=== PATIENT | male | born 1950 | race Caucasian/White ===

== ENCOUNTER → 2022-03-11 12:16 | Outpatient (CLI) | payer MEDICARE, OTHER, SELFPAY ==
--- NOTE | 2022-03-11 12:32 | XR_ITS ---
FINAL REPORT TECHNIQUE: Chest PA & Lateral CLINICAL HISTORY: dyspnea-- afib FINDINGS: 2 views of the chest were performed. The heart is mildly enlarged. The mediastinum is within normal limits. There is volume loss in the right hemithorax with blunting of the right costophrenic angle probably due to scarring. The left lung is clear. There are no pleural effusions. There is no pneumothorax. The bony thorax appears intact. IMPRESSION: No acute cardiopulmonary process. Reviewed, Interpreted and Dictated by Allen Gee MD Transcribed by Omar Brandt Authenticated by Allen Gee MD on 03/11/2022 02:13:14 PM [facility]
[2022-03-11 14:01] LABS: Basophils # 0.1 K/mm3 (0-0.2); Basophils % 1.6 % (0.1-2.0); Eosinophils # 0.2 K/mm3 (0.0-0.4); Eosinophils % 2.7 % (0.1-12.0); Hematocrit 44.6 % (42.0-52.0); Hemoglobin 14.4 g/dL (14.1-18.0); Lymphocytes % 12.1 % (10-50); Mean Corpuscular HGB Conc 32.2 g/dL (31.8-35.4); Mean Corpuscular Hemoglobin 34.3 pg (27.0-31.2); Mean Corpuscular Volume 106.3 fl (80-94); Mean Platelet Volume 9.2 fl (7.4-10.4); Monocytes # 0.6 K/mm3 (0.1-1.0); Monocytes % 7.7 % (1.7-9.3); Neutrophils # 6.1 K/mm3 (1.8-7.8); Platelet Count 240 K/mm3 (142-424); Red Blood Count 4.19 M/mm3 (4.60-6.20)
[2022-03-11 14:13] LABS: Chloride 104 mmol/L (98-107); Potassium 4.8 mmoL/L (3.5-5.1); Sodium 137 mmol/L (136-145)
[2022-03-11 14:15] LABS: Blood Urea Nitrogen 20 mg/dl (9-20); Estimated Glomerular Filt Rate 50 ml/min (>60); GFR (African American) 61 ML/MIN (>60)
[2022-03-11 14:16] LABS: Alanine Aminotransferase 26 U/L (12-78); Albumin Level 3.9 g/dl (3.5-5.0); Alkaline Phosphatase 30 U/L (38-126); Anion Gap 9.8 mEq/L (5-15); Aspartate Amino Transferase 31 U/L (17-59); Bilirubin,Direct 0.3 mg/dl (0.0-0.4); Bilirubin,Indirect 0.7 mg/dL (0.0-0.9); Bilirubin,Unconjugated 0.7 mg/dL (0.0-1.1); Calcium 8.7 mg/dl (8.4-10.2); Carbon Dioxide 28 mmol/L (22.0-30.0); Glucose 258 mg/dl (74-100); Total Protein,Serum 6.7 g/dl (6.3-8.2)
[2022-03-11 14:46] LABS: Free T4 (Free Thyroxine) 1.22 ng/dl (0.78-2.19)
[2022-03-11 14:47] LABS: Thyroid Stimulating Hormone 2.41 uIU/mL (0.465-4.68)
[2022-03-20 16:39] LABS: 1,25 Dihydroxy Vitamin D 44 pg/mL (.); 1,25-Dihydroxy, Vitamin D-2 <10 pg/mL (.); 1,25-Dihydroxy, Vitamin D-3 44 pg/mL (.)
== END ==
PROVIDERS: PCP Pediatrics; Visit Provider Internal Medicine
DX: I48.91 Unspecified atrial fibrillation (principal); R00.0 Tachycardia, unspecified; R06.00 Dyspnea, unspecified; R94.31 Abnormal electrocardiogram [ECG] [EKG]; E11.9 Type 2 diabetes mellitus without complications; I63.9 Cerebral infarction, unspecified; Z79.4 Long term (current) use of insulin
CPT/HCPCS: 36415; 71046; 80048; 80076; 82652; 84439; 84443; 85025

== ENCOUNTER 2022-03-12 13:25 | Inpatient (IN) | payer MEDICARE, OTHER, SELFPAY ==
--- NOTE | 2022-03-12 07:44 | CA_ITS ---
APPROVED REPORT EXAM: Comprehensive 2D, Doppler, and color-flow Echocardiogram Financial Services Associate: Martha Yun CRT Ht: 5 ft 10 in Wt: 237lbs BSA: 2.24 BP: 143/83 mmHg Indications: Shortness of Breath, Atrial Fibrillation, Diabetes, Lung Ca, R partial pneumonectomy 2D Dimensions Aortic Root 2.01 cm LA Volume 68.20 mL LA Volume Index 30.40 mL/m2 (M/F) 16-34 M-Mode Dimensions RVDd 2.25 cm (0.9-2.6) LA Diam 4.12 cm (1.9-4.0) LVDd 5.28 cm (3.5-5.7) Ao Diam 4.65 cm (2.0-3.7) LVDs 4.32 cm (3.5-5.7) IVSd 0.96 cm (0.6-1.1) PWd 0.75 cm (0.6-1.1) EF (Teich) 37.40% FS 18.20% EDV (Teich) 134.20 mL ESV (Teich) 84.00 mL Aortic Valve AI PHT 106.00 ms AO Peak GR. 3.50 mmHg Pulmonary Valve PV Peak Velocity 106.00 (50-150 cm/s) Tricuspid Valve TR P. Velocity 428.00 cm/s RAP Estimate 10.00 mmHg RVSP 83.10 mmHg Left Ventricle Left atrium is mildly enlarged, left ventricle is normal size, mild concentric left ventricular hypertrophy, grade ventricular systolic function with ejection fraction 30% with left ventricular cavity hypokinetic. Diastolic parameters are inconclusive. Right Ventricle Right atrium and right ventricle are normal size and contractility. Aortic Valve Minimal thickened and fibrosed, there is no aortic stenosis or insufficiency. Mitral Valve Mitral valve grossly normal there is mild mitral regurgitation. Tricuspid Valve Tricuspid grossly normal, there is trace regurgitation, calculated right ventricular systolic pressure is 41 mmHg. Pulmonic Valve Pulmonic valve is poorly visualized. Great Vessels Aortic root is normal size. Inferior vena cava is poorly visualized. Pericardium No significant pericardial effusion noted. Conclusion 1. Mildly enlarged left atrium, normal left ventricular size, mild concentric left ventricular hypertrophy, estimated ejection fraction 35% left ventricle is globally hypokinetic, diastolic parameters are inconclusive. 2. Mild mitral and tricuspid regurgitation, calculated right ventricular systolic pressure is 41 mmHg. 3. No significant pericardial effusion noted. 4. Inferior vena cava is poorly visualized. Electronically signed by : Emigdio Hernandez MD 03/12/2022 20:58:11
[2022-03-12 13:44] VITALS: BP 126/78; PULSE 123; RESP 16; RESP 18; TEMP 36.6; O2SAT 95; O2SAT 97; BMI 33.0
[2022-03-12 13:56] VITALS: PULSE 120
[2022-03-12 14:44] LABS: Coronavirus 19, PCR Not Detected (NotDetected); Influenza A, PCR Not Detected (NotDetected); Influenza B, PCR Not Detected (NotDetected)
--- NOTE | 2022-03-12 15:12 | HMH.CNCARD ---
History of Present Illness Consult date: 03/12/22 Requesting physician: Mendoza Bello Consult reason: atrial fibrillation, congestive heart failure, shortness of breath Chief complaint: SOA, CHF, A. fib with RVR Additional Medical History:: 1. Diabetes mellitus, treated for about 20 years 2. History of congestive heart failure A. Echocardiogram shows EF of about 30%, 02/2022 3. Atrial fibrillation with a rapid ventricular response, 02/2022 A. Xarelto therapy 4. Status post partial right lung resection due to cancer, September/2021. No chemotherapy or radiation required. 5. 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 No chemotherapy or radiation required. 6. 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 History of present illness: Forwarded from office note today: Pt here for echo fu Pt wt up 1 lb Denies cp & pressure SOB with activity Denies dizziness & lightheadedness Denies swelling Denies numbness Fatigue Did not sleep last night due to sob BP stable. HR remains elevated, despite addition of beta macario. Ex smoker he quit around 19 years ago. DM is present,insulin dependent. ECHO-premlinimary EF 30% or below. Dyspnea progressive and worsening. States last night was the worst night he has ever had from breathing. PLAN: [id number]/AFIB RVR for diuresis and rate control. Cardiac cath tomorrow. Possible DAVE/CV on Thursday [facility] History Medical History: Reports:: Cancer, Congestive Heart Failure, Diabetes Mellitus Type 1 *Have you ever received a pneumonia vaccine?: Yes *Have you received a flu vaccine this season?: No Other Surgeries: Yes: Cancer Surgery (lung ca, kidney) - *Social History Smoking Status: Former smoker Alcohol Intake: never *Occupational Status:: retired Housing: house *Travel in the last 8 weeks: None Family Hx:: Heart Attack, Hypertension, Cancer Meds Home Medications Medication Instructions Recorded Confirmed Type ascorbic acid (vitamin C) 500 mg 500 mg PO DAILY 03/11/22 03/12/22 History tablet aspirin 81 mg tablet,delayed 81 mg PO DAILY 03/11/22 03/12/22 History release fluticasone propionate 50 2 spray INTRANASAL BID g 03/11/22 03/12/22 History mcg/actuation nasal spray,suspension insulin aspart U-100 100 unit/mL 110 unit CONTINUOUS SUBCUTANEOUS 03/11/22 03/12/22 History subcutaneous solution INFUSION TID ml insulin degludec 100 unit/mL 100 unit SQ HS 03/11/22 03/12/22 History subcutaneous solution losartan 100 mg tablet 100 mg PO DAILY tab 03/11/22 03/12/22 History mometasone 0.1 % topical cream applic TOPICAL 03/11/22 03/12/22 History sennosides 8.6 mg tablet 8.6 mg PO BID 03/11/22 03/12/22 History simvastatin 20 mg tablet 20 mg PO HS tab 03/11/22 03/12/22 History tamsulosin 0.4 mg capsule 0.4 mg PO DAILY cap 03/11/22 03/12/22 History trazodone 50 mg tablet 50 mg PO HS tab 03/11/22 03/12/22 History bisoprolol fumarate 10 mg tablet 20 mg PO BID #120 tab 03/12/22 03/12/22 Rx rivaroxaban 20 mg tablet 20 mg PO DAILY #30 tab 03/12/22 03/12/22 Rx Allergies Allergy/AdvReac Type Severity Reaction Status Date / Time No Known Allergies Allergy Verified 03/12/22 08:52 Exam Vital signs and Labs for Last 24 Hours: Temp Pulse Resp BP Pulse Ox 97.9 F 123 H 18 126/78 97 03/12/22 13:44 03/12/22 13:44 03/12/22 13:44 03/12/22 13:44 03/12/22 13:44 I & O for Last 24 hours: Intake & Output 03/10/22 03/11/22 03/12/22 03/13/22 11:59 11:59 11:59 11:59 Intake Total 0 / 0 Balance 0 / 0 Weight 230 lb 1 oz - Constitutional mild distress - *Routine Respiratory Exam Present: CTA bilaterally - *Routine Cardiovascular Exam Present: RRR, tachycardia - *Routine Extremities Exam Absent: cyanosis, clubbing, edema - *Routine Neurological Exam Present: alert, oriented X3 Review of Systems - Review of Systems Review of systems:: pertinent systems reviewed and negative unless documented be
--- NOTE | 2022-03-12 15:31 | P.CONPHA_ITS ---
[facility] Pharmacy VTE Monitoring - Patient Demographics Admission date: 03/12/22 Report Date: 03/12/22 Time: 15:31 Allergies/Adverse Reactions: Patient Allergies No Known Allergies Allergy (Verified 03/12/22 08:52) Height: 1.78 m Weight: 104.355 kg Patient Problems: Current Active Problems Diabetes mellitus (Acute) CHF (congestive heart failure), NYHA class III (Chronic) Atrial fibrillation with RVR (Acute) Dyspnea (Acute) - VTE Risk VTE Score: 5 VTE Risk Level: Low Risk - Prophylaxis VTE Prophylaxis Ordered?: Yes Types of VTE Prophylaxis: TEDS Knee High Location of Applied Device: Bilateral Lower Extremeties
[2022-03-12 15:36] LABS: Chloride 104 mmol/L (98-107); Potassium 4.9 mmoL/L (3.5-5.1); Sodium 135 mmol/L (136-145)
[2022-03-12 15:37] LABS: Basophils # 0.1 K/mm3 (0-0.2); Basophils % 0.8 % (0.1-2.0); Eosinophils # 0.2 K/mm3 (0.0-0.4); Eosinophils % 1.9 % (0.1-12.0); Hematocrit 45.4 % (42.0-52.0); Hemoglobin 14.1 g/dL (14.1-18.0); Lymphocytes # 0.9 K/mm3 (0.7-4.5); Lymphocytes % 10.1 % (10-50); Mean Corpuscular HGB Conc 31.1 g/dL (31.8-35.4); Mean Corpuscular Hemoglobin 33.9 pg (27.0-31.2); Mean Corpuscular Volume 108.8 fl (80-94); Mean Platelet Volume 9.8 fl (7.4-10.4); Monocytes # 0.7 K/mm3 (0.1-1.0); Monocytes % 7.7 % (1.7-9.3); Neutrophils # 7.4 K/mm3 (1.8-7.8); Neutrophils % 79.5 % (37.0-80.0); Platelet Count 263 K/mm3 (142-424); Red Blood Count 4.17 M/mm3 (4.60-6.20); Red Cell Distribution Width 13.4 % (11.5-17.5); White Blood Count 9.3 K/mm3 (4.8-10.8)
[2022-03-12 15:39] LABS: Alanine Aminotransferase 77 U/L (12-78); Albumin Level 3.9 g/dl (3.5-5.0); Albumin/Globulin Ratio 1.3 (1.1-1.8); Alkaline Phosphatase 40 U/L (38-126); Anion Gap 11.9 mEq/L (5-15); Aspartate Amino Transferase 96 U/L (17-59); Bilirubin,Total 1.1 mg/dl (0.2-1.3); Blood Urea Nitrogen 32 mg/dl (9-20); Carbon Dioxide 24 mmol/L (22.0-30.0); Creatinine Clearance Estimated 51 mL/min (50-200); Estimated Glomerular Filt Rate 33 ml/min (>60); GFR (African American) 40 ML/MIN (>60); Globulin 3.1 g/dL (1.3-3.2)
[2022-03-12 15:40] LABS: Calcium 8.3 mg/dl (8.4-10.2); Glucose 290 mg/dl (74-100)
[2022-03-12 15:48] LABS: NT Pro Brain Natriuretic Pep. 2940 pg/mL (0-125)
--- NOTE | 2022-03-12 15:52 | ECG_ITS ---
APPROVED REPORT Exam: Resting ECG HR:122 bpm ECG Measurements Heart Rate 122 AXES QRSd 109 QRS -36 QT 406 T 5 QTc 478 Conclusion Junctional tachycardia ABNORMAL ECG UNCONFIRMED REPORT Electronically signed by : Chente Morales MD 03/13/2022 17:42:38
[2022-03-12 16:00] VITALS: PULSE 120
[2022-03-12 16:00] LABS: Hemoglobin A1C 8.4 % (4.0-6.0)
--- NOTE | 2022-03-12 18:39 | HMH.HP ---
*Admission Date: 03/12/22 *Chief complaint: chest pain *History of present illness: 71 yr old male presents for hypertension Dyspnea progressive and worsening.States last night was the worst night he has ever had from breathing.Patient was seen by cardiology today to follow up on echo and was found to have htn and dyspnea. Pt weight up by 1 lb in office today.Denies cp & pressure, dizziness & lightheadedness,swelling,numbness,and Fatigue. HX DM insulin dependent.ECHO-premlinimary EF 30% or below. Patient admitted for cardiology eval and further work up. [facility] History I have reviewed the patient's past medical history: Yes Medical History: Reports:: Cancer, Congestive Heart Failure, Diabetes Mellitus Type 1 *Have you ever received a pneumonia vaccine?: Yes *Have you received a flu vaccine this season?: No Other Surgeries: Yes: Cancer Surgery (lung ca, kidney) - *Social History Smoking Status: Former smoker Alcohol Intake: never *Occupational Status:: retired Housing: house *Travel in the last 8 weeks: None Family Hx:: Heart Attack, Hypertension, Cancer Review of Systems - Review of Systems Review of systems:: pertinent systems reviewed and negative unless documented below - Constitutional Reports fatigue, Denies body ache(s) - Eyes Denies blurry vision - ENT Denies bleeding gums - *Cardiovascular Reports shortness of breath, Reports shortness of breath with activity, Denies chest pain at rest, Denies chest pain with activity - *Respiratory Reports shortness of breath, Reports shortness of breath with activity, Denies change in phlegm color - *Gastrointestinal Denies belching - *Genitourinary Denies side pain - *Musculoskeletal Denies joint pain - Integumentary/Breasts Denies rash - *Neurologic Denies dizziness - Psychiatric Denies abnormal sleep pattern - Endocrine Denies excessive sweating - Hematologic/Lymphatic Denies easy bruising - Allergic/Immunologic Denies itchy eyes Meds Home Medications Medication Instructions Recorded Confirmed Type ascorbic acid (vitamin C) 500 mg 500 mg PO DAILY 03/11/22 03/12/22 History tablet aspirin 81 mg tablet,delayed 81 mg PO DAILY 03/11/22 03/12/22 History release fluticasone propionate 50 2 spray INTRANASAL BID g 03/11/22 03/12/22 History mcg/actuation nasal spray,suspension insulin aspart U-100 100 unit/mL 110 unit CONTINUOUS SUBCUTANEOUS 03/11/22 03/12/22 History subcutaneous solution INFUSION TID ml insulin degludec 100 unit/mL 100 unit SQ HS 03/11/22 03/12/22 History subcutaneous solution losartan 100 mg tablet 100 mg PO DAILY tab 03/11/22 03/12/22 History mometasone 0.1 % topical cream applic TOPICAL 03/11/22 03/12/22 History sennosides 8.6 mg tablet 8.6 mg PO BID 03/11/22 03/12/22 History simvastatin 20 mg tablet 20 mg PO HS tab 03/11/22 03/12/22 History tamsulosin 0.4 mg capsule 0.4 mg PO DAILY cap 03/11/22 03/12/22 History trazodone 50 mg tablet 50 mg PO HS tab 03/11/22 03/12/22 History bisoprolol fumarate 10 mg tablet 20 mg PO BID #120 tab 03/12/22 03/12/22 Rx rivaroxaban 20 mg tablet 20 mg PO DAILY #30 tab 03/12/22 03/12/22 Rx Allergies Allergy/AdvReac Type Severity Reaction Status Date / Time No Known Allergies Allergy Verified 03/12/22 08:52 Exam Vital signs and Labs for Last 24 Hours: Temp Pulse Resp BP Pulse Ox 97.9 F 120 H 18 126/78 97 03/12/22 13:44 03/12/22 13:56 03/12/22 13:44 03/12/22 13:44 03/12/22 13:44 Laboratory Results - last 24 hr 03/12/22 14:13: WBC 9.3, RBC 4.17 L, Hgb 14.1, Hct 45.4, MCV 108.8 H, MCH 33.9 H, MCHC 31.1 L, RDW 13.4, Plt Count 263, MPV 9.8, Neut % (Auto) 79.5, Lymph % (Auto) 10.1, [place] % (Auto) 7.7, Eos % (Auto) 1.9, Baso % (Auto) 0.8, Neut # (Auto) 7.4, Lymph # (Auto) 0.9, [place] # (Auto) 0.7, Eos # (Auto) 0.2, Baso # (Auto) 0.1 03/12/22 14:13: Sodium 135 L, Potassium 4.9, Chloride 104, Carbon Dioxide 24, Anion Gap 11.9, BUN 32 H D, Creatinine 2.00 H
[2022-03-12 20:00] VITALS: PULSE 120; PULSE 124; O2SAT 97
[2022-03-12 20:47] VITALS: BP 98/59; PULSE 125; RESP 16; TEMP 37.1; O2SAT 97
[2022-03-12 21:29] VITALS: BP 107/73; PULSE 124
[2022-03-13] VITALS (21 sets, daily range): BP systolic 86–121; BP diastolic 51–74; PULSE 90–125; RESP 14–20; TEMP 36.3–37.1; O2SAT 92–99; BMI 31.5; BMI 31.2
--- NOTE | 2022-03-13 | IR_ITS ---
APPROVED REPORT Patient Location: Inpatient Meter/Relay Technician: BOWEN Salmon RT (R) PROCEDURES Left heart catheterization Left ventriculogram Selective coronary angiogram INDICATION New onset systolic congestive heart failure Informed consent was obtained prior to the procedure. COMPLICATIONS None Estimated Blood Loss: Less than 10 mls TECHNIQUE One percent lidocaine used to anesthetize the right anterior aspect of the wrist. The right radial artery was accessed via the Seldinger technique. A 6 Tristanian sheath was placed in the right radial artery. 2.5 mg of verapamil, 800 mcg of nitroglycerin, 1mg Lidocaine and 5000 U Heparin were given through the arterial sheath. The papa catheter was also used to perform left heart catheterization, left ventriculogram and selective coronary angiogram. At the end of the procedure the sheath was removed good hemostasis was achieved using Traclet band, patient was transferred to the postop holding area in stable condition. ANGIOGRAPHIC RESULTS The left main artery Normal The left anterior descending artery Has proximal 10% luminal irregularities with a mid vessel 30 to 40% concentric stenosis The circumflex artery Nondominant with mild luminal irregularities The right coronary artery Dominant normal The FAROOQ ventriculogram reveals Dilated ventricle ejection fraction 25% The left ventricular end-diastolic pressure 30 mmHg IMPRESSION Mild nonflow limiting coronary artery disease Dilated ventricle global hypokinesis Elevated LVEDP PLAN 1. Standard therapy for systolic heart failure 2. Continue anticoagulation 3. DAVE in the morning with planned cardioversion 4. Consideration of LifeVest Electronically signed by : Pravin Walter MD 03/13/2022 12:02:17
[2022-03-13 06:55] LABS: Chloride 103 mmol/L (98-107); Sodium 134 mmol/L (136-145)
[2022-03-13 06:56] LABS: Potassium 4.7 mmoL/L (3.5-5.1)
[2022-03-13 06:59] LABS: Anion Gap 13.7 mEq/L (5-15); Blood Urea Nitrogen 46 mg/dl (9-20); Calcium 8.1 mg/dl (8.4-10.2); Carbon Dioxide 22 mmol/L (22.0-30.0); Creatinine Clearance Estimated 49 mL/min (50-200); Estimated Glomerular Filt Rate 33 ml/min (>60); GFR (African American) 40 ML/MIN (>60); Glucose 233 mg/dl (74-100)
--- NOTE | 2022-03-13 09:44 | HMH.ACPN2 ---
Internal Medicine - PN: Subj *Date: 03/13/22 *Time: 14:29 Interval history: 71-year-old male patient standing up in room denies any chest pain during the night but does admit shortness of breath. He was easily short of breath with past several years which is the reason he came to the emergency department. He is scheduled for a cardiac catheterization today Exam Vital signs and Labs for Last 24 Hours: Temp Pulse Resp BP Pulse Ox 97.9 F 125 H 14 106/64 L 98 03/13/22 08:00 03/13/22 08:00 03/13/22 08:00 03/13/22 08:00 03/13/22 08:00 Laboratory Results - last 24 hr 03/12/22 14:13: WBC 9.3, RBC 4.17 L, Hgb 14.1, Hct 45.4, MCV 108.8 H, MCH 33.9 H, MCHC 31.1 L, RDW 13.4, Plt Count 263, MPV 9.8, Neut % (Auto) 79.5, Lymph % (Auto) 10.1, [place] % (Auto) 7.7, Eos % (Auto) 1.9, Baso % (Auto) 0.8, Neut # (Auto) 7.4, Lymph # (Auto) 0.9, [place] # (Auto) 0.7, Eos # (Auto) 0.2, Baso # (Auto) 0.1 03/12/22 14:13: Sodium 135 L, Potassium 4.9, Chloride 104, Carbon Dioxide 24, Anion Gap 11.9, BUN 32 H D, Creatinine 2.00 H D, Estimated Creat Clear 51, Estimated GFR 33 L, Est GFR ( Amer) 40 L D, Glucose 290 H, Calcium 8.3 L, Total Bilirubin 1.1, AST 96 H D, ALT 77 D, Alkaline Phosphatase 40, NT-Pro-B Natriuret Pep 2940 H, Total Protein 7.0, Albumin 3.9, Globulin 3.1, Albumin/Globulin Ratio 1.3 03/12/22 14:13: Hemoglobin A1c 8.4 H 03/12/22 14:35: SARS-CoV-2 (PCR) Not detected, Influenza A Untype (PCR) Not detected, Influenza Type B (PCR) Not detected 03/13/22 06:00: Sodium 134 L, Potassium 4.7, Chloride 103, Carbon Dioxide 22, Anion Gap 13.7, BUN 46 H D, Creatinine 2.00 H, Estimated Creat Clear 49, Estimated GFR 33 L, Est GFR ( Amer) 40 L, Glucose 233 H, Calcium 8.1 L I & O for Last 24 hours: Intake & Output 03/10/22 03/11/22 03/12/22 03/13/22 23:59 23:59 23:59 23:59 Intake Total 240 / 240 Balance 240 / 240 Weight 230 lb 1 oz 220 lb 4.8 oz - Constitutional no acute distress - *Routine HEENT Exam Head: Present: normocephalic Eye: Present: EOMI ENT: Present: mucous membranes moist - *Routine Neck Exam Present: trachea midline. Absent: tracheal deviation - *Routine Respiratory Exam Present: CTA bilaterally. Absent: accessory muscle use - *Routine Cardiovascular Exam Present: RRR - *Routine Abdominal Exam Present: soft, normoactive bowel sounds. Absent: tenderness, firm - *Routine Extremities Exam Present: full ROM, pulses intact. Absent: cyanosis, clubbing, edema - *Routine Skin Exam Present: intact, dry. Absent: cyanosis, erythema - *Routine Neurological Exam Present: alert, oriented X3. Absent: motor deficit - Routine Psychiatric Exam Present: normal affect, normal thought process. Absent: auditory hallucinations Assessment and Plan (1) Dyspnea Status: Acute Qualifiers: Dyspnea type: dyspnea on exertion Qualified Code(s): R06.00 - Dyspnea, unspecified Category: Medical Code(s): R06.00 - Dyspnea, unspecified (2) CHF (congestive heart failure), NYHA class III Status: Chronic Category: Medical Code(s): I50.9 - Heart failure, unspecified (3) Atrial fibrillation with RVR Status: Acute Category: Medical Code(s): I48.91 - Unspecified atrial fibrillation (4) Diabetes mellitus Status: Acute Category: Medical Code(s): E11.9 - Type 2 diabetes mellitus without complications (5) History of lung cancer in adulthood Status: Acute Category: Medical Code(s): Z85.118 - Personal history of other malignant neoplasm of bronchus and lung (6) History of renal cell cancer Status: Acute Category: Medical Code(s): Z85.528 - Personal history of other malignant neoplasm of kidney (7) Solitary kidney, acquired Status: Acute Category: Medical Code(s): Z90.5 - Acquired absence of kidney (8) EARLINE (acute kidney injury) Status: Acute Category: Medical Code(s): N17.9 - Acute kidney failure, unspecified - Assessment and plan all Dx Assessmen
[2022-03-13 10:43] LABS: Hematocrit 40.1 % (42.0-52.0); Hemoglobin 13.2 g/dL (14.1-18.0); Mean Corpuscular HGB Conc 32.9 g/dL (31.8-35.4); Mean Corpuscular Hemoglobin 33.5 pg (27.0-31.2); Mean Corpuscular Volume 101.8 fl (80-94); Red Blood Count 3.94 M/mm3 (4.60-6.20)
[2022-03-13 10:44] LABS: Mean Platelet Volume 11.9 fl (7.4-10.4); Platelet Count 203 K/mm3 (142-424); Red Cell Distribution Width 12.4 % (11.5-17.5); White Blood Count 8.5 K/mm3 (4.8-10.8)
--- NOTE | 2022-03-13 11:00 | HMH.PHAINT ---
Home medication list has been verified using the [employer] claim history and the med-rec from a recent visit with on of our providers.
--- NOTE | 2022-03-13 12:44 | HMH.PNCARD ---
Subjective Date: 03/13/22 Time: 12:44 Principal diagnosis: A. fib with RVR, CM, EARLINE Interval history: 71-year-old white male admitted for A. fib with RVR, cardiomyopathy and acute kidney injury with plans for cardiac catheterization today. No complaints overnight. Creatinine stable at 2.0 this morning. Cardiac catheterization was undertaken today revealing mild nonflow limiting coronary artery disease with EF 25%. Exam Vital signs and Labs for Last 24 Hours: Temp Pulse Resp BP Pulse Ox 97.9 F 102 H 16 107/51 L 96 03/13/22 08:00 03/13/22 12:35 03/13/22 12:35 03/13/22 12:35 03/13/22 12:35 Laboratory Results - last 24 hr 03/12/22 14:13: WBC 9.3, RBC 4.17 L, Hgb 14.1, Hct 45.4, MCV 108.8 H, MCH 33.9 H, MCHC 31.1 L, RDW 13.4, Plt Count 263, MPV 9.8, Neut % (Auto) 79.5, Lymph % (Auto) 10.1, [place] % (Auto) 7.7, Eos % (Auto) 1.9, Baso % (Auto) 0.8, Neut # (Auto) 7.4, Lymph # (Auto) 0.9, [place] # (Auto) 0.7, Eos # (Auto) 0.2, Baso # (Auto) 0.1 03/12/22 14:13: Sodium 135 L, Potassium 4.9, Chloride 104, Carbon Dioxide 24, Anion Gap 11.9, BUN 32 H D, Creatinine 2.00 H D, Estimated Creat Clear 51, Estimated GFR 33 L, Est GFR ( Amer) 40 L D, Glucose 290 H, Calcium 8.3 L, Total Bilirubin 1.1, AST 96 H D, ALT 77 D, Alkaline Phosphatase 40, NT-Pro-B Natriuret Pep 2940 H, Total Protein 7.0, Albumin 3.9, Globulin 3.1, Albumin/Globulin Ratio 1.3 03/12/22 14:13: Hemoglobin A1c 8.4 H 03/12/22 14:35: SARS-CoV-2 (PCR) Not detected, Influenza A Untype (PCR) Not detected, Influenza Type B (PCR) Not detected 03/13/22 06:00: WBC 8.5, RBC 3.94 L, Hgb 13.2 L, Hct 40.1 L, MCV 101.8 H, MCH 33.5 H, MCHC 32.9, RDW 12.4, Plt Count 203, MPV 11.9 H 03/13/22 06:00: Sodium 134 L, Potassium 4.7, Chloride 103, Carbon Dioxide 22, Anion Gap 13.7, BUN 46 H D, Creatinine 2.00 H, Estimated Creat Clear 49, Estimated GFR 33 L, Est GFR ( Amer) 40 L, Glucose 233 H, Calcium 8.1 L I & O for Last 24 hours: Intake & Output 03/11/22 03/12/22 03/13/22 03/14/22 11:59 11:59 11:59 11:59 Intake Total 240 / 240 Balance 240 / 240 Weight 220 lb 4.8 oz 218 lb 4.122 oz - Constitutional no acute distress - *Routine Respiratory Exam Present: CTA bilaterally - *Routine Cardiovascular Exam Present: RRR Progress Note: A&P (1) Dyspnea Status: Acute (2) CHF (congestive heart failure), NYHA class III Status: Chronic (3) Atrial fibrillation with RVR Status: Acute (4) Diabetes mellitus Status: Acute (5) History of lung cancer in adulthood Status: Acute (6) History of renal cell cancer Status: Acute (7) Solitary kidney, acquired Status: Acute (8) EARLINE (acute kidney injury) Status: Acute Assessment and Plan for All Diagnoses:: 1. N.p.o. after midnight for DAVE/cardioversion around noon. 2. Cardiomyopathy likely secondary to atrial fibrillation with rapid ventricular response. EF is estimated around 30-35% on echocardiogram. This should improve quickly if normal sinus rhythm can be returned by DAVE cardioversion tomorrow. Continue beta-macario and ARB therapy. 3. History of left nephrectomy with current creatinine of 2.0. 4. Status post lung cancer with partial right lung resection. 5. Mild coronary artery disease, will start atorvastatin therapy. Continue aspirin. 6. A. fib with RVR, improved slightly with high-dose beta-macario therapy. Continue Xarelto at renal dose.
[2022-03-13 13:11] LABS: Basophils # 0.1 K/mm3 (0-0.2); Basophils % 1.1 % (0.1-2.0); Eosinophils # 0.3 K/mm3 (0.0-0.4); Eosinophils % 3.7 % (0.1-12.0); Lymphocytes # 0.5 K/mm3 (0.7-4.5); Lymphocytes % 7.6 % (10-50); Monocytes % 12.1 % (1.7-9.3); Neutrophils # 6.1 K/mm3 (1.8-7.8); Neutrophils % 75.3 % (37.0-80.0)
[2022-03-14] VITALS (20 sets, daily range): BP systolic 78–133; BP diastolic 42–78; PULSE 60–124; RESP 16–20; TEMP 36.3–36.9; O2SAT 92–100; BMI 31.2
[2022-03-14 06:52] LABS: Basophils # 0.1 K/mm3 (0-0.2); Basophils % 0.7 % (0.1-2.0); Eosinophils # 0.3 K/mm3 (0.0-0.4); Eosinophils % 3.8 % (0.1-12.0); Hematocrit 38.2 % (42.0-52.0); Hemoglobin 13.6 g/dL (14.1-18.0); Lymphocytes # 0.8 K/mm3 (0.7-4.5); Lymphocytes % 10.1 % (10-50); Mean Corpuscular HGB Conc 35.6 g/dL (31.8-35.4); Mean Corpuscular Hemoglobin 37.8 pg (27.0-31.2); Mean Corpuscular Volume 106.2 fl (80-94); Mean Platelet Volume 9.6 fl (7.4-10.4); Monocytes # 0.5 K/mm3 (0.1-1.0); Monocytes % 6.9 % (1.7-9.3); Neutrophils # 6.1 K/mm3 (1.8-7.8); Neutrophils % 78.5 % (37.0-80.0); Platelet Count 193 K/mm3 (142-424); Red Cell Distribution Width 13.2 % (11.5-17.5); White Blood Count 7.8 K/mm3 (4.8-10.8)
[2022-03-14 07:18] LABS: Chloride 106 mmol/L (98-107); Sodium 133 mmol/L (136-145)
[2022-03-14 07:21] LABS: Blood Urea Nitrogen 63 mg/dl (9-20); Carbon Dioxide 16 mmol/L (22.0-30.0); Creatinine Clearance Estimated 42 mL/min (50-200); Estimated Glomerular Filt Rate 28 ml/min (>60); GFR (African American) 34 ML/MIN (>60)
[2022-03-14 07:22] LABS: Calcium 7.9 mg/dl (8.4-10.2); Glucose 156 mg/dl (74-100)
--- NOTE | 2022-03-14 10:13 | HMH.PNCARD ---
Subjective Date: 03/14/22 Time: 10:14 Principal diagnosis: A. fib with RVR, CM, EARLINE Interval history: 71-year-old white male in bedside chair no acute distress. Denies any chest pain, pressure or tightness. He has had some upset stomach overnight but no vomiting. Exam Vital signs and Labs for Last 24 Hours: Temp Pulse Resp BP Pulse Ox 97.6 F 123 H 17 124/73 99 03/14/22 08:00 03/14/22 08:00 03/14/22 08:00 03/14/22 08:00 03/14/22 08:00 Laboratory Results - last 24 hr 03/13/22 06:00: WBC 8.5, RBC 3.94 L, Hgb 13.2 L, Hct 40.1 L, MCV 101.8 H, MCH 33.5 H, MCHC 32.9, RDW 12.4, Plt Count 203, MPV 11.9 H, Neut % (Auto) 75.3, Lymph % (Auto) 7.6 L, [place] % (Auto) 12.1 H, Eos % (Auto) 3.7, Baso % (Auto) 1.1, Neut # (Auto) 6.1, Lymph # (Auto) 0.5 L, [place] # (Auto) 1.0, Eos # (Auto) 0.3, Baso # (Auto) 0.1 03/14/22 06:28: Sodium 133 L, Potassium 5.0, Chloride 106, Carbon Dioxide 16 L, Anion Gap 16.0 H, BUN 63 H D, Creatinine 2.30 H, Estimated Creat Clear 42, Estimated GFR 28 L, Est GFR ( Amer) 34 L, Glucose 156 H, Calcium 7.9 L 03/14/22 06:28: WBC 7.8, RBC 3.60 L, Hgb 13.6 L, Hct 38.2 L, MCV 106.2 H, MCH 37.8 H, MCHC 35.6 H, RDW 13.2, Plt Count 193, MPV 9.6, Neut % (Auto) 78.5, Lymph % (Auto) 10.1, [place] % (Auto) 6.9, Eos % (Auto) 3.8, Baso % (Auto) 0.7, Neut # (Auto) 6.1, Lymph # (Auto) 0.8, [place] # (Auto) 0.5, Eos # (Auto) 0.3, Baso # (Auto) 0.1 I & O for Last 24 hours: Intake & Output 03/11/22 03/12/22 03/13/22 03/14/22 11:59 11:59 11:59 11:59 Intake Total 240 / 240 720 / 720 Balance 240 / 240 720 / 720 Weight 220 lb 4.8 oz 218 lb 4.122 oz - Constitutional no acute distress - *Routine Respiratory Exam Present: CTA bilaterally - *Routine Cardiovascular Exam Present: RRR, irregular rhythm Progress Note: A&P (1) Dyspnea Status: Acute (2) CHF (congestive heart failure), NYHA class III Status: Chronic (3) Atrial fibrillation with RVR Status: Acute (4) Diabetes mellitus Status: Acute (5) History of lung cancer in adulthood Status: Acute (6) History of renal cell cancer Status: Acute (7) Solitary kidney, acquired Status: Acute (8) EARLINE (acute kidney injury) Status: Acute Assessment and Plan for All Diagnoses:: 1. DAVE/cardioversion around noon. 2. Cardiomyopathy, likely secondary to A. fib with RVR. EF is 35% on echocardiogram. This should improve quickly if NSR maintained. Continue beta-macario and ARB therapy. 3. History of left nephrectomy with current creatinine of 2.3. Will start IVF due to contrast yesterday and IV lasix. 4. Status post lung cancer with partial right lung resection. 5. Mild coronary artery disease, will start atorvastatin therapy. Continue aspirin. 6. A. fib with RVR, improved slightly with high-dose beta-macario therapy. Continue Xarelto at renal dose. Check EKG today.
--- NOTE | 2022-03-14 10:27 | ECG_ITS ---
APPROVED REPORT Exam: Resting ECG HR:123 bpm ECG Measurements Heart Rate 123 AXES QRSd 96 QRS -1 QT 404 T 28 QTc 477 Conclusion ATRIAL FLUTTER/TACHYCARDIA WITH RAPID VENTRICULAR RESPONSE NONSPECIFIC T-WAVE ABNORMALITY ABNORMAL RHYTHM ECG UNCONFIRMED REPORT Electronically signed by : Chente Morales MD 03/14/2022 16:19:18
--- NOTE | 2022-03-14 12:00 | HMH.ANESCL ---
[facility] Anesthesia Checklist - Patient Identification Patient Identification: Arm Band - Structural Data Admitted From: Inpatient Planned Operative Procedure/s: arin Consent for Planned Operative Procedure(s) Verified: Yes - NPO Status Verified Time NPO: 00:00 - Airway Assessment C-Spine Mobility Assessed: Yes TMJ Mobility Assessed: Yes Dentition: Good Dentition - Neurological Assessment Level of Consciousness: Awake Hx Seizures: No Numbness or tingling in extremities: No - Anesthesia Plan Anesthesia Risk discussed: Yes Anesthesia Plan: Verified ASA Class: III Anesthesia Type: MAC [facility] History I have reviewed the patient's past medical history: Yes Medical History: Reports:: Atrial Fibrillation, Cancer, Congestive Heart Failure, Diabetes Mellitus Type 1, Lung Disease, Renal Disease *Have you ever received a pneumonia vaccine?: Yes *Have you received a flu vaccine this season?: No Anesthesia experience/problems:: None Other Surgeries: Yes: Cancer Surgery (lung ca, kidney) - *Social History Smoking Status: Former smoker Alcohol Intake: never Substance Use Type: denies use *Occupational Status:: retired Housing: house *Travel in the last 8 weeks: None Family Hx:: Heart Attack, Hypertension, Cancer
--- NOTE | 2022-03-14 12:21 | CA_ITS ---
APPROVED REPORT EXAM: Comprehensive 2D, Doppler, and color-flow Echocardiogram Studio Technician Video Operator: Ngoc Coker RDCS Ht: 5 ft 10 in Wt: 220lbs BSA: 2.17 BP: 138/78 mmHg Indications: AF Procedure After obtaining informed consent, patient underwent transesophageal echo in the Manufacturing [facility]. Type of Sedation : Conscious Sedation Sedation was administered by Satnam ClementROlegN.Karthik Transesophageal probe was inserted and advanced into esophagus without difficulty by Dr. Tabitha Sampson. The DAVE was performed without complications. Synchronized Cardioversion attempted: Successful Synchronized Cardioversion acheived with 200 Joules after 1 attempt(s). Rhythm following Synchronized Cardioversion: Normal Sinus Rhythm Throughout the procedure, the blood pressure, pulse oximetry, cardiac rhythm, and rate were monitored. The patient tolerated the procedure without adverse effects. Recovery from conscious sedation was uneventful and vital signs were stable. Left Ventricle Left ventricle is mildly dilated, reduced left ventricular systolic function, estimated ejection fraction 35% with left ventricular global hypokinesis. Right Ventricle Right ventricle is mildly enlarged with normal contractility. Atria Left atrium is mildly enlarged, there is no thrombus seen in the left atrium. Left atrial appendage free of thrombus, there is good appendage flow by spectral Doppler. Right atrium is mildly dilated. Intra-atrial septum is intact, there is no flow across the atrial septum, agitated saline contrast study did not identify intracardiac shunt. Aortic Valve Aortic valve is minimally thickened and fibrosed, there is no aortic stenosis or aortic insufficiency. Mitral Valve Mitral valve is grossly normal, there is mild mitral regurgitation. Tricuspid Valve Tricuspid valve grossly normal, there is mild tricuspid rotation. Pulmonic Valve Pulmonic valve is grossly normal. Great Vessels Aortic root is normal size. Ascending, arch and descending thoracic aorta there is no aneurysm or dissection, nonmobile atheromatous plaque seen in the descending thoracic aorta. Inferior vena cava is is not visualized. Pericardium No significant pericardial effusion noted. Conclusion 1. Biatrial enlargement, mildly dilated left ventricle, estimated ejection fraction 35% with left ventricular global hypokinesis. 2. No thrombus seen in the left atrium or left atrial appendage. 3. Mild mitral and tricuspid regurgitation. 4. No significant pericardial effusion noted. 5. Nonmobile atheromatous plaque seen in the descending thoracic aorta. 6. Successful electrocardioversion to restore sinus rhythm. Electronically signed by : Emigdio Hernandez MD 03/14/2022 13:05:25
--- NOTE | 2022-03-14 12:41 | ECG_ITS ---
APPROVED REPORT Exam: Resting ECG HR:60 bpm ECG Measurements Heart Rate 60 AXES IN 156 P 39 QRSd 105 QRS -28 QT 438 T 30 QTc 439 Conclusion SINUS RHYTHM WITH SINUS ARRHYTHMIA Bialtrial abnormality Short IN interval ABNORMAL ECG INTERPRETATION BASED ON A DEFAULT AGE OF 40 YEARS UNCONFIRMED REPORT Electronically signed by : Chente Morales MD 03/14/2022 16:18:00
--- NOTE | 2022-03-14 15:01 | HMH.DCSUM ---
General - General Admission date:: 03/12/22 <Mendoza Bello S - 03/15/22 08:47> 03/12/22 <Derrell Martinezdarnell - 03/14/22 15:02> Discharge date: 03/15/22 <Mendoza Bello - 03/15/22 08:47> 03/14/22 <Derrell Martinezdarnell - 03/14/22 15:02> HPI HPI: 71 yr old male presents for hypertension Dyspnea progressive and worsening.States last night was the worst night he has ever had from breathing.Patient was seen by cardiology today to follow up on echo and was found to have htn and dyspnea. Pt weight up by 1 lb in office today.Denies cp & pressure, dizziness & lightheadedness,swelling,numbness,and Fatigue. HX DM insulin dependent.ECHO-premlinimary EF 30% or below. Patient admitted for cardiology eval and further work up. <Derrell Martinezhermescarina - 03/14/22 15:02> Hospital Course Hospital Course: Abnormal Lab Results 03/14/22 06:28: Sodium 133 L, Carbon Dioxide 16 L, Anion Gap 16.0 H, BUN 63 H D, Creatinine 2.30 H, Estimated GFR 28 L, Est GFR ( Amer) 34 L, Glucose 156 H, Calcium 7.9 L 03/14/22 06:28: RBC 3.60 L, Hgb 13.6 L, Hct 38.2 L, MCV 106.2 H, MCH 37.8 H, MCHC 35.6 H cardiology consult:DAVE negative for thrombus. EF 35%. Will not use Life Vest at this time. Cardioversion was successful to NSR. OK to discharge home. Med recommendations: Aspirin 81 mg daily Bisoprolol 20 mg BID Xarelto 15 mg daily with largest meal of the day Simvastatin 20 mg daily Hold losartan for now due to low BP and elevated creatinine Follow up next week. cardiology consult:Assessment and Plan for All Diagnoses:: 1. DAVE/cardioversion around noon. 2. Cardiomyopathy, likely secondary to A. fib with RVR. EF is 35% on echocardiogram. This should improve quickly if NSR maintained. Continue beta-macario and ARB therapy. 3. History of left nephrectomy with current creatinine of 2.3. Will start IVF due to contrast yesterday and IV lasix. 4. Status post lung cancer with partial right lung resection. 5. Mild coronary artery disease, will start atorvastatin therapy. Continue aspirin. 6. A. fib with RVR, improved slightly with high-dose beta-macario therapy. Continue Xarelto at renal dose. Check EKG today. Discharge Plan (1) Dyspnea-r/t a fib and chf (2) CHF (congestive heart failure), NYHA class III-EF 35%. Will not use Life Vest at this time.per cardiology (3) Atrial fibrillation with RVR-improved slightly with high-dose beta-macario therapy. Continue Xarelto at renal dose. Cardioversion was successful to NSR .Aspirin 81 mg daily Bisoprolol 20 mg BID,Xarelto 15 mg daily with largest meal of the day Simvastatin 20 mg daily follow up with cardiology 1 week (4) Diabetes mellitus- Continue home meds and follow up with pcp (5) History of lung cancer in adulthood-follow up with pulmonology,partial right lung resection. (6) History of renal cell cancer-History of left nephrectomy, follow up with nephrology (7) Solitary kidney, acquired-History of left nephrectomy. (8) EARLINE (acute kidney injury)-cre 2.3,Hold losartan for now due to low BP and elevated creatinine (9) CAD-Mild coronary artery disease, will start atorvastatin therapy. Continue aspirin. <Gabriela Martinez - 03/14/22 15:25> Objective Vital signs: Temp Pulse Resp BP Pulse Ox 98.2 F 92 H 16 92/48 L 99 03/15/22 08:00 03/15/22 08:00 03/15/22 08:00 03/15/22 08:00 03/15/22 08:00 <Mendoza Bello - 03/15/22 08:47> Temp Pulse Resp BP Pulse Ox 97.9 F 66 20 90/55 L 99 03/14/22 11:23 03/14/22 13:12 03/14/22 13:12 03/14/22 13:12 03/14/22 13:12 <Gabriela Martinez - 03/14/22 15:02> no acute distress <Gabriela Martinez - 03/14/22 15:25> - *Routine HEENT Exam Head: Present: normocephalic <Gabriela Martinez - 03/14/22 15:25> Eye: Present: PERRL <Gabriela Martinez - 03/14/22 15:25> ENT: Present: mucous membranes moist <Gabriela Martinez - 03/14/22 15:25> - *Routine Neck Exam Present: suppl
--- NOTE | 2022-03-14 15:41 | HMH.PHAINT ---
DISCHARGE MEDICATION COUNSELING PROVIDED. DISCUSSED STOPPING THE LOSARTAN, AND THE DECREASE IN DOSE ON THE XARELTO FROM 20 MG TO 15 MG. 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 DISCUSSED THAT OUR DISCHARGE SHEET HAS TO STOP THE BISOPROLOL AND ALSO LISTS IT A NEW MED. PATIENT ENDORSED UNDERSTANDING AND HAD NO FURTHER QUESTIONS AT THIS TIME.
--- NOTE | 2022-03-14 17:20 | PC.NURSE ---
Per ADIS Rosario during rounds patient was given option to stay until tomorrow if didn't feel up to going home today due to late procedure and patient is unable to drive himself until 12 noon tomorrow due to being sedated today. Patient VS are stable and is NSR HR 72. Gabriela Martinez v.o. discharge for today has been cancelled and patient will be seen during rounds tomorrow for evaluation for discharge.
[2022-03-15] VITALS: BP 98/50; PULSE 60; PULSE 62; RESP 18; TEMP 36.9; O2SAT 96
--- NOTE | 2022-03-15 02:00 | PC.NURSE ---
pt up to chair, pt c/o soa with exertion and states when he lays down he has a hard time breathing, no acute distress noted, pt states he has been this way since he was diagnosed with covid, 02 sats are 95% on room air, sinus rythm noted, pt was placed on 02 at 1L for comfort while lying in bed. pt stated when they put o2 on him when they did the cath it helped him. will continue to monitor.
[2022-03-15 04:00] VITALS: BP 98/52; PULSE 64; PULSE 70; RESP 20; TEMP 36.4; O2SAT 98
[2022-03-15 04:59] VITALS: BMI 32.6
[2022-03-15 06:39] LABS: Basophils # 0.1 K/mm3 (0-0.2); Basophils % 0.5 % (0.1-2.0); Eosinophils # 0.1 K/mm3 (0.0-0.4); Eosinophils % 0.7 % (0.1-12.0); Hematocrit 42.4 % (42.0-52.0); Hemoglobin 13.2 g/dL (14.1-18.0); Lymphocytes # 0.9 K/mm3 (0.7-4.5); Mean Corpuscular HGB Conc 31.3 g/dL (31.8-35.4); Mean Corpuscular Volume 108.9 fl (80-94); Mean Platelet Volume 9.9 fl (7.4-10.4); Monocytes # 0.7 K/mm3 (0.1-1.0); Monocytes % 6.3 % (1.7-9.3); Neutrophils % 84.4 % (37.0-80.0); Platelet Count 286 K/mm3 (142-424); Red Blood Count 3.89 M/mm3 (4.60-6.20); Red Cell Distribution Width 13.4 % (11.5-17.5); White Blood Count 10.7 K/mm3 (4.8-10.8)
[2022-03-15 08:00] VITALS: BP 92/48; PULSE 92; RESP 16; TEMP 36.8; O2SAT 99
--- NOTE | 2022-03-15 08:48 | HMH.ACPN2 ---
Internal Medicine - PN: Subj *Date: 03/15/22 *Time: 08:48 Interval history: seen this am and doing ok - discussed follow up and meds and monitor bp - Exam Vital signs and Labs for Last 24 Hours: Temp Pulse Resp BP Pulse Ox 98.2 F 92 H 16 92/48 L 99 03/15/22 08:00 03/15/22 08:00 03/15/22 08:00 03/15/22 08:00 03/15/22 08:00 Laboratory Results - last 24 hr 03/15/22 06:28: WBC 10.7 D, RBC 3.89 L, Hgb 13.2 L, Hct 42.4, MCV 108.9 H, MCH 34.0 H, MCHC 31.3 L, RDW 13.4, Plt Count 286 D, MPV 9.9, Neut % (Auto) 84.4 H, Lymph % (Auto) 8.0 L, [place] % (Auto) 6.3, Eos % (Auto) 0.7, Baso % (Auto) 0.5, Neut # (Auto) 9.0 H, Lymph # (Auto) 0.9, [place] # (Auto) 0.7, Eos # (Auto) 0.1, Baso # (Auto) 0.1 I & O for Last 24 hours: Intake & Output 03/12/22 03/13/22 03/14/22 03/15/22 11:59 11:59 11:59 11:59 Intake Total 240 / 240 720 / 720 1666 / 1666 Balance 240 / 240 720 / 720 1666 / 1666 Weight 220 lb 4.8 oz 218 lb 4.122 oz 228 lb 1.6 oz - Constitutional no acute distress, obese - *Routine HEENT Exam Head: Present: normocephalic Eye: Present: EOMI, PERRL ENT: Present: mucous membranes dry - *Routine Neck Exam Absent: JVD - *Routine Respiratory Exam Present: decreased breath sounds - *Routine Cardiovascular Exam Present: RRR - *Routine Abdominal Exam Present: soft - *Routine Extremities Exam Absent: calf tenderness - *Routine Skin Exam Present: intact - *Routine Neurological Exam Present: alert, CN II-XII intact - Routine Psychiatric Exam Present: normal affect, cooperative Assessment and Plan (1) Dyspnea Status: Acute Qualifiers: Dyspnea type: dyspnea on exertion Qualified Code(s): R06.00 - Dyspnea, unspecified Category: Medical Code(s): R06.00 - Dyspnea, unspecified (2) CHF (congestive heart failure), NYHA class III Status: Chronic Category: Medical Code(s): I50.9 - Heart failure, unspecified (3) Atrial fibrillation with RVR Status: Acute Category: Medical Code(s): I48.91 - Unspecified atrial fibrillation (4) Diabetes mellitus Status: Acute Category: Medical Code(s): E11.9 - Type 2 diabetes mellitus without complications (5) History of lung cancer in adulthood Status: Acute Category: Medical Code(s): Z85.118 - Personal history of other malignant neoplasm of bronchus and lung (6) History of renal cell cancer Status: Acute Category: Medical Code(s): Z85.528 - Personal history of other malignant neoplasm of kidney (7) Solitary kidney, acquired Status: Acute Category: Medical Code(s): Z90.5 - Acquired absence of kidney (8) EARLINE (acute kidney injury) Status: Acute Category: Medical Code(s): N17.9 - Acute kidney failure, unspecified
== END 2022-03-15 09:25 | disposition home or self-care (01) | DRG 286 ==
LOC: 2ND 15:19
PROVIDERS: Internal Medicine; Internal Medicine Cardiovascular Disease; Nurse Practitioner Family; Physician Assistant; Admitting Provider Emergency Medicine; PCP Pediatrics; Visit Provider Emergency Medicine
PROC: 4A023N7 Measurement of Cardiac Sampling and Pressure, Left Heart, Percutaneous Approach (ICD-10-PCS; principal; 2022-03-13 12:00)
DX: I48.91 Unspecified atrial fibrillation (principal); I50.21 Acute systolic (congestive) heart failure; N17.9 Acute kidney failure, unspecified; Z20.822 Contact with and (suspected) exposure to COVID-19; Z85.528 Personal history of other malignant neoplasm of kidney; E11.9 Type 2 diabetes mellitus without complications; I25.10 Atherosclerotic heart disease of native coronary artery without angina pectoris; I11.0 Hypertensive heart disease with heart failure
CPT/HCPCS: 36415; 71046; 80048; 80053; 80076; 82652; 83036; 83880; 84439; 84443; 85025; 92960; 93005; 93306; 93312; 93458; 99152; C1725; C1760; C1769; C9803; J1644; Q9957; Q9967; U0003; U0005

== ENCOUNTER → 2022-03-21 14:25 | Outpatient (CLI) | payer MEDICARE, OTHER, SELFPAY ==
--- NOTE | 2022-03-21 14:43 | CT_ITS ---
FINAL REPORT TECHNIQUE: Axial images were obtained from the lung apex to the mid abdomen by computed tomography. Coronal reformatted images were obtained. This study was performed with techniques to keep radiation doses as low as reasonably achievable, (ALARA). Individualized dose reduction techniques using automated exposure control or adjustment of mA and/or kV according to the patient''s size were employed. CLINICAL HISTORY: Dyspnea FINDINGS: There is no axillary adenopathy. There is no hilar or mediastinal adenopathy. Heart size is normal. There is no pericardial effusion. There is a moderate, partially loculated right pleural effusion. Limited images of the upper abdomen are unremarkable. The lung window images there is mild right lung base atelectasis. There is a ground-glass opacity anterior left upper lobe measuring 23 mm favoring inflammatory. There are presumed postoperative changes in the right thorax. IMPRESSION: 23 mm ground-glass opacity in the anterior left upper lobe favoring inflammatory. Moderate, partially loculated right pleural effusion. Reviewed, Interpreted and Dictated by James Quiñones III, MD Transcribed by Emely Hollingsworth Authenticated by James Quiñones III, MD on 03/21/2022 03:48:[address] [facility]
[2022-03-21 15:39] LABS: D-Dimer 0.91 ug/mL (0.0-0.5)
== END ==
PROVIDERS: PCP Family Medicine; Visit Provider Family Medicine
DX: I50.9 Heart failure, unspecified (principal); R06.00 Dyspnea, unspecified; R06.02 Shortness of breath
CPT/HCPCS: 36415; 71250; 85378

== ENCOUNTER → 2022-03-25 16:50 | Outpatient (CLI) | payer MEDICARE, OTHER, SELFPAY ==
[2022-03-25 14:32] LABS: Chloride 95 mmol/L (98-107); Potassium 4.7 mmoL/L (3.5-5.1); Sodium 133 mmol/L (136-145)
[2022-03-25 14:35] LABS: Alanine Aminotransferase 27 U/L (12-78); Albumin Level 3.4 g/dl (3.5-5.0); Albumin/Globulin Ratio 1.3 (1.1-1.8); Alkaline Phosphatase 43 U/L (38-126); Anion Gap 8.7 mEq/L (5-15); Aspartate Amino Transferase 26 U/L (17-59); Bilirubin,Total 1.2 mg/dl (0.2-1.3); Blood Urea Nitrogen 30 mg/dl (9-20); Carbon Dioxide 34 mmol/L (22.0-30.0); Estimated Glomerular Filt Rate 40 ml/min (>60); GFR (African American) 48 ML/MIN (>60); Globulin 2.7 g/dL (1.3-3.2); Total Protein,Serum 6.1 g/dl (6.3-8.2)
[2022-03-25 14:36] LABS: Calcium 9.1 mg/dl (8.4-10.2)
[2022-03-25 14:38] LABS: Glucose 562 mg/dl (74-100)
== END ==
PROVIDERS: Visit Provider Family Medicine
DX: Z90.5 Acquired absence of kidney (principal)
CPT/HCPCS: 80053

== ENCOUNTER → 2022-04-04 15:03 | Outpatient (CLI) | payer MEDICARE, OTHER, SELFPAY ==
[2022-04-04 17:00] LABS: Anion Gap 9.3 mEq/L (5-15); Blood Urea Nitrogen 33 mg/dl (9-20); Calcium 8.9 mg/dl (8.4-10.2); Carbon Dioxide 32 mmol/L (22.0-30.0); Chloride 99 mmol/L (98-107); Estimated Glomerular Filt Rate 40 ml/min (>60); GFR (African American) 48 ML/MIN (>60); Glucose 268 mg/dl (74-100); Potassium 4.3 mmoL/L (3.5-5.1); Sodium 136 mmol/L (136-145)
== END ==
PROVIDERS: Visit Provider Internal Medicine
DX: E11.9 Type 2 diabetes mellitus without complications (principal); I48.91 Unspecified atrial fibrillation; I50.9 Heart failure, unspecified; R06.00 Dyspnea, unspecified; Z85.118 Personal history of other malignant neoplasm of bronchus and lung; Z85.528 Personal history of other malignant neoplasm of kidney; Z90.5 Acquired absence of kidney; Z79.4 Long term (current) use of insulin
CPT/HCPCS: 36415; 80048

== ENCOUNTER → 2022-04-11 10:41 | Outpatient (CLI) | payer MEDICARE, OTHER, SELFPAY ==
[2022-04-11 13:04] LABS: Chloride 101 mmol/L (98-107); Potassium 4.2 mmoL/L (3.5-5.1); Sodium 134 mmol/L (136-145)
[2022-04-11 13:07] LABS: Anion Gap 11.2 mEq/L (5-15); Blood Urea Nitrogen 36 mg/dl (9-20); Calcium 9.4 mg/dl (8.4-10.2); Carbon Dioxide 26 mmol/L (22.0-30.0); Estimated Glomerular Filt Rate 46 ml/min (>60); GFR (African American) 56 ML/MIN (>60); Glucose 282 mg/dl (74-100)
== END ==
PROVIDERS: Visit Provider Internal Medicine
DX: E11.9 Type 2 diabetes mellitus without complications (principal); I25.10 Atherosclerotic heart disease of native coronary artery without angina pectoris; I48.91 Unspecified atrial fibrillation; R06.00 Dyspnea, unspecified; R94.31 Abnormal electrocardiogram [ECG] [EKG]; Z79.4 Long term (current) use of insulin
CPT/HCPCS: 36415; 80048

== ENCOUNTER → 2022-04-18 13:18 | Outpatient (CLI) | payer MEDICARE, OTHER, SELFPAY ==
[2022-04-18 14:35] LABS: Chloride 104 mmol/L (98-107); Sodium 135 mmol/L (136-145)
[2022-04-18 14:36] LABS: Potassium 4.6 mmoL/L (3.5-5.1)
[2022-04-18 14:38] LABS: Anion Gap 10.6 mEq/L (5-15); Blood Urea Nitrogen 34 mg/dl (9-20); Carbon Dioxide 25 mmol/L (22.0-30.0); Estimated Glomerular Filt Rate 50 ml/min (>60); GFR (African American) 61 ML/MIN (>60)
[2022-04-18 14:39] LABS: Glucose 287 mg/dl (74-100)
== END ==
PROVIDERS: Visit Provider Internal Medicine
DX: E11.9 Type 2 diabetes mellitus without complications (principal); I25.10 Atherosclerotic heart disease of native coronary artery without angina pectoris; I48.91 Unspecified atrial fibrillation; R06.00 Dyspnea, unspecified; R94.31 Abnormal electrocardiogram [ECG] [EKG]; Z79.4 Long term (current) use of insulin
CPT/HCPCS: 36415; 80048

== ENCOUNTER → 2022-07-08 14:04 | Outpatient (CLI) | payer MEDICARE, OTHER, SELFPAY ==
[2022-07-08 16:03] LABS: Chloride 106 mmol/L (98-107); Potassium 4.1 mmoL/L (3.5-5.1); Sodium 137 mmol/L (136-145)
[2022-07-08 16:06] LABS: Anion Gap 8.1 mEq/L (5-15); Blood Urea Nitrogen 27 mg/dl (9-20); Carbon Dioxide 27 mmol/L (22.0-30.0); Estimated Glomerular Filt Rate 40 ml/min (>60); GFR (African American) 48 ML/MIN (>60)
[2022-07-08 16:07] LABS: Glucose 198 mg/dl (74-100)
== END ==
PROVIDERS: PCP Family Medicine; Visit Provider Nurse Practitioner
DX: E11.9 Type 2 diabetes mellitus without complications (principal); I25.10 Atherosclerotic heart disease of native coronary artery without angina pectoris; I48.91 Unspecified atrial fibrillation; R06.00 Dyspnea, unspecified; R94.31 Abnormal electrocardiogram [ECG] [EKG]; Z79.4 Long term (current) use of insulin
CPT/HCPCS: 36415; 80048

== ENCOUNTER → 2022-07-11 13:30 | Outpatient (CLI) | payer MEDICARE, OTHER, SELFPAY ==
--- NOTE | 2022-07-11 13:31 | CA_ITS ---
APPROVED REPORT EXAM: Comprehensive 2D, Doppler, and color-flow Echocardiogram Wire Spooler: Keshia Bobby RVT Ht: 5 ft 10 in Wt: 235lbs BSA: 2.24 BP: 156/63 mmHg Indications: CM-EF OF 35% ON 03/12/22,SOA,DM,PRIOR HX OF COVID,A-FIB,CHF,DM 2D Dimensions LVOT 2.31 cm (M/F) 1.5-2.5 LA Volume 56.40 mL LA Volume Index 25.29 mL/m2 (M/F) 16-34 M-Mode Dimensions RVDd 1.78 cm (0.9-2.6) LA Diam 4.11 cm (1.9-4.0) LVDd 5.22 cm (3.5-5.7) Ao Diam 3.43 cm (2.0-3.7) LVDs 4.08 cm (3.5-5.7) IVSd 0.89 cm (0.6-1.1) PWd 0.81 cm (0.6-1.1) EF (Teich) 43.80% FS 21.80% EDV (Teich) 130.70 mL TAPSE 1.84 (<1.7) ESV (Teich) 73.40 mL LV Diastology E Decel Time 277.00 (160-240 msec) E/A Ratio 1.2 MED E' 3.90 (< 7 cm/sec) E'/MED E' Ratio 34.08 (>14) LAT E' 6.00 (<10 cm/sec) E/LAT E' Ratio 22.15 (>14) Aortic Valve AO Peak GR. 8.00 mmHg Mitral Valve MV E Max Km. 133.00 (40-130 cm/s) MV A Velocity 115.00 (40-130 cm/s) E/A Ratio 1.15 MV Decel. Time 277.00 (160-240 ms) MV PHT 81.00 ms Pulmonary Valve PV Peak Velocity 74.00 (50-150 cm/s) Tricuspid Valve TR P. Velocity 236.00 cm/s RAP Estimate 10.00 mmHg RVSP 32.20 mmHg Left Ventricle Left atrium is mildly enlarged, left ventricle normal size mild concentric left ventricular hypertrophy, estimated ejection fraction 50% with no regional wall motion abnormality, grade 2 diastolic dysfunction seen with tissue Doppler evidence of raise left atrial pressure. Right Ventricle Right atrium and right ventricle are normal size and contractility. Aortic Valve Aortic valve is minimally thickened and fibrosed there is no aortic stenosis or aortic insufficiency. Mitral Valve Mitral valve is grossly normal, there is mild mitral regurgitation. Tricuspid Valve Tricuspid grossly normal, there is mild tricuspid regurgitation, tricuspid regurgitation jet velocity is inadequate for calculation of the right ventricular systolic pressure. Pulmonic Valve Pulmonic valve is poorly visualized. Great Vessels Aortic root is normal size. Inferior vena cava is poorly visualized. Pericardium No significant pericardial effusion noted. Conclusion 1. Mildly enlarged left atrium, normal left ventricular size, mild concentric left ventricular hypertrophy, estimated ejection fraction 50% with no regional wall motion abnormality, grade 2 diastolic dysfunction seen with tissue Doppler evidence of raise left atrial pressure. 2. Mild mitral and tricuspid regurgitation. 3. No significant pericardial effusion. 4. Inferior vena cava is poorly visualized. Electronically signed by : Emigdio Hernandez MD 07/11/2022 14:40:35
== END ==
PROVIDERS: PCP Family Medicine; Visit Provider Nurse Practitioner
DX: E11.69 Type 2 diabetes mellitus with other specified complication (principal); I25.118 Atherosclerotic heart disease of native coronary artery with other forms of angina pectoris; I42.9 Cardiomyopathy, unspecified; I48.91 Unspecified atrial fibrillation; I50.9 Heart failure, unspecified; R06.00 Dyspnea, unspecified; R94.31 Abnormal electrocardiogram [ECG] [EKG]; Z79.4 Long term (current) use of insulin
CPT/HCPCS: 93306

== ENCOUNTER → 2022-09-17 11:56 | Outpatient (CLI) | payer MEDICARE, OTHER, SELFPAY ==
[2022-09-17 12:48] LABS: Basophils # 0.1 K/mm3 (0-0.2); Basophils % 0.9 % (0.1-2.0); Eosinophils # 0.2 K/mm3 (0.0-0.4); Eosinophils % 3.3 % (0.1-12.0); Lymphocytes # 0.7 K/mm3 (0.7-4.5); Lymphocytes % 10.9 % (10-50); Mean Corpuscular HGB Conc 27.7 g/dL (31.8-35.4); Mean Corpuscular Hemoglobin 21.5 pg (27.0-31.2); Mean Corpuscular Volume 77.6 fl (80-94); Mean Platelet Volume 9.4 fl (7.4-10.4); Monocytes # 0.5 K/mm3 (0.1-1.0); Monocytes % 7.4 % (1.7-9.3); Neutrophils # 5.3 K/mm3 (1.8-7.8); Neutrophils % 77.5 % (37.0-80.0); Platelet Count 201 K/mm3 (142-424); Red Blood Count 2.42 M/mm3 (4.60-6.20); Red Cell Distribution Width 19.1 % (11.5-17.5); White Blood Count 6.8 K/mm3 (4.8-10.8)
[2022-09-17 13:02] LABS: Hematocrit 18.8 % (42.0-52.0)
[2022-09-17 13:07] LABS: Alanine Aminotransferase 15 U/L (12-78); Albumin Level 3.2 g/dl (3.5-5.0); Albumin/Globulin Ratio 1.3 (1.1-1.8); Alkaline Phosphatase 44 U/L (38-126); Anion Gap 13.4 mEq/L (5-15); Aspartate Amino Transferase 22 U/L (17-59); Bilirubin,Total 0.5 mg/dl (0.2-1.3); Blood Urea Nitrogen 28 mg/dl (9-20); Calcium 8.1 mg/dl (8.4-10.2); Carbon Dioxide 27 mmol/L (22.0-30.0); Chloride 100 mmol/L (98-107); Chol/HDL Ratio 2.6 (1-3.5); Cholesterol 110 mg/dl (140-200); Estimated Glomerular Filt Rate 40 ml/min (>60); GFR (African American) 48 ML/MIN (>60); Globulin 2.5 g/dL (1.3-3.2); Glucose 255 mg/dl (74-100); HDL Cholesterol 43 mg/dl (40-60); Potassium 4.4 mmoL/L (3.5-5.1); Sodium 136 mmol/L (136-145); Total Protein,Serum 5.7 g/dl (6.3-8.2); Triglycerides 53 mg/dl (30-150); VLDL Cholesterol 11 mg/dL (0-40)
[2022-09-17 13:17] LABS: Direct LDL Cholesterol 55.74 mg/dL (100-129)
[2022-09-17 13:38] LABS: Prostate Specific Ag Screen 1.1 ng/ml (0.0-4.0); Thyroid Stimulating Hormone 1.75 uIU/mL (0.465-4.68)
[2022-09-17 13:57] LABS: Vitamin B12 694 pg/mL (239-931)
[2022-09-17 15:00] LABS: Hemoglobin 5.2 g/dL (14.1-18.0)
[2022-09-17 16:39] LABS: Hemoglobin A1C 7.1 % (4.0-6.0)
== END ==
PROVIDERS: PCP Family Medicine; Visit Provider Nurse Practitioner Family
DX: Z12.5 Encounter for screening for malignant neoplasm of prostate (principal); E11.69 Type 2 diabetes mellitus with other specified complication; Z79.4 Long term (current) use of insulin
CPT/HCPCS: 36415; 80053; 80061; 82607; 83036; 84443; 85025; G0103

== ENCOUNTER 2022-09-18 11:44 | Outpatient (CLI) | payer MEDICARE, OTHER, SELFPAY ==
[2022-09-18] VITALS (20 sets, daily range): BP systolic 118–156; BP diastolic 38–91; PULSE 70–88; RESP 18–22; TEMP 36.2–37; O2SAT 95–100; BMI 33.0
[2022-09-18 12:19] LABS: Basophils # 0.1 K/mm3 (0-0.2); Eosinophils # 0.2 K/mm3 (0.0-0.4); Eosinophils % 2.8 % (0.1-12.0); Lymphocytes # 0.9 K/mm3 (0.7-4.5); Lymphocytes % 12.8 % (10-50); Mean Corpuscular HGB Conc 27.9 g/dL (31.8-35.4); Mean Corpuscular Hemoglobin 21.4 pg (27.0-31.2); Mean Corpuscular Volume 76.9 fl (80-94); Mean Platelet Volume 12.2 fl (7.4-10.4); Monocytes # 0.5 K/mm3 (0.1-1.0); Monocytes % 7.4 % (1.7-9.3); Neutrophils # 5.5 K/mm3 (1.8-7.8); Neutrophils % 76.1 % (37.0-80.0); Platelet Count 189 K/mm3 (142-424); Red Blood Count 2.47 M/mm3 (4.60-6.20); White Blood Count 7.3 K/mm3 (4.8-10.8)
--- NOTE | 2022-09-18 13:07 | PC.NURSE ---
Mary Watson from lab called critical rlab results of Hgb 5.3, Hct 19.0. Lab results, and name verified and read back. orders received from Maria Elena ARCEO. infuse two units PRBC now, 1 hr post H&H.
--- NOTE | 2022-09-18 13:16 | PC.NURSE ---
T.OOleg from Maria Elena Lay for 20mg IV lasix in between units of blood.
[2022-09-18 13:45] LABS: Hemoglobin 5.3 g/dL (14.1-18.0)
--- NOTE | 2022-09-18 17:21 | PC.NURSE ---
pt handed off to Yassine in room 216 at this time.
[2022-09-18 20:19] LABS: Hematocrit 25.6 % (42.0-52.0)
[2022-09-18 20:37] LABS: Hemoglobin 7.6 g/dL (14.1-18.0)
== END 2022-09-18 18:33 | disposition home or self-care (01) ==
LOC: INF 11:46
PROVIDERS: PCP Family Medicine; Visit Provider Physician Assistant
DX: D64.9 Anemia, unspecified (principal)
CPT/HCPCS: 36415; 36430; 85014; 85018; 85025; 86850; P9016

== ENCOUNTER → 2022-09-25 12:14 | Outpatient (CLI) | payer MEDICARE, OTHER, SELFPAY ==
[2022-09-25 13:21] LABS: Hematocrit 27.5 % (42.0-52.0); Hemoglobin 7.7 g/dL (14.1-18.0)
== END ==
PROVIDERS: PCP Family Medicine; Visit Provider Surgery
DX: D64.9 Anemia, unspecified (principal)
CPT/HCPCS: 36415; 85014; 85018

== ENCOUNTER 2022-10-07 09:03 | Day surgery (SDC) | payer MEDICARE, OTHER, SELFPAY ==
--- NOTE | 2022-09-23 10:20 | SUR.PREOP ---
PT PRESENTED TO REGISTRATION WITHOUT RESPONSIBLE ADULT FOR POSTOP CARE/TRANSPORTATION. PT DECIDED TO NOT ATTEMPT TO FIND TRANSPORTATION AND LEFT WITHOUT REGISTERING. RAMON IN DR ALLEN'S OFFICE NOTIFIED PER MD'S INSTRUCTION AND WAS REQUESTED TO CONTACT DR SOUSA' OFFICE TO NOTIFY HIM OF THIS AND ATTEMPT TO RESCHEDULE PT'S PROCEDURE WHEN TRANSPORTATION CAN BE ARRANGED.
[2022-10-06 14:34] VITALS: BMI 33.0
[2022-10-07 09:49] VITALS: BP 131/56; PULSE 72; RESP 18; TEMP 36.9; O2SAT 97
[2022-10-07 10:00] LABS: POC Glucose,Bedside 166 (70-110)
--- NOTE | 2022-10-07 10:09 | P.PN_ITS ---
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 Sinus tachycardia Type 1 diabetes Surgical History H/O kidney removal History of pneumonectomy Family History Father Family history non-contributory Other Lung cancer Social History Smoking Status: Former smoker second hand exposure: No alcohol intake: never substance use type: denies use current occupational status: retired Travel in the last 8 weeks: None housing: house [facility] Anesthesia Checklist Patient Identification Patient Identification: Arm Band Structural Data Admitted From: Home Planned Operative Procedure/s: EGD Consent for Planned Operative Procedure(s) Verified: Yes Verified Documents: Surgical Consent and History and Physical NPO Status Verified Time NPO: 00:00 Additional verifications Anesthesia Reactions: No Airway Assessment C-Spine Mobility Assessed: Yes TMJ Mobility Assessed: Yes Dentition: Good Dentition Neurological Assessment Level of Consciousness: Awake and Alert Anesthesia Plan Anesthesia Risk discussed: Yes Anesthesia Plan: Verified ASA Class: III Anesthesia Type: MAC
[2022-10-07 10:15] VITALS: O2SAT 97
[2022-10-07 10:34] VITALS: BP 122/61; PULSE 67; RESP 14; TEMP 36.7; O2SAT 97
--- NOTE | 2022-10-07 10:41 | P.PCN_ITS ---
Procedure: Date: 10/07/22 Patient Date of :: 1950 Procedure Performed:: Esophagogastroduodenoscopy with biopsy Indications:: Anemia Performing Provider:: Hollis Correa MD Referring Provider:: Dr. Duggan Sedation:: Monitored anesthesia care Procedure:: After informed consent was obtained the patient was taken to the endoscopy suite. Sedation ensued after the patient was transferred to the left lateral d ecubitus position. Pulse, blood pressure, and oxygen saturation were monitored throughout the procedure. The endoscope was advanced beyond the duodenal bulb. Retroflexion within the gastric lumen was accomplished. The gastroscope was carefully removed and the patient was transferred to recovery in stable condition. Please see findings and specimens below for detail. Findings:: Lobulated partially fungating mass lesion of the distal esophagus (between 35 and 41 cm) Gastroesophageal junction at 41 cm Sliding hiatal hernia Multiple tiny ulcerations in the duodenal bulb with no sign of active or recent hemorrhage Specimens:: Antral biopsy Duodenal bulb biopsy Multiple biopsies of lobulated mass lesion of the distal esophagus Recommendations:: Continue proton pump inhibition Follow-up pathology Complications:: No immediate Estimated blood obtained (mL): 1
[2022-10-07 10:44] VITALS: BP 123/65; PULSE 66; RESP 16; O2SAT 97
[2022-10-07 10:54] VITALS: BP 163/75; PULSE 66; RESP 16; O2SAT 97
--- NOTE | 2022-10-07 10:58 | P.PN_ITS ---
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 Sinus tachycardia Type 1 diabetes Surgical History H/O kidney removal History of pneumonectomy Family History Father Family history non-contributory Other Lung cancer Social History Smoking Status: Former smoker second hand exposure: No alcohol intake: never substance use type: denies use current occupational status: retired Travel in the last 8 weeks: None housing: house [facility] Anesthesia Checklist Patient Identification Patient Identification: Verbal (Name & ) Structural Data Admitted From: Home Planned Operative Procedure/s: egd Consent for Planned Operative Procedure(s) Verified: Yes Additional verifications Anesthesia Reactions: No Airway Assessment C-Spine Mobility Assessed: Yes TMJ Mobility Assessed: Yes Dentition: Good Dentition Neurological Assessment Level of Consciousness: Awake, Alert and Appropriate Anesthesia Plan Anesthesia Risk discussed: Yes Anesthesia Plan: Verified ASA Class: III Anesthesia Type: MAC
[2022-10-07 11:04] VITALS: BP 155/66; PULSE 67; RESP 18; O2SAT 96
[2022-10-07 11:13] LABS: Hematocrit 26.6 % (42.0-52.0); Hemoglobin 7.6 g/dL (14.1-18.0)
== END 2022-10-07 11:20 | disposition home or self-care (01) ==
PROVIDERS: PCP Family Medicine; Visit Provider Surgery
PROC: 0DJ08ZZ Inspection of Upper Intestinal Tract, Via Natural or Artificial Opening Endoscopic (ICD-10-PCS; CPT 43235; principal; 2022-10-07 10:30)
DX: D64.9 Anemia, unspecified (principal); K29.80 Duodenitis without bleeding; C16.0 Malignant neoplasm of cardia; E11.9 Type 2 diabetes mellitus without complications
CPT/HCPCS: 43239; 36415; 82962; 85014; 85018; 88305; 88342

== ENCOUNTER → 2022-10-14 12:00 | Outpatient (CLI) | payer MEDICARE, OTHER, SELFPAY ==
[2022-10-14 20:10] LABS: Basophils # 0.1 K/mm3 (0-0.2); Eosinophils # 0.2 K/mm3 (0.0-0.4); Eosinophils % 2.9 % (0.1-12.0); Hematocrit 29.9 % (42.0-52.0); Hemoglobin 8.6 g/dL (14.1-18.0); Lymphocytes % 13.1 % (10-50); Mean Corpuscular HGB Conc 28.6 g/dL (31.8-35.4); Mean Corpuscular Hemoglobin 22.9 pg (27.0-31.2); Mean Corpuscular Volume 80.3 fl (80-94); Mean Platelet Volume 9.2 fl (7.4-10.4); Monocytes # 0.7 K/mm3 (0.1-1.0); Monocytes % 8.8 % (1.7-9.3); Neutrophils # 5.9 K/mm3 (1.8-7.8); Neutrophils % 74.2 % (37.0-80.0); Platelet Count 301 K/mm3 (142-424); Red Blood Count 3.73 M/mm3 (4.60-6.20); Red Cell Distribution Width 20.1 % (11.5-17.5)
== END ==
PROVIDERS: PCP Family Medicine; Visit Provider Family Medicine
DX: E11.69 Type 2 diabetes mellitus with other specified complication (principal); Z79.4 Long term (current) use of insulin
CPT/HCPCS: 85025

== ENCOUNTER 2023-06-30 07:13 | Day surgery (SDC) | payer MEDICARE, OTHER, SELFPAY ==
[2023-06-25 10:39] VITALS: BMI 33.8
[2023-06-30] VITALS (7 sets, daily range): BP systolic 92–127; BP diastolic 45–97; PULSE 66–81; RESP 16–18; TEMP 36.2–36.6; O2SAT 93–100
--- NOTE | 2023-06-30 07:39 | P.PNANES_ITS ---
[facility] Disclaimer: The information contained in this section may have been updated after the patient was seen, as this information can be updated by other users. Medical History Abnormal electrocardiography Atrial fibrillation Atrial fibrillation with RVR CAD (coronary artery disease) Cardiomyopathy CHF (congestive heart failure), NYHA class III Diabetic retinopathy associated with type 1 diabetes mellitus Dyspnea Dyspnea on exertion Esophageal cancer History of anemia History of cancer of kidney in adulthood History of cataract History of COVID-19 History of lung cancer in adulthood History of smoking 30 or more pack years Hx of cancer of lung Hypertension Insulin dependent diabetes mellitus Macular degeneration Nodule of left lung Pleural effusion on right Pneumonia 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 Anesthesia Checklist Patient Identification Patient Identification: Arm Band and Verbal (Name & ) Structural Data Admitted From: Home Planned Operative Procedure/s: EGD Consent for Planned Operative Procedure(s) Verified: Yes NPO Status Verified Time NPO: 00:00 Additional verifications Anesthesia Reactions: No Airway Assessment C-Spine Mobility Assessed: Yes TMJ Mobility Assessed: Yes Dentition: Good Dentition Neurological Assessment Level of Consciousness: Awake Hx Seizures: No Numbness or tingling in extremities: No Anesthesia Plan Anesthesia Risk discussed: Yes Anesthesia Plan: Verified ASA Class: III Anesthesia Type: MAC
[2023-06-30 07:40] LABS: POC Glucose,Bedside 199 (70-110)
--- NOTE | 2023-06-30 08:35 | HMH.SCOPE ---
Procedure: Date: 06/30/23 Patient Date of :: 1950 Procedure Performed:: Esophagogastroduodenoscopy with biopsy Indications:: History of esophageal cancer Note: Esophageal carcinoma diagnosed in September 2022 when the patient was found to have a partially fungating mass lesion of the distal esophagus between 35 and 41 cm. He was referred for further evaluation management and states that he was deemed nonoperable . He has undergone chemotherapy/radiation and is treatment team has requested a repeat esophagogastroduodenoscopy. Performing Provider:: Hollis Correa MD Referring Provider:: . Sedation:: Monitored anesthesia care Procedure:: After informed consent was obtained the patient was taken to the endoscopy suite. Sedation ensued after the patient was transferred to the left lateral decubitus position. Pulse, blood pressure, and oxygen saturation were monitored throughout the procedure. The endoscope was advanced beyond the duodenal bulb. Retroflexion within the gastric lumen was accomplished. The gastroscope was carefully removed and the patient was transferred to recovery in stable condition. Please see findings and specimens below for detail. Findings:: Inflammatory changes, lobulation, and scarring at site of known malignancy No obstruction secondary to mass; no obstructive stricture Biopsy of known malignancy not repeated secondary to concerns regarding increased risk for perforation Moderate patchy duodenitis with tiny punctate ulcerations No evidence of bleeding Specimens:: Antral biopsy Duodenal bulb biopsy Recommendations:: Follow-up pathology Continue management of patient's esophageal carcinoma as per treating service Complications:: No immediate Estimated blood obtained (mL): 1 Colonoscopy Component Colonoscopy Component Was a colonoscopy performed during today's procedure?: No
== END 2023-06-30 09:23 | disposition home or self-care (01) ==
PROVIDERS: PCP Family Medicine; Visit Provider Surgery
PROC: 0DJ08ZZ Inspection of Upper Intestinal Tract, Via Natural or Artificial Opening Endoscopic (ICD-10-PCS; CPT 43235; principal; 2023-06-30 08:30)
DX: C15.9 Malignant neoplasm of esophagus, unspecified (principal)
CPT/HCPCS: 43239; 82962; 88305

== ENCOUNTER → 2023-09-04 07:52 | Outpatient (CLI) | payer MEDICARE, OTHER, SELFPAY ==
--- NOTE | 2023-09-04 07:53 | FL_ITS ---
FINAL REPORT CLINICAL HISTORY: status post esophageal cancer, ft 1:17 DAP 2185.66 FINDINGS: BARIUM SWALLOW HISTORY: Esophageal cancer, follow-up. TECHNIQUE: The patient ingested barium contrast. Spot and overhead films were performed. A total of 46 images were saved. FINDINGS: There is irregularity of the distal esophagus, presumably the site of the patient's reported esophageal cancer. There is no gastroesophageal reflux demonstrated. There is mild esophageal dysmotility. 13 mm barium tablet passes easily through the esoophagus and into the stomach. FLUOROSCOPY TIME: 1 minute 17 seconds Fluoro dose: 2185.66 DAP in uGym2 IMPRESSION: Irregularity of the distal esophagus, presumably at the site of the patient's reported cancer. Mild esophageal dysmotility. Otherwise, unremarkable esophagram. Reviewed, Interpreted and Dictated by James Quiñones III, MD Transcribed by Annmarie Reyes PA-C Authenticated and [facility]
== END ==
PROVIDERS: PCP Family Medicine; Visit Provider Surgery
DX: R13.10 Dysphagia, unspecified (principal)
CPT/HCPCS: 74220

== ENCOUNTER 2024-02-15 15:20 | Outpatient (CLI) | payer MEDICARE, OTHER, SELFPAY ==
[2024-02-15 16:54] LABS: Basophils # 0.1 K/mm3 (0-0.2); Basophils % 0.7 % (0.1-2.0); Eosinophils # 0.1 K/mm3 (0.0-0.4); Eosinophils % 1.4 % (0.1-12.0); Hematocrit 40.4 % (42.0-52.0); Hemoglobin 12.4 g/dL (14.1-18.0); Lymphocytes # 0.7 K/mm3 (0.7-4.5); Lymphocytes % 7.1 % (10-50); Mean Corpuscular HGB Conc 30.7 g/dL (31.8-35.4); Mean Corpuscular Hemoglobin 33.2 pg (27.0-31.2); Mean Corpuscular Volume 108.3 fl (80-94); Mean Platelet Volume 8.9 fl (7.4-10.4); Monocytes # 0.6 K/mm3 (0.1-1.0); Monocytes % 6.5 % (1.7-9.3); Neutrophils # 7.9 K/mm3 (1.8-7.8); Neutrophils % 84.3 % (37.0-80.0); Platelet Count 260 K/mm3 (142-424); Red Blood Count 3.73 M/mm3 (4.60-6.20); Red Cell Distribution Width 15.3 % (11.5-17.5); White Blood Count 9.3 K/mm3 (4.8-10.8)
[2024-02-15 17:17] LABS: Chloride 106 mmol/L (98-107); Potassium 4.7 mmoL/L (3.5-5.1); Sodium 140 mmol/L (136-145)
[2024-02-15 17:19] LABS: Blood Urea Nitrogen 20 mg/dl (9-20)
[2024-02-15 17:20] LABS: Alanine Aminotransferase 17 U/L (12-78); Albumin Level 3.5 g/dl (3.5-5.0); Alkaline Phosphatase 51 U/L (38-126); Anion Gap 11.7 mEq/L (5-15); Aspartate Amino Transferase 23 U/L (17-59); Bilirubin,Direct 0.3 mg/dl (0.0-0.4); Bilirubin,Indirect 0.4 mg/dL (0.0-0.9); Bilirubin,Total 0.7 mg/dl (0.2-1.3); Bilirubin,Unconjugated 0.4 mg/dL (0.0-1.1); Calcium 9.2 mg/dl (8.4-10.2); Carbon Dioxide 27 mmol/L (22.0-30.0); Cholesterol 166 mg/dl (140-200); Estimated Glomerular Filt Rate 54 ml/min (>60); GFR (African American) 66 ML/MIN (>60); Glucose 220 mg/dl (74-100); Total Protein,Serum 6.8 g/dl (6.3-8.2); Triglycerides 48 mg/dl (30-150); VLDL Cholesterol 10 mg/dL (0-40)
[2024-02-15 17:21] LABS: Chol/HDL Ratio 3.6 (1-3.5); HDL Cholesterol 46 mg/dl (40-60); Magnesium 1.8 mg/dl (1.6-2.3)
[2024-02-15 17:32] LABS: Direct LDL Cholesterol 88.34 mg/dL (100-129)
[2024-02-15 17:37] LABS: Free T4 (Free Thyroxine) 1.24 ng/dl (0.78-2.19)
[2024-02-15 17:54] LABS: Thyroid Stimulating Hormone 1.54 uIU/mL (0.465-4.68)
== END 2024-02-15 23:59 ==
LOC: LAB 15:23
PROVIDERS: PCP Pediatrics; Visit Provider Internal Medicine
DX: I25.118 Atherosclerotic heart disease of native coronary artery with other forms of angina pectoris (principal); I48.92 Unspecified atrial flutter; I42.8 Other cardiomyopathies; I48.91 Unspecified atrial fibrillation; R06.00 Dyspnea, unspecified; R94.31 Abnormal electrocardiogram [ECG] [EKG]; R00.0 Tachycardia, unspecified; Z87.891 Personal history of nicotine dependence
CPT/HCPCS: 36415; 80048; 80061; 80076; 83735; 84439; 84443; 85025

== ENCOUNTER 2024-03-01 10:36 | Outpatient (CLI) | payer MEDICARE, OTHER, SELFPAY ==
--- NOTE | 2024-03-01 10:40 | CA_ITS ---
APPROVED REPORT EXAM: Comprehensive 2D, Doppler, and color-flow Echocardiogram Make Up Editor: Martha Yun CRT Ht: 5 ft 10 in Wt: 220lbs BSA: 2.17 BP: 124/72 mmHg Rhythm: Atrial Flutter Indications: Congestive Heart Failure, Shortness of Breath, Atrial Flutter, CAD, Cardiomyopathy, HX LUNG, RENAL, AND ESOPHAGEAL CA 2D Dimensions LA Volume 75.20 mL LA Volume Index 33.70 mL/m2 (M/F) 16-34 M-Mode Dimensions RVDd 2.76 cm (0.9-2.6) LA Diam 3.73 cm (1.9-4.0) LVDd 5.30 cm (3.5-5.7) LVDs 3.74 cm (3.5-5.7) IVSd 1.83 cm (0.6-1.1) PWd 0.87 cm (0.6-1.1) EF (Teich) 55.90% FS 29.40% EDV (Teich) 135.30 mL TAPSE 0.79 (<1.7) ESV (Teich) 59.60 mL Aortic Valve AO Peak GR. 4.50 mmHg Pulmonary Valve PV Peak Velocity 79.0 (50-150 cm/s) Tricuspid Valve TR P. Velocity 291.00 cm/s RAP Estimate 10.00 mmHg RVSP 44.00 mmHg Left Ventricle The left ventricle is normal size. Left ventricular systolic function is mild to moderately decreased. There is increased LV wall thickness. There is mild to moderate global hypokinesis present. LVEF is 40%. Diastolic function is indeterminate in the setting of atrial flutter. Right Ventricle The right ventricle is normal size. The right ventricular systolic function is normal. Atria Left atrium is mildly dilated. Right atrium is mildly dilated. There is no Doppler evidence of interatrial shunt. Aortic Valve The aortic valve is mildly thickened. There is no aortic valvular stenosis. Trace aortic regurgitation. Mitral Valve The mitral valve leaflets are mildly thickened. No evidence of mitral valve stenosis. Mild mitral regurgitation. Tricuspid Valve The tricuspid valve leaflets are thin and pliable. Mild tricuspid regurgitation. RVSP 30-35 mmHg. Pulmonic Valve The pulmonary valve is normal in structure. Trace pulmonic regurgitation. Great Vessels The aortic root is normal in size. The ascending aorta is normal in size. The IVC is dilated, collapses < 50% with respirophasic variation. The RA pressure is estimated at 15 mmHg. Pericardium There is no pericardial effusion. Other Information Study Quality: Technically Difficult Conclusion Technically difficult study due to poor acoustic windows and Aflutter/RVR. Mild to moderate reduction in LV systolic function (LVEF 40%). Normal RV size and function. Mild biatrial dilation. Mild MR, mild TR. RVSP 30-35 mmHg. The patient is noted to be in atrial flutter with RVR during the acquisition of the study images. Electronically signed by : Kell Obregon MD 03/02/2024 23:56:21
== END 2024-03-01 23:59 ==
LOC: RT 10:38
PROVIDERS: PCP Pediatrics; Visit Provider Internal Medicine
DX: I48.92 Unspecified atrial flutter (principal); Z87.891 Personal history of nicotine dependence; I25.118 Atherosclerotic heart disease of native coronary artery with other forms of angina pectoris; I48.91 Unspecified atrial fibrillation; R06.00 Dyspnea, unspecified; R94.31 Abnormal electrocardiogram [ECG] [EKG]; R00.0 Tachycardia, unspecified; I42.8 Other cardiomyopathies
CPT/HCPCS: 93306

== ENCOUNTER 2024-03-02 09:26 | Day surgery (SDC) | payer MEDICARE, OTHER, SELFPAY ==
[2024-03-02] VITALS (7 sets, daily range): BP systolic 110–143; BP diastolic 64–88; PULSE 85–133; RESP 16–20; TEMP 36.3–36.8; O2SAT 97–100; BMI 31.5
--- NOTE | 2024-03-02 10:03 | CA_ITS ---
APPROVED REPORT EXAM: Limited 2D, Doppler, and color-flow Echocardiogram Latex Dipper: Keshia BobbyNATHANIEL Ht: 5 ft 10 in Wt: 220lbs BSA: 2.17 BP: 126/72 mmHg Indications: A-FIB,CARDIOVERSION,CAD,CHF,CM,HTN Procedure After obtaining informed consent, patient underwent transesophageal echo in the OP Surgery Suite. Type of Sedation : MAC Sedation start time: 12:45 Case end Time: 13:00 Sedation was achieved intravenously with: Propofol () The DAVE was performed without complications. Synchronized Cardioversion acheived with 150 Joules after 1 attempt(s). Rhythm following Synchronized Cardioversion: Normal Sinus Rhythm Throughout the procedure, the blood pressure, pulse oximetry, cardiac rhythm, and rate were monitored. The patient tolerated the procedure without adverse effects. Recovery from conscious sedation was uneventful and vital signs were stable. Other Information Study Quality: Fair Conclusion This was a limited DAVE to evaluate for ANA thrombus in the setting of planned cardioversion. Further evaluation of cardiac function and structure was avoided in this case as the patient has esophageal mass in the lower one third of his esophagus. Subsequently, additional windows were not performed to maintain safety. The DAVE demonstrates good visualization of the ANA and the ANA. There is no evidence of LA or ANA thrombus in all planes. Once DAVE confirmed the absence of thrombus, DCCV was performed successfully with 150 J, after which she converted to normal sinus rhythm. Electronically signed by : Kell Obregon MD 03/03/2024 11:09:50
[2024-03-02 10:05] LABS: POC Glucose,Bedside 112 (70-110)
--- NOTE | 2024-03-02 10:09 | ECG_ITS ---
APPROVED REPORT Exam: Resting ECG HR:133 bpm ECG Measurements Heart Rate 133 AXES QRSd 98 QRS -22 QT 332 T 44 QTc 410 Conclusion ATRIAL FLUTTER/TACHYCARDIA WITH RAPID VENTRICULAR RESPONSE BORDERLINE LEFT AXIS DEVIATION [QRS AXIS < -20] MODERATE ST DEPRESSION [0.05+ mV ST DEPRESSION] ABNORMAL ECG UNCONFIRMED REPORT Electronically signed by : Chente Morales MD 03/03/2024 13:47:26
[2024-03-02] MEDS: LACTATED RINGERS 1000ML 1,000 ML 25 ML IV (10:10)
[2024-03-02 10:15] LABS: Chloride 104 mmol/L (98-107); Potassium 3.8 mmoL/L (3.5-5.1); Sodium 139 mmol/L (136-145)
[2024-03-02 10:16] LABS: Basophils # 0.1 K/mm3 (0-0.2); Basophils % 1.2 % (0.1-2.0); Eosinophils # 0.2 K/mm3 (0.0-0.4); Eosinophils % 2.3 % (0.1-12.0); Lymphocytes # 0.6 K/mm3 (0.7-4.5); Lymphocytes % 6.6 % (10-50); Mean Corpuscular Hemoglobin 33.1 pg (27.0-31.2); Mean Corpuscular Volume 106.6 fl (80-94); Mean Platelet Volume 8.4 fl (7.4-10.4); Monocytes # 0.6 K/mm3 (0.1-1.0); Monocytes % 6.8 % (1.7-9.3); Neutrophils # 7.3 K/mm3 (1.8-7.8); Neutrophils % 83.2 % (37.0-80.0); Platelet Count 281 K/mm3 (142-424); Red Blood Count 3.94 M/mm3 (4.60-6.20); Red Cell Distribution Width 15.1 % (11.5-17.5); White Blood Count 8.8 K/mm3 (4.8-10.8)
[2024-03-02 10:18] LABS: Anion Gap 6.8 mEq/L (5-15); Blood Urea Nitrogen 19 mg/dl (9-20); Carbon Dioxide 32 mmol/L (22.0-30.0); Creatinine Clearance Estimated 64 mL/min (50-200); Estimated Glomerular Filt Rate 46 ml/min (>60); GFR (African American) 56 ML/MIN (>60)
[2024-03-02 10:19] LABS: Calcium 8.9 mg/dl (8.4-10.2); Glucose 129 mg/dl (74-100)
[2024-03-02 10:22] LABS: INR 1.11 (0.9-1.1); Prothrombin Time 11.9 seconds (10.1-12.5)
--- NOTE | 2024-03-02 10:38 | P.PNANES_ITS ---
[facility] Disclaimer: The information contained in this section may have been updated after the patient was seen, as this information can be updated by other users. 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 Nodule of left lung Pleural effusion on right History of lung cancer in adulthood Dyspnea on exertion History of smoking 30 or more pack years Diabetic retinopathy associated with type 1 diabetes mellitus Macular degeneration History of cancer of kidney in adulthood Hx of cancer of lung Insulin dependent diabetes mellitus Type 1 diabetes CHF (congestive heart failure), NYHA class III Cardiomyopathy CAD (coronary artery disease) Atrial fibrillation with RVR Atrial fibrillation Dyspnea Sinus tachycardia Abnormal electrocardiography Surgical History Hx of cataract surgery History of esophagogastroduodenoscopy (EGD) History of pneumonectomy H/O kidney removal Family History Father Family history non-contributory Lung cancer Brother Colon cancer Lung cancer Social History (Updated 03/02/24 @ 09:53 by Eboni Oconnor RN) Smoking Status: Former smoker second hand exposure: No alcohol intake: never substance use type: denies use current occupational status: retired Travel in the last 8 weeks: None housing: house caffeine: Yes [facility] Anesthesia Checklist Patient Identification Patient Identification: Arm Band and Verbal (Name & ) Structural Data Admitted From: Home Planned Operative Procedure/s: DAVE w/Cardioversion Consent for Planned Operative Procedure(s) Verified: Yes Verified Documents: Surgical Consent and History and Physical NPO Status Verified Time NPO: 22:30 Chart Verification Results Verified: CBC, BMP, PT, PTT, INR, ECG and Chest Xray Additional verifications Fingerstick Blood Glucose: 112 Patient : No Anesthesia Reactions: No Cardiovascular Assessment Pulse Rhythm: Irregular Peripheral Edema: No Airway Assessment Mallampati Score:: Class II C-Spine Mobility Assessed: Yes (FROM) TMJ Mobility Assessed: Yes Dentition: Good Dentition (Nothing loose per pt.) Neurological Assessment Level of Consciousness: Awake, Alert, Appropriate and Follows Commands Hx Seizures: No Numbness or tingling in extremities: No Anesthesia Plan Anesthesia Risk discussed: Yes Anesthesia Plan: Verified ASA Class: IV Anesthesia Type: MAC
--- NOTE | 2024-03-02 12:00 | SUR.OPER ---
1158- cardioversion performed by dr. currie at this time. 150j shock delivered and successful cardioversion. vss
--- NOTE | 2024-03-02 12:07 | P.PNANES_ITS ---
[facility] Anesthesia Record Part I Anesthesia Record I Intake, IV Amount: 200 Hydration: Adequate Estimated blood loss (mL): 0 Urine output (mL): 0 Blood Products used (#): none Blood Pressure: 112/73 SaO2: 98 Pulse Rate: 85 Airway Patency: Patent Respiratory Rate: 20 Temperature: 97.4 F Patient is:: Awake (Talking) and Stable Stable to PACU at:: 12:09
--- NOTE | 2024-03-02 12:11 | ECG_ITS ---
APPROVED REPORT Exam: Resting ECG HR:87 bpm ECG Measurements Heart Rate 87 AXES [place] 163 P 43 QRSd 85 QRS -10 QT 390 T 34 QTc 435 Conclusion SINUS RHYTHM NORMAL ECG UNCONFIRMED REPORT Electronically signed by : Chente Morales MD 03/03/2024 13:47:17
== END 2024-03-02 12:38 | disposition home or self-care (01) ==
PROVIDERS: PCP Pediatrics; Visit Provider Internal Medicine
DX: I48.92 Unspecified atrial flutter (principal); I25.10 Atherosclerotic heart disease of native coronary artery without angina pectoris; I11.0 Hypertensive heart disease with heart failure; I50.9 Heart failure, unspecified; E11.9 Type 2 diabetes mellitus without complications; Z79.4 Long term (current) use of insulin; Z79.899 Other long term (current) drug therapy; Z86.16 Personal history of COVID-19; Z87.891 Personal history of nicotine dependence; I42.9 Cardiomyopathy, unspecified; I48.91 Unspecified atrial fibrillation; I51.3 Intracardiac thrombosis, not elsewhere classified
CPT/HCPCS: 80048; 82962; 85025; 85610; 92960; 93005; 93270; 93312; 93319

== ENCOUNTER 2024-10-04 14:14 | Outpatient (CLI) | payer MEDICARE, OTHER, SELFPAY ==
--- NOTE | 2024-10-04 14:16 | CA_ITS ---
APPROVED REPORT EXAM: Comprehensive 2D, Doppler, and color-flow Echocardiogram Community Specialist: NEAL Sousa, RVS Ht: 5 ft 10 in Wt: 212lbs BSA: 2.14 BP: 131/44 mmHg Indications: SOA/Dysphagia-New esophogeal cancer, HHD, CAD, AF, Ex-smoker Echo Enhancing Agent Comments: TDS: Limited windows throughout exam due to body habitus/lung impedence. 2D Dimensions IVSd 0.98 cm M: 0.6-1.2 LVEF (Visual) 75.00 % PWd 1.10 cm M: 0.6 - 1.2 LA Volume 45.90 mL LVDd 5.23 cm M: 4.2 - 5.9 LA Volume Index 21.45 mL/m2 (M/F) 16-34 LVDs 2.92 cm M: 2.5 - 4.0 Left Atrium 3.43 cm M: 3.0 - 4.0 M-Mode Dimensions LA Diam 3.71 cm (1.9-4.0) EPSs 1.25 cm TAPSE 1.65 (<1.7) LV Diastology E Decel Time 223 (160-240 msec) E/A Ratio 0.96 MED A' 11.60 cm/s LAT A' 15.00 cm/s Aortic Valve MINNA Index 0.99 cm2/m2 AoV Peak Km. 151.0 (50-130 cm/s) AO Peak GR. 9.10 mmHg AO Mean GR. 5.10 (<5 mmHg) AO VTI 32.9 (18-25 cm) MINNA (VTI) 2.17 (2.5-4.5 cm2) Mitral Valve MV A Velocity 132.0 (40-130 cm/s) E/A Ratio 0.96 MV Mean Gr. 3.40 (<2mmHg) MV PHT 60.0 ms Pulmonary Valve PV Peak Velocity 75.0 (50-150 cm/s) Tricuspid Valve TR P. Velocity 169.00 cm/s RAP Estimate 10.00 mmHg RVSP 21.50 mmHg Left Ventricle The left ventricle is normal size. The left ventricular systolic function is normal. The left ventricular ejection fraction is within the normal range. There is increased LV wall thickness. There is normal LV segmental wall motion. Transmitral Doppler flow pattern suggests impaired LV relaxation. LVEF is 55%. Right Ventricle The right ventricle is normal size. The right ventricular systolic function is normal. Atria Left atrium is mildly dilated. Right atrium is mildly dilated. There is no Doppler evidence of interatrial shunt. Aortic Valve The aortic valve is mildly thickened. There is no aortic valvular stenosis. Trace aortic regurgitation. Mitral Valve The mitral valve is normal in structure. No evidence of mitral valve stenosis. Trace mitral regurgitation. Tricuspid Valve The tricuspid valve leaflets are thin and pliable. Mild tricuspid regurgitation. RVSP is 12 mmHg + RA pressure. Pulmonic Valve The pulmonary valve is normal in structure. Trace pulmonic regurgitation. Great Vessels The aortic root is normal in size. The ascending aorta is normal in size. The IVC is not well-visualized. Pericardium There is no pericardial effusion. Other Information Study Quality: Fair Conclusion Normal biventricular systolic function. Mild biatrial dilation. Mild TR. Compared to prior study from 02/2024 (at the time the patient's rhythm was AFib/RVR), the LVEF has improved and is now normal as the rhythm continues to be normal sinus rhythm. Electronically signed by : Kell Obregon MD 10/09/2024 03:53:59
== END 2024-10-04 23:59 | disposition home or self-care (01) ==
LOC: RT 14:14
PROVIDERS: PCP Pediatrics; Visit Provider Internal Medicine
DX: I51.7 Cardiomegaly (principal); I50.20 Unspecified systolic (congestive) heart failure
CPT/HCPCS: 93306

== ENCOUNTER 2024-12-02 11:55 | Emergency (ER) | payer MEDICARE, OTHER, SELFPAY ==
[2024-12-02] VITALS (11 sets, daily range): BP systolic 101–146; BP diastolic 58–100; PULSE 73–144; RESP 20–41; TEMP 36.7–37.1; O2SAT 91–95; BMI 28.7
--- NOTE | 2024-12-02 12:07 | ECG_ITS ---
APPROVED REPORT Exam: Resting ECG HR:141 bpm ECG Measurements Heart Rate 141 AXES QRSd 89 QRS -29 QT 218 T 0 QTc 300 Conclusion ATRIAL FLUTTER/TACHYCARDIA WITH RAPID VENTRICULAR RESPONSE LOW QRS VOLTAGE IN EXTREMITY LEADS [QRS DEFLECTION < 0.5 mV IN LIMB LEADS] ST DEPRESSION, CONSIDER SUBENDOCARDIAL INJURY [0.1+ mV ST DEPRESSION] ABNORMAL ECG UNCONFIRMED REPORT Electronically signed by : Ivan Saez, 12/02/2024 16:01:49
--- NOTE | 2024-12-02 12:15 | XR_ITS ---
FINAL REPORT CLINICAL HISTORY: Chest pain COMPARISON: 03/11/2022 FINDINGS: A portable view of the chest was obtained. Cardiac and mediastinal silhouettes are within normal limits. There are new bilateral, right greater than left, interstitial opacities with patchy somewhat rounded airspace opacities in the right lung, favor pneumonia. Blunting of the right costophrenic angle is unchanged. There is no pleural effusion or pneumothorax. IMPRESSION: New, right greater than left, interstitial opacities and new patchy right airspace opacities, favor pneumonia. Recommend follow-up to resolution. Reviewed, Interpreted and Dictated by Rosey Keys MD Transcribed by Janet Duran Authenticated and [facility]
[2024-12-02] MEDS: METOPROLOL TARTRATE 5MG/5ML VIAL 5 MG IV (12:26)
--- NOTE | 2024-12-02 12:31 | ED_ITS ---
<Statement entered by Lucius Saez MD - 12/03/24 16:07> I was consulted by the TANISHA, and we discussed the complexity of the problems being addressed. I approved the treatment and management plan for this patient's care in the emergency department, thus performing a substantive portion of the medical decision making. Lucius Saez MD, ANI, FACEP Discharge Plan Disposition Patient Disposition: Xfer Short-Term Hosp Condition: Critical Prescriptions Prescriptions: No Action fluticasone propionate 50 mcg/actuation spray,suspension 2 spray INTRANASAL BID ascorbic acid (vitamin C) 500 mg tablet 500 mg PO DAILY tamsulosin 0.4 mg capsule 0.4 mg PO DAILY sennosides [senna] 8.6 mg tablet 8.6 mg PO BID insulin aspart U-100 [Novolog U-100 Insulin aspart] 100 unit/mL solution 110 unit continuous subcutaneous infusion DAILY Rx Instructions: patient states has insulin pump and it feeds continously depending on BS levels - pt has on hold due to NPO for Heart Cath today trazodone 50 mg tablet 50 mg PO DAILY albuterol sulfate 90 mcg/actuation HFA aerosol inhaler 2 inh inhalation DAILY metoprolol succinate 100 mg tablet extended release 24 hr 100 mg PO DAILY Qty: 90 3RF Eliquis 2.5 mg tablet 2.5 mg PO BID Qty: 60 5RF losartan 50 mg tablet 50 mg PO DAILY torsemide 20 mg tablet See Rx Instructions .ROUTE .COMPLEX Rx Instructions: TAKE 1 TABLET BY MOUTH TWICE A DAY simvastatin 20 mg tablet See Rx Instructions .ROUTE .COMPLEX Rx Instructions: TAKE 1 TABLET BY MOUTH EVERY DAY AT BEDTIME FOR CHOLESTEROL aspirin 81 mg Tablet 81 mg PO DAILY Referrals Follow up/Referrals: Donovan Clark [Primary Care Provider] - See instructions Activity Restrictions/Add. Instructions Additional Instructions/Restrictions: To [facility] care of Dr. Zepeda Clinical Impressions Clinical Impression: Severe sepsis with septic shock, Aspiration pneumonia, Atrial flutter with rapid ventricular response, Hyperosmolar hyperglycemic state (HHS) Stand Alone Forms Stand Alone Forms: Transfer Record - ED Print Language Print Language: Tajik Discharge ED Provider: Ag De Leon [facility] General Chief Complaint: Chest Pain Stated Complaint: chest pain Time Seen by Provider: 12/02/24 12:31 Mode of Arrival: Family Vehicle Source of Information: Patient Limitations: No Limitations Description of Symptoms (Recalled from ER Triage Doc. by RN): CP and SOA X3 days, worsening this am History of Present Illness HPI narrative: Patient presents for evaluation of chest pain. Patient reports increasing shortness of breath and now chest pain over the last 3 days. Patient does have a significant past medical history for esophageal cancer status post feeding tube placement 4 weeks ago at [facility], history of CHF, insulin-dependent type 2 diabetic, history of coronary artery disease, history of atrial fibrillation, history of COPD, history of hypertension hyperlipidemia BPH. Patient reports that he has no fever chills hemoptysis hematochezia melena does have nausea and vomiting frequently relating to his esophageal cancer. Patient has been utilizing Glucerna and giving himself bolus feeds since his discharge. Patient states he vomits tube feeds often. Related Data Home Medications ?Medication ?Instructions ?Recorded ?Confirmed ascorbic acid (vitamin C) 500 mg 500 mg PO DAILY Supplement 03/11/22 09/26/24 tablet fluticasone propionate 50 2 spray intranasal BID Allergy 03/11/22 09/26/24 mcg/actuation nasal symptoms spray,suspension insulin aspart U-100 100 unit/mL 110 unit continuous subcutaneous 03/11/22 09/26/24 subcutaneous solution (Novolog infusion DAILY Diabetes U-100 Insulin aspart) sennosides 8.6 mg tablet (senna) 8.6 mg PO BID constipation 03/11/22 09/26/24 tamsulosin 0.4 mg capsule 0.4 mg PO DAILY urination 03/11/22 09/26/24 trazodone 50 mg tablet 50 mg PO DAILY sleep 10/03/22 09/26/24 losartan 50 mg tablet 50 mg PO DAILY BP 10/07/22 09/26/24 simvastatin 20 mg tablet See Rx Instructions .Route 10/07/22 09/26/24 .COMPLEX Cholesterol torsemide 20 mg tablet See Rx Instructions .Route 10/07/22 09/26/24 .COMPLEX BP aspirin 81 mg tablet 81 mg PO DAILY heart health 06/30/23 09/26/24 albuterol sulfate 90 mcg/actuation 2 inh inhalation DAILY 02/15/24 09/26/24 aerosol inhaler Previous Rx's ?Medication ?Instructions ?Recorded metoprolol succinate 100 mg 100 mg PO DAILY #90 tabs 02/15/24 tablet,extended release 24 hr apixaban 2.5 mg tablet (Eliquis) 2.5 mg PO BID #60 tabs 09/26/24 Allergies Allergy/AdvReac Type Severity Reaction Status Date / Time Iodinated Contrast Media AdvReac Mild Verified 09/26/24 13:22 [facility] Disclaimer: The information contained in this section may have been updated after the patient was seen, as this information can be updated by other users. 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 Nodule of left lung Pleural effusion on right History of lung cancer in adulthood Dyspnea on exertion History of smoking 30 or more pack years Diabetic retinopathy associated with type 1 diabetes mellitus Macular degeneration History of cancer of kidney in adulthood Hx of cancer of lung Insulin dependent diabetes mellitus Type 1 diabetes CHF (congestive heart failure), NYHA class III Cardiomyopathy CAD (coronary artery disease) Atrial fibrillation with RVR Atrial fibrillation Dyspnea Sinus tachycardia Abnormal electrocardiography Surgical History Hx of cataract surgery History of esophagogastroduodenoscopy (EGD) History of pneumonectomy H/O kidney removal Family History Father Family history non-contributory Lung cancer Brother Colon cancer Lung cancer Social History Smoking Status: Never smoker second hand exposure: No alcohol intake: never substance use type: denies use current occupational status: retired Travel in the last 8 weeks: None housing: house caffeine: Yes Have you lived/traveled outside [place] in past 30 days?: No Contact w/someone who lives/traveled outside US past 30 days?: No Exposure to someone with infectious disease in past 14 days?: No Do you have a fever (greater than 100.4 F or 38 C)?: No Have you tested positive for COVID-19: No Exposed to someone with COVID-19 in past 14 days?: No Do you have a sore throat?: No Do you have a cough?: No Do you have any weakness?: No Do you have any diarrhea?: No Are you experiencing any unusual bleeding?: No Do you have any muscle aches/pain?: No Do you have any abdominal pain?: No Are you experiencing loss of taste or smell?: No Other Medical History Have you received the Flu Vaccine for this season: No Have you received the Pneumonia Vaccine: Yes ROS Obtained: Yes Systems reviewed as appropriate & no additional complaints except as documented Physical Exam General General appearance: alert and in no apparent distress Respiratory Respiratory exam: Present respiratory distress and accessory muscle use; Absent normal lung sounds bilaterally (Patient has diminished breath sounds at the bilateral bases rales and expiratory wheezes in all 4 barrientos with accessory muscle use) Cardiovascular Cardiovascular exam: Present tachycardia and irregular rhythm; Absent normal heart sounds Neurological Exam Neurological exam: Present alert and oriented X3 HEART Score HEART Score HEART Score assessment performed?: Yes History (anamnesis): Slightly suspicious ECG: Non-specific disturbance Age: >65 years Risk factors: Atherosclerosis history Troponin: </= normal limit HEART Score: 5 Critical Care Critical Care Time Critical Care Time: Yes Attestation: On 12/02/24, the high probability of a clinically significant, sudden or life threatening deterioration of the following system: Endocrine, cardiovascular, cardiac; required my full and direct attention, intervention and personal management. The time I documented below is in addition to time spent performing reported procedures but includes the following listed in this critical care notation. Total Time Total Critical Care Time: 45 Medical Decision Making Medical Records Medical records reviewed: Yes I reviewed the patient's medical records. Markie Inquiry Pt receiving controlled substance: No Vital Signs Vital Signs: 12/02/24 11:55 12/02/24 12:09 12/02/24 13:02 Temperature 98.7 F Temperature Source Oral Pulse Rate 144 H 82 Pulse Rate [Left Radial] 144 H Respiratory Rate 20 41 H Blood Pressure 101/86 L Blood Pressure [Right Arm] 124/100 H Blood Pressure Mean [Right Arm] 108 Blood Pressure Source [Right Arm] Automatic Cuff Blood Pressure Position [Right Arm] Supine 02 Sat by Pulse Oximetry 93 L 91 L Oxygen Delivery Method Room Air Room Air 12/02/24 13:30 12/02/24 14:00 12/02/24 14:30 Temperature Temperature Source Pulse Rate 137 H 137 H 141 H Pulse Rate [Left Radial] Respiratory Rate 32 H 32 H Blood Pressure 112/58 L 146/80 H 128/66 Blood Pressure [Right Arm] Blood Pressure Mean [Right Arm] Blood Pressure Source [Right Arm] Blood Pressure Position [Right Arm] 02 Sat by Pulse Oximetry 92 L 94 L 94 L Oxygen Delivery Method Room Air Room Air 12/02/24 15:00 12/02/24 15:30 12/02/24 16:15 Temperature Temperature Source Pulse Rate 73 139 H 137 H Pulse Rate [Left Radial] Respiratory Rate 28 H 25 H Blood Pressure 130/77 121/65 Blood Pressure [Right Arm] Blood Pressure Mean [Right Arm] Blood Pressure Source [Right Arm] Blood Pressure Position [Right Arm] 02 Sat by Pulse Oximetry 95 93 L 95 Oxygen Delivery Method Room Air Room Air Room Air 12/02/24 16:50 Temperature Temperature Source Pulse Rate 136 H Pulse Rate [Left Radial] Respiratory Rate 25 H Blood Pressure 118/69 Blood Pressure [Right Arm] Blood Pressure Mean [Right Arm] Blood Pressure Source [Right Arm] Blood Pressure Position [Right Arm] 02 Sat by Pulse Oximetry 93 L Oxygen Delivery Method Lab Data Lab results reviewed: Yes I reviewed the patient's lab results. Labs: Lab Results 12/02/24 12:20: WBC 35.0 H*, RBC 3.44 L, Hgb 10.4 L, Hct 33.9 L, MCV 98.5 H, MCH 30.2, MCHC 30.7 L, RDW 15.6, Plt Count 388, MPV 11.7 H, Neut % (Auto) 94.7 H, L ymph % (Auto) 0.7 L, Wirt % (Auto) 3.4, Eos % (Auto) 0.0 L, Baso % (Auto) 0.3, N eut # (Auto) 33.2 H, Lymph # (Auto) 0.3 L, Wirt # (Auto) 1.2 H, Eos # (Auto) 0.0, Baso # (Auto) 0.1, Total Counted 100, Neutrophils % (Manual) 97 H, L ymphocytes % (Manual) 2 L, Monocytes % (Manual) 1 L, Platelet Estimate Normal, RBC Morphology Normal, Sodium 138, Potassium 4.2, Chloride 95 L, Carbon Dioxide 26, Anion Gap 21.2 H, BUN 45 H, Creatinine 1.30 H, Estimated Creat Clear 66, E stimated GFR 54 L, Est GFR ( Amer) 66, Glucose 601 H*, Calcium 9.7, Phosphorus 3.1, Magnesium 2.1, Total Bilirubin 1.2, AST 35, ALT 34, Alkaline Phosphatase 47, Troponin I < 0.01, NT-Pro-B Natriuret Pep 1220 H, Total Protein 7.5, Albumin 3.5, Globulin 4.0 H, Albumin/Globulin Ratio 0.9 L, Acetone Level None detected, HIV Ag/Ab Combo Qual Negative 12/02/24 12:49: VBG pH 7.45 H, VBG pCO2 39.1, VBG pO2 55.4 H, VBG HCO3 26.3, VBG Total CO2 27.5 H, VBG O2 Saturation 88.9 H, VBG Base Excess 2.3, VBG Lactic Acid 4.1 H 12/02/24 13:15: Urine Color Yellow, Urine Appearance Clear, Urine pH 5.5, Ur Specific [place] 1.020, Urine Protein Negative, Urine Glucose (UA) 2+, Urine Ketones 1+, Urine Blood Negative, Urine Nitrate Negative, Urine Bilirubin Negative, Urine Urobilinogen 0.2, Ur Leukocyte Esterase Negative, Urine RBC 3-5, Urine WBC Occasional, Ur Squamous Epith Cells Occasional, Urine Bacteria 1+, Urine Mucus 1+ 12/02/24 14:55: SARS-CoV-2 (PCR) Not detected, Influenza Type A (PCR) Not detected, Influenza Type B (PCR) Not detected, RSV (PCR) Not detected, Rhinovirus (PCR) Not detected 12/02/24 15:21: Troponin I < 0.01 12/02/24 12:20 12/02/24 12:20 Response Orders (Tests/Meds): ED MEDICATIONS Generic Name Dose Route Start Last Admin Trade Name Freq PRN Reason Stop Dose Admin Ceftriaxone Sodium 1 gm/ 50 mls @ 100 mls/hr 12/02/24 13:00 12/02/24 13:41 Sodium Chloride IV 12/12/24 12:59 100 mls/hr Q24H NICOLE Administration Azithromycin 500 mg/ Sodium 250 mls @ 250 mls/hr 12/02/24 13:00 12/02/24 13:45 Chloride IV 12/12/24 12:59 250 mls/hr Q24H NICOLE Administration Sodium Chloride 1,000 mls @ 150 mls/hr 12/02/24 16:15 Sod Chlor 0.9% 1000ml Bag IV 01/01/25 16:14 .Q6H40M NICOLE Insulin Human Regular 100 unit 101 mls @ 5.05 mls/hr 12/02/24 14:15 12/02/24 15:15 / Sodium Chloride IV 01/01/25 14:14 5 unit/hr .Q20H NICOLE 5.05 mls/hr Administration Protocol 5 UNIT/HR Sodium Chloride 2,000 mls @ 250 mls/hr 12/02/24 15:00 12/02/24 15:15 Sod Chlor 0.9% 1000ml Bag IV 12/02/24 22:59 250 mls/hr .Q8H NICOLE Administration Discontinued Medications Generic Name Dose Route Start Last Admin Trade Name Freq PRN Reason Stop Dose Admin Sodium Chloride 2,000 mls @ 999 mls/hr 12/02/24 14:15 12/02/24 15:04 Sod Chlor 0.9% 1000ml Bag IV 01/01/25 14:14 Not Given .Q2H1M NICOLE Insulin Human Regular 10 unit 12/02/24 12:50 12/02/24 13:43 Insulin Human Regular 100 Units/Ml 10ml Vial IVP 12/02/24 12:51 10 unit ONCE ONE Administration Metoprolol Tartrate 5 mg 12/02/24 12:12 12/02/24 12:26 Metoprolol Tartrate 5mg/5ml Vial IV 12/02/24 12:13 5 mg ONCE ONE Administration ORDERS Category Date Time Status Chest XR -- portable [XR chest portable] Stat Exams 12/02/24 12:15 Completed Acetone, Serum (Rapid) Stat Lab 12/02/24 12:20 Completed BNP [NT Pro Brain Natriuretic Pep.] Stat Lab 12/02/24 12:20 Completed CBC w/Auto Diff [Complete Blood Count Auto Diff] Stat Lab 12/02/24 12:20 Completed CMP [Comprehensive Metabolic Panel] Stat Lab 12/02/24 12:20 Completed Full Resp Panel w/COVID ([facility]) Routine Lab 12/02/24 13:44 Received HIV Combo Stat Lab 12/02/24 12:20 Completed Hep C Ab with Reflex to RNA Stat Lab 12/02/24 12:20 Received Magnesium Stat Lab 12/02/24 12:20 Completed Mini Respiratory Panel Stat Lab 12/02/24 14:55 Completed Phosphorous Stat Lab 12/02/24 12:20 Completed Trop I [Troponin I] Stat Lab 12/02/24 12:20 Completed Troponin I Q3H Lab 12/02/24 15:21 Completed Troponin I Q3H Lab 12/02/24 18:15 Ordered Urinalysis and Microscopic Stat Lab 12/02/24 13:15 Completed Blood Culture Stat Micro 12/02/24 12:40 Received Urine Culture Stat Micro 12/02/24 14:15 Received VBG [Venous Blood Gas] Stat RT 12/02/24 12:49 Completed Venous Blood Gas Stat RT 12/02/24 14:04 Ordered Tissue Perfus/Sepsis Re-Eval Sepsis Re-Evaluation Performed: Yes Date Performed: 12/02/24 Time Performed: 17:12 MDM Narrative Medical Decision Narrative: In summary patient is a 74-year-old male who presents to the emergency department for evaluation of chest pain. Patient is initially normotensive with a blood pressure 124/100 heart rate of 144 and variable breathing 30 times a minute satting at 93% on 2 L by nasal cannula upon arrival, afebrile at 98.7. Physical exam is remarkable for increased work of breathing with tachypnea and accessory muscle use, breath sounds are diminished at the bilateral bases, right greater than left, rales and expiratory wheezes in all 4 barrientos. Patient appears to be in a flutter on the bedside monitor.. Differential diagnosis includes ACS versus DKA versus atrial fibrillation or flutter with rapid ventricular response etc. Initial workup will be conducted with hematologic labs plain film chest x-ray VBG urinalysis twelve-lead EKG. Initial interventions include 5 mg metoprolol IV push continuous cardiac monitoring and pulse oximetry supplemental O2. Initial workup reviewed by me shows severe sepsis with a white count of 35.0 hemoglobin hematocrit 10.4 and 33.9 respectively an absolute neutrophil count of 33.2, venous blood gas of 7.45 pCO2 of 39.1 with a VBG lactate of 4.1, chemistry is significant for chloride 95 CO2 of 26 and gap of 21.2 BUN of 45 creatinine 1.3 with a GFR of 54 serum glucose is 601 remainder of his CMP is nonactionable, initial troponin is less than 0.0 1 repeat is the same, NT proBNP is elevated at 1220 urinalysis shows 2 of glucose 1 of ketone blood nitrite and leukocyte Estrace negative microscopic Mark shows 3-5 red cells occasional whites occasional squamous cells 1+ bacteria and his acetone is negative. My informal interpretation of his plain film chest x-ray shows multifocal pneumonia with right being greater than left opacities bilateral pleural effusions. Upon reevaluation patient still remains in a flutter after initial metoprolol dose and with negative troponins and a history of heart failure given normal perfusing pressure sepsis bolus was deferred as this may be compensatory and while the patient is in a flutter rate control was not pursued for the same reason. Patient's blood sugar only came down minimally with 10 of IV insulin thus patient was started on insulin drip. I had interactive discussion with the hospitalist at [facility] Dr. Zepeda who is excepted the patient to the ICU and transfer.
[2024-12-02 12:32] LABS: Basophils # 0.1 K/mm3 (0-0.2); Basophils % 0.3 % (0.1-2.0); Hematocrit 33.9 % (42.0-52.0); Hemoglobin 10.4 g/dL (14.1-18.0); Lymphocytes # 0.3 K/mm3 (0.7-4.5); Lymphocytes % 0.7 % (10-50); Mean Corpuscular HGB Conc 30.7 g/dL (31.8-35.4); Mean Corpuscular Hemoglobin 30.2 pg (27.0-31.2); Mean Corpuscular Volume 98.5 fl (80-94); Mean Platelet Volume 11.7 fl (7.4-10.4); Monocytes # 1.2 K/mm3 (0.1-1.0); Monocytes % 3.4 % (1.7-9.3); Neutrophils # 33.2 K/mm3 (1.8-7.8); Neutrophils % 94.7 % (37.0-80.0); Platelet Count 388 K/mm3 (142-424); Red Blood Count 3.44 M/mm3 (4.60-6.20); Red Cell Distribution Width 15.6 % (11.5-17.5)
[2024-12-02 12:36] LABS: MANUAL DIFFERENTIAL MANUAL DIFFERENTIAL (MANUAL DIFF)
[2024-12-02 12:37] LABS: Albumin Level 3.5 g/dl (3.5-5.0); Chloride 95 mmol/L (98-107); Potassium 4.2 mmoL/L (3.5-5.1); Sodium 138 mmol/L (136-145)
[2024-12-02 12:40] LABS: Alanine Aminotransferase 34 U/L (12-78); Albumin/Globulin Ratio 0.9 (1.1-1.8); Alkaline Phosphatase 47 U/L (38-126); Anion Gap 21.2 mEq/L (5-15); Aspartate Amino Transferase 35 U/L (17-59); Bilirubin,Total 1.2 mg/dl (0.2-1.3); Blood Urea Nitrogen 45 mg/dl (9-20); Carbon Dioxide 26 mmol/L (22.0-30.0); Creatinine Clearance Estimated 66 mL/min (50-200); Estimated Glomerular Filt Rate 54 ml/min (>60); GFR (African American) 66 ML/MIN (>60); Total Protein,Serum 7.5 g/dl (6.3-8.2)
[2024-12-02 12:41] LABS: Calcium 9.7 mg/dl (8.4-10.2)
[2024-12-02 12:46] LABS: Glucose 601 mg/dl (74-100)
[2024-12-02 12:58] LABS: Troponin I < 0.01 ng/ml (0.00-0.034)
[2024-12-02 13:36] LABS: Lymphocytes % 2 % (10-50); Monocytes % 1 % (2-9); Neutrophils % 97 % (42-76); Platelet Estimate Normal; RBC Morphology Normal; Total Cells Counted 100
[2024-12-02] MEDS: CEFTRIAXONE 1 GM 1 GM in 0.9 % SODIUM CHLORIDE 50 ML IV (13:41)
[2024-12-02] MEDS: INSULIN HUMAN REGULAR 100 UNITS/ML 10ML VIAL 10 UNIT IVP (13:43)
[2024-12-02] MEDS: AZITHROMYCIN 500 MG in 0.9 % SODIUM CHLORIDE 250 ML 250 MG IV (13:45)
[2024-12-02 13:50] LABS: HIV Combo NEGATIVE (Negative)
[2024-12-02 13:52] LABS: VBG Base Excess 2.3 mmol/L (-2.4-2.3); VBG HCO3 26.3 mmol/L (23-30); VBG Oxygen Saturation 88.9 % (50-70); VBG PCO2 39.1 mmol/L (35-51); VBG PH 7.45 mmol/L (7.31-7.41); VBG PO2 55.4 mmol/L (28-40); VBG Total CO2 27.5 mmol/L (23-27)
[2024-12-02 13:54] LABS: Lactate Venous 4.1 mmol/L (0.4-2.0)
[2024-12-02 14:03] LABS: Magnesium 2.1 mg/dl (1.6-2.3); Phosphorous 3.1 mg/dl (2.5-4.5)
[2024-12-02 14:13] LABS: NT Pro Brain Natriuretic Pep. 1220 pg/mL (0-125)
--- NOTE | 2024-12-02 14:19 | PC.NURSE ---
pt. sitting in chair. no needs at this time. Call light in reach
[2024-12-02 14:20] LABS: Microscopic, Urine URINE MICROSCOPIC (MICROSCOPIC)
--- NOTE | 2024-12-02 14:29 | PC.NURSE ---
Called radiology for an imaging disc.
[2024-12-02 14:48] LABS: Appearance,Urine CLEAR (Clear); Blood, Urine Negative (Negative); Color,Urine YELLOW (Yellow); Glucose,Urine (UA) 2+ (Negative); Ketones,Urine 1+ (Negative); Leukocyte Esterase,Urine Negative (Negative); Nitrate,Urine Negative (Negative); PH,Urine 5.5 (5.0-8.5); Protein,Urine Negative (Negative); Urobilinogen,Urine 0.2 EU/dl (0.2)
[2024-12-02 15:14] LABS: Bilirubin,Urine Negative (Negative)
[2024-12-02 15:15] LABS: Bacteria,Urine 1+ /lpf; Mucus,Urine 1+ /lpf; Squamous Epithelial Cell,Urine Occasional #/hpf (0-5); WBC,Urine Occasional #/hpf (0-3)
[2024-12-02] MEDS: 0.9 % SODIUM CHLORIDE 1000ML 2,000 ML 250 ML IV (15:15)
[2024-12-02] MEDS: INSULIN REGULAR, HUMAN 100 UNIT in 0.9 % SODIUM CHLORIDE 100 ML 5.05 UNIT IV (15:15)
--- NOTE | 2024-12-02 15:20 | PC.NURSE ---
FSBS [phone]
[2024-12-02 15:31] LABS: Acetone, Serum (Rapid) None Detected (None Detect)
--- NOTE | 2024-12-02 16:00 | PC.NURSE ---
MD does not want sepsis bolus due to CHF
--- NOTE | 2024-12-02 16:09 | PC.NURSE ---
FSBS [phone]
[2024-12-02 16:14] LABS: Troponin I < 0.01 ng/ml (0.00-0.034)
--- NOTE | 2024-12-02 17:01 | PC.NURSE ---
FSBS [phone]
[2024-12-02 17:03] LABS: Coronavirus 19, PCR Not Detected (NotDetected); Human Rhinovirus Not Detected (NotDetected); Influenza A, PCR Not Detected (NotDetected); Influenza B, PCR Not Detected (NotDetected); Respiratory Syncytial Virus Not Detected (NotDetected)
[2024-12-02 17:52] LABS: Reflex Lactic Add Lactic Reflex
[2024-12-03 06:10] LABS: HCV Ab Non Reactive (Non Reactive)
--- NOTE | 2024-12-03 14:46 | PC.NURSE ---
faxed blood culture to [place] where pt was transferred
== END 2024-12-02 17:50 | disposition short-term general hospital (02) ==
PROVIDERS: Physician Assistant; Student in an Organized Health Care Education/Training Program; Emergency Provider Emergency Medicine; PCP Pediatrics
DX: J69.0 Pneumonitis due to inhalation of food and vomit (principal); I48.92 Unspecified atrial flutter; R07.9 Chest pain, unspecified; R06.02 Shortness of breath; R11.2 Nausea with vomiting, unspecified
CPT/HCPCS: 71045; 80053; 81001; 82009; 82803; 83735; 83880; 84100; 84484; 85007; 85025; 85027; 86803; 87040; 87077; 87086; 87389; 87631; 87633; 93005; 96361; 96365; 96367; 99291; J0456; J0696; J7030; J7050

== ENCOUNTER 2024-12-15 12:42 | Inpatient (IN) | payer MEDICARE, OTHER, SELFPAY ==
[2024-12-15] VITALS (32 sets, daily range): BP systolic 96–147; BP diastolic 46–102; PULSE 49–151; RESP 15–36; TEMP 36.3–36.9; O2SAT 87–98; BMI 28.7; BMI 28.0
--- NOTE | 2024-12-15 12:44 | ECG_ITS ---
APPROVED REPORT Exam: Resting ECG HR:147 bpm ECG Measurements Heart Rate 147 AXES ID 150 P 57 QRSd 88 QRS -4 QT 329 T 30 QTc 413 Conclusion SINUS TACHYCARDIA, POSSIBLE ATRIAL FLUTTER ABNORMAL RHYTHM ECG UNCONFIRMED REPORT Electronically signed by : Rolando Bolanos, 12/15/2024 16:10:23
--- NOTE | 2024-12-15 12:46 | HMH.EDCP ---
Discharge Plan Disposition Patient Disposition: Admitted Condition: Critical Clinical Impressions Clinical Impression: Atrial fibrillation and flutter Discharge ED Provider: Rolnado Bolanos HPI <ADIS Celestin - Last Filed: 12/15/24 22:37> General Chief Complaint: Shortness of Breath/Dyspnea Stated Complaint: SHORTNESS OF BREATH Time Seen by Provider: 12/15/24 12:46 History of Present Illness HPI narrative: Mr. Khan presents for evaluation of dyspnea. I saw the patient previously this month on 02 December where he was diagnosed with atrial flutter and aspiration pneumonia from tube feeds. He was transferred to [facility] where he stayed for 8 days. He reportedly had cardioversion during his stay. Patient reports for the last 3 days he has been increasingly short of breath and fatigue. He denies any fever chills hemoptysis hematochezia melena nausea vomiting diarrhea. He is does not have increased oxygen requirements and is on 2 L by nasal cannula chronically due to COPD and lung cancer. He has a PEG tube because of the feeding difficulty associated with the lung cancer. Related Data Home Medications ?Medication ?Instructions ?Recorded ?Confirmed ascorbic acid (vitamin C) 500 mg 500 mg PO DAILY Supplement 03/11/22 12/15/24 tablet fluticasone propionate 50 2 spray intranasal BID Allergy 03/11/22 12/15/24 mcg/actuation nasal symptoms spray,suspension insulin aspart U-100 100 unit/mL 110 unit continuous subcutaneous 03/11/22 12/15/24 subcutaneous solution (Novolog infusion DAILY Diabetes U-100 Insulin aspart) sennosides 8.6 mg tablet (senna) 8.6 mg PO BID constipation 03/11/22 12/15/24 tamsulosin 0.4 mg capsule 0.4 mg PO DAILY urination 03/11/22 12/15/24 trazodone 50 mg tablet 50 mg PO DAILY sleep 10/03/22 12/15/24 losartan 50 mg tablet 50 mg PO DAILY BP 10/07/22 12/15/24 simvastatin 20 mg tablet See Rx Instructions .Route 10/07/22 12/15/24 .COMPLEX Cholesterol torsemide 20 mg tablet See Rx Instructions .Route 10/07/22 12/15/24 .COMPLEX BP aspirin 81 mg tablet 81 mg PO DAILY heart health 08/01/23 01/16/25 albuterol sulfate 90 mcg/actuation 2 inh inhalation DAILY 02/15/24 12/15/24 aerosol inhaler insulin degludec 100 unit/mL (3 0 unit SQ NEEDED PRN diabetes 12/15/24 12/15/24 mL) subcutaneous pen (Tresiba FlexTouch U-100 insulin) oxycodone 5 mg/5 mL oral solution 5 mg PO NEEDED PRN Pain 12/15/24 12/15/24 Previous Rx's ?Medication ?Instructions ?Recorded metoprolol succinate 100 mg 100 mg PO DAILY #90 tabs 02/15/24 tablet,extended release 24 hr apixaban 2.5 mg tablet (Eliquis) 2.5 mg PO BID #60 tabs 09/26/24 Allergies Allergy/AdvReac Type Severity Reaction Status Date / Time Iodinated Contrast Media AdvReac Mild Verified 09/26/24 13:22 [facility] <ADIS Celestin - Last Filed: 12/15/24 22:37> [facility] Disclaimer: The information contained in this section may have been updated after the patient was seen, as this information can be updated by other users. 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 Nodule of left lung Pleural effusion on right History of lung cancer in adulthood Dyspnea on exertion History of smoking 30 or more pack years Diabetic retinopathy associated with type 1 diabetes mellitus Macular degeneration History of cancer of kidney in adulthood Hx of cancer of lung Insulin dependent diabetes mellitus Type 1 diabetes CHF (congestive heart failure), NYHA class III Cardiomyopathy CAD (coronary artery disease) Atrial fibrillation with RVR Atrial fibrillation Dyspnea Sinus tachycardia Abnormal electrocardiography Surgical History Hx of cataract surgery History of esophagogastroduodenoscopy (EGD) History of pneumonectomy H/O kidney removal Family History Father Family history non-contributory Lung cancer Brother Colon cancer Lung cancer Social History (Updated 12/15/24 @ 16:44 by Allison Thao RN) Smoking Status: Never smoker second hand exposure: No alcohol intake: never substance use type: denies use current occupational status: retired Travel in the last 8 weeks: None housing: house caffeine: Yes Have you lived/traveled outside [place] in past 30 days?: No Contact w/someone who lives/traveled outside US past 30 days?: No Exposure to someone with infectious disease in past 14 days?: No Do you have a fever (greater than 100.4 F or 38 C)?: No Have you tested positive for COVID-19: No Exposed to someone with COVID-19 in past 14 days?: No Do you have a sore throat?: No Do you have a cough?: No Do you have any weakness?: No Are you experiencing any nausea/vomitting?: No Do you have any diarrhea?: No Are you experiencing any unusual bleeding?: No Do you have any muscle aches/pain?: No Do you have any abdominal pain?: No Are you experiencing loss of taste or smell?: No Other Medical History Have you received the Flu Vaccine for this season: No Have you received the Pneumonia Vaccine: Yes <ADIS Celestin - Last Filed: 12/15/24 22:37> ROS Obtained: Yes Systems reviewed as appropriate & no additional complaints except as documented Physical Exam <ADIS Celestin - Last Filed: 12/15/24 22:37> General General appearance: alert and in no apparent distress Respiratory Respiratory exam: Present wheezes (And rhonchi in all 4 barrientos); Absent normal lung sounds bilaterally or respiratory distress Cardiovascular Cardiovascular exam: Present tachycardia and irregular rhythm Neurological Exam Neurological exam: Present alert and oriented X3 HEART Score <ADIS Celestin - Last Filed: 12/15/24 22:37> HEART Score HEART Score assessment performed?: Yes History (anamnesis): Slightly suspicious ECG: Non-specific disturbance Age: >65 years Risk factors: Atherosclerosis history Troponin: 1-3x normal limit HEART Score: 6 <Rolando Bolanos MD - Last Filed: 12/16/24 07:03> HEART Score HEART Score: 6 Critical Care <ADIS Celestin - Last Filed: 12/15/24 22:37> Critical Care Time Critical Care Time: Yes Attestation: On 12/15/24, the high probability of a clinically significant, sudden or life threatening deterioration of the following system: Cardiac, pulmonary; required my full and direct attention, intervention and personal management. The time I documented below is in addition to time spent performing reported procedures but includes the following listed in this critical care notation. Total Time Total Critical Care Time: 60 Medical Decision Making <ADIS Celestin - Last Filed: 12/15/24 22:37> Medical Records Medical records reviewed: Yes I reviewed the patient's medical records. Markie Inquiry Pt receiving controlled substance: No Vital Signs Vital Signs: 12/15/24 12:42 12/15/24 13:01 12/15/24 13:30 Temperature 98.4 F Temperature Source Oral Pulse Rate 147 H 147 H Pulse Rate [Right] 147 H Respiratory Rate 22 35 H 28 H Blood Pressure 113/67 111/64 Blood Pressure [Right Arm] 121/72 Blood Pressure Mean Blood Pressure Mean [Right Arm] 88 02 Sat by Pulse Oximetry 94 L 95 98 Oxygen Delivery Method Room Air 12/15/24 14:43 12/15/24 15:00 12/15/24 15:14 Temperature Temperature Source Pulse Rate 144 H Pulse Rate [Right] Respiratory Rate 36 H Blood Pressure 105/57 L Blood Pressure [Right Arm] Blood Pressure Mean Blood Pressure Mean [Right Arm] 02 Sat by Pulse Oximetry 96 Oxygen Delivery Method Room Air Room Air Nasal Cannula 12/15/24 15:15 12/15/24 15:15 12/15/24 15:18 Temperature 97.8 F Temperature Source Pulse Rate 120 H Pulse Rate [Right] Respiratory Rate 26 H 23 Blood Pressure 105/57 L 105/57 L Blood Pressure [Right Arm] Blood Pressure Mean 68 Blood Pressure Mean [Right Arm] 02 Sat by Pulse Oximetry Oxygen Delivery Method Lab Data Lab results reviewed: Yes I reviewed the patient's lab results. Labs: Lab Results 12/15/24 12:54: WBC 14.6 H, RBC 3.20 L, Hgb 9.3 L, Hct 32.1 L, MCV 100.3 H, MCH 29.1, MCHC 29.0 L, RDW 17.8 H, Plt Count 358, MPV 12.3 H, Neut % (Auto) 87.4 H, Lymph % (Auto) 3.1 L, [place] % (Auto) 6.7, Eos % (Auto) 1.3, Baso % (Auto) 0.4, Neut # (Auto) 12.7 H, Lymph # (Auto) 0.5 L, [place] # (Auto) 1.0, Eos # (Auto) 0.2, Baso # (Auto) 0.1, D-Dimer 0.84 H, Sodium 149 H, Potassium 4.3, Chloride 111 H, Carbon Dioxide 32 H, Anion Gap 10.3, BUN 54 H, Creatinine 1.50 H, Estimated Creat Clear 57, Estimated GFR 46 L, Est GFR ( Amer) 56 L, Glucose 99, Calcium 9.2, Phosphorus 4.6 H, Magnesium 2.6 H, Total Bilirubin 0.5, AST 55, ALT 28, Alkaline Phosphatase 39, Troponin I 0.04 H, NT-Pro-B Natriuret Pep 2210 H, Total Protein 7.7, Albumin 3.3 L, Globulin 4.4 H, Albumin/Globulin Ratio 0.8 L, TSH 4.05, Free T4 Index 3.0 L, Thyroxine (T4) 6.4, T3 Uptake 47 H, HCV Ab ANAT w/Rflx PCR Qn Negative, HIV Ag/Ab Combo Qual Negative 12/15/24 13:47: SARS-CoV-2 (PCR) Not detected, Influenza Type A (PCR) Not detected, Influenza Type B (PCR) Not detected, RSV (PCR) Not detected, Rhinovirus (PCR) Not detected 12/15/24 12:54 12/15/24 12:54 Response Orders (Tests/Meds): ED MEDICATIONS Generic Name Dose Route Start Last Admin Trade Name Freq PRN Reason Stop Dose Admin Acetaminophen 650 mg 12/15/24 16:23 Acetaminophen 325mg Tab PO 01/14/25 16:22 Q4HP PRN Fever or Mild Pain (1-3) Diltiazem HCl 180 mg 12/15/24 19:35 12/15/24 19:59 Diltiazem Hcl 180mg Cap.Er.24h PO 01/14/25 19:34 180 mg DAILY NICOLE Administration Enoxaparin Sodium 90 mg 12/15/24 16:30 12/16/24 05:25 Enoxaparin 100mg/Ml Syringe 1 mg/kg (90 mg) 01/14/25 16:29 90 mg SUBCUT Administration Q12H NICOLE Furosemide 40 mg 12/15/24 16:00 12/16/24 02:17 Furosemide 40mg/4ml Vial IV 01/14/25 15:59 Not Given BIDL NICOLE Piperacillin Sod/Tazobactam 50 mls @ 100 mls/hr 12/15/24 14:00 12/16/24 02:36 Sod 3.375 gm/ Sodium Chloride IV 12/25/24 13:59 100 mls/hr Q6H NICOLE Administration Diltiazem HCl 100 mg/ Sodium 100 mls @ 5 mls/hr 12/15/24 14:15 12/16/24 03:23 Chloride IV 01/14/25 14:14 10 mg/hr .Q20H NICOLE 10 mls/hr Administration Protocol 5 MG/HR Insulin Glargine 10 unit 12/15/24 21:00 12/15/24 20:31 Insulin Glargine 100 Units/Ml 10ml Vial SUBCUT 01/14/25 20:59 Not Given HS NICOLE Insulin Human Lispro 0 unit 12/15/24 21:00 12/16/24 05:31 Humalog 100 Units/Ml 10ml Vial (Ssi) SUBCUT 01/14/25 20:59 10 unit ACHS NICOLE Administration Protocol Non-Formulary Medication 81 mg 12/16/24 09:00 Aspirin PO 01/15/25 08:59 DAILY NICOLE Ondansetron HCl 4 mg 12/15/24 16:23 Ondansetron 4mg/2ml Vial IV 01/14/25 16:22 Q8HP PRN Nausea Sodium Chloride 3 ml 12/15/24 19:41 12/15/24 23:18 Sodium Chloride 3% 15ml Neb IH 01/14/25 19:40 3 ml ONCE PRN Administration INDUCE SPUTUM COLLECTION Tamsulosin HCl 0.4 mg 12/15/24 21:00 12/15/24 20:27 Tamsulosin 0.4mg Capsule PO 01/14/25 20:59 0.4 mg HS NICOLE Administration Discontinued Medications Generic Name Dose Route Start Last Admin Trade Name Freq PRN Reason Stop Dose Admin Diltiazem HCl 10 mg 12/15/24 13:28 12/15/24 14:15 Diltiazem 25mg/5ml Vial IV 12/15/24 13:29 10 mg ONCE ONE Administration Furosemide 80 mg 12/15/24 12:57 12/15/24 13:33 Furosemide 40mg/4ml Vial IV 12/15/24 12:58 80 mg ONCE ONE Administration Magnesium Sulfate 2 gm in 50 mls @ 50 mls/hr 12/15/24 12:57 12/15/24 13:33 Magnesium Sulfate 2gm/50ml Premix IV 12/15/24 13:56 50 mls/hr ONCE ONE Administration Vancomycin/PEG/NADA/Lysine/Water 1.5 gm in 300 mls @ 150 mls/hr 12/15/24 14:00 12/15/24 15:43 Vancomycin 1.5gm/300ml (Peg) Premix IV 12/15/24 15:59 150 mls/hr ONCE ONE Administration Miscellaneous 1 each 12/15/24 14:00 Vancomycin Consult Request NOTAPPLIC 01/14/25 13:59 CONSULT PHARMACY NICOLE ORDERS Category Date Time Status Cardiology Consult [Consult to Cardiology] [CONS] Cons 12/15/24 13:02 Active Routine Consult to Physician [CONS] Routine Cons 12/15/24 13:34 Ordered XR chest portable Stat Exams 12/15/24 12:57 Completed BNP [NT Pro Brain Natriuretic Pep.] Stat Lab 12/15/24 12:54 Completed CBC w/Auto Diff [Complete Blood Count Auto Diff] Stat Lab 12/15/24 12:54 Completed CMP [Comprehensive Metabolic Panel] Stat Lab 12/15/24 12:54 Completed D-Dimer Stat Lab 12/15/24 12:54 Completed HIV Combo Stat Lab 12/15/24 12:54 Completed Hepatitis C Ab Qual. W/ RFX Stat Lab 12/15/24 12:54 Completed Magnesium Stat Lab 12/15/24 12:54 Completed Mini Respiratory Panel Stat Lab 12/15/24 13:47 Completed Phosphorous Stat Lab 12/15/24 12:54 Completed Thyroid Panel Stat Lab 12/15/24 12:54 Completed Trop I [Troponin I] Stat Lab 12/15/24 12:54 Completed Troponin I Q3H Lab 12/15/24 16:08 Completed Troponin I Q3H Lab 12/15/24 19:20 Completed Blood Culture Stat Micro 12/15/24 14:10 Received MDM Narrative Medical Decision Narrative: In summary patient is a 74-year-old male who presents to the emergency department for evaluation of dyspnea. Patient is initially normotensive with blood pressure 121/72 tachycardic at 147 that appears to be A-fib or flutter but the rate is difficult to determine exact rhythm currently, breathing 22 times a minute satting at 94% on 2 L by nasal cannula upon arrival, and afebrile at 98.4. Physical exam is remarkable for wheezes and rales in all 4 barrientos diminished breath sounds at the bases but no increased work of breathing.. Differential diagnosis includes atrial flutter versus heart failure versus pneumonia versus ACS etc. Initial workup will be conducted with hematologic labs plain film chest x-ray VBG. Initial interventions include magnesium Lasix. Initial workup reviewed by me and his white counts is 14.6 with an absolute neutrophil count of 12.7 D-dimer is 0.84 MVA years criteria PE is excluded, BUN 54 creatinine is 1.5 GFR is 46 phosphorus is 4.6 magnesium is 2.6 initial troponin is 0.04 NT proBNP is 2210 his respiratory panel was negative for all organisms. Upon repeat evaluation I have initiated a diltiazem load followed by diltiazem drip. I then had an interactive discussion with Dr. Walter of cardiology regarding patient BEYER findings and patient management. Dr. Walter would like the patient to be admitted to the ICU for probable cardioversion tomorrow. I subsequently then had a interactive discussion with hospital medicine regarding patient management and he will be admitted to the ICU for further evaluation and care. TANISHA attestation I was consulted by the TANISHA, and we discussed the complexity of problems being addressed. I approved the treatment and management plan for this patient's care in the emergency department, thus performing a substantial portion of the medical decision making. Rolando Bolanos MD <Rolando Bolanos MD - Last Filed: 12/16/24 07:03> Vital Signs Vital Signs: 12/15/24 12:42 12/15/24 13:01 12/15/24 13:30 Temperature 98.4 F Temperature Source Oral Pulse Rate 147 H 147 H Pulse Rate [Right] 147 H Respiratory Rate 22 35 H 28 H Blood Pressure 113/67 111/64 Blood Pressure [Right Arm] 121/72 Blood Pressure Mean Blood Pressure Mean [Right Arm] 88 02 Sat by Pulse Oximetry 94 L 95 98 Oxygen Delivery Method Room Air 12/15/24 14:43 12/15/24 15:00 12/15/24 15:14 Temperature Temperature Source Pulse Rate 144 H Pulse Rate [Right] Respiratory Rate 36 H Blood Pressure 105/57 L Blood Pressure [Right Arm] Blood Pressure Mean Blood Pressure Mean [Right Arm] 02 Sat by Pulse Oximetry 96 Oxygen Delivery Method Room Air Room Air Nasal Cannula 12/15/24 15:15 12/15/24 15:15 12/15/24 15:18 Temperature 97.8 F Temperature Source Pulse Rate 120 H Pulse Rate [Right] Respiratory Rate 26 H 23 Blood Pressure 105/57 L 105/57 L Blood Pressure [Right Arm] Blood Pressure Mean 68 Blood Pressure Mean [Right Arm] 02 Sat by Pulse Oximetry Oxygen Delivery Method Lab Data Labs: Lab Results 12/15/24 12:54: WBC 14.6 H, RBC 3.20 L, Hgb 9.3 L, Hct 32.1 L, MCV 100.3 H, MCH 29.1, MCHC 29.0 L, RDW 17.8 H, Plt Count 358, MPV 12.3 H, Neut % (Auto) 87.4 H, Lymph % (Auto) 3.1 L, [place] % (Auto) 6.7, Eos % (Auto) 1.3, Baso % (Auto) 0.4, Neut # (Auto) 12.7 H, Lymph # (Auto) 0.5 L, [place] # (Auto) 1.0, Eos # (Auto) 0.2, Baso # (Auto) 0.1, D-Dimer 0.84 H, Sodium 149 H, Potassium 4.3, Chloride 111 H, Carbon Dioxide 32 H, Anion Gap 10.3, BUN 54 H, Creatinine 1.50 H, Estimated Creat Clear 57, Estimated GFR 46 L, Est GFR ( Amer) 56 L, Glucose 99, Calcium 9.2, Phosphorus 4.6 H, Magnesium 2.6 H, Total Bilirubin 0.5, AST 55, ALT 28, Alkaline Phosphatase 39, Troponin I 0.04 H, NT-Pro-B Natriuret Pep 2210 H, Total Protein 7.7, Albumin 3.3 L, Globulin 4.4 H, Albumin/Globulin Ratio 0.8 L, TSH 4.05, Free T4 Index 3.0 L, Thyroxine (T4) 6.4, T3 Uptake 47 H, HCV Ab ANAT w/Rflx PCR Qn Negative, HIV Ag/Ab Combo Qual Negative 12/15/24 13:47: SARS-CoV-2 (PCR) Not detected, Influenza Type A (PCR) Not detected, Influenza Type B (PCR) Not detected, RSV (PCR) Not detected, Rhinovirus (PCR) Not detected Response Orders (Tests/Meds): ED MEDICATIONS Generic Name Dose Route Start Last Admin Trade Name Freq PRN Reason Stop Dose Admin Acetaminophen 650 mg 12/15/24 16:23 Acetaminophen 325mg Tab PO 01/14/25 16:22 Q4HP PRN Fever or Mild Pain (1-3) Diltiazem HCl 180 mg 12/15/24 19:35 12/15/24 19:59 Diltiazem Hcl 180mg Cap.Er.24h PO 01/14/25 19:34 180 mg DAILY NICOLE Administration Enoxaparin Sodium 90 mg 12/15/24 16:30 12/16/24 05:25 Enoxaparin 100mg/Ml Syringe 1 mg/kg (90 mg) 01/14/25 16:29 90 mg SUBCUT Administration Q12H NICOLE Furosemide 40 mg 12/15/24 16:00 12/16/24 02:17 Furosemide 40mg/4ml Vial IV 01/14/25 15:59 Not Given BIDL NICOLE Piperacillin Sod/Tazobactam 50 mls @ 100 mls/hr 12/15/24 14:00 12/16/24 02:36 Sod 3.375 gm/ Sodium Chloride IV 12/25/24 13:59 100 mls/hr Q6H NICOLE Administration Diltiazem HCl 100 mg/ Sodium 100 mls @ 5 mls/hr 12/15/24 14:15 12/16/24 03:23 Chloride IV 01/14/25 14:14 10 mg/hr .Q20H NICOLE 10 mls/hr Administration Protocol 5 MG/HR Insulin Glargine 10 unit 12/15/24 21:00 12/15/24 20:31 Insulin Glargine 100 Units/Ml 10ml Vial SUBCUT 01/14/25 20:59 Not Given HS NICOLE Insulin Human Lispro 0 unit 12/15/24 21:00 12/16/24 05:31 Humalog 100 Units/Ml 10ml Vial (Ssi) SUBCUT 01/14/25 20:59 10 unit ACHS NICOLE Administration Protocol Non-Formulary Medication 81 mg 12/16/24 09:00 Aspirin PO 01/15/25 08:59 DAILY NICOLE Ondansetron HCl 4 mg 12/15/24 16:23 Ondansetron 4mg/2ml Vial IV 01/14/25 16:22 Q8HP PRN Nausea Sodium Chloride 3 ml 12/15/24 19:41 12/15/24 23:18 Sodium Chloride 3% 15ml Neb IH 01/14/25 19:40 3 ml ONCE PRN Administration INDUCE SPUTUM COLLECTION Tamsulosin HCl 0.4 mg 12/15/24 21:00 12/15/24 20:27 Tamsulosin 0.4mg Capsule PO 01/14/25 20:59 0.4 mg HS NICOLE Administration Discontinued Medications Generic Name Dose Route Start Last Admin Trade Name Freq PRN Reason Stop Dose Admin Diltiazem HCl 10 mg 12/15/24 13:28 12/15/24 14:15 Diltiazem 25mg/5ml Vial IV 12/15/24 13:29 10 mg ONCE ONE Administration Furosemide 80 mg 12/15/24 12:57 12/15/24 13:33 Furosemide 40mg/4ml Vial IV 12/15/24 12:58 80 mg ONCE ONE Administration Magnesium Sulfate 2 gm in 50 mls @ 50 mls/hr 12/15/24 12:57 12/15/24 13:33 Magnesium Sulfate 2gm/50ml Premix IV 12/15/24 13:56 50 mls/hr ONCE ONE Administration Vancomycin/PEG/NADA/Lysine/Water 1.5 gm in 300 mls @ 150 mls/hr 12/15/24 14:00 12/15/24 15:43 Vancomycin 1.5gm/300ml (Peg) Premix IV 12/15/24 15:59 150 mls/hr ONCE ONE Administration Miscellaneous 1 each 12/15/24 14:00 Vancomycin Consult Request NOTAPPLIC 01/14/25 13:59 CONSULT PHARMACY NICOLE ORDERS Category Date Time Status Cardiology Consult [Consult to Cardiology] [CONS] Cons 12/15/24 13:02 Active Routine Consult to Physician [CONS] Routine Cons 12/15/24 13:34 Ordered XR chest portable Stat Exams 12/15/24 12:57 Completed BNP [NT Pro Brain Natriuretic Pep.] Stat Lab 12/15/24 12:54 Completed CBC w/Auto Diff [Complete Blood Count Auto Diff] Stat Lab 12/15/24 12:54 Completed CMP [Comprehensive Metabolic Panel] Stat Lab 12/15/24 12:54 Completed D-Dimer Stat Lab 12/15/24 12:54 Completed HIV Combo Stat Lab 12/15/24 12:54 Completed Hepatitis C Ab Qual. W/ RFX Stat Lab 12/15/24 12:54 Completed Magnesium Stat Lab 12/15/24 12:54 Completed Mini Respiratory Panel Stat Lab 12/15/24 13:47 Completed Phosphorous Stat Lab 12/15/24 12:54 Completed Thyroid Panel Stat Lab 12/15/24 12:54 Completed Trop I [Troponin I] Stat Lab 12/15/24 12:54 Completed Troponin I Q3H Lab 12/15/24 16:08 Completed Troponin I Q3H Lab 12/15/24 19:20 Completed Blood Culture Stat Micro 12/15/24 14:10 Received MDM Narrative Medical Decision Narrative: TANISHA attestation I was consulted by the TANIHSA, and we discussed the complexity of problems being addressed. I approved the treatment and management plan for this patient's care in the emergency department, thus performing a substantial portion of the medical decision making. Rolando Bloanos MD
--- NOTE | 2024-12-15 12:57 | XR_ITS ---
FINAL REPORT CLINICAL HISTORY: Dyspnea COMPARISON: 12/02/2024 FINDINGS: SINGLE VIEW CHEST The heart is normal in size. Bibasilar opacities are mildly improved compatible with mildly improving pneumonia. No significant pleural effusions are identified. There is right paratracheal mediastinal widening which could be related to adenopathy, thyroid mass, or vascular. Findings are similar to previous. There is no pneumothorax. IMPRESSION: Improving bibasilar pneumonia. Reviewed, Interpreted and Dictated by India Alexander MD Transcribed by Brittney Dave Authenticated and [facility]
[2024-12-15 13:06] LABS: Basophils # 0.1 K/mm3 (0-0.2); Basophils % 0.4 % (0.1-2.0); Eosinophils # 0.2 K/mm3 (0.0-0.4); Eosinophils % 1.3 % (0.1-12.0); Hematocrit 32.1 % (42.0-52.0); Hemoglobin 9.3 g/dL (14.1-18.0); Lymphocytes # 0.5 K/mm3 (0.7-4.5); Lymphocytes % 3.1 % (10-50); Mean Corpuscular Hemoglobin 29.1 pg (27.0-31.2); Mean Corpuscular Volume 100.3 fl (80-94); Mean Platelet Volume 12.3 fl (7.4-10.4); Monocytes % 6.7 % (1.7-9.3); Neutrophils # 12.7 K/mm3 (1.8-7.8); Neutrophils % 87.4 % (37.0-80.0); Platelet Count 358 K/mm3 (142-424); Red Cell Distribution Width 17.8 % (11.5-17.5); White Blood Count 14.6 K/mm3 (4.8-10.8)
[2024-12-15 13:14] LABS: Alanine Aminotransferase 28 U/L (12-78); Albumin Level 3.3 g/dl (3.5-5.0); Albumin/Globulin Ratio 0.8 (1.1-1.8); Alkaline Phosphatase 39 U/L (38-126); Anion Gap 10.3 mEq/L (5-15); Aspartate Amino Transferase 55 U/L (17-59); Bilirubin,Total 0.5 mg/dl (0.2-1.3); Blood Urea Nitrogen 54 mg/dl (9-20); Calcium 9.2 mg/dl (8.4-10.2); Carbon Dioxide 32 mmol/L (22.0-30.0); Chloride 111 mmol/L (98-107); Creatinine Clearance Estimated 57 mL/min (50-200); Estimated Glomerular Filt Rate 46 ml/min (>60); GFR (African American) 56 ML/MIN (>60); Globulin 4.4 g/dL (1.3-3.2); Glucose 99 mg/dl (74-100); Magnesium 2.6 mg/dl (1.6-2.3); Phosphorous 4.6 mg/dl (2.5-4.5); Potassium 4.3 mmoL/L (3.5-5.1); Sodium 149 mmol/L (136-145); Total Protein,Serum 7.7 g/dl (6.3-8.2)
[2024-12-15 13:18] LABS: D-Dimer 0.84 ug/mL (0.0-0.5)
[2024-12-15 13:26] LABS: NT Pro Brain Natriuretic Pep. 2210 pg/mL (0-125); Troponin I 0.04 ng/ml (0.00-0.034)
[2024-12-15] MEDS: FUROSEMIDE 40MG/4ML VIAL 80 MG IV (13:33)
[2024-12-15] MEDS: MAGNESIUM SULFATE IN WATER 2 GM/50 ML PIGGYBACK IV (13:33)
--- NOTE | 2024-12-15 13:48 | PC.NURSE ---
mini RT swab sent to lab
[2024-12-15 13:51] LABS: Triiodothryronine (T3) Uptake 47 % (23.5-40.5)
[2024-12-15 13:51] LABS: Coronavirus 19, PCR Not Detected (NotDetected); Human Rhinovirus Not Detected (NotDetected); Influenza A, PCR Not Detected (NotDetected); Influenza B, PCR Not Detected (NotDetected); Respiratory Syncytial Virus Not Detected (NotDetected)
[2024-12-15 13:52] LABS: T4 (Thyroxine) 6.4 ug/dl (5.53-11.0)
--- NOTE | 2024-12-15 13:52 | PC.NURSE ---
call jamiee to housetrailer servicer for bed placement
--- NOTE | 2024-12-15 14:01 | PC.NURSE ---
Pt asking for g-tube nutrition to be administered d/t BG dropping and he typically have g-tube feeds q3hr. He has his supplies at bedside. Confirmed with ER provider that pt can have feeds and he agreed. Administered 1x 8oz feeds and flushed with 60ml of water. Updated pt on POC of admission and starting him on Cardizem gtt
[2024-12-15 14:05] LABS: Thyroid Stimulating Hormone 4.05 uIU/mL (0.465-4.68)
[2024-12-15 14:14] LABS: HIV Combo NEGATIVE (Negative)
[2024-12-15] MEDS: PIPERCILLIN/TAZO 3.375 GM in 0.9 % SODIUM CHLORIDE 50 ML IV ×2 (14:15→20:00)
[2024-12-15] MEDS: dilTIAZem 25MG/5ML VIAL 10 MG IV (14:15)
[2024-12-15 14:21] LABS: Hepatitis C Ab Qual. W/ RFX NEGATIVE (Negative)
[2024-12-15] MEDS: dilTIAZem HCL 100 MG in 0.9 % SODIUM CHLORIDE 100 ML IV (14:42)
[2024-12-15] MEDS: VANCOMYCIN/WATER FOR INJ (PEG) 1.5 GM/300 ML PIGGYBACK IV (15:43)
[2024-12-15] MEDS: ENOXAPARIN 100MG/ML SYRINGE 90 MG SUBCUT (16:51)
[2024-12-15 16:52] LABS: Troponin I 0.03 ng/ml (0.00-0.034)
--- NOTE | 2024-12-15 17:20 | PC.NURSE ---
Paytient bladder scanned due to urge to void but unable. Verbal order to in and out cath if bladder scan significant. Bladder scan 620, In and out cathed 700 ml
[2024-12-15 17:37] LABS: POC Glucose,Bedside 126 (70-110)
--- NOTE | 2024-12-15 19:29 | EXP.HP ---
History of Present Illness *Admission Date: 12/15/24 *Reason for visit:: A-fib RVR *History of present illness: Federico Flores is a 74-year-old male with a medical history significant for A-fib on Eliquis, metastatic lung cancer in remission (right partial lobectomy), G-tube dependent for feeds, insulin-dependent diabetes, HFpEF, CAD who presents with worsening shortness of breath and fatigue over the past few days. He was recently discharged from [facility] for a similar presentation of A-fib RVR where he apparently was cardioverted. It is unclear if it was successful, will obtain outside records. Patient states he has not been taking all his medications recently has he has been getting his feet underneath him after being discharged back home. Working the ED significant for A-fib with heart rate in the 140s, WBC 14.6, sodium 149, BNP 2210. ED contacted Dr. Walter who recommended IV diltiazem drip and plan for cardioversion in the morning. Case discussed with ED provider and decision was made to admit patient for A-fib RVR and HFpEF exacerbation. [facility] Disclaimer: The information contained in this section may have been updated after the patient was seen, as this information can be updated by other users. 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 Nodule of left lung Pleural effusion on right History of lung cancer in adulthood Dyspnea on exertion History of smoking 30 or more pack years Diabetic retinopathy associated with type 1 diabetes mellitus Macular degeneration History of cancer of kidney in adulthood Hx of cancer of lung Insulin dependent diabetes mellitus Type 1 diabetes CHF (congestive heart failure), NYHA class III Cardiomyopathy CAD (coronary artery disease) Atrial fibrillation with RVR Atrial fibrillation Dyspnea Sinus tachycardia Abnormal electrocardiography Surgical History Hx of cataract surgery History of esophagogastroduodenoscopy (EGD) History of pneumonectomy H/O kidney removal Family History Father Family history non-contributory Lung cancer Brother Colon cancer Lung cancer Social History (Updated 12/15/24 @ 16:44 by Allison Thao RN) Smoking Status: Never smoker second hand exposure: No alcohol intake: never substance use type: denies use current occupational status: retired Travel in the last 8 weeks: None housing: house caffeine: Yes Have you lived/traveled outside US in past 30 days?: No Contact w/someone who lives/traveled outside US past 30 days?: No Exposure to someone with infectious disease in past 14 days?: No Do you have a fever (greater than 100.4 F or 38 C)?: No Have you tested positive for COVID-19: No Exposed to someone with COVID-19 in past 14 days?: No Do you have a sore throat?: No Do you have a cough?: No Do you have any weakness?: No Are you experiencing any nausea/vomitting?: No Do you have any diarrhea?: No Are you experiencing any unusual bleeding?: No Do you have any muscle aches/pain?: No Do you have any abdominal pain?: No Are you experiencing loss of taste or smell?: No Other Medical History Have you received the Flu Vaccine for this season: Yes Have you received the Pneumonia Vaccine: No Meds Home Medications and Allergies Home Medications ?Medication ?Instructions ?Recorded ?Confirmed ?Type ascorbic acid (vitamin C) 500 mg 500 mg PO DAILY Supplement 03/11/22 12/15/24 History tablet fluticasone propionate 50 2 spray intranasal BID Allergy 03/11/22 12/15/24 History mcg/actuation nasal symptoms spray,suspension insulin aspart U-100 100 unit/mL 110 unit continuous subcutaneous 03/11/22 12/15/24 History subcutaneous solution (Novolog infusion DAILY Diabetes U-100 Insulin aspart) sennosides 8.6 mg tablet (senna) 8.6 mg PO BID constipation 03/11/22 12/15/24 History tamsulosin 0.4 mg capsule 0.4 mg PO DAILY urination 03/11/22 12/15/24 History trazodone 50 mg tablet 50 mg PO DAILY sleep 10/03/22 12/15/24 History losartan 50 mg tablet 50 mg PO DAILY BP 10/07/22 12/15/24 History simvastatin 20 mg tablet See Rx Instructions .Route 10/07/22 12/15/24 History .COMPLEX Cholesterol torsemide 20 mg tablet See Rx Instructions .Route 10/07/22 12/15/24 History .COMPLEX BP aspirin 81 mg tablet 81 mg PO DAILY heart health 06/30/23 12/15/24 History albuterol sulfate 90 mcg/actuation 2 inh inhalation DAILY 02/15/24 12/15/24 History aerosol inhaler metoprolol succinate 100 mg 100 mg PO DAILY #90 tabs 02/15/24 12/15/24 Rx tablet,extended release 24 hr apixaban 2.5 mg tablet (Eliquis) 2.5 mg PO BID #60 tabs 09/26/24 12/15/24 Rx insulin degludec 100 unit/mL (3 0 unit SQ NEEDED PRN diabetes 12/15/24 12/15/24 History mL) subcutaneous pen (Tresiba FlexTouch U-100 insulin) oxycodone 5 mg/5 mL oral solution 5 mg PO NEEDED PRN Pain 12/15/24 12/15/24 History New Prescriptions to Start Prescriptions: Allergies Allergy/AdvReac Type Severity Reaction Status Date / Time Iodinated Contrast Media AdvReac Mild Verified 09/26/24 13:22 Exam Data for Last 24 hours Vital signs and Labs for Last 24 Hours: Temp Pulse Resp BP Pulse Ox O2 Del Method O2 Flow Rate 97.7 F 71 20 104/50 L 95 Nasal Cannula 2 12/15/24 15:51 12/15/24 19:00 12/15/24 19:00 12/15/24 19:00 12/15/24 19:00 12/15/24 19:00 12/15/24 19:00 Laboratory Results - last 24 hr 12/15/24 12:54: WBC 14.6 H, RBC 3.20 L, Hgb 9.3 L, Hct 32.1 L, MCV 100.3 H, MCH 29.1, MCHC 29.0 L, RDW 17.8 H, Plt Count 358, MPV 12.3 H, Neut % (Auto) 87.4 H, Lymph % (Auto) 3.1 L, [place] % (Auto) 6.7, Eos % (Auto) 1.3, Baso % (Auto) 0.4, Neut # (Auto) 12.7 H, Lymph # (Auto) 0.5 L, [place] # (Auto) 1.0, Eos # (Auto) 0.2, Baso # (Auto) 0.1, D-Dimer 0.84 H, Sodium 149 H, Potassium 4.3, Chloride 111 H, Carbon Dioxide 32 H, Anion Gap 10.3, BUN 54 H, Creatinine 1.50 H, Estimated Creat Clear 57, Estimated GFR 46 L, Est GFR ( Amer) 56 L, Glucose 99, Calcium 9.2, Phosphorus 4.6 H, Magnesium 2.6 H, Total Bilirubin 0.5, AST 55, ALT 28, Alkaline Phosphatase 39, Troponin I 0.04 H, NT-Pro-B Natriuret Pep 2210 H, Total Protein 7.7, Albumin 3.3 L, Globulin 4.4 H, Albumin/Globulin Ratio 0.8 L, TSH 4.05, Free T4 Index 3.0 L, Thyroxine (T4) 6.4, T3 Uptake 47 H, HCV Ab ANAT w/Rflx PCR Qn Negative, HIV Ag/Ab Combo Qual Negative 12/15/24 13:47: SARS-CoV-2 (PCR) Not detected, Influenza Type A (PCR) Not detected, Influenza Type B (PCR) Not detected, RSV (PCR) Not detected, Rhinovirus (PCR) Not detected 12/15/24 16:08: Troponin I 0.03 12/15/24 17:25: POC Glucose 126 H I & O for Last 24 hours: Intake & Output 12/12/24 12/13/24 12/14/24 12/15/24 23:59 23:59 23:59 23:59 Intake Total 27.083 / 27.083 Output Total 850 / 850 Balance -822.917 / -822.917 Weight 88.677 kg Constitutional Constitutional: no acute distress *Routine HEENT Exam Head: Present normocephalic Eye: Present EOMI and PERRL ENT: Present mucous membranes moist *Routine Neck Exam Neck: Present supple; Absent lymphadenopathy *Routine Respiratory Exam Respiratory: Present CTA bilaterally and crackles Comments: Diffuse mild crackles. *Routine Cardiovascular Exam Cardiovascular: Present RRR *Routine Abdominal Exam Abdominal: Present soft and normoactive bowel sounds; Absent tenderness *Routine Rectal Exam Rectal:: deferred *Routine Genitalia Exam Genitalia:: deferred *Routine Extremities Exam Extremities: Absent cyanosis, clubbing or edema Comments: Lower extremity pitting edema 2+. *Routine Skin Exam Skin: Present warm; Absent rash *Routine Neurological Exam Neurological: Present alert and oriented X3 Assessment and Plan *Assessment and plan (1) Atrial fibrillation and flutter: Status: Acute Category: Medical Code(s): I48.91 - Unspecified atrial fibrillation; I48.92 - Unspecified atrial flutter Plan Federico Flores is a 74-year-old male with a medical history significant for A-fib on Eliquis, metastatic lung cancer in remission (right partial lobectomy), G-tube dependent for feeds, insulin-dependent diabetes, HFpEF, CAD who presents with worsening shortness of breath and fatigue over the past few days. He was recently discharged from [facility] for a similar presentation of A-fib RVR where he apparently was cardioverted. It is unclear if it was successful, will obtain outside records. Patient states he has not been taking all his medications recently has he has been getting his feet underneath him after being discharged back home. Working the ED significant for A-fib with heart rate in the 140s, WBC 14.6, sodium 149, BNP 2210. ED contacted Dr. Walter who recommended IV diltiazem drip and plan for cardioversion in the morning. Case discussed with ED provider and decision was made to admit patient for A-fib RVR and HFpEF exacerbation. #A-fib RVR ? Initially presented with heart rate in the 140s, started on diltiazem drip with improved heart rate in the 70s. ? Ordered oral diltiazem 180 mg ER. ? Cardiology consulted, pending further recommendations. Tentatively planning for cardioversion in the morning. N.p.o. at midnight. ? Therapeutic Lovenox pending cardiology evaluation. Takes Eliquis at home. ? ECHO September 2024 revealed normal biventricular function. #HFpEF exacerbation ? BNP 2210, diffuse crackles in the lungs with edema on CXR, 2+ lower extremity pitting edema. ? IV Lasix 40 mg twice daily. ? Pending further cardiology recommendations. May benefit from MRA, [id number]. #Community-acquired pneumonia versus aspiration pneumonia #Sepsis ? Presented about 2 weeks ago with diffuse opacities in right lung, patient is G-tube dependent and possibly aspirating. ? WBC 14.6 with tachycardia. ? Continue Zosyn day 1. ? Follow-up sputum cultures. #Insulin-dependent diabetes ? LDSSI, ACHS glucose checks. ? Follow-up morning A1c. ? Lantus 10 units nightly. Adjust based on SSI needs #CAD ? Resume home aspirin, statin. Full code DVT prophylaxis: Therapeutic Lovenox as above
--- NOTE | 2024-12-15 19:42 | PC.NURSE ---
spoke to swetha from [facility] about Diltiazem ER. He stated we could open the capsule just could not break the pellets inside the capsule to put through the G tube
[2024-12-15 19:57] LABS: Troponin I 0.04 ng/ml (0.00-0.034)
[2024-12-15] MEDS: dilTIAZem HCL 180MG CAP.ER.24H 180 MG PO (19:59)
[2024-12-15] MEDS: TAMSULOSIN 0.4MG CAPSULE 0.4 MG PO (20:27)
[2024-12-15 20:39] LABS: POC Glucose,Bedside 89 (70-110)
[2024-12-15] MEDS: SODIUM CHLORIDE 3% 15ML NEB 3 ML IH (23:18)
[2024-12-16] VITALS (65 sets, daily range): BP systolic 79–145; BP diastolic 30–91; PULSE 41–140; RESP 11–29; TEMP 36.2–37.1; O2SAT 89–99; BMI 27.7
[2024-12-16] MEDS: PIPERCILLIN/TAZO 3.375 GM in 0.9 % SODIUM CHLORIDE 50 ML IV ×4 (02:36→20:05)
[2024-12-16] MEDS: dilTIAZem HCL 100 MG in 0.9 % SODIUM CHLORIDE 100 ML 10 MG IV (03:23)
--- NOTE | 2024-12-16 05:20 | PC.NURSE ---
Patient has had a decent night. Has been able to sleep off and on through the night and defiently got more sleep once we were able to move the recliner in his room. When this RN came on shift the patient HR was in the 70s-80s. We were able to turn the Dilt off and give a dose via the G tube. Patient did well until around 1am and his heart rate when up again in to the 140s. The drip was restarted and is currently at 10. patient has had no complaints. He does do tube feeding 6 times a day but the patient can do that himself with minimal assistance. Medication is crushed and put through the G tube as he does not take anything by mouth accept Ice chips. Patient is [place] and wears a hearing aid. His wallet, Insulin pump, and shirt are in the spring tier the room.
[2024-12-16] MEDS: ENOXAPARIN 100MG/ML SYRINGE 90 MG SUBCUT (05:25)
[2024-12-16] MEDS: humaLOG 100 UNITS/ML 10ML VIAL (SSI) SUBCUT ×4 (05:31→20:32)
[2024-12-16 05:49] LABS: POC Glucose,Bedside 388 (70-110)
[2024-12-16 07:08] LABS: Basophils # 0.1 K/mm3 (0-0.2); Basophils % 0.5 % (0.1-2.0); Eosinophils # 0.1 K/mm3 (0.0-0.4); Hematocrit 32.2 % (42.0-52.0); Hemoglobin 9.2 g/dL (14.1-18.0); Lymphocytes # 0.5 K/mm3 (0.7-4.5); Lymphocytes % 3.7 % (10-50); Mean Corpuscular HGB Conc 28.6 g/dL (31.8-35.4); Mean Corpuscular Hemoglobin 29.4 pg (27.0-31.2); Mean Corpuscular Volume 102.9 fl (80-94); Mean Platelet Volume 12.5 fl (7.4-10.4); Monocytes # 0.7 K/mm3 (0.1-1.0); Monocytes % 5.5 % (1.7-9.3); Neutrophils # 10.9 K/mm3 (1.8-7.8); Neutrophils % 88.2 % (37.0-80.0); Platelet Count 305 K/mm3 (142-424); Red Blood Count 3.13 M/mm3 (4.60-6.20); Red Cell Distribution Width 17.5 % (11.5-17.5); White Blood Count 12.3 K/mm3 (4.8-10.8)
[2024-12-16 07:37] LABS: Alanine Aminotransferase 28 U/L (12-78); Albumin Level 3.5 g/dl (3.5-5.0); Albumin/Globulin Ratio 0.9 (1.1-1.8); Alkaline Phosphatase 59 U/L (38-126); Anion Gap 19.8 mEq/L (5-15); Aspartate Amino Transferase 45 U/L (17-59); Bilirubin,Total 0.7 mg/dl (0.2-1.3); Blood Urea Nitrogen 58 mg/dl (9-20); Calcium 8.9 mg/dl (8.4-10.2); Carbon Dioxide 26 mmol/L (22.0-30.0); Chloride 104 mmol/L (98-107); Creatinine Clearance Estimated 46 mL/min (50-200); Estimated Glomerular Filt Rate 37 ml/min (>60); GFR (African American) 45 ML/MIN (>60); Magnesium 2.8 mg/dl (1.6-2.3); Potassium 4.8 mmoL/L (3.5-5.1); Sodium 145 mmol/L (136-145); Total Protein,Serum 7.5 g/dl (6.3-8.2)
[2024-12-16 07:41] LABS: Glucose 433 mg/dl (74-100)
[2024-12-16] MEDS: ASPIRIN EC 81MG TABLET 81 MG PO (09:29)
[2024-12-16] MEDS: INSULIN GLARGINE 100 UNITS/ML 3ML FLEXPEN 10 UNIT SUBCUT (09:30)
[2024-12-16] MEDS: TORSEMIDE 20MG TABLET 20 MG PO (09:43)
--- NOTE | 2024-12-16 09:53 | P.CONCA_ITS ---
History of Present Illness History of Present Illness Consult date: 12/16/24 Requesting physician: Tesfaye Low Consult reason: atrial fibrillation Chief complaint: soa and fatigue History of present illness: This is a 74-year-old white male with past medical history significant for paroxysmal atrial fibrillation on Eliquis, metastatic lung cancer in remission right partial lobectomy, G-tube dependent for feeds, insulin-dependent diabetes, heart failure preserved ejection fraction and coronary artery disease who presented to emergency department with increased shortness of breath and fatigue of the past few days of note patient was recently discharged from [place] after admission for pneumonia and A-fib RVR. Patient reports he underwent cardioversion which was unsuccessful at [place] and reports noncompliance with medications since discharge. Upon presentation to emergency department labs were as follow: WBC 14.6, hemoglobin 9.3, hematocrit 32.1, elevated D-dimer of 0.84, sodium 149, potassium 4.3, BUN 54 with a creatinine of 1.5, magnesium 2.6, troponin 0.04 and a proBNP of 2210. Chest x-ray shows improving bibasilar pneumonia with no pleural effusions identified. Initial EKG showed sinus tachycardia versus atrial flutter at a rate of 140. Patient was started on diltiazem drip and admitted for A-fib RVR and heart failure preserved EF exacerbation. Patient was given Lasix 80 mg IV x 1 in emergency department and started on torsemide 20 mg p.o. twice daily. This morning on exam patient has A-fib at a rate of 120 while on diltiazem drip. Patient was given 1 IV push of Lopressor 5 mg which slowed his heart rate down to 80. Echocardiogram and repeat EKG are pending. Patient denies chest pain reports shortness of breath is improving and lower extremity edema is improving. Troponin remains negative. [facility] Disclaimer: The information contained in this section may have been updated after the patient was seen, as this information can be updated by other users. 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 Nodule of left lung Pleural effusion on right History of lung cancer in adulthood Dyspnea on exertion History of smoking 30 or more pack years Diabetic retinopathy associated with type 1 diabetes mellitus Macular degeneration History of cancer of kidney in adulthood Hx of cancer of lung Insulin dependent diabetes mellitus Type 1 diabetes CHF (congestive heart failure), NYHA class III Cardiomyopathy CAD (coronary artery disease) Atrial fibrillation with RVR Atrial fibrillation Dyspnea Sinus tachycardia Abnormal electrocardiography Surgical History Hx of cataract surgery History of esophagogastroduodenoscopy (EGD) History of pneumonectomy H/O kidney removal Family History Father Family history non-contributory Lung cancer Brother Colon cancer Lung cancer Social History (Updated 12/15/24 @ 16:44 by Allison Thao RN) Smoking Status: Never smoker second hand exposure: No alcohol intake: never substance use type: denies use current occupational status: retired Travel in the last 8 weeks: None housing: house caffeine: Yes Have you lived/traveled outside US in past 30 days?: No Contact w/someone who lives/traveled outside US past 30 days?: No Exposure to someone with infectious disease in past 14 days?: No Do you have a fever (greater than 100.4 F or 38 C)?: No Have you tested positive for COVID-19: No Exposed to someone with COVID-19 in past 14 days?: No Do you have a sore throat?: No Do you have a cough?: No Do you have any weakness?: No Are you experiencing any nausea/vomitting?: No Do you have any diarrhea?: No Are you experiencing any unusual bleeding?: No Do you have any muscle aches/pain?: No Do you have any abdominal pain?: No Are you experiencing loss of taste or smell?: No Review of Systems Review of Systems Review of systems:: pertinent systems reviewed and negative unless documented below *Cardiovascular Cardiovascular: Reports dyspnea *Respiratory Respiratory: Reports dyspnea Exam Data for Last 24 hours Vital signs and Labs for Last 24 Hours: Temp Pulse Resp BP Pulse Ox O2 Del Method O2 Flow Rate 97.7 F 120 H 24 109/51 L 93 L Nasal Cannula 2 12/16/24 09:00 12/16/24 09:00 12/16/24 09:00 12/16/24 09:00 12/16/24 09:00 12/16/24 09:00 12/16/24 09:00 Laboratory Results - last 24 hr 12/15/24 12:54: WBC 14.6 H, RBC 3.20 L, Hgb 9.3 L, Hct 32.1 L, MCV 100.3 H, MCH 29.1, MCHC 29.0 L, RDW 17.8 H, Plt Count 358, MPV 12.3 H, Neut % (Auto) 87.4 H, Lymph % (Auto) 3.1 L, [place] % (Auto) 6.7, Eos % (Auto) 1.3, Baso % (Auto) 0.4, Neut # (Auto) 12.7 H, Lymph # (Auto) 0.5 L, [place] # (Auto) 1.0, Eos # (Auto) 0.2, Baso # (Auto) 0.1, D-Dimer 0.84 H, Sodium 149 H, Potassium 4.3, Chloride 111 H, Carbon Dioxide 32 H, Anion Gap 10.3, BUN 54 H, Creatinine 1.50 H, Estimated Creat Clear 57, Estimated GFR 46 L, Est GFR ( Amer) 56 L, Glucose 99, Calcium 9.2, Phosphorus 4.6 H, Magnesium 2.6 H, Total Bilirubin 0.5, AST 55, ALT 28, Alkaline Phosphatase 39, Troponin I 0.04 H, NT-Pro-B Natriuret Pep 2210 H, Total Protein 7.7, Albumin 3.3 L, Globulin 4.4 H, Albumin/Globulin Ratio 0.8 L, TSH 4.05, Free T4 Index 3.0 L, Thyroxine (T4) 6.4, T3 Uptake 47 H, HCV Ab ANAT w/Rflx PCR Qn Negative, HIV Ag/Ab Combo Qual Negative 12/15/24 13:47: SARS-CoV-2 (PCR) Not detected, Influenza Type A (PCR) Not detected, Influenza Type B (PCR) Not detected, RSV (PCR) Not detected, Rhinovirus (PCR) Not detected 12/15/24 16:08: Troponin I 0.03 12/15/24 17:25: POC Glucose 126 H 12/15/24 19:20: Troponin I 0.04 H 12/15/24 20:15: POC Glucose 89 12/16/24 05:28: POC Glucose 388 H* 12/16/24 06:45: WBC 12.3 H, RBC 3.13 L, Hgb 9.2 L, Hct 32.2 L, MCV 102.9 H, MCH 29.4, MCHC 28.6 L, RDW 17.5, Plt Count 305, MPV 12.5 H, Neut % (Auto) 88.2 H, Lymph % (Auto) 3.7 L, [place] % (Auto) 5.5, Eos % (Auto) 1.0, Baso % (Auto) 0.5, Neut # (Auto) 10.9 H, Lymph # (Auto) 0.5 L, [place] # (Auto) 0.7, Eos # (Auto) 0.1, Baso # (Auto) 0.1, Sodium 145, Potassium 4.8, Chloride 104, Carbon Dioxide 26, Anion Gap 19.8 H, BUN 58 H, Creatinine 1.80 H, Estimated Creat Clear 46, Estimated GFR 37 L, Est GFR ( Amer) 45 L, Glucose 433 H* D, Calcium 8.9, Magnesium 2.8 H, Total Bilirubin 0.7, AST 45, ALT 28, Alkaline Phosphatase 59, Total Protein 7.5, Albumin 3.5, Globulin 4.0 H, Albumin/Globulin Ratio 0.9 L I & O for Last 24 hours: Intake & Output 12/13/24 12/14/24 12/15/24 12/16/24 23:59 23:59 23:59 23:59 Intake Total 45.583 / 45.583 177.750 / 177.750 Output Total 1050 / 1250 625 / 625 Balance -1004.417 / -1204.417 -447.250 / -447.250 Weight 195 lb 8 oz 193 lb 12.581 oz Microbiology Reports for the Last 24 Hours: Microbiology 12/15/24 23:47 Sputum - Expectorated Sputum Gram Stain - Final 12/15/24 23:47 Sputum - Expectorated Sputum Sputum Culture - Preliminary Constitutional Constitutional: no acute distress *Routine Respiratory Exam Respiratory: Present CTA bilaterally and symmetric chest movement *Routine Cardiovascular Exam Cardiovascular: Present Normal S1, Normal S2 and irregular rhythm Comments: afib *Routine Abdominal Exam Abdominal: Present soft and normoactive bowel sounds; Absent tenderness *Routine Extremities Exam Extremities: Present full ROM and normal capillary refill; Absent edema *Routine Skin Exam Skin: Present intact, dry and warm Detailed Neck Exam: Thyroids Thyroid: Absent bruit Meds Home Medications and Allergies Home Medications ?Medication ?Instructions ?Recorded ?Confirmed ?Type ascorbic acid (vitamin C) 500 mg 500 mg PO DAILY Supplement 03/11/22 12/16/24 History tablet fluticasone propionate 50 2 spray intranasal BID Allergy 03/11/22 12/16/24 History mcg/actuation nasal symptoms spray,suspension insulin aspart U-100 100 unit/mL 110 unit continuous subcutaneous 03/11/22 12/16/24 History subcutaneous solution (Novolog infusion DAILY Diabetes U-100 Insulin aspart) sennosides 8.6 mg tablet (senna) 8.6 mg PO BID 03/11/22 12/16/24 History tamsulosin 0.4 mg capsule 0.4 mg PO DAILY urination 03/11/22 12/16/24 History trazodone 50 mg tablet 50 mg PO HS 10/03/22 12/16/24 History losartan 50 mg tablet 50 mg PO DAILY 10/07/22 12/16/24 History torsemide 20 mg tablet 20 mg PO BID 10/07/22 12/16/24 History aspirin 81 mg tablet 81 mg PO DAILY heart health 06/30/23 12/16/24 History albuterol sulfate 90 mcg/actuation 2 inh inhalation DAILY 02/15/24 12/16/24 History aerosol inhaler metoprolol succinate 100 mg 100 mg PO DAILY #90 tabs 02/15/24 12/16/24 Rx tablet,extended release 24 hr apixaban 2.5 mg tablet (Eliquis) 2.5 mg PO BID #60 tabs 09/26/24 12/16/24 Rx insulin degludec 100 unit/mL (3 0 unit SQ NEEDED PRN diabetes 12/15/24 12/16/24 History mL) subcutaneous pen (Tresiba FlexTouch U-100 insulin) metoclopramide HCl 10 mg tablet 10 mg PO BID 12/16/24 12/16/24 History simvastatin 20 mg tablet 20 mg PO HS 12/16/24 12/16/24 History New Prescriptions to Start Prescriptions: Allergies Allergy/AdvReac Type Severity Reaction Status Date / Time Iodinated Contrast Media AdvReac Mild Verified 09/26/24 13:22 Assessment and Plan *Assessment and plan (1) Atrial flutter with rapid ventricular response: Status: Acute Category: Medical Code(s): I48.92 - Unspecified atrial flutter (2) Aspiration pneumonia: Status: Acute Qualifiers: Laterality: bilateral Category: Medical Code(s): J69.0 - Pneumonitis due to inhalation of food and vomit (3) Severe sepsis with septic shock: Status: Acute Category: Medical Code(s): A41.9 - Sepsis, unspecified organism; R65.21 - Severe sepsis with septic shock Plan A-fib RVR-resolved Patient was started on diltiazem without achieving rate control Patient was given Lopressor 5 mg IV x 1 and achieved rate control in the 80s. Repeat EKG obtained which shows sinus rhythm vs. aflutter-rate 65 versus Start metoprolol tartrate 50 mg twice daily and wean from dilT drip. Increase metoprolol tartrate as needed for rate control Discontinue oral diltiazem Continue Eliquis 5 mg p.o. twice daily Serial troponins negative Heart failure with preserved EF exacerbation Echo shows a normal LV systolic function with no significant valvular stenosis or regurg noted Continue torsemide 20 mg p.o. twice daily CAD negative trops continue aspirin, statin, bb Community-acquired pneumonia versus aspiration pneumonia Sepsis Defer to primary service and pulmonology Summary 12/16/2024: Patient is CV stable. Recommend continuing below listed medications. Have patient follow-up in cardiology clinic 1 week postdischarge for reevaluation. Cardiac meds: Metoprolol tartrate 50 mg p.o. twice daily Eliquis 5 mg p.o. twice daily Torsemide 20 mg p.o. twice daily Atorvastatin 40 mg p.o. daily
--- NOTE | 2024-12-16 09:54 | CA_ITS ---
APPROVED REPORT EXAM: Comprehensive 2D, Doppler, and color-flow Echocardiogram Loader Machine: Keshia Bobby RVT Ht: 5 ft 10 in Wt: 193lbs BSA: 2.06 BP: 104/50 mmHg Indications: A-FIB,CAD,HFpEF,HTN,DM,HX LUNG CA,PT HAS G-TUBE LIMITED WINDOWS-BEST EXAM POSSIBLE 2D Dimensions IVSd 1.90 cm M: 0.6-1.2 LVEF (Visual) 137.40 % PWd 0.76 cm M: 0.6 - 1.2 LA Volume 29.90 mL LVDd 2.02 cm M: 4.2 - 5.9 LA Volume Index 14.51 mL/m2 (M/F) 16-34 LVDs 2.86 cm M: 2.5 - 4.0 M-Mode Dimensions LA Diam 2.40 cm (1.9-4.0) LV Diastology E Decel Time 133 (160-240 msec) E/A Ratio 1.8 Aortic Valve AO Peak GR. 4.70 mmHg Mitral Valve MV E Max Km. 114.0 (40-130 cm/s) MV A Velocity 62.0 (40-130 cm/s) E/A Ratio 1.83 MV PHT 39.0 ms Pulmonary Valve PV Peak Velocity 56.0 (50-150 cm/s) Tricuspid Valve TR P. Velocity 213.00 cm/s RAP Estimate 10.00 mmHg RVSP 28.20 mmHg Left Ventricle The left ventricle is normal size. The left ventricular systolic function is normal. There is increased LV wall thickness. There is grossly no evidence of regional wall motion abnormalities. However regional wall motion is difficult to evaluate in the setting of technically difficult study. Diastolic function is indeterminate. LVEF is 55%. Right Ventricle The right ventricle is not well-visualized. Atria The left atrium size is normal. The right atrium is not well-visualized. The interatrial septum is not well-visualized. Aortic Valve The aortic valve is mildly thickened. There is no aortic valvular stenosis. No aortic regurgitation is present. Mitral Valve The mitral valve leaflets are mildly thickened. No evidence of mitral valve stenosis. There is no mitral valve regurgitation noted. Tricuspid Valve The tricuspid valve leaflets are not well-visualized. Mild tricuspid regurgitation. RVSP is 20-25 mmHg. Pulmonic Valve The pulmonic valve is not well-visualized. Great Vessels The aortic root is not well-visualized. The IVC is not well-visualized. Pericardium There is no pericardial effusion. Other Information Study Quality: Technically Difficult Conclusion Technically difficult study due to poor acoustic windows. Normal LV systolic function. The RV and RA are not well-visualized. No significant valvular stenosis or regurgitation in the visualized valves. Electronically signed by : Kell Obregon MD 12/16/2024 13:00:30
[2024-12-16] MEDS: METOPROLOL TARTRATE 5MG/5ML VIAL 5 MG IV (09:57)
[2024-12-16] MEDS: METOPROLOL TARTRATE 50MG TABLET 50 MG PO ×2 (10:00→20:06)
--- NOTE | 2024-12-16 10:22 | ECG_ITS ---
APPROVED REPORT Exam: Resting ECG HR:65 bpm ECG Measurements Heart Rate 65 AXES SC 193 P 39 QRSd 98 QRS -6 QT 495 T 66 QTc 507 Conclusion SINUS RHYTHM PROLONGED QT INTERVAL CRITICAL TEST RESULT UNCONFIRMED REPORT Electronically signed by : Chente Morales MD 12/17/2024 12:41:28
--- NOTE | 2024-12-16 10:52 | HMH.PHAINT1 ---
Pharmacy Intervention Comments: VERIFIED MEDICATIONS WITH OUTPATIENT PHARMACY, TRIED TO CONFIRM WITH PATIENT - THOUGH HE IS UNSURE OF WHAT ALL HE TAKES. HE DOES HAVE A LIST FROM [facility] FROM WHEN HE WAS IN THE ICU ON 12/09/24 THAT CONFIRMS THE MEDICATIONS HE HAS BEEN TAKING.
[2024-12-16 12:10] LABS: POC Glucose,Bedside 334 (70-110)
--- NOTE | 2024-12-16 14:26 | DIET.NUTRFU ---
Patient is NPO with ice chips only, he is prescribed tubefeeding at home to provide 100% of nutrition via G-tube. Patient states he had G-tube placed 4 month ago secondary to CA dx. He uses Glucerna at home 6cans/day. He reports stable wt over the past month or so but 30# wt loss prior to tube placement. He denies any GI distress and LBM 12/15. Patient was admitted for cardio eval and no intervention recommended at this time. Able to resume tubefeeding
--- NOTE | 2024-12-16 15:53 | PC.NURSE ---
bottle of pt home glucerna instilled via gravity w/ piston syringe
[2024-12-16 16:49] LABS: POC Glucose,Bedside 444 (70-110)
--- NOTE | 2024-12-16 18:39 | PC.NURSE ---
pt states that he takes 1 bottle of glucerna ecery 3 hours at home (6 times during the day) 1 bottle admin at this time
[2024-12-16] MEDS: ATORVASTATIN 40MG TABLET 40 MG PO (20:06)
[2024-12-16] MEDS: APIXABAN 5MG TABLET 5 MG PO (20:06)
[2024-12-16] MEDS: TAMSULOSIN 0.4MG CAPSULE 0.4 MG PO (20:06)
[2024-12-16] MEDS: INSULIN GLARGINE 100 UNITS/ML 3ML FLEXPEN 20 UNIT SUBCUT (20:29)
--- NOTE | 2024-12-16 22:07 | P.PN_ITS ---
Subjective *Date: 12/16/24 *Time: 22:07 Exam Data for Last 24 hours Vital signs and Labs for Last 24 Hours: Temp Pulse Resp BP Pulse Ox O2 Del Method O2 Flow Rate 98.0 F 70 25 H 91/48 L 98 Nasal Cannula 2 12/16/24 20:00 12/16/24 21:01 12/16/24 21:01 12/16/24 21:01 12/16/24 21:01 12/16/24 21:00 12/16/24 21:00 Laboratory Results - last 24 hr 12/16/24 05:28: POC Glucose 388 H* 12/16/24 06:45: WBC 12.3 H, RBC 3.13 L, Hgb 9.2 L, Hct 32.2 L, MCV 102.9 H, MCH 29.4, MCHC 28.6 L, RDW 17.5, Plt Count 305, MPV 12.5 H, Neut % (Auto) 88.2 H, Lymph % (Auto) 3.7 L, [place] % (Auto) 5.5, Eos % (Auto) 1.0, Baso % (Auto) 0.5, Neut # (Auto) 10.9 H, Lymph # (Auto) 0.5 L, [place] # (Auto) 0.7, Eos # (Auto) 0.1, Baso # (Auto) 0.1, Sodium 145, Potassium 4.8, Chloride 104, Carbon Dioxide 26, Anion Gap 19.8 H, BUN 58 H, Creatinine 1.80 H, Estimated Creat Clear 46, Estimated GFR 37 L, Est GFR ( Amer) 45 L, Glucose 433 H* D, Calcium 8.9, Magnesium 2.8 H, Total Bilirubin 0.7, AST 45, ALT 28, Alkaline Phosphatase 59, Total Protein 7.5, Albumin 3.5, Globulin 4.0 H, Albumin/Globulin Ratio 0.9 L 12/16/24 12:03: POC Glucose 334 H* 12/16/24 16:40: POC Glucose 444 H* I & O for Last 24 hours: Intake & Output 12/13/24 12/14/24 12/15/24 12/16/24 23:59 23:59 23:59 23:59 Intake Total 45.583 / 45.583 1103.750 / 1103.750 Output Total 1050 / 1250 1325 / 1325 Balance -1004.417 / -1204.417 -221.250 / -221.250 Weight 88.677 kg 87.9 kg Microbiology Reports for the Last 24 Hours: Microbiology 12/15/24 14:10 Blood Blood Culture - Preliminary NO GROWTH AFTER 24 HOURS 12/15/24 14:10 Blood Blood Culture - Preliminary NO GROWTH AFTER 24 HOURS 12/15/24 23:47 Sputum - Expectorated Sputum Gram Stain - Final 12/15/24 23:47 Sputum - Expectorated Sputum Sputum Culture - Preliminary Constitutional Constitutional: no acute distress *Routine HEENT Exam Head: Present normocephalic Eye: Present EOMI and PERRL ENT: Present mucous membranes moist *Routine Neck Exam Neck: Present supple; Absent lymphadenopathy *Routine Respiratory Exam Respiratory: Present CTA bilaterally *Routine Cardiovascular Exam Cardiovascular: Present RRR *Routine Abdominal Exam Abdominal: Present soft and normoactive bowel sounds; Absent tenderness *Routine Extremities Exam Extremities: Absent cyanosis, clubbing or edema *Routine Skin Exam Skin: Present warm; Absent rash *Routine Neurological Exam Neurological: Present alert and oriented X3 Assessment and Plan *Assessment and plan (1) Atrial fibrillation and flutter: Status: Acute Category: Medical Code(s): I48.91 - Unspecified atrial fibrillation; I48.92 - Unspecified atrial flutter Plan Federico Flores is a 74-year-old male with a medical history significant for A-fib on Eliquis, metastatic lung cancer in remission (right partial lobectomy), G- tube dependent for feeds, insulin-dependent diabetes, HFpEF, CAD who presents with worsening shortness of breath and fatigue over the past few days. He was recently discharged from [place] for a similar presentation of A-fib RVR where he apparently was cardioverted. It is unclear if it was successful, will obtain outside records. Patient states he has not been taking all his medications recently has he has been getting his feet underneath him after being discharged back home. Working the ED significant for A-fib with heart rate in the 140s, WBC 14.6, sodium 149, BNP 2210. ED contacted Dr. Walter who recommended IV diltiazem drip and plan for cardioversion in the morning. Case discussed with ED provider and decision was made to admit patient for A-fib RVR and HFpEF exacerbation. #A-fib RVR ? Initially presented with heart rate in the 140s, started on diltiazem drip. ? Cardiology consulted, chemically converted to NSR with IV metoprolol 5mg. Currently 70bpm. - Started metoprolol tartrate 50mg BID, Eliquis 5mg BID. ? ECHO September 2024 revealed normal biventricular function. #HFpEF exacerbation ? BNP 2210, diffuse crackles in the lungs with edema on CXR, 2+ lower extremity pitting edema. ? Transitioned to toresemide 20mg BID, home med. ? Pending further cardiology recommendations. May benefit from MRA, SGLT2i. #Community-acquired pneumonia versus aspiration pneumonia #Sepsis ? Presented about 2 weeks ago with diffuse opacities in right lung, patient is G-tube dependent and possibly aspirating. ? WBC 14.6 with tachycardia. - WBC improved to 12.3 today. ? Continue Zosyn day 2. ? Follow-up sputum cultures. #Insulin-dependent diabetes ? LDSSI, ACHS glucose checks. ? A1c 7.1%. - BG > 400, increaesd nighly Lantus. ? Lantus 20 units nightly. Adjust based on SSI needs #CAD ? Resume home aspirin, statin. Full code DVT prophylaxis: Eliquis
--- NOTE | 2024-12-16 22:51 | PC.NURSE ---
He is A&Ox4. His speech is clear and he is [place]. He does have hearing aids at his bedside but they were removed. He is up in the chair per his request and he states he would like to sleep there. He states he has not slept in a bed in 8 years since his . He denies any pain. He is voiding per a urinal; his urine is yellow, clear. Lung sounds with rhochi upon expiration. He is NPO and received glucerna via his g-tube.
[2024-12-17] VITALS (114 sets, daily range): BP systolic 53–139; BP diastolic 27–86; PULSE 48–137; RESP 13–36; TEMP 36.3–36.9; O2SAT 86–98; BMI 27.9
[2024-12-17] MEDS: PIPERCILLIN/TAZO 3.375 GM in 0.9 % SODIUM CHLORIDE 50 ML IV ×4 (02:01→20:00)
[2024-12-17 05:49] LABS: POC Glucose,Bedside 185 (70-110)
[2024-12-17] MEDS: humaLOG 100 UNITS/ML 10ML VIAL (SSI) SUBCUT ×4 (06:26→20:07)
[2024-12-17] MEDS: ASPIRIN EC 81MG TABLET 81 MG PO (07:59)
[2024-12-17] MEDS: APIXABAN 5MG TABLET 5 MG PO ×2 (07:59→20:00)
[2024-12-17] MEDS: METOPROLOL TARTRATE 50MG TABLET 50 MG PO ×2 (07:59→20:00)
[2024-12-17] MEDS: TORSEMIDE 20MG TABLET 20 MG PO ×2 (07:59→15:29)
[2024-12-17 09:06] LABS: Basophils % 0.4 % (0.1-2.0); Eosinophils # 0.2 K/mm3 (0.0-0.4); Eosinophils % 1.6 % (0.1-12.0); Hematocrit 31.8 % (42.0-52.0); Lymphocytes # 0.3 K/mm3 (0.7-4.5); Lymphocytes % 2.7 % (10-50); Mean Corpuscular HGB Conc 28.3 g/dL (31.8-35.4); Mean Corpuscular Hemoglobin 28.7 pg (27.0-31.2); Mean Corpuscular Volume 101.3 fl (80-94); Mean Platelet Volume 12.4 fl (7.4-10.4); Monocytes # 0.7 K/mm3 (0.1-1.0); Monocytes % 5.8 % (1.7-9.3); Neutrophils % 88.6 % (37.0-80.0); Platelet Count 310 K/mm3 (142-424); Red Blood Count 3.14 M/mm3 (4.60-6.20); Red Cell Distribution Width 17.3 % (11.5-17.5); White Blood Count 11.3 K/mm3 (4.8-10.8)
[2024-12-17] MEDS: METOPROLOL TARTRATE 5MG/5ML VIAL 5 MG IV (09:13)
[2024-12-17 09:58] LABS: Albumin Level 3.1 g/dl (3.5-5.0); Chloride 104 mmol/L (98-107); Sodium 140 mmol/L (136-145)
[2024-12-17 09:59] LABS: Potassium 4.2 mmoL/L (3.5-5.1)
[2024-12-17 10:01] LABS: Alanine Aminotransferase 25 U/L (12-78); Albumin/Globulin Ratio 0.8 (1.1-1.8); Alkaline Phosphatase 59 U/L (38-126); Anion Gap 12.2 mEq/L (5-15); Aspartate Amino Transferase 31 U/L (17-59); Bilirubin,Total 0.6 mg/dl (0.2-1.3); Blood Urea Nitrogen 59 mg/dl (9-20); Calcium 8.9 mg/dl (8.4-10.2); Carbon Dioxide 28 mmol/L (22.0-30.0); Creatinine Clearance Estimated 52 mL/min (50-200); Estimated Glomerular Filt Rate 43 ml/min (>60); GFR (African American) 52 ML/MIN (>60); Globulin 3.8 g/dL (1.3-3.2); Glucose 268 mg/dl (74-100); Total Protein,Serum 6.9 g/dl (6.3-8.2)
[2024-12-17 10:02] LABS: Magnesium 2.4 mg/dl (1.6-2.3)
--- NOTE | 2024-12-17 10:39 | ECG_ITS ---
APPROVED REPORT Exam: Resting ECG HR:109 bpm ECG Measurements Heart Rate 109 AXES QRSd 95 QRS 9 QT 358 T 63 QTc 422 Conclusion ATRIAL FLUTTER/TACHYCARDIA WITH RAPID VENTRICULAR RESPONSE LOW QRS VOLTAGE IN EXTREMITY LEADS [QRS DEFLECTION < 0.5 mV IN LIMB LEADS] MODERATE ST DEPRESSION [0.05+ mV ST DEPRESSION] ABNORMAL ECG UNCONFIRMED REPORT Electronically signed by : Chente Morales MD 12/17/2024 12:41:34
[2024-12-17] MEDS: 0.9 % SODIUM CHLORIDE 1000ML 500 ML IV (10:44)
[2024-12-17 11:16] LABS: POC Glucose,Bedside 442 (70-110)
--- NOTE | 2024-12-17 11:51 | HMH.ITSTN ---
contrast pre medication shit taken to [facility] due to pt contrast allergy. rn tried calling hospitalist for orders, no answer. rn stated will call us back after speaking to md and needing time arranged with house for transport due to staffing
[2024-12-17] MEDS: DIGOXIN 0.25MG/ML 2ML AMPUL 500 MCG IV (12:30)
--- NOTE | 2024-12-17 12:44 | HMH.PTEV ---
Physical Therapy Evaluation Rehab PT IP Evaluation Start: 12/17/24 09:16 Freq: ONCE Status: Active Protocol: Document 12/17/24 12:38 MOHINI (Rec: 12/17/24 12:44 MOHINI [id number]) Subjective/History History History 74-year-old male with a medical history significant for A-fib on Eliquis, metastatic lung cancer in remission (right partial lobectomy), G-tube dependent for feeds, insulin-dependent diabetes, HFpEF, CAD who presents with worsening shortness of breath and fatigue over the past few days . He was recently discharged from [place] for a similar presentation of A-fib RVR where he apparently was cardioverted. It is unclear if it was successful. He reports he lives alone, 2 [address] the home, and he is generally independent with ambulation using a SC. He reports he has a PEG tube and is only allowed ice by mouth and doesn't worry about groceries. Subjective Subjective Currently he reports his L shoulder is sore, It's because o f my arthritis. Otherwise he has no c/o pain, but feels short of air with any activity. He agrees to mobility assessment. New diagnosis of cancer in past 12 Yes months? Rehab PT IP Eval Objective Appearance Patient Behavior Appropriate Patient Orientation Person,Place,Time Difficulty following instructions none Speech Pattern Clear Ambulation Patient Able to Ambulate Yes Ambulation Observation IP General Gait Pattern Observation Shuffling Step Ambulation Distance (feet) 10 Ambulation Assistive Device None Ambulation Ability Contact Guard/Hand Hold Balance Ability to Arise Able, uses arms to help Sitting Balance Steady, safe Standing Balance Steady, wide stance Dynamic Sitting Balance Ability Good Dynamic Standing Balance Ability Fair Transfers Bed Transfer Ability Contact Guard/Hand Hold Chair Transfer Ability Contact Guard/Hand Hold Sit to Stand Bed Transfer Ability Contact Guard/Hand Hold Sit to Stand Chair Transfer Ability Contact Guard/Hand Hold ROM All Extremities PT ROM Status WFL MMT All Extremities PT MMT WFL Abnormal MMT Grade grossly 3/5 at least Rehab PT IP prob,goals,plan Problems Date of Evaluation: 12/17/24 PT IP Problems Bed Mobility,Transfers,Gait Rehab Potential Rehab Potential Good Plan PT Intervention Plan Bed Mobility,Transfers,Gait, Therapeutic Exercise PT Plan Frequency Daily Duration LOS Discharge Goals Bed Transfer Ability Supervision/Stand by Sit to Stand Chair Transfer Ability Supervision/Stand by Ambulation Assistive Device Straight Cane Ambulation Distance (feet) 25 Discharge Plan PT Discharge Plan Pt is currently most appropriate for rehab placement due to limited ability with self care and decreased endurance to any standing activity. Skilled therapy is recommended to address these concerns in an effort to return pt to [facility]. IF he has 24 hr assistance and has met all of his therapy goals he may be able to return home once medically stable for d/c. Eval Complexity Eval Charge Codes 10685 - High Complexity PHYSICIAN CERTIFICATION: I certify the specified therapy services for Pravin Flores are required, authorized, and reviewed every 30 days.
--- NOTE | 2024-12-17 15:55 | PC.NURSE ---
PT HAS DONE FAIR THIS SHIFT. HE HAS GOTTEN HIS BOLUS FEEDS EVERY THREE HOURS AND HAS TOLERATED THEM WELL. HE REFUSED AT 1400 AND WANTED TO WAIT UNTIL 1500. HE WORKED WELL WITH THERAPY. VITALS ARE STABLE WHILE BP'S ARE SOFT AND HEART RATE HAS BEEN IN THE 130'S PERIODICALLY. IV DIG IMPROVED HEART RATE. HIS RATE DOES GO UP WHEN HE GETS UP AND MOVES IN THE ROOM OR GOES TO THE BATHROOM. HE HAS HAD FAIR URINE OUTPUT. IT IS CLEAR AND YELLOW. REMAINS IF A-FIB/FLUTTER ON TELE. WEANED TO ROOM AIR THIS SHIFT. HE DID HAVE A BM THIS SHIFT.
--- NOTE | 2024-12-17 18:48 | EXP.PN ---
Subjective *Date: 12/17/24 *Time: 18:48 Interval history: Patient is feeling well today. However, continues to have A-fib RVR. Discussed case with Dr. Walter, who recommended diltiazem 60 mg every 6 hours for now. Can be down titrated if pressures become soft Exam Data for Last 24 hours Vital signs and Labs for Last 24 Hours: Temp Pulse Resp BP Pulse Ox O2 Del Method O2 Flow Rate 97.3 F L 133 H 22 103/59 L 88 L Room Air 1 12/17/24 16:00 12/17/24 18:15 12/17/24 18:15 12/17/24 18:00 12/17/24 18:15 12/17/24 17:45 12/17/24 15:00 Laboratory Results - last 24 hr 12/17/24 05:28: POC Glucose 185 H 12/17/24 08:45: WBC 11.3 H, RBC 3.14 L, Hgb 9.0 L, Hct 31.8 L, MCV 101.3 H, MCH 28.7, MCHC 28.3 L, RDW 17.3, Plt Count 310, MPV 12.4 H, Neut % (Auto) 88.6 H, Lymph % (Auto) 2.7 L, [place] % (Auto) 5.8, Eos % (Auto) 1.6, Baso % (Auto) 0.4, Neut # (Auto) 10.0 H, Lymph # (Auto) 0.3 L, [place] # (Auto) 0.7, Eos # (Auto) 0.2, Baso # (Auto) 0.0, Sodium 140, Potassium 4.2, Chloride 104, Carbon Dioxide 28, Anion Gap 12.2, BUN 59 H, Creatinine 1.60 H, Estimated Creat Clear 52, Estimated GFR 43 L, Est GFR ( Amer) 52 L, Glucose 268 H, Calcium 8.9, Magnesium 2.4 H D, Total Bilirubin 0.6, AST 31 D, ALT 25, Alkaline Phosphatase 59, Total Protein 6.9, Albumin 3.1 L D, Globulin 3.8 H, Albumin/Globulin Ratio 0.8 L 12/17/24 11:08: POC Glucose 442 H* I & O for Last 24 hours: Intake & Output 12/14/24 12/15/24 12/16/24 12/17/24 23:59 23:59 23:59 23:59 Intake Total 45.583 / 45.583 1440.750 / 7513.953 2020 / 2372 Output Total 1050 / 1250 1425 / 1425 1225 / 1225 Balance -1004.417 / -1204.417 15.750 / 15.750 1147 / 1147 Weight 88.677 kg 87.9 kg 88.451 kg Microbiology Reports for the Last 24 Hours: Microbiology 12/15/24 14:10 Blood Blood Culture - Preliminary NO GROWTH AFTER 48 HOURS 12/15/24 14:10 Blood Blood Culture - Preliminary NO GROWTH AFTER 48 HOURS 12/16/24 15:40 Anus CRE Surveillance Culture - Final Negative 12/15/24 23:47 Sputum - Expectorated Sputum Gram Stain - Final 12/15/24 23:47 Sputum - Expectorated Sputum Sputum Culture - Preliminary Gram Negative Rods Constitutional Constitutional: no acute distress *Routine HEENT Exam Head: Present normocephalic Eye: Present EOMI and PERRL ENT: Present mucous membranes moist *Routine Neck Exam Neck: Present supple; Absent lymphadenopathy *Routine Respiratory Exam Respiratory: Present CTA bilaterally *Routine Cardiovascular Exam Cardiovascular: Present RRR *Routine Abdominal Exam Abdominal: Present soft and normoactive bowel sounds; Absent tenderness *Routine Extremities Exam Extremities: Absent cyanosis, clubbing or edema *Routine Skin Exam Skin: Present warm; Absent rash *Routine Neurological Exam Neurological: Present alert and oriented X3 Assessment and Plan *Assessment and plan (1) Atrial fibrillation and flutter: Status: Acute Category: Medical Code(s): I48.91 - Unspecified atrial fibrillation; I48.92 - Unspecified atrial flutter Plan Federico Flores is a 74-year-old male with a medical history significant for A-fib on Eliquis, metastatic lung cancer in remission (right partial lobectomy), G-tube dependent for feeds, insulin-dependent diabetes, HFpEF, CAD who presents with worsening shortness of breath and fatigue over the past few days. He was recently discharged from [place] for a similar presentation of A-fib RVR where he apparently was cardioverted. It is unclear if it was successful, will obtain outside records. Patient states he has not been taking all his medications recently has he has been getting his feet underneath him after being discharged back home. Working the ED significant for A-fib with heart rate in the 140s, WBC 14.6, sodium 149, BNP 2210. ED contacted Dr. Waletr who recommended IV diltiazem drip and plan for cardioversion in the morning. Case discussed with ED provider and decision was made to admit patient for A-fib RVR and HFpEF exacerbation. #A-fib RVR ? Initially presented with heart rate in the 140s, started on diltiazem drip. ? Achieved rate control with Lopressor yesterday, however back to RVR today. ? Discussed case with Dr. Walter, who recommended diltiazem 60 mg every 6 hours for now. Can be tried if his pressures become softer. ? Continue metoprolol tartrate 50 mg twice daily, Eliquis 5mg BID. ? ECHO September 2024 revealed normal biventricular function. #HFpEF exacerbation ? Initial BNP 2210, diffuse crackles in the lungs with edema on CXR, 2+ lower extremity pitting edema. ? Transitioned to toresemide 20mg BID, home med. Euvolemic today. ? Pending further cardiology recommendations. May benefit from MRA, SGLT2i. #Community-acquired pneumonia versus aspiration pneumonia #Sepsis ? Presented about 2 weeks ago with diffuse opacities in right lung, patient is G-tube dependent and possibly aspirating. ? WBC 14.6 with tachycardia. - WBC improved to 11.3 today. ? Continue Zosyn day 3. ? Follow-up sputum cultures. #Insulin-dependent diabetes ? LDSSI, ACHS glucose checks. ? A1c 7.1%. - BG > 400, increaesd nighly Lantus. ? Lantus 30 units nightly. Adjust based on SSI needs #CAD ? Resume home aspirin, statin. Full code DVT prophylaxis: Eliquis
[2024-12-17 18:59] LABS: POC Glucose,Bedside 401 (70-110)
[2024-12-17] MEDS: dilTIAZem 60MG TABLET 60 MG PO (19:27)
[2024-12-17] MEDS: INSULIN GLARGINE 100 UNITS/ML 3ML FLEXPEN 30 UNIT SUBCUT (20:00)
[2024-12-17] MEDS: ATORVASTATIN 40MG TABLET 40 MG PO (20:00)
[2024-12-17] MEDS: TAMSULOSIN 0.4MG CAPSULE 0.4 MG PO (20:00)
[2024-12-17 20:15] LABS: POC Glucose,Bedside 342 (70-110)
[2024-12-17] MEDS: ACETAMINOPHEN 325MG TAB 650 MG PO (20:25)
[2024-12-17] MEDS: RINGERS SOLUTION,LACTATED 500 ML 250 ML IV (22:43)
--- NOTE | 2024-12-17 22:48 | PC.NURSE ---
Since evening med pass patient BP has been low. Manual BP was taken and found to be 90/40. patient is AxO and not light headed, dizzy or weak. Provider was notified and orders were placed
[2024-12-18] VITALS (62 sets, daily range): BP systolic 96–134; BP diastolic 41–92; PULSE 40–146; RESP 12–33; TEMP 36.4–36.7; O2SAT 79–100; BMI 27.1
[2024-12-18] MEDS: PIPERCILLIN/TAZO 3.375 GM in 0.9 % SODIUM CHLORIDE 50 ML IV (01:40)
[2024-12-18 05:23] LABS: POC Glucose,Bedside 120 (70-110)
[2024-12-18] MEDS: DIGOXIN 0.25MG/ML 2ML AMPUL 250 MCG IV (05:27)
--- NOTE | 2024-12-18 06:58 | PC.NURSE ---
Katerina had a decent night. HE was able to sleep off and on. He did complain of left shoulder pain. It was relieved by a warm blanket. Patient did have a BM this AM. All other issues are discussed in provider notifications.
--- NOTE | 2024-12-18 07:57 | XR_ITS ---
PROCEDURE INFORMATION: Exam: XR Chest Exam date and time: 12/18/2024 12:06 PM Age: 74 years old Clinical indication: Other: F/u pnx TECHNIQUE: Imaging protocol: Radiologic exam of the chest. Views: 1 view. Total images: 1 COMPARISON: No prior studies available for comparison. FINDINGS: Lungs: Atelectatic and/or early infiltrative changes noted within the right lower lobe. Atelectatic changes left lung base. Pleural spaces: No evidence of pneumothorax. Right pleural effusion. Heart/Mediastinum: The heart is not enlarged. Bones/joints: Unremarkable. Soft tissues: Right paratracheal soft tissue prominence. IMPRESSION: 1. No evidence of pneumothorax. 2. Right pleural effusion. 3. Atelectatic and/or early infiltrative changes noted within the right lower lobe. 4. Atelectatic changes left lung base.
[2024-12-18] MEDS: APIXABAN 5MG TABLET 5 MG PO (08:15)
[2024-12-18] MEDS: METOPROLOL TARTRATE 50MG TABLET 50 MG PO (08:15)
[2024-12-18] MEDS: ASPIRIN EC 81MG TABLET 81 MG PO (08:15)
[2024-12-18] MEDS: TORSEMIDE 20MG TABLET 20 MG PO ×2 (08:15→18:14)
--- NOTE | 2024-12-18 08:15 | P.PN_ITS ---
Subjective *Date: 12/18/24 *Time: 08:15 Medical Exam Vital signs and Labs for Last 24 Hours: Vital Signs Temp Pulse Resp BP Pulse Ox O2 Del Method O2 Flow Rate 12/18/24 08:01 100/58 L 12/18/24 08:00 24 12/18/24 07:45 137 H 25 H 99 Nasal Cannula 2 12/18/24 07:31 138 H 25 H 98 12/18/24 07:31 105/63 L 12/18/24 07:30 139 H 27 H 98 12/18/24 07:15 134 H 21 98 12/18/24 07:00 135 H 20 97 Nasal Cannula 2 12/18/24 07:00 104/62 L 12/18/24 06:56 Nasal Cannula 2 12/18/24 06:45 134 H 21 97 Nasal Cannula 2 12/18/24 06:30 134 H 22 12/18/24 06:30 102/54 L 12/18/24 06:00 135 H 22 106/55 L 92 L Room Air 12/18/24 05:27 135 H 12/18/24 05:16 136 H 18 97/64 L 92 L Room Air 12/18/24 05:00 Room Air 12/18/24 04:01 97.8 F 135 H 16 107/52 L 93 L Room Air 12/18/24 04:00 100 H 12/18/24 04:00 Room Air, Nasal Cannula 12/18/24 03:05 93 H 20 110/57 L 100 Nasal Cannula 2 12/18/24 03:00 Room Air 12/18/24 02:01 91 H 16 105/47 L 94 L Nasal Cannula 2 12/18/24 01:04 57 L 22 116/92 H 92 L Nasal Cannula 2 12/18/24 01:00 Room Air 12/18/24 00:23 98.0 F 103 H 21 116/41 L 94 L Nasal Cannula 2 12/18/24 00:00 Room Air, Nasal Cannula 12/18/24 00:00 86 12/17/24 23:00 63 22 87/42 L 95 Nasal Cannula 2 12/17/24 23:00 Nasal Cannula 2 12/17/24 22:15 67 20 97 12/17/24 22:03 67 23 97 12/17/24 22:03 93/36 L 12/17/24 22:00 67 25 H 93/36 L 94 L Nasal Cannula 2 12/17/24 22:00 93/36 L 12/17/24 21:45 67 22 94 L 12/17/24 21:36 67 22 93 L 12/17/24 21:36 89/42 L 12/17/24 21:30 67 26 H 96 12/17/24 21:30 80/27 L 12/17/24 21:15 67 25 H 96 12/17/24 21:05 97/34 L 12/17/24 21:05 68 25 H 95 12/17/24 21:03 70 24 98/34 L 96 Room Air 12/17/24 21:03 98/32 L 12/17/24 21:00 62 19 90 L 12/17/24 21:00 Room Air 12/17/24 20:45 117 H 24 91 L 12/17/24 20:30 135 H 19 92 L 12/17/24 20:00 Room Air 12/17/24 20:00 120 H 12/17/24 20:00 98.0 F 134 H 21 104/56 L 92 L Room Air 12/17/24 19:45 136 H 26 H 94 L 12/17/24 19:30 137 H 32 H 92 L 12/17/24 19:30 94/65 L 12/17/24 19:15 137 H 21 92 L 12/17/24 19:00 108/59 L 12/17/24 19:00 135 H 20 91 L Room Air 12/17/24 18:56 Room Air 12/17/24 18:45 20 12/17/24 18:30 133 H 24 90 L Room Air 12/17/24 18:30 98/79 L 12/17/24 18:15 133 H 22 88 L 12/17/24 18:00 134 H 27 H 90 L 12/17/24 18:00 103/59 L 12/17/24 17:45 134 H 18 93 L Room Air 12/17/24 17:30 101/54 L 12/17/24 17:30 136 H 21 90 L Room Air 12/17/24 17:15 134 H 20 91 L Room Air 12/17/24 17:00 133 H 20 90 L 12/17/24 17:00 106/57 L 12/17/24 17:00 Room Air 12/17/24 16:36 136 H 17 90 L Room Air 12/17/24 16:36 101/55 L 12/17/24 16:30 135 H 20 90 L Room Air 12/17/24 16:17 20 12/17/24 16:01 131 H 20 92 L 12/17/24 16:01 104/50 L 12/17/24 16:00 97.3 F L 12/17/24 16:00 130 H 12/17/24 16:00 132 H 20 91 L 12/17/24 15:46 98 Room Air 12/17/24 15:45 131 H 24 97 12/17/24 15:37 129 H 25 H 96 12/17/24 15:37 92/53 L 12/17/24 15:33 125 H 22 96 Room Air 12/17/24 15:30 130 H 26 H 92 L Room Air 12/17/24 15:26 115 H 22 96 Room Air 12/17/24 15:26 94/54 L 12/17/24 15:15 129 H 15 95 12/17/24 15:01 88/51 L 12/17/24 15:01 77 19 96 12/17/24 15:00 129 H 24 95 Nasal Cannula 1 12/17/24 15:00 Nasal Cannula 1 12/17/24 14:45 129 H 23 96 Nasal Cannula 1 12/17/24 14:30 133 H 21 96 Nasal Cannula 1 12/17/24 14:30 91/48 L 12/17/24 14:20 112 H 21 97 Nasal Cannula 1 12/17/24 14:01 98/46 L 12/17/24 14:01 48 L 21 95 12/17/24 14:00 53 L 22 95 12/17/24 13:45 132 H 18 96 Nasal Cannula 1 12/17/24 13:31 75 20 95 Nasal Cannula 1 12/17/24 13:31 107/41 L 12/17/24 13:30 51 L 21 93 L Nasal Cannula 1 12/17/24 13:15 112 H 21 94 L Nasal Cannula 1 12/17/24 13:01 120 H 25 H 97 12/17/24 13:01 90/49 L 12/17/24 13:00 121 H 26 H 94 L 12/17/24 13:00 79/49 L 12/17/24 13:00 Nasal Cannula 1 12/17/24 12:45 127 H 26 H 96 Nasal Cannula 1 12/17/24 12:38 120 H 12/17/24 12:36 130 H 12/17/24 12:34 120 H 12/17/24 12:30 99/48 L 12/17/24 12:30 127 H 23 94 L Nasal Cannula 1 12/17/24 12:30 127 H 12/17/24 12:15 128 H 13 95 Nasal Cannula 1 12/17/24 12:15 120 H 12/17/24 12:10 94 L Nasal Cannula 1 12/17/24 12:06 129 H 97 Nasal Cannula 1 12/17/24 12:06 100/55 L 12/17/24 12:02 97.9 F 128 H 97 Nasal Cannula 2 12/17/24 11:45 125 H 25 H 98 Nasal Cannula 2 12/17/24 11:30 121 H 23 97 Nasal Cannula 2 12/17/24 11:30 83/45 L 12/17/24 11:15 122 H 22 91 L Nasal Cannula 2 12/17/24 11:00 122 H 17 98 Nasal Cannula 2 12/17/24 11:00 92/59 L 12/17/24 11:00 Nasal Cannula 2 12/17/24 10:45 125 H 19 97 Nasal Cannula 2 12/17/24 10:30 99/49 L 12/17/24 10:30 126 H 23 97 Nasal Cannula 2 12/17/24 10:15 127 H 19 98 12/17/24 10:00 122 H 23 96 12/17/24 10:00 83/55 L 12/17/24 09:56 93/49 L 12/17/24 09:56 129 H 23 96 12/17/24 09:45 126 H 20 97 12/17/24 09:41 120 H 18 95 12/17/24 09:41 88/59 L 12/17/24 09:31 128 H 17 96 Nasal Cannula 2 12/17/24 09:31 89/42 L 12/17/24 09:30 125 H 17 96 Nasal Cannula 2 12/17/24 09:15 128 H 18 96 Nasal Cannula 2 12/17/24 09:00 130 H 31 H 92 L Nasal Cannula 2 12/17/24 09:00 114/68 12/17/24 09:00 Nasal Cannula 2 12/17/24 08:45 127 H 16 96 Nasal Cannula 2 12/17/24 08:30 129 H 16 96 12/17/24 08:30 122/65 Intake and Output 12/17/24 12/18/24 12/18/24 23:59 07:59 15:59 Intake Total 700 / 3222 325 / 325 Output Total 1174 301 / 301 Balance -475 / 1247 Intake: Intake, Oral Amount 150 / 150 / Intake, Tube Feeding Amount 200 / 937 Intake, Tube Irrigant Amount 350 / 1150 Intake, Total IV Amount 300 / 300 Pipercillin/Tazo 3.375 gm In 0. 50 / 50 9 % Sodium Chloride 50 ml @ 100 mls/hr IV Q6H [facility] Rx#:[id number] Ringers Solution,Lactated 500 250 / 250 ml @ 250 mls/hr IV .Q2H ONE Rx# :[id number] Output: Output, Urine Amount 1174 300 / 300 Output, Stool Amount / Other: Number of Voids 1 Number of Unmeasured Voids 0 Number of Bowel Movements 1 1 Weight 86.183 kg Patient Weight 12/18/24 23:59 Weight 86.183 kg Laboratory Results - last 24 hr 12/17/24 08:45: WBC 11.3 H, RBC 3.14 L, Hgb 9.0 L, Hct 31.8 L, MCV 101.3 H, MCH 28.7, MCHC 28.3 L, RDW 17.3, Plt Count 310, MPV 12.4 H, Neut % (Auto) 88.6 H, Lymph % (Auto) 2.7 L, [place] % (Auto) 5.8, Eos % (Auto) 1.6, Baso % (Auto) 0.4, Neut # (Auto) 10.0 H, Lymph # (Auto) 0.3 L, [place] # (Auto) 0.7, Eos # (Auto) 0.2, Baso # (Auto) 0.0, Sodium 140, Potassium 4.2, Chloride 104, Carbon Dioxide 28, Anion Gap 12.2, BUN 59 H, Creatinine 1.60 H, Estimated Creat Clear 52, Estimated GFR 43 L, Est GFR ( Amer) 52 L, Glucose 268 H, Calcium 8.9, Magnesium 2.4 H D, Total Bilirubin 0.6, AST 31 D, ALT 25, Alkaline Phosphatase 59, Total Protein 6.9, Albumin 3.1 L D, Globulin 3.8 H, Albumin/Globulin Ratio 0.8 L 12/17/24 11:08: POC Glucose 442 H* 12/17/24 16:23: POC Glucose 401 H* 12/17/24 20:03: POC Glucose 342 H* 12/18/24 05:15: POC Glucose 120 H I & O for Labs for Last 24 Hours: Intake & Output 12/15/24 12/16/24 12/17/24 12/18/24 23:59 23:59 23:59 23:59 Intake Total 45.583 / 45.583 1440.750 / 1866.470 1038 / 3222 325 / 325 Output Total 1050 / 1250 1425 / 1425 1974 / 1974 301 / 301 Balance -1004.417 / -1204.417 15.750 / 15.750 947 / 1247 Weight 88.677 kg 87.9 kg 88.451 kg 86.183 kg Microbiology Reports for the Last 24 Hours: Microbiology 12/15/24 23:47 Sputum - Expectorated Sputum Gram Stain - Final 12/15/24 23:47 Sputum - Expectorated Sputum Sputum Culture - Final Enterobacter cloacae 12/15/24 14:10 Blood Blood Culture - Preliminary NO GROWTH AFTER 48 HOURS 12/15/24 14:10 Blood Blood Culture - Preliminary NO GROWTH AFTER 48 HOURS 12/16/24 15:40 Anus CRE Surveillance Culture - Final Negative The patient's infection will respond to the chosen ABx?: Yes (SPUTUM = E. CLOACA E, SENSITIVE TO ZOSYN, AFEBRILE OVER 24 HR, WBC 11.3.) Is the patient receiving the right drug, dose, and route?: Yes Could a more targeted ABx be ordered?: No How long ABx needed (days)?: 5
[2024-12-18] MEDS: CEFTRIAXONE 1 GM 1 GM in 0.9 % SODIUM CHLORIDE 50 ML IV (09:00)
[2024-12-18 10:26] LABS: Basophils % 0.4 % (0.1-2.0); Eosinophils # 0.1 K/mm3 (0.0-0.4); Hematocrit 30.4 % (42.0-52.0); Hemoglobin 8.7 g/dL (14.1-18.0); Lymphocytes # 0.3 K/mm3 (0.7-4.5); Mean Corpuscular HGB Conc 28.6 g/dL (31.8-35.4); Mean Corpuscular Hemoglobin 29.2 pg (27.0-31.2); Mean Platelet Volume 12.7 fl (7.4-10.4); Monocytes # 0.6 K/mm3 (0.1-1.0); Monocytes % 6.7 % (1.7-9.3); Neutrophils # 7.9 K/mm3 (1.8-7.8); Neutrophils % 88.1 % (37.0-80.0); Platelet Count 268 K/mm3 (142-424); Red Blood Count 2.98 M/mm3 (4.60-6.20); Red Cell Distribution Width 17.6 % (11.5-17.5)
[2024-12-18 10:52] LABS: Chloride 104 mmol/L (98-107); Potassium 4.2 mmoL/L (3.5-5.1); Sodium 140 mmol/L (136-145)
[2024-12-18 10:55] LABS: Alanine Aminotransferase 28 U/L (12-78); Albumin/Globulin Ratio 0.8 (1.1-1.8); Alkaline Phosphatase 61 U/L (38-126); Anion Gap 12.2 mEq/L (5-15); Aspartate Amino Transferase 49 U/L (17-59); Bilirubin,Total 0.6 mg/dl (0.2-1.3); Carbon Dioxide 28 mmol/L (22.0-30.0); Globulin 3.8 g/dL (1.3-3.2); Total Protein,Serum 6.8 g/dl (6.3-8.2)
[2024-12-18 10:56] LABS: Calcium 8.7 mg/dl (8.4-10.2); Glucose 307 mg/dl (74-100)
[2024-12-18 11:00] LABS: Blood Urea Nitrogen 54 mg/dl (9-20); Creatinine Clearance Estimated 54 mL/min (50-200); Estimated Glomerular Filt Rate 46 ml/min (>60); GFR (African American) 56 ML/MIN (>60)
[2024-12-18 11:16] LABS: POC Glucose,Bedside 412 (70-110)
[2024-12-18] MEDS: humaLOG 100 UNITS/ML 10ML VIAL (SSI) SUBCUT ×3 (11:19→20:11)
--- NOTE | 2024-12-18 12:32 | PC.NURSE ---
I attempted to give pt his lunch time bolus feed. pt stated he wanted to wait a little longer. I informed pt that he had medication due at 1300 and we would do his next feed then. Pt agreeable.
[2024-12-18] MEDS: dilTIAZem 30MG TABLET 30 MG PO ×2 (13:21→15:05)
[2024-12-18 17:05] LABS: POC Glucose,Bedside 303 (70-110)
--- NOTE | 2024-12-18 18:26 | PC.NURSE ---
PT HAS DONE WELL THIS SHIFT. HE HAS BEEN MORE ENERGTIC. HE HAD A NICE VISIT FROM HIS SONS. HE HAS BEEN LESS INCLINED TO DO HIS BOLUS FEEDINGS TODAY. HE HAD BETTER URINE OUTPUT TODAY AND HAS BEEN AMBULATING TO THE BATHROOM BETTER. VSS. HE HAS BEEN TACHYCARDIC. AWARE.
--- NOTE | 2024-12-18 19:18 | EXP.PN ---
Subjective *Date: 12/18/24 *Time: 19:18 Interval history: Patient states he is doing well, but continues to have A-fib RVR. Found to have right-sided pleural effusion on CXR today. Pulmonology consulted, pending further recommendations. Exam Data for Last 24 hours Vital signs and Labs for Last 24 Hours: Temp Pulse Resp BP Pulse Ox O2 Del Method O2 Flow Rate 97.6 F 137 H 18 110/54 L 92 L Room Air 2 12/18/24 16:00 12/18/24 17:30 12/18/24 18:00 12/18/24 17:01 12/18/24 16:00 12/18/24 19:00 12/18/24 11:00 Laboratory Results - last 24 hr 12/17/24 20:03: POC Glucose 342 H* 12/18/24 05:15: POC Glucose 120 H 12/18/24 09:30: WBC 9.0, RBC 2.98 L, Hgb 8.7 L, Hct 30.4 L, MCV 102.0 H, MCH 29.2, MCHC 28.6 L, RDW 17.6 H, Plt Count 268, MPV 12.7 H, Neut % (Auto) 88.1 H, Lymph % (Auto) 3.0 L, [place] % (Auto) 6.7, Eos % (Auto) 1.0, Baso % (Auto) 0.4, Neut # (Auto) 7.9 H, Lymph # (Auto) 0.3 L, [place] # (Auto) 0.6, Eos # (Auto) 0.1, Baso # (Auto) 0.0, Sodium 140, Potassium 4.2, Chloride 104, Carbon Dioxide 28, Anion Gap 12.2, BUN 54 H, Creatinine 1.50 H, Estimated Creat Clear 54, Estimated GFR 46 L, Est GFR ( Amer) 56 L, Glucose 307 H, Calcium 8.7, Magnesium 2.0 D, Total Bilirubin 0.6, AST 49 D, ALT 28, Alkaline Phosphatase 61, Total Protein 6.8, Albumin 3.0 L, Globulin 3.8 H, Albumin/Globulin Ratio 0.8 L 12/18/24 11:05: POC Glucose 412 H* 12/18/24 16:56: POC Glucose 303 H* I & O for Last 24 hours: Intake & Output 12/15/24 12/16/24 12/17/24 12/18/24 23:59 23:59 23:59 23:59 Intake Total 45.583 / 45.583 1440.750 / 1459.152 6328 / 3222 1875 / 1875 Output Total 1050 / 1250 1425 / 1425 1974 / 1974 701 / 701 Balance -1004.417 / -1204.417 15.750 / 15.750 947 / 1247 1174 / 1174 Weight 88.677 kg 87.9 kg 88.451 kg 86.183 kg Microbiology Reports for the Last 24 Hours: Microbiology 12/15/24 23:47 Sputum - Expectorated Sputum Gram Stain - Final 12/15/24 23:47 Sputum - Expectorated Sputum Sputum Culture - Final Enterobacter cloacae 12/15/24 14:10 Blood Blood Culture - Preliminary NO GROWTH AFTER 48 HOURS 12/15/24 14:10 Blood Blood Culture - Preliminary NO GROWTH AFTER 48 HOURS Constitutional Constitutional: no acute distress *Routine HEENT Exam Head: Present normocephalic Eye: Present EOMI and PERRL ENT: Present mucous membranes moist *Routine Neck Exam Neck: Present supple; Absent lymphadenopathy *Routine Respiratory Exam Respiratory: Present CTA bilaterally *Routine Cardiovascular Exam Cardiovascular: Present tachycardia and irregular rhythm; Absent RRR *Routine Abdominal Exam Abdominal: Present soft and normoactive bowel sounds; Absent tenderness *Routine Extremities Exam Extremities: Absent cyanosis, clubbing or edema *Routine Skin Exam Skin: Present warm; Absent rash *Routine Neurological Exam Neurological: Present alert and oriented X3 Assessment and Plan *Assessment and plan (1) Atrial fibrillation and flutter: Status: Acute Category: Medical Code(s): I48.91 - Unspecified atrial fibrillation; I48.92 - Unspecified atrial flutter Plan Female Federico Flores is a 74-year-old male with a medical history significant for A-fib on Eliquis, metastatic lung cancer in remission (right partial lobectomy), G-tube dependent for feeds, insulin-dependent diabetes, HFpEF, CAD who presents with worsening shortness of breath and fatigue over the past few days. He was recently discharged from [place] for a similar presentation of A-fib RVR where he apparently was cardioverted. It is unclear if it was successful, will obtain outside records. Patient states he has not been taking all his medications recently has he has been getting his feet underneath him after being discharged back home. Working the ED significant for A-fib with heart rate in the 140s, WBC 14.6, sodium 149, BNP 2210. ED contacted Dr. Walter who recommended IV diltiazem drip and plan for cardioversion in the morning. Case discussed with ED provider and decision was made to admit patient for A-fib RVR and HFpEF exacerbation. #A-fib RVR ? Initially presented with heart rate in the 140s, started on diltiazem drip. ? Achieved rate control with Lopressor, however back to RVR today. ? Discussed case with Dr. Walter, who recommended diltiazem 60 mg every 6 hours along with metoprolol to tartrate. Pressures were soft after starting this yesterday, but rate controlled. Back in A-fib today after this was weaned last night due to soft pressures. ? Dr. Walter recommended against amiodarone at this time. ? Decrease metoprolol to tartrate to 25 mg twice daily. Continue diltiazem 60 mg every 6 hours. ? ECHO September 2024 revealed normal biventricular function. ? Switch to therapeutic Lovenox from Eliquis for possible thoracentesis as below for pleural effusion. ? Pleural effusion may be contributing to A-fib RVR. ? Cardiology consulted, pending further recommendations. #Aspiration pneumonia #Sepsis #Right-sided pleural effusion ? Presented about 2 weeks ago with diffuse opacities in right lung, patient is G-tube dependent and likely aspirating. ? Initial WBC 14.6 with tachycardia. - WBC improved to 9.0 today. ? Sputum cultures revealed Enterobacter clocae, sensitive to ceftriaxone. Suggesting aspiration as source. ? Started ceftriaxone, discontinued Zosyn. ? Repeat CXR today in setting of persistent A-fib RVR revealed worsening right-sided pleural effusion. ? Pulmonology consulted, pending further recommendations. ? Eliquis held for tonight for possible thoracentesis in the next days. Started therapeutic Lovenox. #HFpEF exacerbation ? Initial BNP 2210, diffuse crackles in the lungs with edema on CXR, 2+ lower extremity pitting edema. ? Transitioned to toresemide 20mg BID, home med. Euvolemic today. ? Pending further cardiology recommendations. May benefit from MRA, SGLT2i. #Insulin-dependent diabetes ? LDSSI, ACHS glucose checks. ? A1c 7.1%. - BG > 400, increaesd nighly Lantus. ? Increase Lantus to 40 units nightly. Adjust based on SSI needs #CAD ? Resume home aspirin, statin. Full code DVT prophylaxis: Jerome
[2024-12-18] MEDS: ATORVASTATIN 40MG TABLET 40 MG PO (20:11)
[2024-12-18] MEDS: ENOXAPARIN 100MG/ML SYRINGE 85 MG SUBCUT (20:11)
[2024-12-18] MEDS: TAMSULOSIN 0.4MG CAPSULE 0.4 MG PO (20:11)
[2024-12-18] MEDS: METOPROLOL TARTRATE 50MG TABLET 25 MG PO (20:12)
[2024-12-18] MEDS: dilTIAZem 30MG TABLET 60 MG PO (20:12)
[2024-12-18] MEDS: INSULIN GLARGINE 100 UNITS/ML 3ML FLEXPEN 40 UNIT SUBCUT (20:13)
[2024-12-18 20:14] LABS: POC Glucose,Bedside 345 (70-110)
[2024-12-19] VITALS (56 sets, daily range): BP systolic 88–132; BP diastolic 42–72; PULSE 70–144; RESP 14–32; TEMP 36.3–37.2; O2SAT 92–100; BMI 27.6
[2024-12-19] MEDS: LABETALOL 5MG/ML 20ML MDV 10 MG IV ×2 (04:36→06:31)
--- NOTE | 2024-12-19 04:37 | P.EN_ITS ---
Problem: Nursing reported that the patient's heart rate had increased into the 130. Blood pressure holding at 105 systolic Exam: Came in the room to see the patient he was sleeping easily aroused and started talking with his he is very hard of hearing so he placed his hearing aid and which helped immensely.. He let me know that he was feeling no discomfort no chest pain no shortness of breath. His only problem was as he wishes he could sleep deeper that he feels quite fatigued from lack of sleep. Lung sounds were clear throughout., Heart rate checked with pulse to the wrist , and is perfusing all beats. Skin [place] warm and dry patient in no distress Plan, patient is on several medications for his heart rate. But since it is creeping back up I am going to go ahead and give him labetalol 10 mg as a one- time push.. Also noting that the patient's skin turgor is good that his mouth was moist he did not appear to be severely dehydrated but he is on diuretics at this time. Will recheck labs in the morning patient is stable at this time and we will evaluate the use of the one-time labetalol,
--- NOTE | 2024-12-19 05:45 | PC.NURSE ---
Patient has had a decent night. Patient has been able to sleep well in the chair.Patient did not want to do his evening feedings said he didnt feel like it and his sugar was good enough that he didnt need it. Patient is [place] but very [place] without his hearing aids. He has voided well this shift using the urinal. When I came on shift his HR was in the 130s. After evening med pass it did come down into the 70s-80s and stayed down until aroudn 3am his HR went back up into the 130s. Provider was notified and orders were placed. no other events through the night
[2024-12-19] MEDS: humaLOG 100 UNITS/ML 10ML VIAL (SSI) SUBCUT ×4 (06:01→20:05)
[2024-12-19 06:08] LABS: POC Glucose,Bedside 244 (70-110)
[2024-12-19] MEDS: ENOXAPARIN 100MG/ML SYRINGE 85 MG SUBCUT (06:31)
[2024-12-19 08:22] LABS: Basophils % 0.2 % (0.1-2.0); Eosinophils # 0.1 K/mm3 (0.0-0.4); Eosinophils % 0.9 % (0.1-12.0); Hematocrit 27.4 % (42.0-52.0); Lymphocytes # 0.4 K/mm3 (0.7-4.5); Lymphocytes % 3.5 % (10-50); Mean Corpuscular HGB Conc 29.2 g/dL (31.8-35.4); Mean Corpuscular Hemoglobin 29.7 pg (27.0-31.2); Mean Corpuscular Volume 101.9 fl (80-94); Mean Platelet Volume 12.2 fl (7.4-10.4); Monocytes # 0.7 K/mm3 (0.1-1.0); Monocytes % 6.5 % (1.7-9.3); Neutrophils # 8.9 K/mm3 (1.8-7.8); Neutrophils % 87.9 % (37.0-80.0); Platelet Count 269 K/mm3 (142-424); Red Blood Count 2.69 M/mm3 (4.60-6.20); Red Cell Distribution Width 17.9 % (11.5-17.5); White Blood Count 10.1 K/mm3 (4.8-10.8)
[2024-12-19 08:24] LABS: Albumin Level 2.8 g/dl (3.5-5.0); Chloride 105 mmol/L (98-107); Potassium 3.8 mmoL/L (3.5-5.1); Sodium 144 mmol/L (136-145)
[2024-12-19 08:26] LABS: Alanine Aminotransferase 35 U/L (12-78); Aspartate Amino Transferase 53 U/L (17-59); Blood Urea Nitrogen 44 mg/dl (9-20); Creatinine Clearance Estimated 64 mL/min (50-200); Estimated Glomerular Filt Rate 54 ml/min (>60); GFR (African American) 66 ML/MIN (>60)
[2024-12-19 08:27] LABS: Albumin/Globulin Ratio 0.8 (1.1-1.8); Alkaline Phosphatase 57 U/L (38-126); Anion Gap 8.8 mEq/L (5-15); Bilirubin,Total 0.4 mg/dl (0.2-1.3); Calcium 8.8 mg/dl (8.4-10.2); Carbon Dioxide 34 mmol/L (22.0-30.0); Globulin 3.7 g/dL (1.3-3.2); Glucose 272 mg/dl (74-100); Total Protein,Serum 6.5 g/dl (6.3-8.2)
[2024-12-19] MEDS: CEFTRIAXONE 1 GM 1 GM in 0.9 % SODIUM CHLORIDE 50 ML IV (08:44)
[2024-12-19] MEDS: ASPIRIN EC 81MG TABLET 81 MG PO (08:45)
[2024-12-19] MEDS: TORSEMIDE 20MG TABLET 20 MG PO ×2 (08:46→15:26)
[2024-12-19] MEDS: dilTIAZem 60MG TABLET 60 MG PO ×2 (08:46→12:00)
[2024-12-19] MEDS: METOPROLOL TARTRATE 25MG TABLET 25 MG PO ×2 (08:48→20:05)
[2024-12-19] MEDS: METOCLOPRAMIDE 10MG TABLET 10 MG PO ×2 (08:48→20:05)
--- NOTE | 2024-12-19 09:53 | EXP.PULM.CON ---
History of Present Illness History of present illness: Mr. Flores is a 74-year-old male with reported history of atrial fibrillation on anticoagulation, metastatic lung cancer status postresection, presented to the ER with worsening respiratory distress, being managed for A-fib RVR, heart failure exacerbation and community-acquired /aspiration pneumonia receiving Zosyn since admission on 12/15/2024, sputum cultures positive for Enterobacter, antibiotics weaned to ceftriaxone found to have new right pleural effusion and pulmonary was called for further evaluation and management. Greater than [id number] smoking history per last pulm note on 2009. Not using any oxygen at baseline. Using inhalers on as-needed basis at baseline. History of lung cancer status post resection around 2020. [facility] Disclaimer: The information contained in this section may have been updated after the patient was seen, as this information can be updated by other users. 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 Nodule of left lung Pleural effusion on right History of lung cancer in adulthood Dyspnea on exertion History of smoking 30 or more pack years Diabetic retinopathy associated with type 1 diabetes mellitus Macular degeneration History of cancer of kidney in adulthood Hx of cancer of lung Insulin dependent diabetes mellitus Type 1 diabetes CHF (congestive heart failure), NYHA class III Cardiomyopathy CAD (coronary artery disease) Atrial fibrillation with RVR Atrial fibrillation Dyspnea Sinus tachycardia Abnormal electrocardiography Surgical History Hx of cataract surgery History of esophagogastroduodenoscopy (EGD) History of pneumonectomy H/O kidney removal Family History Father Family history non-contributory Lung cancer Brother Colon cancer Lung cancer Social History (Updated 12/15/24 @ 16:44 by Allison Thao RN) Smoking Status: Never smoker second hand exposure: No alcohol intake: never substance use type: denies use current occupational status: retired Travel in the last 8 weeks: None housing: house caffeine: Yes Have you lived/traveled outside US in past 30 days?: No Contact w/someone who lives/traveled outside US past 30 days?: No Exposure to someone with infectious disease in past 14 days?: No Do you have a fever (greater than 100.4 F or 38 C)?: No Have you tested positive for COVID-19: No Exposed to someone with COVID-19 in past 14 days?: No Do you have a sore throat?: No Do you have a cough?: No Do you have any weakness?: No Are you experiencing any nausea/vomitting?: No Do you have any diarrhea?: No Are you experiencing any unusual bleeding?: No Do you have any muscle aches/pain?: No Do you have any abdominal pain?: No Are you experiencing loss of taste or smell?: No Review of Systems Constitutional Constitutional: Denies anorexia, Denies body ache(s) and Reports fatigue Eyes Eyes: Denies eye discharge, Denies dry eyes, Denies irritation and Denies itchy eyes ENT Ears, Nose, Mouth, and Throat: Denies epistaxis, Denies facial pain, Denies lip swelling and Denies throat swelling *Cardiovascular Cardiovascular: Reports dyspnea and Reports dyspnea on exertion *Respiratory Respiratory: Denies change in phlegm color, Reports chest congestion, Reports cough, Reports dyspnea, Reports dyspnea on exertion, Denies excessive phlegm production, Denies hemoptysis, Denies pain on inspiration, Denies pain with cough and Denies wheezing *Gastrointestinal Gastrointestinal: Denies abdominal pain, Denies belching and Denies cramping *Musculoskeletal Musculoskeletal: Reports back pain, Reports myalgias and Reports other (No small joint swelling or Pain) Psychiatric Psychiatric: Denies homicidal ideation and Denies suicidal ideation Endocrine Endocrine: Reports fatigue and Denies heat intolerance Hematologic/Lymphatic Hematologic/Lymphatic: Denies easy bleeding and Denies lymphadenopathy Allergic/Immunologic Allergic/Immunologic: Denies itchy eyes, Denies lip swelling, Denies throat swelling and Denies wheezing Pulmonology Exam Inpatient Vital signs and Labs for Last 24 Hours: Temp Pulse Resp BP Pulse Ox O2 Del Method O2 Flow Rate 97.6 F 97 H 18 117/61 97 Nasal Cannula 2 12/19/24 08:00 12/19/24 08:00 12/19/24 08:00 12/19/24 08:00 12/19/24 08:00 12/19/24 08:00 12/19/24 08:00 Laboratory Results - last 24 hr 12/18/24 09:30: WBC 9.0, RBC 2.98 L, Hgb 8.7 L, Hct 30.4 L, MCV 102.0 H, MCH 29.2, MCHC 28.6 L, RDW 17.6 H, Plt Count 268, MPV 12.7 H, Neut % (Auto) 88.1 H, Lymph % (Auto) 3.0 L, [place] % (Auto) 6.7, Eos % (Auto) 1.0, Baso % (Auto) 0.4, Neut # (Auto) 7.9 H, Lymph # (Auto) 0.3 L, [place] # (Auto) 0.6, Eos # (Auto) 0.1, Baso # (Auto) 0.0, Sodium 140, Potassium 4.2, Chloride 104, Carbon Dioxide 28, Anion Gap 12.2, BUN 54 H, Creatinine 1.50 H, Estimated Creat Clear 54, Estimated GFR 46 L, Est GFR ( Amer) 56 L, Glucose 307 H, Calcium 8.7, Magnesium 2.0 D, Total Bilirubin 0.6, AST 49 D, ALT 28, Alkaline Phosphatase 61, Total Protein 6.8, Albumin 3.0 L, Globulin 3.8 H, Albumin/Globulin Ratio 0.8 L 12/18/24 11:05: POC Glucose 412 H* 12/18/24 16:56: POC Glucose 303 H* 12/18/24 20:06: POC Glucose 345 H* 12/19/24 05:59: POC Glucose 244 H 12/19/24 07:50: WBC 10.1, RBC 2.69 L, Hgb 8.0 L, Hct 27.4 L, MCV 101.9 H, MCH 29.7, MCHC 29.2 L, RDW 17.9 H, Plt Count 269, MPV 12.2 H, Neut % (Auto) 87.9 H, Lymph % (Auto) 3.5 L, [place] % (Auto) 6.5, Eos % (Auto) 0.9, Baso % (Auto) 0.2, Neut # (Auto) 8.9 H, Lymph # (Auto) 0.4 L, [place] # (Auto) 0.7, Eos # (Auto) 0.1, Baso # (Auto) 0.0, Sodium 144, Potassium 3.8, Chloride 105, Carbon Dioxide 34 H, Anion Gap 8.8, BUN 44 H, Creatinine 1.30 H, Estimated Creat Clear 64, Estimated GFR 54 L, Est GFR ( Amer) 66, Glucose 272 H, Calcium 8.8, Magnesium 2.0, Total Bilirubin 0.4, AST 53, ALT 35, Alkaline Phosphatase 57, Total Protein 6.5, Albumin 2.8 L, Globulin 3.7 H, Albumin/Globulin Ratio 0.8 L I & O for Labs for Last 24 Hours: Intake & Output 12/16/24 12/17/24 12/18/24 12/19/24 23:59 23:59 23:59 23:59 Intake Total 1440.750 / 4327.360 9003 / 3222 1974 0 / 0 Output Total 1425 / 1425 1974 701 / 1101 750 / 750 Balance 15.750 / 15.750 947 / 1247 1274 / 874 -750 / -750 Weight 193 lb 12.581 oz 195 lb 190 lb 193 lb Microbiology Reports for the Last 24 Hours: Microbiology 12/15/24 23:47 Sputum - Expectorated Sputum Gram Stain - Final 12/15/24 23:47 Sputum - Expectorated Sputum Sputum Culture - Final Enterobacter cloacae Constitutional: Present moderate distress Head: Present normocephalic and atraumatic ENT: Present normal exam, normal oropharynx and mucous membranes moist Neck: Present normal inspection and full ROM Respiratory: Present respiratory distress, normal respiratory effort and able to speak in complete sentences; Absent wheezes, crackles or diminished air movement Cardiac: Present S1/S2, Tachycardia and radial pulses present GI: Present soft and distention; Absent tenderness or guarding Skin: Present intact; Absent cyanosis or jaundice Neuro: Present alert, awake and oriented x 3 Extremities: Present normal inspection; Absent clubbing or cyanosis Psychiatric: Present normal affect and cooperative Meds Home Medications and Allergies Home Medications ?Medication ?Instructions ?Recorded ?Confirmed ?Type ascorbic acid (vitamin C) 500 mg 500 mg PO DAILY Supplement 03/11/22 12/16/24 History tablet fluticasone propionate 50 2 spray intranasal BID Allergy 03/11/22 12/16/24 History mcg/actuation nasal symptoms spray,suspension insulin aspart U-100 100 unit/mL 110 unit continuous subcutaneous 03/11/22 12/16/24 History subcutaneous solution (Novolog infusion DAILY Diabetes U-100 Insulin aspart) sennosides 8.6 mg tablet (senna) 8.6 mg PO BID 03/11/22 12/16/24 History tamsulosin 0.4 mg capsule 0.4 mg PO DAILY urination 03/11/22 12/16/24 History trazodone 50 mg tablet 50 mg PO HS 10/03/22 12/16/24 History losartan 50 mg tablet 50 mg PO DAILY 10/07/22 12/16/24 History torsemide 20 mg tablet 20 mg PO BID 10/07/22 12/16/24 History aspirin 81 mg tablet 81 mg PO DAILY heart health 06/30/23 12/16/24 History albuterol sulfate 90 mcg/actuation 2 inh inhalation DAILY 02/15/24 12/16/24 History aerosol inhaler metoprolol succinate 100 mg 100 mg PO DAILY #90 tabs 02/15/24 12/16/24 Rx tablet,extended release 24 hr apixaban 2.5 mg tablet (Eliquis) 2.5 mg PO BID #60 tabs 09/26/24 12/16/24 Rx insulin degludec 100 unit/mL (3 0 unit SQ NEEDED PRN diabetes 12/15/24 12/16/24 History mL) subcutaneous pen (Tresiba FlexTouch U-100 insulin) metoclopramide HCl 10 mg tablet 10 mg PO BID 12/16/24 12/16/24 History simvastatin 20 mg tablet 20 mg PO HS 12/16/24 12/16/24 History New Prescriptions to Start Prescriptions: Allergies Allergy/AdvReac Type Severity Reaction Status Date / Time Iodinated Contrast Media AdvReac Mild Verified 09/26/24 13:22 Results Laboratory Findings 12/19/24 07:50 12/19/24 07:50 PT/INR, D-dimer D-Dimer 0.84 ug/mL (0.0-0.5) H 12/15/24 12:54 Abnormal lab findings: Abnormal Labs 12/15/24 12/15/24 12/15/24 12:54 17:25 19:20 WBC 14.6 H RBC 3.20 L Hgb 9.3 L Hct 32.1 L MCV 100.3 H MCHC 29.0 L RDW 17.8 H MPV 12.3 H Neut % (Auto) 87.4 H Lymph % (Auto) 3.1 L Neut # (Auto) 12.7 H Lymph # (Auto) 0.5 L D-Dimer 0.84 H Sodium 149 H Chloride 111 H Carbon Dioxide 32 H Anion Gap BUN 54 H Creatinine 1.50 H Estimated GFR 46 L Est GFR ( Amer) 56 L Glucose POC Glucose 126 H Phosphorus 4.6 H Magnesium 2.6 H Troponin I 0.04 H 0.04 H NT-Pro-B Natriuret Pep 2210 H Albumin 3.3 L Globulin 4.4 H Albumin/Globulin Ratio 0.8 L Free T4 Index 3.0 L T3 Uptake 47 H 12/16/24 12/16/24 12/16/24 05:28 06:45 12:03 WBC 12.3 H RBC 3.13 L Hgb 9.2 L Hct 32.2 L MCV 102.9 H MCHC 28.6 L RDW MPV 12.5 H Neut % (Auto) 88.2 H Lymph % (Auto) 3.7 L Neut # (Auto) 10.9 H Lymph # (Auto) 0.5 L D-Dimer Sodium Chloride Carbon Dioxide Anion Gap 19.8 H BUN 58 H Creatinine 1.80 H Estimated GFR 37 L Est GFR ( Amer) 45 L Glucose 433 H* D POC Glucose 388 H* 334 H* Phosphorus Magnesium 2.8 H Troponin I NT-Pro-B Natriuret Pep Albumin Globulin 4.0 H Albumin/Globulin Ratio 0.9 L Free T4 Index T3 Uptake 12/16/24 12/17/24 12/17/24 16:40 05:28 08:45 WBC 11.3 H RBC 3.14 L Hgb 9.0 L Hct 31.8 L MCV 101.3 H MCHC 28.3 L RDW MPV 12.4 H Neut % (Auto) 88.6 H Lymph % (Auto) 2.7 L Neut # (Auto) 10.0 H Lymph # (Auto) 0.3 L D-Dimer Sodium Chloride Carbon Dioxide Anion Gap BUN 59 H Creatinine 1.60 H Estimated GFR 43 L Est GFR ( Amer) 52 L Glucose 268 H POC Glucose 444 H* 185 H Phosphorus Magnesium 2.4 H D Troponin I NT-Pro-B Natriuret Pep Albumin 3.1 L D Globulin 3.8 H Albumin/Globulin Ratio 0.8 L Free T4 Index T3 Uptake 12/17/24 12/17/24 12/17/24 11:08 16:23 20:03 WBC RBC Hgb Hct MCV MCHC RDW MPV Neut % (Auto) Lymph % (Auto) Neut # (Auto) Lymph # (Auto) D-Dimer Sodium Chloride Carbon Dioxide Anion Gap BUN Creatinine Estimated GFR Est GFR ( Amer) Glucose POC Glucose 442 H* 401 H* 342 H* Phosphorus Magnesium Troponin I NT-Pro-B Natriuret Pep Albumin Globulin Albumin/Globulin Ratio Free T4 Index T3 Uptake 12/18/24 12/18/24 12/18/24 05:15 09:30 11:05 WBC RBC 2.98 L Hgb 8.7 L Hct 30.4 L MCV 102.0 H MCHC 28.6 L RDW 17.6 H MPV 12.7 H Neut % (Auto) 88.1 H Lymph % (Auto) 3.0 L Neut # (Auto) 7.9 H Lymph # (Auto) 0.3 L D-Dimer Sodium Chloride Carbon Dioxide Anion Gap BUN 54 H Creatinine 1.50 H Estimated GFR 46 L Est GFR ( Amer) 56 L Glucose 307 H POC Glucose 120 H 412 H* Phosphorus Magnesium Troponin I NT-Pro-B Natriuret Pep Albumin 3.0 L Globulin 3.8 H Albumin/Globulin Ratio 0.8 L Free T4 Index T3 Uptake 12/18/24 12/18/24 12/19/24 16:56 20:06 05:59 WBC RBC Hgb Hct MCV MCHC RDW MPV Neut % (Auto) Lymph % (Auto) Neut # (Auto) Lymph # (Auto) D-Dimer Sodium Chloride Carbon Dioxide Anion Gap BUN Creatinine Estimated GFR Est GFR ( Amer) Glucose POC Glucose 303 H* 345 H* 244 H Phosphorus Magnesium Troponin I NT-Pro-B Natriuret Pep Albumin Globulin Albumin/Globulin Ratio Free T4 Index T3 Uptake 12/19/24 07:50 WBC RBC 2.69 L Hgb 8.0 L Hct 27.4 L MCV 101.9 H MCHC 29.2 L RDW 17.9 H MPV 12.2 H Neut % (Auto) 87.9 H Lymph % (Auto) 3.5 L Neut # (Auto) 8.9 H Lymph # (Auto) 0.4 L D-Dimer Sodium Chloride Carbon Dioxide 34 H Anion Gap BUN 44 H Creatinine 1.30 H Estimated GFR 54 L Est GFR ( Amer) Glucose 272 H POC Glucose Phosphorus Magnesium Troponin I NT-Pro-B Natriuret Pep Albumin 2.8 L Globulin 3.7 H Albumin/Globulin Ratio 0.8 L Free T4 Index T3 Uptake Assessment and Plan *Assessment and plan (1) Aspiration pneumonia: Status: Acute Qualifiers: Laterality: bilateral Category: Medical Code(s): J69.0 - Pneumonitis due to inhalation of food and vomit (2) Pleural effusion on right: Status: Acute Category: Medical Code(s): J90 - Pleural effusion, not elsewhere classified Plan Mr. Flores is a 74-year-old male with reported history of atrial fibrillation on anticoagulation, metastatic lung cancer status postresection, presented to the ER with worsening respiratory distress, being managed for A-fib RVR, heart failure exacerbation and community-acquired /aspiration pneumonia receiving Zosyn since admission on 12/15/2024, sputum cultures positive for Enterobacter, antibiotics weaned to ceftriaxone found to have new right pleural effusion and pulmonary was called for further evaluation and management. Greater than [id number] smoking history per last pulm note on 2009. Not using any oxygen at baseline. Using inhalers on as-needed basis at baseline. History of lung cancer status post resection around 2020. Prominent right lung infiltrates improving from admission and from x-ray on 12/02/2024 Patient chest x-ray is also concerning for right hilar fullness and paratracheal fullness. CT chest from 2021 showed large right loculated pleural effusion. Hemodynamically stable. Improving leukocytosis. Plan: Continue oxygen supplementation as needed to maintain O2 saturation goal of 90% and above. Wean as tolerated. Saturating 96% on 2 L this morning. Continue antibiotics to complete a total of 7-day course from initiation including Zosyn. DuoNebs 4 times daily as needed Follow-up with CT chest without contrast
--- NOTE | 2024-12-19 10:05 | HMH.OTEV ---
OT Inpatient Evaluation Rehab OT IP Evaluation Start: 12/17/24 09:16 Freq: ONCE Status: Active Protocol: Document 12/19/24 09:59 [facility] (Rec: 12/19/24 10:05 [facility] [id number]) Rehab OT IP Assessment Subjective History Pt oriented x 3 on arrival. Pt agreeable to engage in therapy evaluation. Pt admitted on 12/15/24 due to A- fib and RVR. History and physical: Federico Flores is a 74-year-old male with a medical history significant for A-fib on Eliquis, metastatic lung cancer in remission (right partial lobectomy), G-tube dependent for feeds, insulin- dependent diabetes, HFpEF, CAD who presents with worsening shortness of breath and fatigue over the past few days . He was recently discharged from [place] for a similar presentation of A-fib RVR where he apparently was cardioverted. It is unclear if it was successful, will obtain outside records. Patient states he has not been taking all his medications recently has he has been getting his feet underneath him after being discharged back home. Working the ED significant for A-fib with heart rate in the 140s, WBC 14 .6, sodium 149, BNP 2210. ED contacted Dr. Walter who recommended IV diltiazem drip and plan for cardioversion in the morning. Case discussed with ED provider and decision was made to admit patient for A-fib RVR and HFpEF exacerbation. Subjective I could do what I needed. Prior to being in the hospital , pt did live at home alone. Pt claims normally he is independent with all ADLs and functional transfers using a cane. Pt also claims to be independent with simple IADLs, but does rely on family for come to complete heavier house hold tasks. Objective Patient Orientation Person,Place,Birthday Right Upper Extremity Gross ROM Min Limitation <25% Left Upper Extremity Gross ROM Min Limitation <25% Shoulder ROM Limitations Muscle Weakness Elbow ROM Limitations Muscle Weakness Wrist Limitations of Range of Motion Muscle Weakness Transfer Training Sit/Stand Transfer,Sit/Stand/ Step Transfer Assist Level Minimal x 1 (25% assist) Chair Transfer Ability Minimal x 1 (25% assist) Chair Transfer Technique Sit to/from Ambulatory Chair Transfer Assistive Devices Straight Cane Rehab OT IP prob,goals,plan Problems Date of Evaluation: 12/19/24 OT IP Problems Bed Mobility,Transfers,Balance ,Self care,Safety Rehab Potential Rehab Potential Good Equipment Needs Assistive Devices Rolling / Wheeled Walker Plan OT intervention Plan Bed Mobility,Transfers,Balance ,Self care,Safety,Therapeutic Exercise OT Plan Frequency Daily Duration LOS Discharge Goals Sit to Stand Chair Transfer Ability Contact Guard/Hand Hold Chair Transfer Ability Contact Guard/Hand Hold Chair Transfer Technique Sit to/from Ambulatory Chair Transfer Assistive Devices Rolling Walker Feeding Ability Assist with Tray Set Up Lower Body Dressing Ability Minimal Assistance Upper Body Dressing Ability Standby Assistance Bathing Ability Minimal Assistance Performing Toilet Hygiene Ability Contact Guard Overall Commode/Toilet Transfer Ability Standby Assistance,Contact Guard Commode/Toilet Transfer Technique Sit to/from Ambulatory Commode/Toilet Transfer Assistive Raised Toilet Seat,Grab Bars Devices Oral Care Assist Standby Assistance Decrease in Endurance Yes Discharge Plan OT Discharge Plan Pt is currently most appropriate for rehab placement due to limited independence with self care and decreased endurance with functional transfers and standing activity/endurance. Skilled therapy is recommended to address these concerns in an effort to return pt to [facility] . IF he has 24 hr assistance and has met all of his therapy goals he may be able to return home once medically stable for d/c. Eval Complexity Eval Charge Codes 24243 - Moderate Complexity PHYSICIAN CERTIFICATION: I certify the specified therapy services for Pravin Flores are required, authorized, and reviewed every 30 days.
[2024-12-19 11:23] LABS: POC Glucose,Bedside 371 (70-110)
--- NOTE | 2024-12-19 11:29 | SW/DCPLANNER ---
Addendum entered by [facility] 12/23/24 10:02: I have updated Anushka barreto/ [facility] that patient will discharge today SNF level of care. Addendum entered by [facility] 12/22/24 13:38: I have updated Anushka barreto/ [facility] that patient should be medically stable for discharge tomorrow pending no setbacks. Addendum entered by [facility] 12/20/24 14:05: I updated patient regarding [facility] accepting once medically stable for discharge. Patient is agreeable w/ discharge plan to [facility] level of care. Addendum entered by [facility] 12/20/24 11:10: Anushka barreto/ [facility] is willing to accept this patient SNF level of care once medically stable for discharge. Addendum entered by [facility] 12/19/24 14:16: Ping barreto/ [facility] is not able to accept patient at this time. Original Note: I spoke w/ this patient regarding plans once medically stable for discharge. PT/OT evaluated patient and recommended SNF level of care. Patient is agreeable to placement and prefers [facility] location. I explained to patient that [facility] does not currently have any beds available but information can be faxed to [facility] and [facility]. Patient is agreeable to both facilities and information will be faxed this AM. Discharge date is unknown at this time. I will continue to follow up. I did offer to call and update patient's family but he stated he would inform them.
--- NOTE | 2024-12-19 11:49 | CT_ITS ---
FINAL REPORT TECHNIQUE: Axial images were obtained through the chest without contrast. Coronal and sagittal images were obtained and reviewed. This study was performed with techniques to keep radiation doses as low as reasonably achievable, (ALARA). Individualized dose reduction techniques using automated exposure control or adjustment of mA and/or kV according to the patient's size were employed. CLINICAL HISTORY: Pneumonia/respiratory distress COMPARISON: 03/21/2022 FINDINGS: There is a fluid-filled distended esophagus. The esophagus is distended throughout measuring up to 6.4 cm in transverse dimension. There are multiple small mediastinal lymph nodes. The heart size is normal. There is a mass at the GE junction which is ill-defined and better appreciated on the coronal images. On the lung window images, there is a dense consolidation in the medial right lower lobe. Mild airspace opacity in the right middle lobe, lingula and both lower lobes is probably related to acute pneumonia. Pulmonary findings are more evident than on the prior exam. A gastrostomy feeding tube is present. There is a loculated somewhat complex effusion in the right base which demonstrates 10 Hounsfield units. IMPRESSION: Mass at the GE junction with marked fluid-filled distended esophagus. Airspace infiltrate right lower lobe may be due to aspiration. Mild airspace infiltrates right middle lobe, lingula, and both lower lobes consistent with acute pneumonia. Loculated effusion at the right lung base. Reviewed, Interpreted and Dictated by Allen Gee MD Transcribed by Maria Luisa Jacobs Authenticated and [facility]
--- NOTE | 2024-12-19 13:59 | CT_ITS ---
FINAL REPORT TECHNIQUE: Axial images through the abdomen and pelvis were performed without contrast. This study was performed with techniques to keep radiation doses as low as reasonably achievable, (ALARA). Individualized dose reduction techniques using automated exposure control or adjustment of mA and/or kV according to the patient's size were employed. CLINICAL HISTORY: Worsening weakness, has g-tube with history cancer FINDINGS: Abdomen: There is a loculated effusion in the right lung base. The liver parenchyma is homogeneous. Multiple stones are seen and a contracted gallbladder. There is a soft tissue mass at the level of the GE junction. A gastrostomy feeding tube is in the stomach. The spleen and pancreas are without acute abnormality. There is a nodule in the right adrenal gland measuring 1.4 cm in diameter. The left kidney is unremarkable. The right kidney is absent. Pelvis: The appendix is unremarkable. There are scattered diverticula throughout the sigmoid colon. The urinary bladder is unremarkable. There is no free fluid or adenopathy. IMPRESSION: Soft tissue mass at the GE junction. Loculated effusion in the right lung base. Multiple stones and a contracted gallbladder. Nodule in the right adrenal gland measuring 1.4 cm is indeterminate. Gastrostomy feeding tube in the stomach. Reviewed, Interpreted and Dictated by Allen Gee MD Transcribed by Camilla Ojeda Authenticated and . [facility]
[2024-12-19 14:18] LABS: Lactate Venous 2.4 mmol/L (0.4-2.0); VBG HCO3 28.8 mmol/L (23-30); VBG Oxygen Saturation 80.4 % (50-70); VBG PCO2 40.7 mmol/L (35-51); VBG PH 7.47 mmol/L (7.31-7.41); VBG PO2 45.7 mmol/L (28-40)
[2024-12-19 14:30] LABS: POC Glucose,Bedside 436 (70-110)
[2024-12-19] MEDS: humaLOG 100 UNITS/ML 10ML VIAL (SSI) 12 UNIT SUBCUT (14:32)
[2024-12-19 14:41] LABS: Iron 49 ug/dL (49-181)
[2024-12-19 14:50] LABS: Adenovirus,PCR Not Detected (NotDetected); Bordetella Pertussis Not Detected (NotDetected); Chlamydophila Pneumoniae, PCR Not Detected (NotDetected); Coronavirus 19, PCR Not Detected (NotDetected); Coronavirus 229E Not Detected (NotDetected); Coronavirus NL63 Not Detected (NotDetected); Coronavirus OC43 Not Detected (NotDetected); Coronovirus HKU1,PCR Not Detected (NotDetected); Human Metapneumovirus Not Detected (NotDetected); Influenza A, PCR Not Detected (NotDetected); Influenza AH1, 2009 Not Detected (NotDetected); Influenza AH1, PCR Not Detected (NotDetected); Influenza AH3,PCR Not Detected (NotDetected); Influenza B, PCR Not Detected (NotDetected); Mycoplasma Pneumoniae, PCR Not Detected (NotDetected); Parainfluenza 1, PCR Not Detected (NotDetected); Parainfluenza 2, PCR Not Detected (NotDetected); Parainfluenza 3, PCR Not Detected (NotDetected); Parainfluenza 4, PCR Not Detected (NotDetected); Respiratory Syncytial Virus Not Detected (NotDetected); Rhinovirus/Enterovirus Not Detected (NotDetected)
[2024-12-19 14:50] LABS: Total Iron Binding Capacity 246 ug/dL (261-462)
--- NOTE | 2024-12-19 14:53 | EXP.CARD.PN ---
Subjective Subjective Date: 12/19/24 Time: 12:30 Principal diagnosis: asp pna, a-fib RVR Interval history: Asked to reconsult as pt continuing to have issues with rate control up to 130s about 1 hr prior to next dose of Cardizem. BP 100/30s-40s. Pt denies CP, SOA, Palps. Exam Data for Last 24 hours Vital signs and Labs for Last 24 Hours: Temp Pulse Resp BP Pulse Ox O2 Del Method O2 Flow Rate 97.6 F 98 H 18 103/49 L 93 L Nasal Cannula 1 12/19/24 12:00 12/19/24 14:00 12/19/24 14:00 12/19/24 14:00 12/19/24 14:00 12/19/24 14:00 12/19/24 14:00 Laboratory Results - last 24 hr 12/18/24 16:56: POC Glucose 303 H* 12/18/24 20:06: POC Glucose 345 H* 12/19/24 05:59: POC Glucose 244 H 12/19/24 07:50: WBC 10.1, RBC 2.69 L, Hgb 8.0 L, Hct 27.4 L, MCV 101.9 H, MCH 29.7, MCHC 29.2 L, RDW 17.9 H, Plt Count 269, MPV 12.2 H, Neut % (Auto) 87.9 H, Lymph % (Auto) 3.5 L, [place] % (Auto) 6.5, Eos % (Auto) 0.9, Baso % (Auto) 0.2, Neut # (Auto) 8.9 H, Lymph # (Auto) 0.4 L, [place] # (Auto) 0.7, Eos # (Auto) 0.1, Baso # (Auto) 0.0, Sodium 144, Potassium 3.8, Chloride 105, Carbon Dioxide 34 H, Anion Gap 8.8, BUN 44 H, Creatinine 1.30 H, Estimated Creat Clear 64, Estimated GFR 54 L, Est GFR ( Amer) 66, Glucose 272 H, Calcium 8.8, Magnesium 2.0, Total Bilirubin 0.4, AST 53, ALT 35, Alkaline Phosphatase 57, Total Protein 6.5, Albumin 2.8 L, Globulin 3.7 H, Albumin/Globulin Ratio 0.8 L 12/19/24 08:02: Iron 49 12/19/24 11:10: POC Glucose 371 H* 12/19/24 13:55: VBG pH 7.47 H, VBG pCO2 40.7, VBG pO2 45.7 H, VBG HCO3 28.8, VBG Total CO2 30.0 H, VBG O2 Saturation 80.4 H, VBG Base Excess 5.0 H, VBG Lactic Acid 2.4 H 12/19/24 14:23: POC Glucose 436 H* I & O for Last 24 hours: Intake & Output 12/16/24 12/17/24 12/18/24 12/19/24 23:59 23:59 23:59 23:59 Intake Total 1440.750 / 3838.176 3020 / 3222 1974 220 220 Output Total 1425 / 1425 1974 701 / 1101 750 / 750 Balance 15.750 / 15.750 947 / 1247 1274 / 874 -530 / -530 Weight 193 lb 12.581 oz 195 lb 190 lb 193 lb Microbiology Reports for the Last 24 Hours: Microbiology 12/15/24 14:10 Blood Blood Culture - Preliminary NO GROWTH AFTER 4 DAYS 12/15/24 14:10 Blood Blood Culture - Preliminary NO GROWTH AFTER 4 DAYS Constitutional Constitutional: no acute distress and cooperative *Routine HEENT Exam Eye: Present PERRL *Routine Respiratory Exam Respiratory: Present CTA bilaterally; Absent accessory muscle use, wheezes or crackles *Routine Cardiovascular Exam Cardiovascular: Present RRR, Normal S1 and Normal S2; Absent murmur, gallop or rubs *Routine Abdominal Exam Abdominal: Present soft; Absent tenderness *Routine Extremities Exam Extremities: Present pulses intact; Absent cyanosis or edema *Routine Skin Exam Skin: Present intact; Absent erythema or wounds *Routine Neurological Exam Neurological: Present alert and oriented X3 Routine Psychiatric Exam Psychiatric: Present cooperative Progress Note: A&P Assessment and plan (1) Aspiration pneumonia: Status: Acute (2) Pleural effusion on right: Status: Acute (3) Atrial flutter with rapid ventricular response: Status: Acute Assessment and Plan Assessment and Plan for All Diagnoses:: A-fib, RVR - known hx of A-fib, s/p successful DCCV 08/2024 - exacerbated in setting of Aspiration PNA, failed DCCV at [facility] - failing rate control here (limited by BP) - continue Metoprolol, DC Cardizem which has not seemed to help and add Amiodarone. He has normal LA size and is a good candidate for rhythm control given his multiple comorbidities and failure of rate control. Can consider DCCV again in 2 weeks after loading dose of Amio and recovery from PNA - Eliquis changed to Lovenox for now due to possible thoracentesis tomorrow. Hx of GI Bleed on Xarelto - ultimately as resp status improves this will help control his a-fib as well Heart failure with preserved EF exacerbation - EF 40% 02/2024, repeat Echo here shows a normal LV systolic function with no significant valvular stenosis or regurg noted - Continue torsemide 20 mg p.o. twice daily for vol management. He has worsening effusion - thoracentesis pending. - consider SGLT-2 after acute illness resolves - no ARNI/MRA due to hypotension Hx of nonobstructive CAD - negative trop, denies angina - continue aspirin, statin, bb Community-acquired pneumonia versus aspiration pneumonia Sepsis - Defer to primary service and pulmonology Hx of Lung Cancer and Esophageal cancer - s/p RML lobectomy - s/p G Tube placement for all food and meds *Pt failing rate control, will transition to rhythm control with Amiodarone.
[2024-12-19 15:18] LABS: Ferritin 138 ng/ml (17.9-464)
[2024-12-19] MEDS: METOPROLOL TARTRATE 5MG/5ML VIAL 5 MG IV (15:26)
[2024-12-19 15:49] LABS: Vitamin B12 928 pg/mL (239-931)
[2024-12-19 17:00] LABS: POC Glucose,Bedside 402 (70-110)
--- NOTE | 2024-12-19 17:51 | PC.NURSE ---
Addendum entered by Julia Mohan RN 12/19/24 18:16: pt is confused at this time. reoriented to situation and where he is. nurse and tech rotating sitting. pt states he doesn't want to hurt anyone he just wants to feel better at this time and get home to his dog. Original Note: Josemanuel and Dr. Low notified of pt making statements regarding harming himself.
--- NOTE | 2024-12-19 17:58 | PC.NURSE ---
Dr. Low to see pt.
[2024-12-19 18:18] LABS: Reflex Lactic Add Lactic Reflex
--- NOTE | 2024-12-19 18:25 | PC.NURSE ---
pt has sat up in the chair this shift. pt has denied wanting to lay in the bed. pt was alert and oriented t/o shift up until this evening when pt has been having periods of confusion. pt can still answer all questions correct. pt weaned from 2LNC to room air, current sats 95%. LS this evening pt did have some rhonci. Cardiology has adjusted pt's medications this shift d/t pt's heart rate fluctuating from 70's-140's, afib. pt receiving 1 unit of blood at this time. pt did get up and ambulate with staff to the bathroom this morning with assistance and had a bowel movement. pt voiding per urinal.
[2024-12-19 18:34] LABS: Hemoglobin A1C 7.9 % (4.0-6.0)
[2024-12-19 19:03] LABS: Lactic Acid Follow Up (RFLX 1) 1.9 mmol/L (0.7-2.1)
[2024-12-19] MEDS: INSULIN GLARGINE 100 UNITS/ML 3ML FLEXPEN 40 UNIT SUBCUT (20:04)
[2024-12-19] MEDS: AMIODARONE 200MG TABLET 400 MG PO (20:04)
[2024-12-19] MEDS: ATORVASTATIN 40MG TABLET 40 MG PO (20:04)
[2024-12-19] MEDS: TAMSULOSIN 0.4MG CAPSULE 0.4 MG PO (20:05)
[2024-12-19 20:09] LABS: POC Glucose,Bedside 291 (70-110)
[2024-12-19 20:41] LABS: Hematocrit 34.2 % (42.0-52.0)
[2024-12-19 20:45] LABS: Hemoglobin 10.2 g/dL (14.1-18.0)
--- NOTE | 2024-12-19 22:23 | P.PN_ITS ---
Subjective *Date: 12/19/24 *Time: 23:04 Interval history: Patient looks comfortable this morning, but continues to be in intermittent A- fib RVR with HR in the 130s. This afternoon, patient became somewhat agitated and confusion endorsing suicidal ideation. He later denied SI/HI with me. He is likely suffering from insomnia as he has not slept in 2 days. Will schedule trazodone for tonight. GI consulted for suspected GI bleed, markedly fluid distended esophagus. Exam Data for Last 24 hours Vital signs and Labs for Last 24 Hours: Temp Pulse Resp BP Pulse Ox O2 Del Method O2 Flow Rate 97.7 F 138 H 19 99/44 L 93 L Room Air 1 12/19/24 20:00 12/19/24 22:00 12/19/24 22:00 12/19/24 22:00 12/19/24 22:00 12/19/24 22:00 12/19/24 14:00 Laboratory Results - last 24 hr 12/19/24 05:59: POC Glucose 244 H 12/19/24 07:50: WBC 10.1, RBC 2.69 L, Hgb 8.0 L, Hct 27.4 L, MCV 101.9 H, MCH 29.7, MCHC 29.2 L, RDW 17.9 H, Plt Count 269, MPV 12.2 H, Neut % (Auto) 87.9 H, Lymph % (Auto) 3.5 L, [place] % (Auto) 6.5, Eos % (Auto) 0.9, Baso % (Auto) 0.2, [place] # (Auto) 8.9 H, Lymph # (Auto) 0.4 L, [place] # (Auto) 0.7, Eos # (Auto) 0.1, Baso # (Auto) 0.0, Sodium 144, Potassium 3.8, Chloride 105, Carbon Dioxide 34 H, Anion Gap 8.8, BUN 44 H, Creatinine 1.30 H, Estimated Creat Clear 64, Estimated GFR 54 L, Est GFR ( Amer) 66, Glucose 272 H, Calcium 8.8, Magnesium 2.0, Total Bilirubin 0.4, AST 53, ALT 35, Alkaline Phosphatase 57, Total Protein 6.5, Albumin 2.8 L, Globulin 3.7 H, Albumin/Globulin Ratio 0.8 L 12/19/24 08:02: Hemoglobin A1c 7.9 H, Iron 49, TIBC 246 L, Iron Saturation 19.98128, Ferritin 138, Vitamin B12 928, Folate 10.20 12/19/24 11:10: POC Glucose 371 H* 12/19/24 13:55: VBG pH 7.47 H, VBG pCO2 40.7, VBG pO2 45.7 H, VBG HCO3 28.8, VBG Total CO2 30.0 H, VBG O2 Saturation 80.4 H, VBG Base Excess 5.0 H, VBG Lactic Acid 2.4 H 12/19/24 14:13: Chlamy pneumoniae PCR Not detected, Adenovirus (PCR) Not detected, B. pertussis DNA (PCR) Not detected, Coronavirus OC43 (PCR) Not detected, Coronavirus HKU1 (PCR) Not detected, Coronavirus 229E (PCR) Not detected, SARS-CoV-2 (PCR) Not detected, Coronavirus NL63 (PCR) Not detected, Human Metapneumovir PCR Not detected, Influenza A (H1) PCR Not detected, Influ A (H1N1/09) PCR Not detected, Influenza A (H3) PCR Not detected, Influenza Type A (PCR) Not detected, Influenza Type B (PCR) Not detected, M. pneumoniae (PCR) Not detected, Parainfluenza 1 (PCR) Not detected, Parainfluenza 2 (PCR) Not detected, Parainfluenza 3 (PCR) Not detected, Parainfluenza 4 (PCR) Not dete cted, RSV (PCR) Not detected, Entero/Rhino (PCR) Not detected 12/19/24 14:23: POC Glucose 436 H* 12/19/24 15:04: Blood Type A Positive, Antibody Screen Negative, Crossmatch (AHG) See Detail 12/19/24 16:51: POC Glucose 402 H* 12/19/24 18:43: Lactate 1.9 12/19/24 20:00: POC Glucose 291 H 12/19/24 20:32: Hgb 10.2 L D, Hct 34.2 L I & O for Last 24 hours: Intake & Output 12/16/24 12/17/24 12/18/24 12/19/24 23:59 23:59 23:59 23:59 Intake Total 1440.750 / 9384.619 3281 / 3222 1974 720 / 720 Output Total 1425 / 1425 1974 701 / 1101 1350 / 1350 Balance 15.750 / 15.750 947 / 1247 1274 / 874 -630 / -630 Weight 87.9 kg 88.451 kg 86.183 kg 87.543 kg Microbiology Reports for the Last 24 Hours: Microbiology 12/15/24 14:10 Blood Blood Culture - Preliminary NO GROWTH AFTER 4 DAYS 12/15/24 14:10 Blood Blood Culture - Preliminary NO GROWTH AFTER 4 DAYS Constitutional Constitutional: no acute distress *Routine HEENT Exam Head: Present normocephalic Eye: Present EOMI and PERRL ENT: Present mucous membranes moist *Routine Neck Exam Neck: Present supple; Absent lymphadenopathy *Routine Respiratory Exam Respiratory: Present CTA bilaterally *Routine Cardiovascular Exam Cardiovascular: Present tachycardia and irregular rhythm; Absent RRR *Routine Abdominal Exam Abdominal: Present soft and normoactive bowel sounds; Absent tenderness *Routine Extremities Exam Extremities: Absent cyanosis, clubbing or edema *Routine Skin Exam Skin: Present warm; Absent rash *Routine Neurological Exam Neurological: Present alert and oriented X3 Assessment and Plan *Assessment and plan (1) Atrial fibrillation and flutter: Status: Acute Category: Medical Code(s): I48.91 - Unspecified atrial fibrillation; I48.92 - Unspecified atrial flutter Plan Federico Flores is a 74-year-old male with a medical history significant for A-fib on Eliquis, esophageal cancer s/p G-tube placement, metastatic lung cancer in remission (right partial lobectomy), G-tube dependent for feeds, insulin- dependent diabetes, HFpEF, CAD who presents with worsening shortness of breath and fatigue over the past few days. He was recently discharged from [place] for a similar presentation of A-fib RVR where he apparently was cardioverted. It is unclear if it was successful, will obtain outside records. Patient states he has not been taking all his medications recently has he has been getting his feet underneath him after being discharged back home. Working the ED significant for A-fib with heart rate in the 140s, WBC 14.6, sodium 149, BNP 2210. ED contacted Dr. Walter who recommended IV diltiazem drip and plan for cardioversion in the morning. Case discussed with ED provider and decision was made to admit patient for A-fib RVR and HFpEF exacerbation. #A-fib RVR ? History of both successful and unsuccessful DCCVs, most recent one at [facility] which was unsuccessful about 2 weeks ago ? Initially presented with heart rate in the 140s, started on diltiazem drip but weaned off. Did not achieve adequate rate control with metoprolol tartrate, diltiazem. ? Discussed case with cardiology, started amiodarone 400 mg 3 times daily. IV loading dose was not given per cardiology. ? Continue metoprolol tartrate 25 mg twice daily. Discontinue diltiazem per cardiology recommendations. ? ECHO September 2024 revealed normal biventricular function. ? Follow-up repeat ECHO. ? Held Lovenox for tonight, hemoglobin dropped 2.4 points since admission to 8.0. Transfused with 1 unit PRBC in setting of CVD with improvement to 10.2. Has a history of GI bleeds with Xarelto. See separate problem. ? Pleural effusion may be contributing to A-fib RVR. See separate problem. #Aspiration pneumonia #Sepsis #Right-sided loculated pleural effusion ? Presented about 2 weeks ago with diffuse opacities in right lung, patient is G-tube dependent due to esophageal cancer and likely aspirating. ? Initial WBC 14.6 with tachycardia. Leukocytosis is since resolved. ? Sputum cultures revealed Enterobacter clocae, sensitive to ceftriaxone. Suggesting aspiration as source. ? Started ceftriaxone day 2, discontinued Zosyn. Pulmonology recommends a total of 7 days of antibiotics. ? CT chest 12/19/2024 revealed loculated pleural effusion at right lung base. ? Pulmonology planning for thoracentesis likely tomorrow. #Acute on chronic anemia #History of GI bleed on Xarelto ? Initial hemoglobin 10.4, 8.0 today. In the setting of therapeutic Lovenox. Holding therapeutic Lovenox starting tonight. ? Transfused with 1 unit PRBC with improvement to 10.2 today. ? GI consulted, pending further recommendations. ? IV Protonix 40 mg twice daily. ? Follow-up FOBT, iron studies. ? N.p.o. at midnight #Esophageal carcinoma with obstruction #G-tube dependent #History of metastatic lung cancer apparently in remission ? Follows with [facility] oncology. Patient does not seem to have a good idea of what the treatment plan will be. ? CT abdomen/pelvis shows markedly distended fluid-filled esophagus. ? GI consulted, pending further recommendations. #HFpEF exacerbation, resolved ? Initial BNP 2210, diffuse crackles in the lungs with edema on CXR, 2+ lower extremity pitting edema. ? Transitioned to toresemide 20mg BID, home med. Euvolemic today. ? Pending further cardiology recommendations. May benefit from MRA, SGLT2i. #Insulin-dependent diabetes ? LDSSI, ACHS glucose checks. ? A1c 7.1%. - BG > 400, increaesd nighly Lantus. ? Increase Lantus to 40 units nightly. Adjust based on SSI needs #CAD ? Resume home aspirin, statin. Full code DVT prophylaxis: Jerome
[2024-12-19] MEDS: TRAZODONE 50MG TABLET 50 MG PO (23:01)
[2024-12-20] VITALS (91 sets, daily range): BP systolic 63–127; BP diastolic 32–92; PULSE 36–160; RESP 13–31; TEMP 36.4–37.3; O2SAT 83–100; BMI 27.3
[2024-12-20] MEDS: PANTOPRAZOLE 40MG VIAL 40 MG IV ×3 (00:18→20:14)
[2024-12-20] MEDS: METOPROLOL TARTRATE 5MG/5ML VIAL 5 MG IV ×2 (00:18→18:01)
[2024-12-20] MEDS: SODIUM CHLORIDE 0.9% 10ML VIAL 10 ML IV ×2 (00:18→08:22)
--- NOTE | 2024-12-20 01:00 | PC.NURSE ---
HR 137 sustained before PRN metoprolol. After dose current HR 96 BP 112/81
[2024-12-20 05:47] LABS: Basophils # 0.1 K/mm3 (0-0.2); Basophils % 0.4 % (0.1-2.0); Eosinophils # 0.1 K/mm3 (0.0-0.4); Eosinophils % 0.9 % (0.1-12.0); Hematocrit 27.9 % (42.0-52.0); Lymphocytes # 0.5 K/mm3 (0.7-4.5); Lymphocytes % 4.1 % (10-50); Mean Corpuscular HGB Conc 29.7 g/dL (31.8-35.4); Mean Corpuscular Hemoglobin 29.1 pg (27.0-31.2); Mean Corpuscular Volume 97.9 fl (80-94); Mean Platelet Volume 12.5 fl (7.4-10.4); Monocytes # 0.7 K/mm3 (0.1-1.0); Monocytes % 5.9 % (1.7-9.3); Neutrophils # 10.1 K/mm3 (1.8-7.8); Neutrophils % 87.5 % (37.0-80.0); Platelet Count 273 K/mm3 (142-424); Red Blood Count 2.85 M/mm3 (4.60-6.20); Red Cell Distribution Width 19.3 % (11.5-17.5); White Blood Count 11.6 K/mm3 (4.8-10.8)
[2024-12-20 05:48] LABS: Alanine Aminotransferase 34 U/L (12-78); Albumin Level 2.7 g/dl (3.5-5.0); Albumin/Globulin Ratio 0.8 (1.1-1.8); Alkaline Phosphatase 53 U/L (38-126); Aspartate Amino Transferase 42 U/L (17-59); Bilirubin,Total 0.5 mg/dl (0.2-1.3); Blood Urea Nitrogen 51 mg/dl (9-20); Calcium 8.8 mg/dl (8.4-10.2); Carbon Dioxide 30 mmol/L (22.0-30.0); Chloride 106 mmol/L (98-107); Creatinine Clearance Estimated 58 mL/min (50-200); Estimated Glomerular Filt Rate 50 ml/min (>60); GFR (African American) 60 ML/MIN (>60); Globulin 3.5 g/dL (1.3-3.2); Glucose 319 mg/dl (74-100); Sodium 144 mmol/L (136-145); Total Protein,Serum 6.2 g/dl (6.3-8.2)
[2024-12-20 06:06] LABS: Hemoglobin 8.3 g/dL (14.1-18.0)
[2024-12-20 06:35] LABS: POC Glucose,Bedside 374 (70-110)
[2024-12-20] MEDS: humaLOG 100 UNITS/ML 10ML VIAL (SSI) SUBCUT ×4 (06:46→20:28)
[2024-12-20] MEDS: CEFTRIAXONE 1 GM 1 GM in 0.9 % SODIUM CHLORIDE 50 ML IV (08:20)
[2024-12-20] MEDS: AMIODARONE 200MG TABLET 400 MG PO (08:21)
[2024-12-20] MEDS: ASPIRIN EC 81MG TABLET 81 MG PO (08:21)
[2024-12-20] MEDS: METOCLOPRAMIDE 10MG TABLET 10 MG PO (08:22)
[2024-12-20] MEDS: METOPROLOL TARTRATE 25MG TABLET 25 MG PO (08:22)
[2024-12-20] MEDS: TORSEMIDE 20MG TABLET 20 MG PO ×2 (08:24→16:29)
[2024-12-20] MEDS: INSULIN GLARGINE 100 UNITS/ML 3ML FLEXPEN 15 UNIT SUBCUT (08:30)
--- NOTE | 2024-12-20 09:20 | P.PN_ITS ---
Subjective *Date: 12/20/24 *Time: 10:38 Interval history: No acute respiratory vents overnight. Tolerating well on room air Pulmonology Exam Inpatient Vital signs and Labs for Last 24 Hours: Temp Pulse Resp BP Pulse Ox O2 Del Method O2 Flow Rate 99.2 F 133 H 16 110/60 100 Room Air 2 12/20/24 08:00 12/20/24 09:00 12/20/24 09:00 12/20/24 09:00 12/20/24 09:00 12/20/24 06:59 12/20/24 04:00 Laboratory Results - last 24 hr 12/19/24 08:02: Hemoglobin A1c 7.9 H, Iron 49, TIBC 246 L, Iron Saturation 19.58591, Ferritin 138, Vitamin B12 928, Folate 10.20 12/19/24 11:10: POC Glucose 371 H* 12/19/24 13:55: VBG pH 7.47 H, VBG pCO2 40.7, VBG pO2 45.7 H, VBG HCO3 28.8, VBG Total CO2 30.0 H, VBG O2 Saturation 80.4 H, VBG Base Excess 5.0 H, VBG Lactic Acid 2.4 H 12/19/24 14:13: Chlamy pneumoniae PCR Not detected, Adenovirus (PCR) Not detected, B. pertussis DNA (PCR) Not detected, Coronavirus OC43 (PCR) Not detected, Coronavirus HKU1 (PCR) Not detected, Coronavirus 229E (PCR) Not detected, SARS-CoV-2 (PCR) Not detected, Coronavirus NL63 (PCR) Not detected, Human Metapneumovir PCR Not detected, Influenza A (H1) PCR Not detected, Influ A (H1N1/09) PCR Not detected, Influenza A (H3) PCR Not detected, Influenza Type A (PCR) Not detected, Influenza Type B (PCR) Not detected, M. pneumoniae (PCR) Not detected, Parainfluenza 1 (PCR) Not detected, Parainfluenza 2 (PCR) Not detected, Parainfluenza 3 (PCR) Not detected, Parainfluenza 4 (PCR) Not detected, RSV (PCR) Not detected, Entero/Rhino (PCR) Not detected 12/19/24 14:23: POC Glucose 436 H* 12/19/24 15:04: Blood Type A Positive, Antibody Screen Negative, Crossmatch (AHG) See Detail 12/19/24 16:51: POC Glucose 402 H* 12/19/24 18:43: Lactate 1.9 12/19/24 20:00: POC Glucose 291 H 12/19/24 20:32: Hgb 10.2 L D, Hct 34.2 L 12/20/24 05:15: WBC 11.6 H, RBC 2.85 L, Hgb 8.3 L D, Hct 27.9 L, MCV 97.9 H, MCH 29.1, MCHC 29.7 L, RDW 19.3 H, Plt Count 273, MPV 12.5 H, Neut % (Auto) 87.5 H, Lymph % (Auto) 4.1 L, [place] % (Auto) 5.9, Eos % (Auto) 0.9, Baso % (Auto) 0.4, Neut # (Auto) 10.1 H, Lymph # (Auto) 0.5 L, [place] # (Auto) 0.7, Eos # (Auto) 0.1, Baso # (Auto) 0.1, Sodium 144, Potassium 4.0, Chloride 106, Carbon Dioxide 30, Anion Gap 12.0, BUN 51 H, Creatinine 1.40 H, Estimated Creat Clear 58, Estimated GFR 50 L, Est GFR ( Amer) 60, Glucose 319 H, Calcium 8.8, Magnesium 2.0, Total Bilirubin 0.5, AST 42, ALT 34, Alkaline Phosphatase 53, Total Protein 6.2 L, Albumin 2.7 L, Globulin 3.5 H, Albumin/Globulin Ratio 0.8 L 12/20/24 06:26: POC Glucose 374 H* Temp Pulse Resp BP Pulse Ox O2 Del Method O2 Flow Rate 97.6 F 97 H 18 117/61 97 Nasal Cannula 2 12/19/24 08:00 12/19/24 08:00 12/19/24 08:00 12/19/24 08:00 12/19/24 08:00 12/19/24 08:00 12/19/24 08:00 Laboratory Results - last 24 hr 12/18/24 09:30: WBC 9.0, RBC 2.98 L, Hgb 8.7 L, Hct 30.4 L, MCV 102.0 H, MCH 29.2, MCHC 28.6 L, RDW 17.6 H, Plt Count 268, MPV 12.7 H, Neut % (Auto) 88.1 H, Lymph % (Auto) 3.0 L, [place] % (Auto) 6.7, Eos % (Auto) 1.0, Baso % (Auto) 0.4, Neut # (Auto) 7.9 H, Lymph # (Auto) 0.3 L, [place] # (Auto) 0.6, Eos # (Auto) 0.1, Baso # (Auto) 0.0, Sodium 140, Potassium 4.2, Chloride 104, Carbon Dioxide 28, Anion Gap 12.2, BUN 54 H, Creatinine 1.50 H, Estimated Creat Clear 54, Estimated GFR 46 L, Est GFR ( Amer) 56 L, Glucose 307 H, Calcium 8.7, Magnesium 2.0 D, Total Bilirubin 0.6, AST 49 D, ALT 28, Alkaline Phosphatase 61, Total Protein 6.8, Albumin 3.0 L, Globulin 3.8 H, Albumin/Globulin Ratio 0.8 L 12/18/24 11:05: POC Glucose 412 H* 12/18/24 16:56: POC Glucose 303 H* 12/18/24 20:06: POC Glucose 345 H* 12/19/24 05:59: POC Glucose 244 H 12/19/24 07:50: WBC 10.1, RBC 2.69 L, Hgb 8.0 L, Hct 27.4 L, MCV 101.9 H, MCH 29.7, MCHC 29.2 L, RDW 17.9 H, Plt Count 269, MPV 12.2 H, Neut % (Auto) 87.9 H, Lymph % (Auto) 3.5 L, [place] % (Auto) 6.5, Eos % (Auto) 0.9, Baso % (Auto) 0.2, Neut # (Auto) 8.9 H, Lymph # (Auto) 0.4 L, [place] # (Auto) 0.7, Eos # (Auto) 0.1, Baso # (Auto) 0.0, Sodium 144, Potassium 3.8, Chloride 105, Carbon Dioxide 34 H, Anion Gap 8.8, BUN 44 H, Creatinine 1.30 H, Estimated Creat Clear 64, Estimated GFR 54 L, Est GFR ( Amer) 66, Glucose 272 H, Calcium 8.8, Magnesium 2.0, Total Bilirubin 0.4, AST 53, ALT 35, Alkaline Phosphatase 57, Total Protein 6.5, Albumin 2.8 L, Globulin 3.7 H, Albumin/Globulin Ratio 0.8 L I & O for Labs for Last 24 Hours: Intake & Output 12/17/24 12/18/24 12/19/24 12/20/24 23:59 23:59 23:59 23:59 Intake Total 2922 / 3222 1974 1070 / 1070 0 / 0 Output Total 1974 701 / 1101 1550 / 1550 Balance 947 / 1247 1274 / 874 -480 / -480 0 / 0 Weight 195 lb 190 lb 193 lb 191 lb 2.252 oz Intake & Output 12/16/24 12/17/24 12/18/24 12/19/24 23:59 23:59 23:59 23:59 Intake Total 1440.750 / 2409.891 8012 / 3222 1974 0 / 0 Output Total 1425 / 1425 1974 701 / 1101 750 / 750 Balance 15.750 / 15.750 947 / 1247 1274 / 874 -750 / -750 Weight 193 lb 12.581 oz 195 lb 190 lb 193 lb Microbiology Reports for the Last 24 Hours: Microbiology 12/15/24 14:10 Blood Blood Culture - Preliminary NO GROWTH AFTER 4 DAYS 12/15/24 14:10 Blood Blood Culture - Preliminary NO GROWTH AFTER 4 DAYS Microbiology 12/15/24 23:47 Sputum - Expectorated Sputum Gram Stain - Final 12/15/24 23:47 Sputum - Expectorated Sputum Sputum Culture - Final Enterobacter cloacae Constitutional: Present mild distress Head: Present normocephalic and atraumatic ENT: Present normal exam, normal oropharynx and mucous membranes moist Neck: Present normal inspection and full ROM Respiratory: Present respiratory distress, rhonchi, normal respiratory effort and able to speak in complete sentences; Absent wheezes, crackles or diminished air movement Cardiac: Present S1/S2, Tachycardia and radial pulses present GI: Present soft and distention; Absent tenderness or guarding Skin: Present intact; Absent cyanosis or jaundice Neuro: Present alert, awake and oriented x 3 Extremities: Present normal inspection; Absent clubbing or cyanosis Psychiatric: Present normal affect and cooperative Assessment and Plan *Assessment and plan (1) Aspiration pneumonia: Status: Acute Qualifiers: Laterality: bilateral Category: Medical Code(s): J69.0 - Pneumonitis due to inhalation of food and vomit (2) Pleural effusion on right: Status: Acute Category: Medical Code(s): J90 - Pleural effusion, not elsewhere classified Plan Mr. Flores is a 74-year-old male with reported history of atrial fibrillation on anticoagulation, metastatic lung cancer status postresection, presented to the ER with worsening respiratory distress, being managed for A-fib RVR, heart failure exacerbation and community-acquired /aspiration pneumonia receiving Zosyn since admission on 12/15/2024, sputum cultures positive for Enterobacter, antibiotics weaned to ceftriaxone found to have new right pleural effusion and pulmonary was called for further evaluation and management. Greater than [id number] smoking history per last pulm note on 2009. Not using any oxygen at baseline. Using inhalers on as-needed basis at baseline. History of lung cancer status post resection around 2020. Prominent right lung infiltrates improving from admission and from x-ray on 12/02/2024 Patient chest x-ray is also concerning for right hilar fullness and paratracheal fullness. CT chest from 2021 showed large right loculated pleural effusion. Hemodynamically stable. Improving leukocytosis. Interval update: CT chest reviewed, predominant right lower lobe airspace disease. Minimal infiltrates also noted in the right middle lobe and left lingula very small loculated pleural effusion. Recommend radiology consult for possible IR guided pigtail catheter placement. CT abdomen also concerning for mass likely lesion at GE junction and adrenal nodule Plan: Recommend radiology consult for possible IR pigtail catheter placement for the reported loculated effusion Continue antibiotics to complete a total of 7-day course from initiation including Zosyn. DuoNebs 4 times daily as needed Aspiration precautions
--- NOTE | 2024-12-20 09:36 | PC.NURSE ---
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
--- NOTE | 2024-12-20 09:55 | DIET.NUTRFU ---
Spoke to patient in great depth today about missing TF, expressed that the bolus feeding are his only source of nutrition and he needs to take as prescribed. He is now using our formula, Glucerna 1.2, today he said he uses Glucerna 1.5 at home. He is unsure of how many he had yesterday, he does recall he got a can this morning at 6am. Reviewed labs Na 144, K 4.0, BUN 51/1.4, BS have been elevated 291-432. He has a feeding pump at home but was unable to have home care show him how to us d/t snow and now hospital stay. He was on pump at [place] and tolerated well, he is willing to go back on pump to reassure he is getting enough nutrition. Reviewed plan with nursing and doctor. Change to goal rate of glucerna 1.2 at 70ml/hr ATC= 1791ml/2149kcal/100gm protein and 1352ml formula water plus 200ml Q6H (800ml)/day to provide 25kcal/kg/1.16gm protein and 25ml/kg. Also encouarged mouth care, patient is taking ice chips orally and coughing showing signs of aspiration. Provider spoke to him about stopping the ice chips and he was upset and wants to continue. Will change oral care to TID to help. Denied any N/V or constipation/diarrhea, LBM 12/19.
[2024-12-20] MEDS: dilTIAZem HCL 100 MG in 0.9 % SODIUM CHLORIDE 100 ML IV (10:09)
[2024-12-20 11:28] LABS: POC Glucose,Bedside 337 (70-110)
--- NOTE | 2024-12-20 11:32 | PC.NURSE ---
GLUCERNA 1.2 TUBE FEED STARTED AT THIS TIME VIA GTUBE AND KANGAROO PUMP STARTING AT 30MLS
--- NOTE | 2024-12-20 11:34 | EXP.GE.CONS ---
History of Present Illness *Admission Date: 12/15/24 *History of present illness: Mr. Flores is a 74-year-old male with a history of adenocarcinoma of the esophagus with metastasis. The patient also has had? Metastatic lung cancer with resection. He has had chest chemoradiation. The patient has had recurrences of aspiration pneumonia and this is felt to be related to his esophageal cancer. He does have an existing G-tube but continues to daily chew ice chips with sips. He has had his endoscopic evaluations in [facility]. He also has had a history of atrial fibrillation and was recently cardioverted at [place] in [facility]. [facility] Disclaimer: The information contained in this section may have been updated after the patient was seen, as this information can be updated by other users. 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 Nodule of left lung Pleural effusion on right History of lung cancer in adulthood Dyspnea on exertion History of smoking 30 or more pack years Diabetic retinopathy associated with type 1 diabetes mellitus Macular degeneration History of cancer of kidney in adulthood Hx of cancer of lung Insulin dependent diabetes mellitus Type 1 diabetes CHF (congestive heart failure), NYHA class III Cardiomyopathy CAD (coronary artery disease) Atrial fibrillation with RVR Atrial fibrillation Dyspnea Sinus tachycardia Abnormal electrocardiography Surgical History Hx of cataract surgery History of esophagogastroduodenoscopy (EGD) History of pneumonectomy H/O kidney removal Family History Father Family history non-contributory Lung cancer Brother Colon cancer Lung cancer Social History (Updated 12/15/24 @ 16:44 by Allison Thao RN) Smoking Status: Never smoker second hand exposure: No alcohol intake: never substance use type: denies use current occupational status: retired Travel in the last 8 weeks: None housing: house caffeine: Yes Have you lived/traveled outside [place] in past 30 days?: No Contact w/someone who lives/traveled outside US past 30 days?: No Exposure to someone with infectious disease in past 14 days?: No Do you have a fever (greater than 100.4 F or 38 C)?: No Have you tested positive for COVID-19: No Exposed to someone with COVID-19 in past 14 days?: No Do you have a sore throat?: No Do you have a cough?: No Do you have any weakness?: No Are you experiencing any nausea/vomitting?: No Do you have any diarrhea?: No Are you experiencing any unusual bleeding?: No Do you have any muscle aches/pain?: No Do you have any abdominal pain?: No Are you experiencing loss of taste or smell?: No Meds Home Medications and Allergies Home Medications ?Medication ?Instructions ?Recorded ?Confirmed ?Type ascorbic acid (vitamin C) 500 mg 500 mg PO DAILY Supplement 03/11/22 12/16/24 History tablet fluticasone propionate 50 2 spray intranasal BID Allergy 03/11/22 12/16/24 History mcg/actuation nasal symptoms spray,suspension insulin aspart U-100 100 unit/mL 110 unit continuous subcutaneous 03/11/22 12/16/24 History subcutaneous solution (Novolog infusion DAILY Diabetes U-100 Insulin aspart) sennosides 8.6 mg tablet (senna) 8.6 mg PO BID 03/11/22 12/16/24 History tamsulosin 0.4 mg capsule 0.4 mg PO DAILY urination 03/11/22 12/16/24 History trazodone 50 mg tablet 50 mg PO HS 10/03/22 12/16/24 History losartan 50 mg tablet 50 mg PO DAILY 10/07/22 12/16/24 History torsemide 20 mg tablet 20 mg PO BID 10/07/22 12/16/24 History aspirin 81 mg tablet 81 mg PO DAILY heart health 06/30/23 12/16/24 History albuterol sulfate 90 mcg/actuation 2 inh inhalation DAILY 02/15/24 12/16/24 History aerosol inhaler metoprolol succinate 100 mg 100 mg PO DAILY #90 tabs 02/15/24 12/16/24 Rx tablet,extended release 24 hr apixaban 2.5 mg tablet (Eliquis) 2.5 mg PO BID #60 tabs 09/26/24 12/16/24 Rx insulin degludec 100 unit/mL (3 0 unit SQ NEEDED PRN diabetes 01/16/25 01/17/25 History mL) subcutaneous pen (Tresiba FlexTouch U-100 insulin) metoclopramide HCl 10 mg tablet 10 mg PO BID 12/16/24 12/16/24 History simvastatin 20 mg tablet 20 mg PO HS 12/16/24 12/16/24 History New Prescriptions to Start Prescriptions: Allergies Allergy/AdvReac Type Severity Reaction Status Date / Time Iodinated Contrast Media AdvReac Mild Verified 09/26/24 13:22 Exam (Inpt) Vital signs and Labs for Last 24 Hours: Temp Pulse Resp BP Pulse Ox O2 Del Method O2 Flow Rate 99.2 F 135 H 21 103/55 L 97 Room Air 2 12/20/24 08:00 12/20/24 10:40 12/20/24 10:40 12/20/24 10:40 12/20/24 10:40 12/20/24 09:00 12/20/24 08:00 Laboratory Results - last 24 hr 12/19/24 08:02: Hemoglobin A1c 7.9 H, Iron 49, TIBC 246 L, Iron Saturation 19.26986, Ferritin 138, Vitamin B12 928, Folate 10.20 12/19/24 13:55: VBG pH 7.47 H, VBG pCO2 40.7, VBG pO2 45.7 H, VBG HCO3 28.8, VBG Total CO2 30.0 H, VBG O2 Saturation 80.4 H, VBG Base Excess 5.0 H, VBG Lactic Acid 2.4 H 12/19/24 14:13: Chlamy pneumoniae PCR Not detected, Adenovirus (PCR) Not detected, B. pertussis DNA (PCR) Not detected, Coronavirus OC43 (PCR) Not detected, Coronavirus HKU1 (PCR) Not detected, Coronavirus 229E (PCR) Not detected, SARS-CoV-2 (PCR) Not detected, Coronavirus NL63 (PCR) Not detected, Human Metapneumovir PCR Not detected, Influenza A (H1) PCR Not detected, Influ A (H1N1/09) PCR Not detected, Influenza A (H3) PCR Not detected, Influenza Type A (PCR) Not detected, Influenza Type B (PCR) Not detected, M. pneumoniae (PCR) Not detected, Parainfluenza 1 (PCR) Not detected, Parainfluenza 2 (PCR) Not detected, Parainfluenza 3 (PCR) Not detected, Parainfluenza 4 (PCR) Not detected, RSV (PCR) Not detected, Entero/Rhino (PCR) Not detected 12/19/24 14:23: POC Glucose 436 H* 12/19/24 15:04: Blood Type A Positive, Antibody Screen Negative, Crossmatch (AHG) See Detail 12/19/24 16:51: POC Glucose 402 H* 12/19/24 18:43: Lactate 1.9 12/19/24 20:00: POC Glucose 291 H 12/19/24 20:32: Hgb 10.2 L D, Hct 34.2 L 12/20/24 05:15: WBC 11.6 H, RBC 2.85 L, Hgb 8.3 L D, Hct 27.9 L, MCV 97.9 H, MCH 29.1, MCHC 29.7 L, RDW 19.3 H, Plt Count 273, MPV 12.5 H, Neut % (Auto) 87.5 H, Lymph % (Auto) 4.1 L, [place] % (Auto) 5.9, Eos % (Auto) 0.9, Baso % (Auto) 0.4, Neut # (Auto) 10.1 H, Lymph # (Auto) 0.5 L, [place] # (Auto) 0.7, Eos # (Auto) 0.1, Baso # (Auto) 0.1, Sodium 144, Potassium 4.0, Chloride 106, Carbon Dioxide 30, Anion Gap 12.0, BUN 51 H, Creatinine 1.40 H, Estimated Creat Clear 58, Estimated GFR 50 L, Est GFR ( Amer) 60, Glucose 319 H, Calcium 8.8, Magnesium 2.0, Total Bilirubin 0.5, AST 42, ALT 34, Alkaline Phosphatase 53, Total Protein 6.2 L, Albumin 2.7 L, Globulin 3.5 H, Albumin/Globulin Ratio 0.8 L 12/20/24 06:26: POC Glucose 374 H* 12/20/24 11:19: POC Glucose 337 H* I & O for Labs for Last 24 Hours: Intake & Output 12/17/24 12/18/24 12/19/24 12/20/24 23:59 23:59 23:59 23:59 Intake Total 2922 / 3222 1974 1070 / 1070 61.30 / 61.30 Output Total 1974 701 / 1101 1550 / 1550 100 / 100 Balance 947 / 1247 1274 / 874 -480 / -480 -38.70 / -38.70 Weight 195 lb 190 lb 193 lb 191 lb 2.252 oz Microbiology Reports for the Last 24 Hours: Microbiology 12/15/24 14:10 Blood Blood Culture - Preliminary NO GROWTH AFTER 4 DAYS 12/15/24 14:10 Blood Blood Culture - Preliminary NO GROWTH AFTER 4 DAYS Results Labs 12/20/24 05:15 12/20/24 05:15 Labs: Laboratory Results - last 24 hr 12/19/24 08:02: Hemoglobin A1c 7.9 H, Iron 49, TIBC 246 L, Iron Saturation 19.45410, Ferritin 138, Vitamin B12 928, Folate 10.20 12/19/24 13:55: VBG pH 7.47 H, VBG pCO2 40.7, VBG pO2 45.7 H, VBG HCO3 28.8, VBG Total CO2 30.0 H, VBG O2 Saturation 80.4 H, VBG Base Excess 5.0 H, VBG Lactic Acid 2.4 H 12/19/24 14:13: Chlamy pneumoniae PCR Not detected, Adenovirus (PCR) Not detected, B. pertussis DNA (PCR) Not detected, Coronavirus OC43 (PCR) Not detected, Coronavirus HKU1 (PCR) Not detected, Coronavirus 229E (PCR) Not detected, SARS-CoV-2 (PCR) Not detected, Coronavirus NL63 (PCR) Not detected, Human Metapneumovir PCR Not detected, Influenza A (H1) PCR Not detected, Influ A (H1N1/09) PCR Not detected, Influenza A (H3) PCR Not detected, Influenza Type A (PCR) Not detected, Influenza Type B (PCR) Not detected, M. pneumoniae (PCR) Not detected, Parainfluenza 1 (PCR) Not detected, Parainfluenza 2 (PCR) Not detected, Parainfluenza 3 (PCR) Not detected, Parainfluenza 4 (PCR) Not detected, RSV (PCR) Not detected, Entero/Rhino (PCR) Not detected 12/19/24 14:23: POC Glucose 436 H* 12/19/24 15:04: Blood Type A Positive, Antibody Screen Negative, Crossmatch (AHG) See Detail 12/19/24 16:51: POC Glucose 402 H* 12/19/24 18:43: Lactate 1.9 12/19/24 20:00: POC Glucose 291 H 12/19/24 20:32: Hgb 10.2 L D, Hct 34.2 L 12/20/24 05:15: WBC 11.6 H, RBC 2.85 L, Hgb 8.3 L D, Hct 27.9 L, MCV 97.9 H, MCH 29.1, MCHC 29.7 L, RDW 19.3 H, Plt Count 273, MPV 12.5 H, Neut % (Auto) 87.5 H, Lymph % (Auto) 4.1 L, [place] % (Auto) 5.9, Eos % (Auto) 0.9, Baso % (Auto) 0.4, Neut # (Auto) 10.1 H, Lymph # (Auto) 0.5 L, [place] # (Auto) 0.7, Eos # (Auto) 0.1, Baso # (Auto) 0.1, Sodium 144, Potassium 4.0, Chloride 106, Carbon Dioxide 30, Anion Gap 12.0, BUN 51 H, Creatinine 1.40 H, Estimated Creat Clear 58, Estimated GFR 50 L, Est GFR ( Amer) 60, Glucose 319 H, Calcium 8.8, Magnesium 2.0, Total Bilirubin 0.5, AST 42, ALT 34, Alkaline Phosphatase 53, Total Protein 6.2 L, Albumin 2.7 L, Globulin 3.5 H, Albumin/Globulin Ratio 0.8 L 12/20/24 06:26: POC Glucose 374 H* 12/20/24 11:19: POC Glucose 337 H* Assessment and Plan *Assessment and plan (1) Esophageal adenocarcinoma: Status: Acute Category: Medical Code(s): C15.9 - Malignant neoplasm of esophagus, unspecified (2) Metastatic cancer: Status: Acute Category: Medical Code(s): C79.9 - Secondary malignant neoplasm of unspecified site (3) Dysphagia: Status: Acute Category: Medical Code(s): R13.10 - Dysphagia, unspecified (4) Aspiration pneumonia: Status: Acute Category: Medical Code(s): J69.0 - Pneumonitis due to inhalation of food and vomit Plan 1. Recurrent aspiration pneumonia which is likely related to the esophageal cancer and malignant esophageal stricture. I have spoken with hospitalist/Dr. Mayes and as well as the patient. I do feel that an esophageal stent may provide palliation and allow for some oral intake rather than strict NPO. The patient does feel that this would be important to him. I would recommend that we do EGD and assess whether esophageal stent is feasible at the time of endoscopy or whether this should be treated with dilation alone. I do feel that the former provides a more durable tract for oral intake and would provide that palliation. The patient is in agreement. We will plan EGD tomorrow.
--- NOTE | 2024-12-20 12:46 | P.PN_ITS ---
Subjective Subjective Date: 12/20/24 Time: 09:30 Principal diagnosis: asp pna, a-fib RVR Interval history: RVR sustaining 130s today. Pt is asymptomatic. Exam Data for Last 24 hours Vital signs and Labs for Last 24 Hours: Temp Pulse Resp BP Pulse Ox O2 Del Method O2 Flow Rate 99.2 F 135 H 21 103/55 L 97 Room Air 2 12/20/24 08:00 12/20/24 10:40 12/20/24 10:40 12/20/24 10:40 12/20/24 10:40 12/20/24 09:00 12/20/24 08:00 Laboratory Results - last 24 hr 12/19/24 08:02: Hemoglobin A1c 7.9 H, Iron 49, TIBC 246 L, Iron Saturation 19.10121, Ferritin 138, Vitamin B12 928, Folate 10.20 12/19/24 13:55: VBG pH 7.47 H, VBG pCO2 40.7, VBG pO2 45.7 H, VBG HCO3 28.8, VBG Total CO2 30.0 H, VBG O2 Saturation 80.4 H, VBG Base Excess 5.0 H, VBG Lactic Acid 2.4 H 12/19/24 14:13: Chlamy pneumoniae PCR Not detected, Adenovirus (PCR) Not detec reece, B. pertussis DNA (PCR) Not detected, Coronavirus OC43 (PCR) Not detected, Coronavirus HKU1 (PCR) Not detected, Coronavirus 229E (PCR) Not detected, SARS-CoV-2 (PCR) Not detected, Coronavirus NL63 (PCR) Not detected, Human Metapneumovir PCR Not detected, Influenza A (H1) PCR Not detected, Influ A (H1N1/09) PCR Not detected, Influenza A (H3) PCR Not detected, Influenza Type A (PCR) Not detected, Influenza Type B (PCR) Not detected, M. pneumoniae (PCR) Not detected, Parainfluenza 1 (PCR) Not detected, Parainfluenza 2 (PCR) Not detected, Parainfluenza 3 (PCR) Not detected, Parainfluenza 4 (PCR) Not detected, RSV (PCR) Not detected, Entero/Rhino (PCR) Not detected 12/19/24 14:23: POC Glucose 436 H* 12/19/24 15:04: Blood Type A Positive, Antibody Screen Negative, Crossmatch (AHG) See Detail 12/19/24 16:51: POC Glucose 402 H* 12/19/24 18:43: Lactate 1.9 12/19/24 20:00: POC Glucose 291 H 12/19/24 20:32: Hgb 10.2 L D, Hct 34.2 L 12/20/24 05:15: WBC 11.6 H, RBC 2.85 L, Hgb 8.3 L D, Hct 27.9 L, MCV 97.9 H, MCH 29.1, MCHC 29.7 L, RDW 19.3 H, Plt Count 273, MPV 12.5 H, Neut % (Auto) 87.5 H, Lymph % (Auto) 4.1 L, [place] % (Auto) 5.9, Eos % (Auto) 0.9, Baso % (Auto) 0.4, Neut # (Auto) 10.1 H, Lymph # (Auto) 0.5 L, [place] # (Auto) 0.7, Eos # (Auto) 0.1, Baso # (Auto) 0.1, Sodium 144, Potassium 4.0, Chloride 106, Carbon Dioxide 30, Anion Gap 12.0, BUN 51 H, Creatinine 1.40 H, Estimated Creat Clear 58, Estimated GFR 50 L, Est GFR ( Amer) 60, Glucose 319 H, Calcium 8.8, Magnesium 2.0, Total Bilirubin 0.5, AST 42, ALT 34, Alkaline Phosphatase 53, Total Protein 6.2 L, Albumin 2.7 L, Globulin 3.5 H, Albumin/Globulin Ratio 0.8 L 12/20/24 06:26: POC Glucose 374 H* 12/20/24 11:19: POC Glucose 337 H* I & O for Last 24 hours: Intake & Output 12/17/24 12/18/24 12/19/24 12/20/24 23:59 23:59 23:59 23:59 Intake Total 2922 / 3222 1974 1070 / 1070 68.35 / 68.35 Output Total 1974 701 / 1101 1550 / 1550 100 / 100 Balance 947 / 1247 1274 / 874 -480 / -480 -31.65 / -31.65 Weight 195 lb 190 lb 193 lb 191 lb 2.252 oz Microbiology Reports for the Last 24 Hours: Microbiology 12/15/24 14:10 Blood Blood Culture - Preliminary NO GROWTH AFTER 4 DAYS 12/15/24 14:10 Blood Blood Culture - Preliminary NO GROWTH AFTER 4 DAYS Constitutional Constitutional: no acute distress and cooperative *Routine HEENT Exam Eye: Present PERRL *Routine Respiratory Exam Respiratory: Present CTA bilaterally; Absent accessory muscle use, wheezes or crackles *Routine Cardiovascular Exam Cardiovascular: Present tachycardia and irregularly irregular; Absent murmur, gallop or rubs *Routine Abdominal Exam Abdominal: Present soft; Absent tenderness Comments: g-tube in place *Routine Extremities Exam Extremities: Present pulses intact; Absent cyanosis or edema *Routine Skin Exam Skin: Present intact; Absent erythema or wounds *Routine Neurological Exam Neurological: Present alert and oriented X3 Routine Psychiatric Exam Psychiatric: Present cooperative Progress Note: A&P Assessment and plan (1) Atrial flutter with rapid ventricular response: Status: Acute (2) Esophageal adenocarcinoma: Status: Acute (3) Metastatic cancer: Status: Acute (4) Dysphagia: Status: Acute (5) Aspiration pneumonia: Status: Acute Assessment and Plan Assessment and Plan for All Diagnoses:: A-fib, RVR - known hx of A-fib, s/p successful DCCV 08/2024 - exacerbated in setting of Aspiration PNA, failed DCCV at [facility] - failing rate control here (limited by BP) - continue Metoprolol, DC Cardizem which has not seemed to help and add Amiodarone. He has normal LA size and is a good candidate for rhythm control given his multiple comorbidities and failure of rate control. Can consider DCCV again in 2 weeks after loading dose of Amio and recovery from PNA - Eliquis changed to Lovenox for now due to possible thoracentesis tomorrow. Hx of GI Bleed on Xarelto - ultimately as resp status improves this will help control his a-fib as well 12/20: Sustaining HR 130s. Add Cardizem drip. Continue Metoprolol at BP max tolerated dose. Continue Amiodarone load. Heart failure with preserved EF exacerbation - EF 40% 02/2024, repeat Echo here shows a normal LV systolic function with no significant valvular stenosis or regurg noted - Continue torsemide 20 mg p.o. twice daily for vol management. He has worsening effusion - thoracentesis pending. - consider SGLT-2 after acute illness resolves - no ARNI/MRA due to hypotension 12/20: Appears euvolemic. No change today. Hx of nonobstructive CAD - negative trop, denies angina - continue aspirin, statin, bb Community-acquired pneumonia versus aspiration pneumonia Sepsis - Defer to primary service and pulmonology Hx of Lung Cancer and Esophageal cancer - s/p RML lobectomy - s/p G Tube placement for all food and meds
--- NOTE | 2024-12-20 13:09 | EXP.ACUTE.PN ---
Subjective *Date: 12/20/24 *Time: 18:25 Interval history: Patient denies any chest pain. Shortness of breath improving. Remains afebrile. Had an episode of coughing and regurgitation of clear liquid while interviewing patient this morning. Remains tachycardic. Cardiology starting diltiazem drip. Tolerating tube feeds. Medical Exam Vital signs and Labs for Last 24 Hours: Vital Signs Temp Pulse Pulse Resp BP Pulse Ox O2 Del Method 12/20/24 12:00 138 H 12/20/24 10:40 103/55 L 12/20/24 10:40 135 H 21 103/55 L 97 12/20/24 10:30 137 H 21 92 L 12/20/24 10:26 108/56 L 12/20/24 10:26 160 H 17 108/56 L 97 12/20/24 10:16 93/76 L 12/20/24 10:16 21 93/76 L 12/20/24 10:01 68/40 L 12/20/24 10:01 137 H 24 100 12/20/24 10:00 139 H 30 H 100 12/20/24 09:30 132 H 14 100 12/20/24 09:00 Room Air 12/20/24 09:00 133 H 16 110/60 100 12/20/24 08:30 138 H 19 96 12/20/24 08:00 137 H 98 Nasal Cannula 12/20/24 08:00 137 H 12/20/24 08:00 99.2 F 137 H 20 117/56 L 94 L 12/20/24 07:30 141 H 20 93 L 12/20/24 07:01 17 104/57 L 95 12/20/24 07:00 133 H 19 92 L 12/20/24 06:59 Room Air 12/20/24 06:30 19 12/20/24 06:00 101/50 L 12/20/24 06:00 17 12/20/24 05:37 106/62 L 12/20/24 05:37 27 H 12/20/24 05:30 18 12/20/24 05:00 Room Air 12/20/24 05:00 138 H 31 H 95 12/20/24 04:30 133 H 22 92 L 12/20/24 04:00 100/57 L 12/20/24 04:00 133 H 21 95 12/20/24 04:00 Nasal Cannula 12/20/24 04:00 134 H 12/20/24 04:00 133 H 16 100/57 L 95 Room Air 12/20/24 03:30 133 H 19 96 12/20/24 03:00 92/38 L 12/20/24 03:00 122 H 19 96 12/20/24 03:00 Nasal Cannula 12/20/24 02:30 134 H 17 101/50 L 98 12/20/24 02:01 93/65 L 12/20/24 02:01 91 H 23 97 12/20/24 02:00 122 H 17 98 12/20/24 01:30 125 H 24 97 12/20/24 01:00 112/81 12/20/24 01:00 66 20 99 12/20/24 01:00 Nasal Cannula 12/20/24 00:30 115 H 24 98 12/20/24 00:01 136 H 22 98 12/20/24 00:01 117/59 L 12/20/24 00:00 135 H 20 98 12/20/24 00:00 132 H 12/20/24 00:00 97.5 F L 137 H 20 103/60 L 99 Room Air 12/19/24 23:30 103 H 27 H 99 12/19/24 23:10 103/60 L 12/19/24 23:10 137 H 24 98 12/19/24 23:00 139 H 20 94 L 12/19/24 23:00 Nasal Cannula 12/19/24 22:30 132 H 24 92 L 12/19/24 22:01 99/44 L 12/19/24 22:01 105 H 21 94 L 12/19/24 22:00 124 H 22 93 L 12/19/24 22:00 138 H 19 99/44 L 93 L Room Air 12/19/24 21:30 131 H 20 97 12/19/24 21:04 119/64 12/19/24 21:04 140 H 26 H 98 12/19/24 21:00 120 H 20 99 12/19/24 21:00 Nasal Cannula 12/19/24 20:30 140 H 25 H 94 L 12/19/24 20:00 92/60 L 12/19/24 20:00 142 H 16 93 L 12/19/24 20:00 Nasal Cannula 12/19/24 20:00 140 H 12/19/24 20:00 97.7 F 141 H 16 105/58 L 93 L Room Air 12/19/24 19:58 141 H 20 92/60 L 94 L 12/19/24 19:45 105/58 L 12/19/24 19:45 140 H 24 94 L 12/19/24 19:30 142 H 32 H 95 12/19/24 19:00 143 H 14 96 12/19/24 18:58 142 H 18 124/71 95 12/19/24 18:55 124/71 12/19/24 18:55 141 H 22 97 12/19/24 18:50 126/65 12/19/24 18:50 139 H 20 95 12/19/24 18:45 120/70 12/19/24 18:45 140 H 21 96 12/19/24 18:44 126/67 12/19/24 18:44 138 H 16 96 12/19/24 18:36 Room Air 12/19/24 18:35 120/63 12/19/24 18:35 122 H 20 94 L 12/19/24 18:30 139 H 24 94 L 12/19/24 18:30 119/61 12/19/24 18:26 113/54 L 12/19/24 18:26 141 H 14 96 12/19/24 18:20 107/65 L 12/19/24 18:20 140 H 22 94 L 12/19/24 18:15 123/64 12/19/24 18:15 144 H 19 97 12/19/24 18:15 140 H 18 107/65 L 94 L 12/19/24 18:12 132/69 12/19/24 18:12 140 H 17 97 12/19/24 18:10 117 H 20 88/71 L 100 12/19/24 17:52 140 H 18 107/63 L 95 Room Air 12/19/24 17:15 99.0 F 107 H 18 99/54 L 93 L 12/19/24 17:00 105 H 18 130/49 L 94 L 12/19/24 17:00 Room Air 12/19/24 16:45 100 H 18 114/55 L 95 12/19/24 16:30 98.9 F 92 H 18 110/42 L 93 L 12/19/24 16:25 92 H 18 122/50 L 93 L 12/19/24 16:20 74 18 128/53 L 93 L 12/19/24 16:10 98.7 F 82 18 112/65 93 L 12/19/24 16:00 75 92 L Room Air 12/19/24 16:00 82 18 122/50 L 93 L Room Air 12/19/24 15:00 Room Air 12/19/24 14:00 98 H 18 103/49 L 93 L Nasal Cannula O2 Flow Rate 12/20/24 12:00 12/20/24 10:40 12/20/24 10:40 12/20/24 10:30 12/20/24 10:26 12/20/24 10:26 12/20/24 10:16 12/20/24 10:16 12/20/24 10:01 12/20/24 10:01 12/20/24 10:00 12/20/24 09:30 12/20/24 09:00 12/20/24 09:00 12/20/24 08:30 12/20/24 08:00 2 12/20/24 08:00 12/20/24 08:00 12/20/24 07:30 12/20/24 07:01 12/20/24 07:00 12/20/24 06:59 12/20/24 06:30 12/20/24 06:00 12/20/24 06:00 12/20/24 05:37 12/20/24 05:37 12/20/24 05:30 12/20/24 05:00 12/20/24 05:00 12/20/24 04:30 12/20/24 04:00 12/20/24 04:00 12/20/24 04:00 2 12/20/24 04:00 12/20/24 04:00 12/20/24 03:30 12/20/24 03:00 12/20/24 03:00 12/20/24 03:00 2 12/20/24 02:30 12/20/24 02:01 12/20/24 02:01 12/20/24 02:00 12/20/24 01:30 12/20/24 01:00 12/20/24 01:00 12/20/24 01:00 2 12/20/24 00:30 12/20/24 00:01 12/20/24 00:01 12/20/24 00:00 12/20/24 00:00 12/20/24 00:00 12/19/24 23:30 12/19/24 23:10 12/19/24 23:10 12/19/24 23:00 12/19/24 23:00 2 12/19/24 22:30 12/19/24 22:01 12/19/24 22:01 12/19/24 22:00 12/19/24 22:00 12/19/24 21:30 12/19/24 21:04 12/19/24 21:04 12/19/24 21:00 12/19/24 21:00 2 12/19/24 20:30 12/19/24 20:00 12/19/24 20:00 12/19/24 20:00 2 12/19/24 20:00 12/19/24 20:00 12/19/24 19:58 12/19/24 19:45 12/19/24 19:45 12/19/24 19:30 12/19/24 19:00 12/19/24 18:58 12/19/24 18:55 12/19/24 18:55 12/19/24 18:50 12/19/24 18:50 12/19/24 18:45 12/19/24 18:45 12/19/24 18:44 12/19/24 18:44 12/19/24 18:36 12/19/24 18:35 12/19/24 18:35 12/19/24 18:30 12/19/24 18:30 12/19/24 18:26 12/19/24 18:26 12/19/24 18:20 12/19/24 18:20 12/19/24 18:15 12/19/24 18:15 12/19/24 18:15 12/19/24 18:12 12/19/24 18:12 12/19/24 18:10 12/19/24 17:52 12/19/24 17:15 12/19/24 17:00 12/19/24 17:00 12/19/24 16:45 12/19/24 16:30 12/19/24 16:25 12/19/24 16:20 12/19/24 16:10 12/19/24 16:00 12/19/24 16:00 12/19/24 15:00 12/19/24 14:00 1 Intake and Output 12/19/24 12/20/24 12/20/24 23:59 07:59 15:59 Intake Total 850 / 1070 0 / 68.35 68.35 / 68.35 Output Total 800 / 1550 100 / 100 Balance 50 / -480 0 / -31.65 -31.65 / -31.65 Intake: Intake, Oral Amount 0 / 0 Intake, Tube Feeding Amount 200 / 400 Intake, Tube Irrigant Amount 150 / 170 Intake, Total IV Amount 68.35 / 68.35 Ceftriaxone 1 gm 1 gm In 0.9 % 55 / 55 Sodium Chloride 50 ml @ 100 mls /hr IV Q24H [facility] Rx#:[id number] Intake (Blood Product) Amt 500 / 500 Red Blood Cells Unit 500 / 500 [id number] Output: Output, Urine Amount 800 / 1550 100 / 100 Other: Number of Unmeasured Voids 0 Weight 86.7 kg Patient Weight 12/20/24 23:59 Weight 86.7 kg Laboratory Results - last 24 hr 12/19/24 08:02: Hemoglobin A1c 7.9 H, Iron 49, TIBC 246 L, Iron Saturation 19.31611, Ferritin 138, Vitamin B12 928, Folate 10.20 12/19/24 13:55: VBG pH 7.47 H, VBG pCO2 40.7, VBG pO2 45.7 H, VBG HCO3 28.8, VBG Total CO2 30.0 H, VBG O2 Saturation 80.4 H, VBG Base Excess 5.0 H, VBG Lactic Acid 2.4 H 12/19/24 14:13: Chlamy pneumoniae PCR Not detected, Adenovirus (PCR) Not detected, B. pertussis DNA (PCR) Not detected, Coronavirus OC43 (PCR) Not detected, Coronavirus HKU1 (PCR) Not detected, Coronavirus 229E (PCR) Not detected, SARS-CoV-2 (PCR) Not detected, Coronavirus NL63 (PCR) Not detected, Human Metapneumovir PCR Not detected, Influenza A (H1) PCR Not detected, Influ A (H1N1/09) PCR Not detected, Influenza A (H3) PCR Not detected, Influenza Type A (PCR) Not detected, Influenza Type B (PCR) Not detected, M. pneumoniae (PCR) Not detected, Parainfluenza 1 (PCR) Not detected, Parainfluenza 2 (PCR) Not detected, Parainfluenza 3 (PCR) Not detected, Parainfluenza 4 (PCR) Not detected, RSV (PCR) Not detected, Entero/Rhino (PCR) Not detected 12/19/24 14:23: POC Glucose 436 H* 12/19/24 15:04: Blood Type A Positive, Antibody Screen Negative, Crossmatch (AHG) See Detail 12/19/24 16:51: POC Glucose 402 H* 12/19/24 18:43: Lactate 1.9 12/19/24 20:00: POC Glucose 291 H 12/19/24 20:32: Hgb 10.2 L D, Hct 34.2 L 12/20/24 05:15: WBC 11.6 H, RBC 2.85 L, Hgb 8.3 L D, Hct 27.9 L, MCV 97.9 H, MCH 29.1, MCHC 29.7 L, RDW 19.3 H, Plt Count 273, MPV 12.5 H, Neut % (Auto) 87.5 H, Lymph % (Auto) 4.1 L, Lawrence % (Auto) 5.9, Eos % (Auto) 0.9, Baso % (Auto) 0.4, Neut # (Auto) 10.1 H, Lymph # (Auto) 0.5 L, Lawrence # (Auto) 0.7, Eos # (Auto) 0.1, Baso # (Auto) 0.1, Sodium 144, Potassium 4.0, Chloride 106, Carbon Dioxide 30, Anion Gap 12.0, BUN 51 H, Creatinine 1.40 H, Estimated Creat Clear 58, Estimated GFR 50 L, Est GFR ( Amer) 60, Glucose 319 H, Calcium 8.8, Magnesium 2.0, Total Bilirubin 0.5, AST 42, ALT 34, Alkaline Phosphatase 53, Total Protein 6.2 L, Albumin 2.7 L, Globulin 3.5 H, Albumin/Globulin Ratio 0.8 L 12/20/24 06:26: POC Glucose 374 H* 12/20/24 11:19: POC Glucose 337 H* I & O for Labs for Last 24 Hours: Intake & Output 12/17/24 12/18/24 12/19/24 12/20/24 23:59 23:59 23:59 23:59 Intake Total 2922 / 3222 1974 1070 / 1070 68.35 / 68.35 Output Total 1974 701 / 1101 1550 / 1550 100 / 100 Balance 947 / 1247 1274 / 874 -480 / -480 -31.65 / -31.65 Weight 88.451 kg 86.183 kg 87.543 kg 86.7 kg Microbiology Reports for the Last 24 Hours: Microbiology 12/15/24 14:10 Blood Blood Culture - Preliminary NO GROWTH AFTER 4 DAYS 12/15/24 14:10 Blood Blood Culture - Preliminary NO GROWTH AFTER 4 DAYS Constitutional: Present no acute distress, average body habitus, chronically ill appearing and cooperative Head: Present atraumatic and normocephalic Respiratory: Present crackles (Bases posterior lung barrientos bilaterally) and normal respiratory effort; Absent rhonchi or wheezes Cardiac: Present Tachycardia Comment:: Irregularly irregular GI: Present soft and normal bowel sounds; Absent distention or tenderness Comments:: G-tube in place. Well-healed midline scar Extremities: Present normal inspection and full ROM Skin: Present intact; Absent erythema Neuro: Present Grossly Intact, alert, awake, oriented x 3 and moves all extremities Assessment and Plan *Assessment and plan (1) Atrial fibrillation and flutter: Status: Acute Category: Medical Code(s): I48.91 - Unspecified atrial fibrillation; I48.92 - Unspecified atrial flutter (2) Aspiration pneumonia: Status: Acute Category: Medical Code(s): J69.0 - Pneumonitis due to inhalation of food and vomit (3) Esophageal adenocarcinoma: Status: Acute Category: Medical Code(s): C15.9 - Malignant neoplasm of esophagus, unspecified (4) Metastatic cancer: Status: Acute Category: Medical Code(s): C79.9 - Secondary malignant neoplasm of unspecified site (5) Dysphagia: Status: Acute Category: Medical Code(s): R13.10 - Dysphagia, unspecified (6) Diabetes mellitus: Status: Acute Qualifiers: Diabetes mellitus complication status: with other specified complication Diabetes mellitus long-term insulin use: with long-term use Diabetes mellitus type: type 2 Qualified Code(s): E11.69 - Type 2 diabetes mellitus with other specified complication; Z79.4 - terminal superintendent (current) use of insulin Category: Medical Code(s): E11.9 - Type 2 diabetes mellitus without complications (7) CAD (coronary artery disease): Status: Acute Qualifiers: Associated angina: without angina Coronary Disease-Associated Artery/Lesion type: [place] artery [place] vs. transplanted heart: [place] heart Qualified Code(s): I25.10 - Atherosclerotic heart disease of [place] coronary artery without angina pectoris Category: Medical Code(s): I25.10 - Atherosclerotic heart disease of [place] coronary artery without angina pectoris Plan Federico Flores is a 74-year-old male with a medical history significant for A-fib on Eliquis, esophageal cancer s/p G-tube placement, metastatic lung cancer in remission (right partial lobectomy), G-tube dependent for feeds, insulin-dependent diabetes, HFpEF, CAD who presents with worsening shortness of breath and fatigue over the past few days. He was recently discharged from [place] for a similar presentation of A-fib RVR where he apparently was cardioverted. It is unclear if it was successful, will obtain outside records. Patient states he has not been taking all his medications recently has he has been getting his feet underneath him after being discharged back home. Working the ED significant for A-fib with heart rate in the 140s, WBC 14.6, sodium 149, BNP 2210. ED contacted Dr. Walter who recommended IV diltiazem drip and plan for cardioversion in the morning. Case discussed with ED provider and decision was made to admit patient for A-fib RVR and HFpEF exacerbation. Heart rate still uncontrolled. Adding additional rate controlling regimen today. Cardiology, GI, pulmonology assisting with care. Continues to require inpatient management in the ICU as he is on drips. Problems addressed as follows: #A-fib RVR ? History of both successful and unsuccessful DCCVs, most recent one at [facility] which was unsuccessful about 2 weeks ago ? Initially presented with heart rate in the 140s, started on diltiazem drip but weaned off. Did not achieve adequate rate control with metoprolol tartrate, diltiazem. ? Discussed case with cardiology, recommend continuing amiodarone 400 mg 3 times a day oral. Resuming Cardizem drip today. Continue metoprolol tartrate 25 mg twice daily. ? ECHO September 2024 revealed normal biventricular function. Pending. - Holding anticoagulation due to drop in labs. Hemoglobin 8.3, platelets 273. Repeat CBC, CMP, magnesium ordered for the morning. #Aspiration pneumonia #Sepsis #Right-sided loculated pleural effusion ? Presented about 2 weeks ago with diffuse opacities in right lung, patient is G-tube dependent due to esophageal cancer and likely aspirating. ? Initial white count elevated at 14.6, improved to 11.6 today. Repeat CBC, CMP, magnesium ordered for the morning. -Discussed case with pulmonology, recommend considering IR evaluation for possible pigtail. Continue 7 days of antibiotics total, may expand to 14 given concern for loculated effusion - cont duoNebs 4 times daily as needed - Aspiration precautions ? Sputum cultures revealed Enterobacter clocae, sensitive to ceftriaxone, continuing IV daily. ? CT chest 12/19/2024 revealed loculated pleural effusion at right lung base. #Acute on chronic anemia #History of GI bleed on Xarelto ? Initial hemoglobin 10.4, 8.3 today. Platelets 273. No active signs of bleeding. Holding Lovenox. ? GI consulted, pending further recommendations. ? IV Protonix 40 mg twice daily. ? Follow-up FOBT, iron studies. ? N.p.o. at midnight #Esophageal carcinoma with obstruction #G-tube dependent #History of metastatic lung cancer apparently in remission ? Follows with [facility] oncology. Patient does not seem to have a good idea of what the treatment plan will be. ? CT abdomen/pelvis shows markedly distended fluid-filled esophagus. - GI consulted, discussed case today, concern for recurrent aspiration. Patient has esophageal cancer with malignant esophageal stricture. Discussed placement of esophageal stent to provide palliation and allow for oral intake rather than strict NPO. Patient feels this would be important to him. Planning for EGD and evaluation for esophageal stent placement tomorrow, n.p.o. at midnight #HFpEF exacerbation, resolved ? Initial BNP 2210, diffuse crackles in the lungs with edema on CXR, 2+ lower extremity pitting edema. ? Transitioned to toresemide 20mg BID, home med. Euvolemic today. ? Pending further cardiology recommendations. May benefit from MRA, [id number]. #Insulin-dependent diabetes ? LDSSI, ACHS glucose checks. ? A1c 7.1%. - BG > 400, increaesd nighly Lantus. ? Increase Lantus to 40 units nightly. Adjust based on SSI needs #CAD ? Resume home aspirin, statin. Full code DVT prophylaxis: Jerome
[2024-12-20] MEDS: AMIODARONE 200MG TABLET 400 MG NG-TUBE ×2 (14:02→20:15)
[2024-12-20 16:31] LABS: POC Glucose,Bedside 255 (70-110)
[2024-12-20] MEDS: dilTIAZem HCL 100 MG in 0.9 % SODIUM CHLORIDE 100 ML 15 MG IV (17:48)
--- NOTE | 2024-12-20 18:34 | PC.NURSE ---
PT REMAINED A &O X 4 THROUGHOUT THE ENTIRE SHIFT. PT ALSO REMAINED IN THE CHAIR T/O THE ENTIRE SHIFT PER HIS REQUEST. PT DENIED WANTING TO GET INTO BED. PT VOIDED PER URINAL AND WAS ABLE TO AMBULATE WITH STANDBY ASSIST TO THE BATHROOM FOR A BOWEL MOVEMENT. PT REMAINED ON ROOM AIR WHILE AWAKE AND 2L NC WHILE SLEEPING WITH SATS IN THE 90S. PT REMAINED IN AFIB. CARDIOLOGY PUT PT BACK ON DILTIAZEM DRIP ALONG WITH HIS PO MEDS TO HELP CONTROL HIS HEART RATE. PT HEART RATE WAS AROUND 100BMP FOR A FEW HOURS BUT THEN JUMPED TO THE 130S AGAIN THIS EVENING. PT GIVEN PRN METOPROLOL THAT RESULTED IN A HEART RATE IN THE 80S FOR A SHORT PERIOD OF TIME. PT STARTED ON PUMP TUBE FEEDINGS WITH 1.2 GLUCERNA AND WAS ABLE TO BE INCREASED TO GOAL OF 70ML. TOLERATED WELL. PT CONTINUED TO REQUEST ICE CHIPS T/O THE SHIFT DISPITE DR. FONSECA ADVISING HE DISCONTINUE ICE CHIPS DUE TO ASPIRATION. AWARE. PT WILL BE NPO AFTER MIDNIGHT TONIGHT FOR AN EGD IN THE MORNING.
[2024-12-20] MEDS: TRAZODONE 50MG TABLET 50 MG PO (20:15)
[2024-12-20] MEDS: METOPROLOL TARTRATE 25MG TABLET 25 MG G-TUBE (20:16)
[2024-12-20] MEDS: METOCLOPRAMIDE 10MG TABLET 10 MG FEED TUBE (20:17)
[2024-12-20] MEDS: ATORVASTATIN 40MG TABLET 40 MG NG-TUBE (20:17)
[2024-12-20] MEDS: TAMSULOSIN 0.4MG CAPSULE 0.4 MG PO (20:17)
[2024-12-20] MEDS: INSULIN GLARGINE 100 UNITS/ML 3ML FLEXPEN 40 UNIT SUBCUT (20:27)
[2024-12-20 20:31] LABS: POC Glucose,Bedside 190 (70-110)
[2024-12-21] VITALS (72 sets, daily range): BP systolic 80–125; BP diastolic 33–71; PULSE 46–137; RESP 14–32; TEMP 36.3–37.1; O2SAT 83–100; BMI 27.4
[2024-12-21] MEDS: humaLOG 100 UNITS/ML 10ML VIAL (SSI) SUBCUT ×4 (05:42→21:09)
[2024-12-21 05:47] LABS: POC Glucose,Bedside 256 (70-110)
[2024-12-21 06:03] LABS: Alanine Aminotransferase 33 U/L (12-78); Albumin Level 2.7 g/dl (3.5-5.0); Albumin/Globulin Ratio 0.8 (1.1-1.8); Alkaline Phosphatase 41 U/L (38-126); Anion Gap 11.2 mEq/L (5-15); Aspartate Amino Transferase 59 U/L (17-59); Bilirubin,Total 0.6 mg/dl (0.2-1.3); Blood Urea Nitrogen 54 mg/dl (9-20); Calcium 8.9 mg/dl (8.4-10.2); Carbon Dioxide 33 mmol/L (22.0-30.0); Chloride 105 mmol/L (98-107); Creatinine Clearance Estimated 59 mL/min (50-200); Estimated Glomerular Filt Rate 50 ml/min (>60); GFR (African American) 60 ML/MIN (>60); Globulin 3.6 g/dL (1.3-3.2); Glucose 227 mg/dl (74-100); Magnesium 2.1 mg/dl (1.6-2.3); Potassium 4.2 mmoL/L (3.5-5.1); Sodium 145 mmol/L (136-145); Total Protein,Serum 6.3 g/dl (6.3-8.2)
[2024-12-21 06:04] LABS: Basophils % 0.3 % (0.1-2.0); Eosinophils # 0.1 K/mm3 (0.0-0.4); Hematocrit 26.3 % (42.0-52.0); Hemoglobin 7.9 g/dL (14.1-18.0); Lymphocytes # 0.4 K/mm3 (0.7-4.5); Lymphocytes % 3.4 % (10-50); Mean Corpuscular Hemoglobin 30.2 pg (27.0-31.2); Mean Corpuscular Volume 100.4 fl (80-94); Mean Platelet Volume 12.5 fl (7.4-10.4); Monocytes # 0.8 K/mm3 (0.1-1.0); Monocytes % 6.5 % (1.7-9.3); Neutrophils # 10.3 K/mm3 (1.8-7.8); Neutrophils % 87.8 % (37.0-80.0); Platelet Count 247 K/mm3 (142-424); Red Blood Count 2.62 M/mm3 (4.60-6.20); Red Cell Distribution Width 19.9 % (11.5-17.5); White Blood Count 11.8 K/mm3 (4.8-10.8)
[2024-12-21] MEDS: METOPROLOL TARTRATE 5MG/5ML VIAL 5 MG IV (06:13)
--- NOTE | 2024-12-21 07:13 | PC.NURSE ---
PATIENT TRANSPORTED DOWN BY OR STAFF FOR SCOPE AT THIS TIME.
--- NOTE | 2024-12-21 07:26 | P.PCN_ITS ---
[facility] Procedure Note Date: 12/21/24 Time: 15:03 Procedure Note:: Upper Endoscopy Procedure Report: Esophagogastroduodenoscopy with cold biopsies and esophageal stent placement Endoscopost: Phoenix Rush II, MD Referring Physician: Donovan Clark MD, [address] [place] [address] [place] [address] Date of Procedure: December 21, 2024 Equipment: Olympus GIF 190 standard upper endoscope Sedation: MAC sedation Indications: Mr. Flores is a 74-year-old gentleman with a complicated medical history and recurrent aspiration pneumonia. This is presumably secondary to esophageal adenocarcinoma with esophageal obstruction and aspiration. He continues to take an ice chips and sips but does have primary enteral feeding from a G-tube. He also has a history of atrial fibrillation and flutter and has been cardioverted recently at [place] in [facility]. He also had metastatic lung cancer with lung resection. He has had thoracic chemoradiation. He has had most of his endoscopic GI care in [facility]. His CAT scan from 12/19/2024 shows soft tissue mass at the GE junction. He did have multiple gallstones in a contracted gallbladder. The patient is anemic. Liver chemistries are normal. Procedure: Prior to the procedure, a history and physical exam was performed, and patient's medications and allergies were reviewed. The risks, benefits and alternatives of the sedation and procedure were discussed with the patient. All questions were answered and informed consent was obtained. The patient was brought to the procedure room. Patient identification and proposed procedure were verified by the physician and the nurse. The patient was placed in a left lateral decubitus position and the scope was passed under direct vision. Throughout the procedure, the patient's blood pressure, pulse, and oxygen saturations were monitored continuously. The upper GI endoscopy was accomplished without difficulty. The patient tolerated the procedure well. Findings: The scope was passed directly into the upper esophagus and advanced to the distal esophagus where there was a large fungating obstructive mass with friability. There was a large amount of proximal clear fluid in the esophagus which was suctioned. The scope was advanced into the distal esophageal mass which was circumferential with malignant stricture of the distal esophagus. The scope was advanced into the stomach into the second portion of the duodenum. The duodenum and distal stomach were grossly normal. The scope was withdrawn and retroflexed within the stomach and there was some of this mass extending from above the gastroesophageal junction and malignant mass identified right at the GE junction and a retroflexed view with a small hiatal hernia. Tissue was obtained with biopsy but also tissue from friability was obtained with a Head net and placed in the formalin jar for pathology. Next, a TTS guidewire was placed into the distal stomach under fluoroscopy and the scope was then withdrawn. Next, the SEMS (self-expandable metal stent)?Agile (fully covered nitinol esophageal stent?18 mm middle diameter/23 mm proximal/distal outer diameter and 11.9 cm length) esophageal stent was advanced over the guidewire into position fluoroscopically. The endoscope was reintroduced and the deployment was started with direct visualization of the proximal deployment and distal appointment followed fluoroscopically. This was initially completely deployed but as the scope was withdrawn, the stent itself migrated above the distal stenosis. A rat-tooth forceps grasped the distal end of the stent and this was manually pulled so that the middle portion of the stent was over the malignant stricture. The stricture expanded approximately 3.5 to 4 cm in the distal esophagus. After positioning with stent in proper hourglass position, fluoroscopic images were obtained and the procedure was ended. Impression: 1. Malignant distal esophageal stricture (3.5 to 4 cm in length) status post SEMS nitinol esophageal stent placement (11.9 cm length stent/18 mm inner diameter) with proper placement confirmed fluoroscopically Plan: I will follow-up the biopsies. This is for palliation. This will allow the patient to begin some clear liquids. Stent migration is reported in 15 to 25% of patients where stent can migrate into the stomach. This can require reintervention. If there is migration, I would consider endoscopic suturing of the stent. I would recommend that we confirm that this is anchored as it continues to expand in the distal esophagus by routine chest x-ray tomorrow. He can begin some ice chips later today.
--- NOTE | 2024-12-21 07:34 | P.PNANES_ITS ---
[facility] Disclaimer: The information contained in this section may have been updated after the patient was seen, as this information can be updated by other users. 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 Nodule of left lung Pleural effusion on right History of lung cancer in adulthood Dyspnea on exertion History of smoking 30 or more pack years Diabetic retinopathy associated with type 1 diabetes mellitus Macular degeneration History of cancer of kidney in adulthood Hx of cancer of lung Insulin dependent diabetes mellitus Type 1 diabetes CHF (congestive heart failure), NYHA class III Cardiomyopathy CAD (coronary artery disease) Atrial fibrillation with RVR Atrial fibrillation Dyspnea Sinus tachycardia Abnormal electrocardiography Surgical History Hx of cataract surgery History of esophagogastroduodenoscopy (EGD) History of pneumonectomy H/O kidney removal Family History Father Family history non-contributory Lung cancer Brother Colon cancer Lung cancer Social History (Updated 12/15/24 @ 16:44 by Allison Thao RN) Smoking Status: Never smoker second hand exposure: No alcohol intake: never substance use type: denies use current occupational status: retired Travel in the last 8 weeks: None housing: house caffeine: Yes Have you lived/traveled outside [place] in past 30 days?: No Contact w/someone who lives/traveled outside US past 30 days?: No Exposure to someone with infectious disease in past 14 days?: No Do you have a fever (greater than 100.4 F or 38 C)?: No Have you tested positive for COVID-19: No Exposed to someone with COVID-19 in past 14 days?: No Do you have a sore throat?: No Do you have a cough?: No Do you have any weakness?: No Are you experiencing any nausea/vomitting?: No Do you have any diarrhea?: No Are you experiencing any unusual bleeding?: No Do you have any muscle aches/pain?: No Do you have any abdominal pain?: No Are you experiencing loss of taste or smell?: No [facility] Anesthesia Checklist Patient Identification Patient Identification: Arm Band and Verbal (Name & ) Structural Data Admitted From: Home Planned Operative Procedure/s: EGD Consent for Planned Operative Procedure(s) Verified: Yes Verified Documents: Surgical Consent and History and Physical NPO Status Verified Time NPO: 00:00 Chart Verification Results Verified: CBC, BMP, ECG and Chest Xray Additional verifications Fingerstick Blood Glucose: 256 Anesthesia Reactions: No Cardiovascular Assessment Pulse Rhythm: Irregular Peripheral Edema: No Airway Assessment Mallampati Score:: Class II C-Spine Mobility Assessed: Yes TMJ Mobility Assessed: Yes Dentition: Good Dentition Neurological Assessment Level of Consciousness: Awake, Alert, Appropriate and Follows Commands Hx Seizures: No Numbness or tingling in extremities: No Anesthesia Plan Anesthesia Plan: Verified ASA Class: IV Anesthesia Type: MAC
[2024-12-21 07:37] LABS: POC Glucose,Bedside 199 (70-110)
--- NOTE | 2024-12-21 09:22 | EXP.PHA.PN ---
Subjective *Date: 12/21/24 *Time: 09:22 Medical Exam Vital signs and Labs for Last 24 Hours: Vital Signs Temp Pulse Pulse Pulse Resp BP BP 12/21/24 08:10 107 H 30 H 119/56 L 12/21/24 08:05 97.3 F L 110 H 32 H 119/58 L 12/21/24 07:43 12/21/24 07:21 130 H 18 113/64 12/21/24 06:59 12/21/24 06:01 113/64 12/21/24 06:01 130 H 18 12/21/24 06:00 129 H 20 12/21/24 05:30 106/55 L 12/21/24 05:30 128 H 14 12/21/24 05:00 103/59 L 12/21/24 05:00 129 H 21 12/21/24 05:00 12/21/24 04:30 103/66 L 12/21/24 04:30 127 H 24 12/21/24 04:01 118 H 20 12/21/24 04:01 109/54 L 12/21/24 04:00 110 H 18 12/21/24 04:00 12/21/24 04:00 97.4 F L 95 H 18 109/54 L 12/21/24 03:42 46 L 17 12/21/24 03:42 102/50 L 12/21/24 03:30 27 H 12/21/24 03:05 109/71 L 12/21/24 03:05 125 H 20 12/21/24 03:00 128 H 18 12/21/24 03:00 12/21/24 02:30 117/55 L 12/21/24 02:30 127 H 17 113/64 12/21/24 02:00 119/60 12/21/24 02:00 17 12/21/24 01:30 123 H 24 12/21/24 01:30 124/68 12/21/24 01:11 129 H 22 12/21/24 01:11 115/54 L 12/21/24 01:09 20 12/21/24 00:30 101/43 L 12/21/24 00:30 120 H 17 119/60 12/21/24 00:03 107/57 L 12/21/24 00:03 127 H 25 H 12/21/24 00:00 27 H 12/21/24 00:00 127 H 12/20/24 23:30 118/65 12/20/24 23:30 85 22 12/20/24 23:01 108/44 L 12/20/24 23:01 77 22 12/20/24 23:00 83 20 12/20/24 23:00 12/20/24 22:31 85 20 12/20/24 22:31 99/53 L 12/20/24 22:30 71 21 12/20/24 22:23 105/38 L 12/20/24 22:23 123 H 25 H 105/57 L 12/20/24 22:01 74/45 L 12/20/24 22:01 20 12/20/24 22:00 22 12/20/24 21:48 108/45 L 12/20/24 21:48 57 L 22 12/20/24 21:33 15 12/20/24 21:33 99/39 L 12/20/24 21:31 63/44 L 12/20/24 21:31 21 12/20/24 21:30 21 12/20/24 21:00 100/69 L 12/20/24 21:00 95 H 18 12/20/24 21:00 12/20/24 20:33 112 H 17 12/20/24 20:33 106/38 L 12/20/24 20:30 117 H 22 12/20/24 20:01 97/45 L 12/20/24 20:01 129 H 12/20/24 20:00 128 H 12/20/24 20:00 97.7 F 102 H 17 102/53 L 12/20/24 19:30 102/53 L 12/20/24 19:30 122 H 12/20/24 19:15 115/39 L 12/20/24 19:15 61 21 12/20/24 19:00 58 L 22 12/20/24 19:00 12/20/24 18:31 110/47 L 12/20/24 18:31 117 H 25 H 12/20/24 18:30 128 H 29 H 108/45 L 12/20/24 18:00 114/51 L 12/20/24 18:00 132 H 26 H 114/51 L 12/20/24 17:30 133 H 20 114/51 L 12/20/24 17:30 114/51 L 12/20/24 17:00 113/56 L 12/20/24 17:00 131 H 18 113/56 L 12/20/24 17:00 12/20/24 16:30 100/44 L 12/20/24 16:30 133 H 21 100/44 L 12/20/24 16:00 106/46 L 12/20/24 16:00 125 H 21 106/46 L 12/20/24 16:00 12/20/24 16:00 101 H 17 106/46 L 12/20/24 16:00 102 H 12/20/24 15:41 95/67 L 12/20/24 15:41 102 H 19 95/67 L 12/20/24 15:31 110/64 12/20/24 15:31 36 L 110/64 12/20/24 15:30 87 28 H 12/20/24 15:20 114 H 24 106/49 L 12/20/24 15:20 106/49 L 12/20/24 15:11 107/58 L 12/20/24 15:11 147 H 23 107/58 L 12/20/24 15:03 70 25 H 95/74 L 12/20/24 15:03 95/74 L 12/20/24 15:01 139 H 19 12/20/24 15:00 121 H 22 12/20/24 15:00 12/20/24 14:51 108 H 19 104/32 L 12/20/24 14:51 104/32 L 12/20/24 14:31 104/38 L 12/20/24 14:31 72 19 104/38 L 12/20/24 14:30 116 H 21 12/20/24 14:21 93 H 15 127/45 L 12/20/24 14:21 127/45 L 12/20/24 14:13 96/52 L 12/20/24 14:13 65 20 96/52 L 12/20/24 14:05 138 H 22 87/57 L 12/20/24 14:05 87/57 L 12/20/24 14:00 136 H 21 12/20/24 13:41 111/57 L 12/20/24 13:41 133 H 22 111/57 L 12/20/24 13:31 117/53 L 12/20/24 13:31 135 H 18 117/53 L 12/20/24 13:30 133 H 21 12/20/24 13:20 103/57 L 12/20/24 13:20 143 H 103/57 L 12/20/24 13:16 138 H 23 107/54 L 12/20/24 13:16 107/54 L 12/20/24 13:10 137 H 86/53 L 12/20/24 13:10 86/53 L 12/20/24 13:01 101/36 L 12/20/24 13:01 135 H 101/36 L 12/20/24 13:00 12/20/24 13:00 126 H 12/20/24 12:51 98/33 L 12/20/24 12:51 114 H 98/33 L 12/20/24 12:34 66 13 12/20/24 12:10 115/52 L 12/20/24 12:10 134 H 20 115/52 L 12/20/24 12:00 101 H 12/20/24 12:00 114/92 H 12/20/24 12:00 98.6 F 140 H 21 114/92 H 12/20/24 12:00 138 H 12/20/24 11:50 111/60 12/20/24 11:50 91 H 22 111/60 12/20/24 11:41 130 H 26 H 102/73 L 12/20/24 11:41 102/73 L 12/20/24 11:30 100/57 L 12/20/24 11:30 136 H 24 100/57 L 12/20/24 11:20 113/51 L 12/20/24 11:20 139 H 22 113/51 L 12/20/24 11:10 107/57 L 12/20/24 11:10 135 H 13 107/57 L 12/20/24 11:00 12/20/24 11:00 138 H 20 111/61 12/20/24 10:50 104/69 L 12/20/24 10:50 135 H 23 12/20/24 10:40 103/55 L 12/20/24 10:40 135 H 21 103/55 L 12/20/24 10:30 137 H 21 12/20/24 10:26 108/56 L 12/20/24 10:26 160 H 17 108/56 L 12/20/24 10:16 93/76 L 12/20/24 10:16 21 93/76 L 12/20/24 10:01 68/40 L 12/20/24 10:01 137 H 24 12/20/24 10:00 139 H 30 H 12/20/24 09:30 132 H 14 Pulse Ox O2 Del Method O2 Flow Rate 12/21/24 08:10 93 L Nasal Cannula 6 12/21/24 08:05 100 Simple Mask 15 12/21/24 07:43 Nasal Cannula 6 12/21/24 07:21 95 Room Air 12/21/24 06:59 Nasal Cannula 2 12/21/24 06:01 12/21/24 06:01 95 12/21/24 06:00 96 12/21/24 05:30 12/21/24 05:30 98 12/21/24 05:00 12/21/24 05:00 99 12/21/24 05:00 Nasal Cannula 2 12/21/24 04:30 12/21/24 04:30 96 12/21/24 04:01 100 12/21/24 04:01 12/21/24 04:00 94 L 12/21/24 04:00 Nasal Cannula 2 12/21/24 04:00 98 Nasal Cannula 2 12/21/24 03:42 94 L 12/21/24 03:42 12/21/24 03:30 12/21/24 03:05 12/21/24 03:05 91 L 12/21/24 03:00 94 L 12/21/24 03:00 Nasal Cannula 2 12/21/24 02:30 12/21/24 02:30 95 Nasal Cannula 2 12/21/24 02:00 12/21/24 02:00 12/21/24 01:30 100 12/21/24 01:30 12/21/24 01:11 100 12/21/24 01:11 12/21/24 01:09 12/21/24 00:30 12/21/24 00:30 90 L Nasal Cannula 2 12/21/24 00:03 12/21/24 00:03 94 L 12/21/24 00:00 12/21/24 00:00 12/20/24 23:30 12/20/24 23:30 89 L 12/20/24 23:01 12/20/24 23:01 93 L 12/20/24 23:00 90 L 12/20/24 23:00 Room Air 12/20/24 22:31 93 L 12/20/24 22:31 12/20/24 22:30 94 L 12/20/24 22:23 12/20/24 22:23 91 L 12/20/24 22:01 12/20/24 22:01 12/20/24 22:00 12/20/24 21:48 12/20/24 21:48 95 12/20/24 21:33 12/20/24 21:33 12/20/24 21:31 12/20/24 21:31 12/20/24 21:30 12/20/24 21:00 12/20/24 21:00 94 L 12/20/24 21:00 Room Air 12/20/24 20:33 93 L 12/20/24 20:33 12/20/24 20:30 96 12/20/24 20:01 12/20/24 20:01 95 12/20/24 20:00 95 12/20/24 20:00 94 L Room Air 12/20/24 19:30 12/20/24 19:30 95 12/20/24 19:15 12/20/24 19:15 96 12/20/24 19:00 96 12/20/24 19:00 Room Air 12/20/24 18:31 12/20/24 18:31 92 L 12/20/24 18:30 96 12/20/24 18:00 12/20/24 18:00 90 L 12/20/24 17:30 94 L 12/20/24 17:30 12/20/24 17:00 12/20/24 17:00 93 L 12/20/24 17:00 Room Air 12/20/24 16:30 12/20/24 16:30 91 L 12/20/24 16:00 12/20/24 16:00 93 L 12/20/24 16:00 93 L Room Air 12/20/24 16:00 93 L Room Air 12/20/24 16:00 12/20/24 15:41 12/20/24 15:41 92 L 12/20/24 15:31 12/20/24 15:31 12/20/24 15:30 93 L 12/20/24 15:20 93 L 12/20/24 15:20 12/20/24 15:11 12/20/24 15:11 94 L 12/20/24 15:03 87 L 12/20/24 15:03 12/20/24 15:01 91 L 12/20/24 15:00 94 L 12/20/24 15:00 Room Air 12/20/24 14:51 95 12/20/24 14:51 12/20/24 14:31 12/20/24 14:31 93 L 12/20/24 14:30 93 L 12/20/24 14:21 83 L 12/20/24 14:21 12/20/24 14:13 12/20/24 14:13 90 L 12/20/24 14:05 95 12/20/24 14:05 12/20/24 14:00 96 12/20/24 13:41 12/20/24 13:41 95 12/20/24 13:31 12/20/24 13:31 95 12/20/24 13:30 96 12/20/24 13:20 12/20/24 13:20 94 L 12/20/24 13:16 95 12/20/24 13:16 12/20/24 13:10 97 12/20/24 13:10 12/20/24 13:01 12/20/24 13:01 98 12/20/24 13:00 Room Air 12/20/24 13:00 91 L 12/20/24 12:51 12/20/24 12:51 93 L 12/20/24 12:34 99 12/20/24 12:10 12/20/24 12:10 98 12/20/24 12:00 94 L Room Air 12/20/24 12:00 12/20/24 12:00 99 12/20/24 12:00 12/20/24 11:50 12/20/24 11:50 96 12/20/24 11:41 88 L 12/20/24 11:41 12/20/24 11:30 12/20/24 11:30 100 12/20/24 11:20 12/20/24 11:20 97 12/20/24 11:10 12/20/24 11:10 100 12/20/24 11:00 Room Air 12/20/24 11:00 99 12/20/24 10:50 12/20/24 10:50 99 12/20/24 10:40 12/20/24 10:40 97 12/20/24 10:30 92 L 12/20/24 10:26 12/20/24 10:26 97 12/20/24 10:16 12/20/24 10:16 12/20/24 10:01 12/20/24 10:01 100 12/20/24 10:00 100 12/20/24 09:30 100 Intake and Output 12/20/24 12/21/24 12/21/24 23:59 07:59 15:59 Intake Total 235.234 / 6416.416 9397 / 1118 Output Total 400 / 750 150 / 150 Balance -164.766 / 771.584 968 / 968 Intake: Intake, Oral Amount 100 / 100 Intake, Tube Feeding Amount 718 / 718 Intake, Tube Irrigant Amount 400 / 400 Intake, Total IV Amount 135.234 / 203.584 Output: Output, Urine Amount 400 / 750 150 / 150 Other: Number of Bowel Movements 1 Weight 87.1 kg Patient Weight 12/21/24 23:59 Weight 87.1 kg Laboratory Results - last 24 hr 12/20/24 11:19: POC Glucose 337 H* 12/20/24 16:24: POC Glucose 255 H 12/20/24 20:22: POC Glucose 190 H 12/21/24 05:13: WBC 11.8 H, RBC 2.62 L, Hgb 7.9 L, Hct 26.3 L, MCV 100.4 H, MCH 30.2, MCHC 30.0 L, RDW 19.9 H, Plt Count 247, MPV 12.5 H, Neut % (Auto) 87.8 H, Lymph % (Auto) 3.4 L, [place] % (Auto) 6.5, Eos % (Auto) 1.0, Baso % (Auto) 0.3, Neut # (Auto) 10.3 H, Lymph # (Auto) 0.4 L, [place] # (Auto) 0.8, Eos # (Auto) 0.1, Baso # (Auto) 0.0, Sodium 145, Potassium 4.2, Chloride 105, Carbon Dioxide 33 H, Anion Gap 11.2, BUN 54 H, Creatinine 1.40 H, Estimated Creat Clear 59, Estimated GFR 50 L, Est GFR ( Amer) 60, Glucose 227 H D, Calcium 8.9, Magnesium 2.1, Total Bilirubin 0.6, AST 59 D, ALT 33, Alkaline Phosphatase 41, Total Protein 6.3, Albumin 2.7 L, Globulin 3.6 H, Albumin/Globulin Ratio 0.8 L 12/21/24 05:40: POC Glucose 256 H 12/21/24 07:29: POC Glucose 199 H I & O for Labs for Last 24 Hours: Intake & Output 12/18/24 12/19/24 12/20/24 12/21/24 23:59 23:59 23:59 23:59 Intake Total 1974 / 1974 1070 / 1070 403.584 / 0540.352 8323 / 1118 Output Total 701 / 1101 1550 / 1550 600 / 750 150 / 150 Balance 1274 / 874 -480 / -480 -196.416 / 771.584 968 / 968 Weight 86.183 kg 87.543 kg 86.7 kg 87.1 kg Microbiology Reports for the Last 24 Hours: Microbiology 12/15/24 14:10 Blood Blood Culture - Final NO GROWTH AFTER 5 DAYS 12/15/24 14:10 Blood Blood Culture - Final NO GROWTH AFTER 5 DAYS The patient's infection will respond to the chosen ABx?: Yes Is the patient receiving the right drug, dose, and route?: Yes Could a more targeted ABx be ordered?: No
--- NOTE | 2024-12-21 09:31 | P.PN_ITS ---
Subjective *Date: 12/21/24 *Time: 12:26 Interval history: No acute respiratory vents overnight. Pulmonology Exam Inpatient Vital signs and Labs for Last 24 Hours: Temp Pulse Resp BP Pulse Ox O2 Del Method O2 Flow Rate 97.3 F L 107 H 30 H 119/56 L 93 L Nasal Cannula 6 12/21/24 08:05 12/21/24 08:10 12/21/24 08:10 12/21/24 08:10 12/21/24 08:10 12/21/24 08:10 12/21/24 08:10 Laboratory Results - last 24 hr 12/20/24 11:19: POC Glucose 337 H* 12/20/24 16:24: POC Glucose 255 H 12/20/24 20:22: POC Glucose 190 H 12/21/24 05:13: WBC 11.8 H, RBC 2.62 L, Hgb 7.9 L, Hct 26.3 L, MCV 100.4 H, MCH 30.2, MCHC 30.0 L, RDW 19.9 H, Plt Count 247, MPV 12.5 H, Neut % (Auto) 87.8 H, Lymph % (Auto) 3.4 L, [place] % (Auto) 6.5, Eos % (Auto) 1.0, Baso % (Auto) 0.3, Neut # (Auto) 10.3 H, Lymph # (Auto) 0.4 L, [place] # (Auto) 0.8, Eos # (Auto) 0.1, Baso # (Auto) 0.0, Sodium 145, Potassium 4.2, Chloride 105, Carbon Dioxide 33 H, Anion Gap 11.2, BUN 54 H, Creatinine 1.40 H, Estimated Creat Clear 59, Estimated GFR 50 L, Est GFR ( Amer) 60, Glucose 227 H D, Calcium 8.9, Magnesium 2.1, Total Bilirubin 0.6, AST 59 D, ALT 33, Alkaline Phosphatase 41, Total Protein 6.3, Albumin 2.7 L, Globulin 3.6 H, Albumin/Globulin Ratio 0.8 L 12/21/24 05:40: POC Glucose 256 H 12/21/24 07:29: POC Glucose 199 H Temp Pulse Resp BP Pulse Ox O2 Del Method O2 Flow Rate 97.6 F 97 H 18 117/61 97 Nasal Cannula 2 12/19/24 08:00 12/19/24 08:00 12/19/24 08:00 12/19/24 08:00 12/19/24 08:00 12/19/24 08:00 12/19/24 08:00 Laboratory Results - last 24 hr 12/18/24 09:30: WBC 9.0, RBC 2.98 L, Hgb 8.7 L, Hct 30.4 L, MCV 102.0 H, MCH 29.2, MCHC 28.6 L, RDW 17.6 H, Plt Count 268, MPV 12.7 H, Neut % (Auto) 88.1 H, Lymph % (Auto) 3.0 L, [place] % (Auto) 6.7, Eos % (Auto) 1.0, Baso % (Auto) 0.4, Neut # (Auto) 7.9 H, Lymph # (Auto) 0.3 L, [place] # (Auto) 0.6, Eos # (Auto) 0.1, Baso # (Auto) 0.0, Sodium 140, Potassium 4.2, Chloride 104, Carbon Dioxide 28, Anion Gap 12.2, BUN 54 H, Creatinine 1.50 H, Estimated Creat Clear 54, Estimated GFR 46 L, Est GFR ( Amer) 56 L, Glucose 307 H, Calcium 8.7, Magnesium 2.0 D, Total Bilirubin 0.6, AST 49 D, ALT 28, Alkaline Phosphatase 61, Total Protein 6.8, Albumin 3.0 L, Globulin 3.8 H, Albumin/Globulin Ratio 0.8 L 12/18/24 11:05: POC Glucose 412 H* 12/18/24 16:56: POC Glucose 303 H* 12/18/24 20:06: POC Glucose 345 H* 12/19/24 05:59: POC Glucose 244 H 12/19/24 07:50: WBC 10.1, RBC 2.69 L, Hgb 8.0 L, Hct 27.4 L, MCV 101.9 H, MCH 29.7, MCHC 29.2 L, RDW 17.9 H, Plt Count 269, MPV 12.2 H, Neut % (Auto) 87.9 H, Lymph % (Auto) 3.5 L, [place] % (Auto) 6.5, Eos % (Auto) 0.9, Baso % (Auto) 0.2, Neut # (Auto) 8.9 H, Lymph # (Auto) 0.4 L, [place] # (Auto) 0.7, Eos # (Auto) 0.1, Baso # (Auto) 0.0, Sodium 144, Potassium 3.8, Chloride 105, Carbon Dioxide 34 H, Anion Gap 8.8, BUN 44 H, Creatinine 1.30 H, Estimated Creat Clear 64, Estimated GFR 54 L, Est GFR ( Amer) 66, Glucose 272 H, Calcium 8.8, Magnesium 2.0, Total Bilirubin 0.4, AST 53, ALT 35, Alkaline Phosphatase 57, Total Protein 6.5, Albumin 2.8 L, Globulin 3.7 H, Albumin/Globulin Ratio 0.8 L I & O for Labs for Last 24 Hours: Intake & Output 12/18/24 12/19/24 12/20/24 12/21/24 23:59 23:59 23:59 23:59 Intake Total 1974 1070 / 1070 403.584 / 2863.648 7620 / 1118 Output Total 701 / 1101 1550 / 1550 600 / 750 150 / 150 Balance 1274 / 874 -480 / -480 -196.416 / 771.584 968 / 968 Weight 190 lb 193 lb 191 lb 2.252 oz 192 lb 0.362 oz Intake & Output 12/16/24 12/17/24 12/18/24 12/19/24 23:59 23:59 23:59 23:59 Intake Total 1440.750 / 2715.031 9175 / 3222 1974 0 / 0 Output Total 1425 / 1425 1974 701 / 1101 750 / 750 Balance 15.750 / 15.750 947 / 1247 1274 / 874 -750 / -750 Weight 193 lb 12.581 oz 195 lb 190 lb 193 lb Microbiology Reports for the Last 24 Hours: Microbiology 12/15/24 14:10 Blood Blood Culture - Final NO GROWTH AFTER 5 DAYS 12/15/24 14:10 Blood Blood Culture - Final NO GROWTH AFTER 5 DAYS Microbiology 12/15/24 23:47 Sputum - Expectorated Sputum Gram Stain - Final 12/15/24 23:47 Sputum - Expectorated Sputum Sputum Culture - Final Enterobacter cloacae Constitutional: Present mild distress Head: Present normocephalic and atraumatic ENT: Present normal exam, normal oropharynx and mucous membranes moist Neck: Present normal inspection and full ROM Respiratory: Present respiratory distress, rhonchi, normal respiratory effort and able to speak in complete sentences; Absent wheezes, crackles or diminished air movement Cardiac: Present S1/S2, Tachycardia and radial pulses present GI: Present soft and distention; Absent tenderness or guarding Skin: Present intact; Absent cyanosis or jaundice Neuro: Absent alert, awake or oriented x 3 Extremities: Present normal inspection; Absent clubbing or cyanosis Psychiatric: Present normal affect and cooperative Assessment and Plan *Assessment and plan (1) Aspiration pneumonia: Status: Acute Qualifiers: Laterality: bilateral Category: Medical Code(s): J69.0 - Pneumonitis due to inhalation of food and vomit (2) Pleural effusion on right: Status: Acute Category: Medical Code(s): J90 - Pleural effusion, not elsewhere classified Plan Mr. Flores is a 74-year-old male with reported history of atrial fibrillation on anticoagulation, metastatic lung cancer status postresection, presented to the ER with worsening respiratory distress, being managed for A-fib RVR, heart failure exacerbation and community-acquired /aspiration pneumonia receiving Zosyn since admission on 12/15/2024, sputum cultures positive for Enterobacter, antibiotics weaned to ceftriaxone found to have new right pleural effusion and pulmonary was called for further evaluation and management. Greater than [id number] smoking history per last pulm note on 2009. Not using any oxygen at baseline. Using inhalers on as-needed basis at baseline. History of lung cancer status post resection around 2020. Prominent right lung infiltrates improving from admission and from x-ray on 12/02/2024 Patient chest x-ray is also concerning for right hilar fullness and paratracheal fullness. CT chest from 2021 showed large right loculated pleural effusion. Hemodynamically stable. Improving leukocytosis. T chest reviewed, predominant right lower lobe airspace disease. Minimal infiltrates also noted in the right middle lobe and left lingula very small loculated pleural effusion. Recommend radiology consult for possible IR guided pigtail catheter placement. CT abdomen also concerning for mass likely lesion at GE junction and adrenal nodule. Interval update: No acute respiratory vents overnight. Status post endoscopy large fungating obstructing mass in the distal esophagus, GI following. On examination drowsy status post procedure likely from anesthesia. Needing oxygen requirements. Will follow. Plan: Recommend radiology consult for possible IR pigtail catheter placement for the reported loculated effusion Continue antibiotics current antibiotic course for the noted Enterobacter pneumonia. Will determine the duration based on the possibility of chest tube placement for the concerning empyema DuoNebs 4 times daily as needed Aspiration precautions
[2024-12-21] MEDS: CEFTRIAXONE 1 GM 1 GM in 0.9 % SODIUM CHLORIDE 50 ML IV (10:12)
[2024-12-21] MEDS: SODIUM CHLORIDE 0.9% 10ML VIAL 10 ML IV (10:12)
[2024-12-21] MEDS: PANTOPRAZOLE 40MG VIAL 40 MG IV ×2 (10:12→21:03)
[2024-12-21] MEDS: TORSEMIDE 20MG TABLET 20 MG PO ×2 (10:12→16:08)
[2024-12-21] MEDS: ASPIRIN 81MG CHEWABLE TABLET 81 MG FEED TUBE (10:13)
[2024-12-21] MEDS: METOPROLOL TARTRATE 25MG TABLET 25 MG G-TUBE (10:13)
[2024-12-21] MEDS: AMIODARONE 200MG TABLET 400 MG NG-TUBE ×3 (10:13→21:03)
[2024-12-21] MEDS: METOCLOPRAMIDE 10MG TABLET 10 MG FEED TUBE ×2 (10:16→21:03)
[2024-12-21] MEDS: INSULIN GLARGINE 100 UNITS/ML 3ML FLEXPEN 15 UNIT SUBCUT (10:17)
[2024-12-21 12:35] LABS: POC Glucose,Bedside 192 (70-110)
--- NOTE | 2024-12-21 12:47 | EXP.CARD.PN ---
Subjective Subjective Date: 12/21/24 Time: 09:30 Principal diagnosis: asp pna, a-fib RVR Interval history: Pt HR down to 70s overnight and Cardizem IV was DC'd. He went down for EGD this morning to address large fungating esophagel mass but procedure was aborted due to hypoxia. Plan is to try again under general anesthesia this afternoon. Pt is still groggy from Propafol this morning but is arousable and denies CV questions or concerns. HR is 130s again. Exam Data for Last 24 hours Vital signs and Labs for Last 24 Hours: Temp Pulse Resp BP Pulse Ox O2 Del Method O2 Flow Rate 97.3 F L 70 22 108/51 L 95 Nasal Cannula 2 12/21/24 08:05 12/21/24 12:00 12/21/24 12:00 12/21/24 12:00 12/21/24 12:00 12/21/24 12:00 12/21/24 12:00 Laboratory Results - last 24 hr 12/20/24 16:24: POC Glucose 255 H 12/20/24 20:22: POC Glucose 190 H 12/21/24 05:13: WBC 11.8 H, RBC 2.62 L, Hgb 7.9 L, Hct 26.3 L, MCV 100.4 H, MCH 30.2, MCHC 30.0 L, RDW 19.9 H, Plt Count 247, MPV 12.5 H, Neut % (Auto) 87.8 H, Lymph % (Auto) 3.4 L, [place] % (Auto) 6.5, Eos % (Auto) 1.0, Baso % (Auto) 0.3, Neut # (Auto) 10.3 H, Lymph # (Auto) 0.4 L, [place] # (Auto) 0.8, Eos # (Auto) 0.1, Baso # (Auto) 0.0, Sodium 145, Potassium 4.2, Chloride 105, Carbon Dioxide 33 H, Anion Gap 11.2, BUN 54 H, Creatinine 1.40 H, Estimated Creat Clear 59, Estimated GFR 50 L, Est GFR ( Amer) 60, Glucose 227 H D, Calcium 8.9, Magnesium 2.1, Total Bilirubin 0.6, AST 59 D, ALT 33, Alkaline Phosphatase 41, Total Protein 6.3, Albumin 2.7 L, Globulin 3.6 H, Albumin/Globulin Ratio 0.8 L 12/21/24 05:40: POC Glucose 256 H 12/21/24 07:29: POC Glucose 199 H 12/21/24 12:16: POC Glucose 192 H I & O for Last 24 hours: Intake & Output 12/18/24 12/19/24 12/20/24 12/21/24 23:59 23:59 23:59 23:59 Intake Total 1974 / 1974 1070 / 1070 403.584 / 5034.017 1234 / 1168 Output Total 701 / 1101 1550 / 1550 600 / 750 350 / 350 Balance 1274 / 874 -480 / -480 -196.416 / 771.584 818 / 818 Weight 190 lb 193 lb 191 lb 2.252 oz 192 lb 0.362 oz Microbiology Reports for the Last 24 Hours: Microbiology 12/15/24 14:10 Blood Blood Culture - Final NO GROWTH AFTER 5 DAYS 12/15/24 14:10 Blood Blood Culture - Final NO GROWTH AFTER 5 DAYS Constitutional Constitutional: no acute distress and cooperative *Routine HEENT Exam Eye: Present PERRL *Routine Respiratory Exam Respiratory: Present CTA bilaterally; Absent accessory muscle use, wheezes or crackles *Routine Cardiovascular Exam Cardiovascular: Present tachycardia and irregularly irregular; Absent murmur, gallop or rubs *Routine Abdominal Exam Abdominal: Present soft; Absent tenderness Comments: g-tube in place *Routine Extremities Exam Extremities: Present pulses intact; Absent cyanosis or edema *Routine Skin Exam Skin: Present intact; Absent erythema or wounds *Routine Neurological Exam Neurological: Present alert and oriented X3 Comments: groggy post sedation Routine Psychiatric Exam Psychiatric: Present cooperative Progress Note: A&P Assessment and plan (1) Aspiration pneumonia: Status: Acute (2) Pleural effusion on right: Status: Acute (3) Atrial flutter with rapid ventricular response: Status: Acute (4) Esophageal adenocarcinoma: Status: Acute (5) Metastatic cancer: Status: Acute (6) Dysphagia: Status: Acute (7) Aspiration pneumonia: Status: Acute Assessment and Plan Assessment and Plan for All Diagnoses:: A-fib, RVR - known hx of A-fib, s/p successful DCCV 08/2024 - exacerbated in setting of Aspiration PNA, failed DCCV at [facility] - failing rate control here (limited by BP) - continue Metoprolol, DC Cardizem which has not seemed to help and add Amiodarone. He has normal LA size and is a good candidate for rhythm control given his multiple comorbidities and failure of rate control. Can consider DCCV again in 2 weeks after loading dose of Amio and recovery from PNA - Eliquis changed to Lovenox for now due to possible thoracentesis tomorrow. Hx of GI Bleed on Xarelto - ultimately as resp status improves this will help control his a-fib as well 12/20: Sustaining HR 130s. Add Cardizem drip. Continue Metoprolol at BP max tolerated dose. Continue Amiodarone load. 12/21: Was rate controlled with Cardizem drip overnight. Off this morning and now RVR again. ASked nurse to resume. He is not a candidate for DCCV - he would required DAVE due to inconsistent OAC lately and he would be very high risk for DAVE with large fungating esophageal mass and frequent aspirations. Furthermore, DCCV would increase indication for OAC and he currently has Hgb of 7 with hx of GI bleeding and hemoccult pending, not to mention the large esophageal mass which carries an extremely high risk of rupture and bleeding. Heart failure with preserved EF exacerbation - EF 40% 02/2024, repeat Echo here shows a normal LV systolic function with no significant valvular stenosis or regurg noted - Continue torsemide 20 mg p.o. twice daily for vol management. He has worsening effusion - thoracentesis pending. - consider SGLT-2 after acute illness resolves - no ARNI/MRA due to hypotension 12/20: Appears euvolemic. No change today. 12/21: No change Hx of nonobstructive CAD - negative trop, denies angina - continue aspirin, statin, bb Community-acquired pneumonia versus aspiration pneumonia Sepsis - Defer to primary service and pulmonology Hx of Lung Cancer and Esophageal cancer - s/p RML lobectomy - s/p G Tube placement for all food and meds - large fungating mass in esophagus *Hospitalist planning goals of care discussion with patient. He is asymptomatic with his A-fib and is on max available meds at this time.
[2024-12-21] MEDS: dilTIAZem HCL 100 MG in 0.9 % SODIUM CHLORIDE 100 ML 10 MG IV (14:10)
--- NOTE | 2024-12-21 15:06 | FL_ITS ---
FINAL REPORT CLINICAL HISTORY: STENT PLACEMENT IN ESPHAGUS 107.74 DAP 3.8 FLUORO TIME FINDINGS: FLUOROSCOPY LESS THAN 1 HOUR HISTORY: Fluoroscopy guidance. FINDINGS: Fluoroscopic guidance was provided for esophageal stent placement. Two spot films were obtained. A total of 3.8 minutes of fluoroscopy time were used. DAP: 107.74 mGy IMPRESSION: As above. Reviewed, Interpreted and Dictated by Allen Gee MD Transcribed by Maria Luisa Jacobs Authenticated and [facility]
--- NOTE | 2024-12-21 15:15 | EXP.ANES.I ---
[facility] Anesthesia Record Part I Anesthesia Record I Intake, IV Amount: 300 Hydration: Adequate Estimated blood loss (mL): 0 Urine output (mL): 0 Blood Products used (#): none Blood Pressure: 119/59 SaO2: 93 Pulse Rate: 127 Airway Patency: Patent Respiratory Rate: 24 Temperature: 98.8 F Patient is:: Drowsy, Nasal O2 and Stable Stable to PACU at:: 15:10
[2024-12-21 17:05] LABS: POC Glucose,Bedside 181 (70-110)
--- NOTE | 2024-12-21 19:32 | EXP.ACUTE.PN ---
Subjective *Date: 12/21/24 *Time: 23:31 Interval history: Patient still having intermittent coughing. N.p.o. since midnight. Going for EGD today. Afebrile. Stable on 2 nasal cannula oxygen. Intermittent tachycardia. Denies any chest pain or shortness of breath. Family at bedside on rounds this morning. Medical Exam Vital signs and Labs for Last 24 Hours: Vital Signs Temp Pulse Pulse Pulse Resp BP BP 12/21/24 18:43 12/21/24 18:35 136 H 18 107/46 L 12/21/24 18:05 132 H 22 91/49 L 12/21/24 18:01 91/37 L 12/21/24 18:01 125 H 22 12/21/24 18:00 124 H 26 H 12/21/24 17:35 100 H 21 97/51 L 12/21/24 17:32 97/51 L 12/21/24 17:05 117 H 20 97/58 L 12/21/24 17:00 12/21/24 16:35 87 18 114/42 L 12/21/24 16:20 89 20 96/64 L 12/21/24 16:05 128 H 29 H 98/60 L 12/21/24 16:00 128 H 29 H 95/40 L 12/21/24 16:00 110 H 12/21/24 16:00 100 H 12/21/24 15:50 132 H 31 H 112/62 12/21/24 15:40 131 H 20 116/49 L 12/21/24 15:30 131 H 19 102/46 L 12/21/24 15:20 130 H 17 106/40 L 12/21/24 15:16 98.8 F 127 H 24 119/59 L 12/21/24 15:10 98.8 F 127 H 14 117/53 L 12/21/24 14:00 113/44 L 12/21/24 14:00 106 H 22 12/21/24 13:30 105/51 L 12/21/24 13:30 131 H 18 12/21/24 13:00 133 H 22 116/64 12/21/24 13:00 116/64 12/21/24 13:00 12/21/24 12:00 70 22 108/51 L 12/21/24 12:00 70 22 12/21/24 12:00 87 01/22/25 10:00 132 H 27 H 125/60 12/21/24 09:00 12/21/24 08:40 122 H 28 H 117/65 12/21/24 08:30 130 H 30 H 123/65 12/21/24 08:20 120 H 28 H 122/50 L 12/21/24 08:10 107 H 30 H 119/56 L 12/21/24 08:05 97.3 F L 110 H 32 H 119/58 L 12/21/24 08:00 107 H 12/21/24 07:43 12/21/24 07:21 130 H 18 113/64 12/21/24 06:59 12/21/24 06:01 113/64 12/21/24 06:01 130 H 18 12/21/24 06:00 129 H 20 12/21/24 05:30 106/55 L 12/21/24 05:30 128 H 14 12/21/24 05:00 103/59 L 12/21/24 05:00 129 H 21 12/21/24 05:00 12/21/24 04:30 103/66 L 12/21/24 04:30 127 H 24 12/21/24 04:01 118 H 20 12/21/24 04:01 109/54 L 12/21/24 04:00 110 H 18 12/21/24 04:00 12/21/24 04:00 97.4 F L 95 H 18 109/54 L 12/21/24 03:42 46 L 17 12/21/24 03:42 102/50 L 12/21/24 03:30 27 H 12/21/24 03:05 109/71 L 12/21/24 03:05 125 H 20 12/21/24 03:00 128 H 18 12/21/24 03:00 12/21/24 02:30 117/55 L 12/21/24 02:30 127 H 17 113/64 12/21/24 02:00 119/60 12/21/24 02:00 17 12/21/24 01:30 123 H 24 12/21/24 01:30 124/68 12/21/24 01:11 129 H 22 12/21/24 01:11 115/54 L 12/21/24 01:09 20 12/21/24 00:30 101/43 L 12/21/24 00:30 120 H 17 119/60 12/21/24 00:03 107/57 L 12/21/24 00:03 127 H 25 H 12/21/24 00:00 27 H 12/21/24 00:00 127 H 12/20/24 23:30 118/65 12/20/24 23:30 85 22 12/20/24 23:01 108/44 L 12/20/24 23:01 77 22 12/20/24 23:00 83 20 12/20/24 23:00 12/20/24 22:31 85 20 12/20/24 22:31 99/53 L 12/20/24 22:30 71 21 12/20/24 22:23 105/38 L 12/20/24 22:23 123 H 25 H 105/57 L 12/20/24 22:01 74/45 L 12/20/24 22:01 20 12/20/24 22:00 22 12/20/24 21:48 108/45 L 12/20/24 21:48 57 L 22 12/20/24 21:33 15 12/20/24 21:33 99/39 L 12/20/24 21:31 63/44 L 12/20/24 21:31 21 12/20/24 21:30 21 12/20/24 21:00 100/69 L 12/20/24 21:00 95 H 18 12/20/24 21:00 12/20/24 20:33 112 H 17 12/20/24 20:33 106/38 L 12/20/24 20:30 117 H 22 12/20/24 20:01 97/45 L 12/20/24 20:01 129 H 12/20/24 20:00 128 H 12/20/24 20:00 97.7 F 102 H 17 102/53 L Pulse Ox O2 Del Method O2 Flow Rate 12/21/24 18:43 Nasal Cannula 4 12/21/24 18:35 92 L Nasal Cannula 4 12/21/24 18:05 96 Nasal Cannula 4 12/21/24 18:01 12/21/24 18:01 96 12/21/24 18:00 94 L 12/21/24 17:35 94 L Nasal Cannula 4 12/21/24 17:32 12/21/24 17:05 95 Nasal Cannula 4 12/21/24 17:00 Nasal Cannula 4 12/21/24 16:35 96 Nasal Cannula 4 12/21/24 16:20 94 L Nasal Cannula 2 12/21/24 16:05 91 L Nasal Cannula 2 12/21/24 16:00 91 L 12/21/24 16:00 12/21/24 16:00 96 Nasal Cannula 2 12/21/24 15:50 91 L Nasal Cannula 4 12/21/24 15:40 93 L Nasal Cannula 4 12/21/24 15:30 92 L Nasal Cannula 4 12/21/24 15:20 92 L Nasal Cannula 4 12/21/24 15:16 12/21/24 15:10 92 L Nasal Cannula 4 12/21/24 14:00 12/21/24 14:00 96 12/21/24 13:30 12/21/24 13:30 96 12/21/24 13:00 95 Nasal Cannula 4 12/21/24 13:00 12/21/24 13:00 Nasal Cannula 4 12/21/24 12:00 95 Nasal Cannula 2 12/21/24 12:00 95 12/21/24 12:00 12/21/24 10:00 97 Nasal Cannula 4 12/21/24 09:00 Nasal Cannula 4 12/21/24 08:40 94 L Simple Mask 2 12/21/24 08:30 91 L Simple Mask 6 12/21/24 08:20 90 L Nasal Cannula 6 12/21/24 08:10 93 L Nasal Cannula 6 12/21/24 08:05 100 Simple Mask 15 12/21/24 08:00 99 Nasal Cannula 4 12/21/24 07:43 Nasal Cannula 6 12/21/24 07:21 95 Room Air 12/21/24 06:59 Nasal Cannula 2 12/21/24 06:01 12/21/24 06:01 95 12/21/24 06:00 96 12/21/24 05:30 12/21/24 05:30 98 12/21/24 05:00 12/21/24 05:00 99 12/21/24 05:00 Nasal Cannula 2 12/21/24 04:30 12/21/24 04:30 96 12/21/24 04:01 100 12/21/24 04:01 12/21/24 04:00 94 L 12/21/24 04:00 Nasal Cannula 2 12/21/24 04:00 98 Nasal Cannula 2 12/21/24 03:42 94 L 12/21/24 03:42 12/21/24 03:30 12/21/24 03:05 12/21/24 03:05 91 L 12/21/24 03:00 94 L 12/21/24 03:00 Nasal Cannula 2 12/21/24 02:30 12/21/24 02:30 95 Nasal Cannula 2 12/21/24 02:00 12/21/24 02:00 12/21/24 01:30 100 12/21/24 01:30 12/21/24 01:11 100 12/21/24 01:11 12/21/24 01:09 12/21/24 00:30 12/21/24 00:30 90 L Nasal Cannula 2 12/21/24 00:03 12/21/24 00:03 94 L 12/21/24 00:00 12/21/24 00:00 12/20/24 23:30 12/20/24 23:30 89 L 12/20/24 23:01 12/20/24 23:01 93 L 12/20/24 23:00 90 L 12/20/24 23:00 Room Air 12/20/24 22:31 93 L 12/20/24 22:31 12/20/24 22:30 94 L 12/20/24 22:23 12/20/24 22:23 91 L 12/20/24 22:01 12/20/24 22:01 12/20/24 22:00 12/20/24 21:48 12/20/24 21:48 95 12/20/24 21:33 12/20/24 21:33 12/20/24 21:31 12/20/24 21:31 12/20/24 21:30 12/20/24 21:00 12/20/24 21:00 94 L 12/20/24 21:00 Room Air 12/20/24 20:33 93 L 12/20/24 20:33 12/20/24 20:30 96 12/20/24 20:01 12/20/24 20:01 95 12/20/24 20:00 95 12/20/24 20:00 94 L Room Air Intake and Output 12/21/24 12/21/24 12/21/24 07:59 15:59 23:59 Intake Total 1118 / 1468 350 / 1468 Output Total 150 / 1000 400 / 1000 450 / 1000 Balance 968 / 468 -50 / 468 -450 / 468 Intake: Intake, Tube Feeding Amount 718 / 718 Intake, Tube Irrigant Amount 400 / 400 Intake, Total IV Amount 350 / 350 Ceftriaxone 1 gm 1 gm In 0.9 % 50 / 50 Sodium Chloride 50 ml @ 100 mls /hr IV Q24H [facility] Rx#:[id number] Output: Output, Urine Amount 150 / 1000 400 / 1000 450 / 1000 Other: Number of Bowel Movements 1 Weight 87.1 kg Patient Weight 12/21/24 23:59 Weight 87.1 kg Laboratory Results - last 24 hr 12/20/24 20:22: POC Glucose 190 H 12/21/24 05:13: WBC 11.8 H, RBC 2.62 L, Hgb 7.9 L, Hct 26.3 L, MCV 100.4 H, MCH 30.2, MCHC 30.0 L, RDW 19.9 H, Plt Count 247, MPV 12.5 H, Neut % (Auto) 87.8 H, Lymph % (Auto) 3.4 L, [place] % (Auto) 6.5, Eos % (Auto) 1.0, Baso % (Auto) 0.3, Neut # (Auto) 10.3 H, Lymph # (Auto) 0.4 L, [place] # (Auto) 0.8, Eos # (Auto) 0.1, Baso # (Auto) 0.0, Sodium 145, Potassium 4.2, Chloride 105, Carbon Dioxide 33 H, Anion Gap 11.2, BUN 54 H, Creatinine 1.40 H, Estimated Creat Clear 59, Estimated GFR 50 L, Est GFR ( Amer) 60, Glucose 227 H D, Calcium 8.9, Magnesium 2.1, Total Bilirubin 0.6, AST 59 D, ALT 33, Alkaline Phosphatase 41, Total Protein 6.3, Albumin 2.7 L, Globulin 3.6 H, Albumin/Globulin Ratio 0.8 L 12/21/24 05:40: POC Glucose 256 H 12/21/24 07:29: POC Glucose 199 H 12/21/24 12:16: POC Glucose 192 H 12/21/24 16:58: POC Glucose 181 H I & O for Labs for Last 24 Hours: Intake & Output 12/18/24 12/19/24 12/20/24 12/21/24 23:59 23:59 23:59 23:59 Intake Total 1974 1070 / 1070 403.584 / 8985.658 8449 / 1468 Output Total 701 / 1101 1550 / 1550 600 / 750 1000 / 1000 Balance 1274 / 874 -480 / -480 -196.416 / 771.584 468 / 468 Weight 86.183 kg 87.543 kg 86.7 kg 87.1 kg Constitutional: Present no acute distress, average body habitus, chronically ill appearing and cooperative Head: Present atraumatic and normocephalic Respiratory: Present crackles (Bases posterior lung barrientos bilaterally) and normal respiratory effort; Absent rhonchi or wheezes Cardiac: Present Tachycardia Comment:: Irregularly irregular GI: Present soft and normal bowel sounds; Absent distention or tenderness Comments:: G-tube in place. Well-healed midline scar Extremities: Present normal inspection and full ROM Skin: Present intact; Absent erythema Neuro: Present Grossly Intact, alert, awake, oriented x 3 and moves all extremities Assessment and Plan *Assessment and plan (1) Atrial fibrillation and flutter: Status: Acute Category: Medical Code(s): I48.91 - Unspecified atrial fibrillation; I48.92 - Unspecified atrial flutter (2) Aspiration pneumonia: Status: Acute Category: Medical Code(s): J69.0 - Pneumonitis due to inhalation of food and vomit (3) Esophageal adenocarcinoma: Status: Acute Category: Medical Code(s): C15.9 - Malignant neoplasm of esophagus, unspecified (4) Metastatic cancer: Status: Acute Category: Medical Code(s): C79.9 - Secondary malignant neoplasm of unspecified site (5) Dysphagia: Status: Acute Category: Medical Code(s): R13.10 - Dysphagia, unspecified (6) Diabetes mellitus: Status: Acute Qualifiers: Diabetes mellitus complication status: with other specified complication Diabetes mellitus senior living insulin use: with senior living use Diabetes mellitus type: type 2 Qualified Code(s): E11.69 - Type 2 diabetes mellitus with other specified complication; Z79.4 - middle or intermediate school principal (current) use of insulin Category: Medical Code(s): E11.9 - Type 2 diabetes mellitus without complications (7) CAD (coronary artery disease): Status: Acute Qualifiers: Associated angina: without angina Coronary Disease-Associated Artery/Lesion type: nikolai artery [place] vs. transplanted heart: nikolai heart Qualified Code(s): I25.10 - Atherosclerotic heart disease of nikolai coronary artery without angina pectoris Category: Medical Code(s): I25.10 - Atherosclerotic heart disease of nikolai coronary artery without angina pectoris Plan Federico Flores is a 74-year-old male with a medical history significant for A-fib on Eliquis, esophageal cancer s/p G-tube placement, metastatic lung cancer in remission (right partial lobectomy), G-tube dependent for feeds, insulin-dependent diabetes, HFpEF, CAD who presents with worsening shortness of breath and fatigue over the past few days. He was recently discharged from [place] for a similar presentation of A-fib RVR where he apparently was cardioverted. It is unclear if it was successful, will obtain outside records. Patient states he has not been taking all his medications recently has he has been getting his feet underneath him after being discharged back home. Working the ED significant for A-fib with heart rate in the 140s, WBC 14.6, sodium 149, BNP 2210. ED contacted Dr. Walter who recommended IV diltiazem drip and plan for cardioversion in the morning. Case discussed with ED provider and decision was made to admit patient for A-fib RVR and HFpEF exacerbation. Heart rate still uncontrolled. Adding additional rate controlling regimen today. Cardiology, GI, pulmonology assisting with care. Continues to require inpatient management in the ICU pending improvement in tolerance of p.o. intake given risk for decompensation. Problems addressed as follows: #A-fib RVR ? History of both successful and unsuccessful DCCVs, most recent one at [facility] which was unsuccessful about 2 weeks ago ? Initially presented with heart rate in the 140s, started on diltiazem drip but weaned off. Did not achieve adequate rate control with metoprolol tartrate, diltiazem. ? Discussed case with cardiology, recommend continuing amiodarone 400 mg 3 times a day oral. cntinue metoprolol tartrate 25 mg twice daily. ? ECHO September 2024 revealed normal biventricular function. Pending. - Holding anticoagulation due to drop in labs. #Aspiration pneumonia #Sepsis #Right-sided loculated pleural effusion ? Presented about 2 weeks ago with diffuse opacities in right lung, patient is G-tube dependent due to esophageal cancer and likely aspirating. ? Initial white count elevated at 14.6, improved to 11.6 today. Repeat CBC, CMP, magnesium ordered for the morning. -Discussed case with pulmonology, Continue 7 days of antibiotics total, may expand to 14 given concern for loculated effusion - cont duoNebs 4 times daily as needed - Aspiration precautions ? Sputum cultures revealed Enterobacter clocae, sensitive to ceftriaxone, continuing IV daily. ? CT chest 12/19/2024 revealed loculated pleural effusion at right lung base. Discussed case with radiology, not amenable to thoracentesis. #Acute on chronic anemia #History of GI bleed on Xarelto ? Initial hemoglobin 10.4, 7.9 today. Does not appear to have significant blood loss or drop in hemoglobin. Remained stable. Platelets 247. Repeat CBC, CMP, magnesium ordered for the morning. Holding Lovenox ? GI consulted, pending further recommendations. ? IV Protonix 40 mg twice daily. ? Follow-up FOBT, iron studies. ? N.p.o. at midnight #Esophageal carcinoma with obstruction #G-tube dependent #History of metastatic lung cancer apparently in remission ? Follows with [facility] oncology. Patient does not seem to have a good idea of what the treatment plan will be. ? CT abdomen/pelvis shows markedly distended fluid-filled esophagus. - Discussed case with Dr. Rush today, patient was taken for EGD. First attempt with hypoxia was aborted shortly after esophagus was visualized showing fungating mass. Repeat episode performed under general anesthesia. Successful stenting of distal esophagus. Biopsies taken. Gross appearance of mass looks to be cancer. -Has malignant distal esophageal stricture 3-1/2 to 4 cm in length. Esophageal stent placed for palliation. Okay to begin ice chips today. -Repeat chest x-ray in the morning to confirm placement. #HFpEF exacerbation, resolved ? Initial BNP 2210, diffuse crackles in the lungs with edema on CXR, 2+ lower extremity pitting edema. ? continue toresemide 20mg BID, home med. Euvolemic today. ? Pending further cardiology recommendations. May benefit from MRA, SGLT2i. -BUN 54, creatinine 1.4. #Insulin-dependent diabetes ? LDSSI, ACHS glucose checks. Will glucose improving at 227. ? A1c 7.1%. - BG > 400, increaesd nighly Lantus. ? continue Lantus to 40 units nightly. Adjust based on SSI needs #CAD: Continue home aspirin, statin. Full code DVT prophylaxis: Jerome
[2024-12-21] MEDS: TRAZODONE 50MG TABLET 50 MG PO (21:03)
[2024-12-21] MEDS: ATORVASTATIN 40MG TABLET 40 MG NG-TUBE (21:03)
[2024-12-21] MEDS: TAMSULOSIN 0.4MG CAPSULE 0.4 MG PO (21:04)
[2024-12-21] MEDS: INSULIN GLARGINE 100 UNITS/ML 3ML FLEXPEN 40 UNIT SUBCUT (21:06)
[2024-12-22] VITALS (35 sets, daily range): BP systolic 84–116; BP diastolic 34–75; PULSE 67–138; RESP 13–23; TEMP 36.3–37.1; O2SAT 92–100; BMI 25.3
[2024-12-22] MEDS: METOPROLOL TARTRATE 5MG/5ML VIAL 5 MG IV (00:37)
[2024-12-22] MEDS: 0.9 % SODIUM CHLORIDE 250 ML IV (03:55)
[2024-12-22] MEDS: 0.9 % SODIUM CHLORIDE 250 ML 125 ML IV (04:45)
[2024-12-22] MEDS: dilTIAZem HCL 100 MG in 0.9 % SODIUM CHLORIDE 100 ML IV (05:54)
[2024-12-22] MEDS: humaLOG 100 UNITS/ML 10ML VIAL (SSI) SUBCUT ×4 (06:04→21:29)
[2024-12-22 06:36] LABS: POC Glucose,Bedside 211 (70-110)
[2024-12-22 06:36] LABS: POC Glucose,Bedside 174 (70-110)
[2024-12-22 08:15] LABS: Basophils % 0.1 % (0.1-2.0); Eosinophils # 0.1 K/mm3 (0.0-0.4); Eosinophils % 0.8 % (0.1-12.0); Hematocrit 23.8 % (42.0-52.0); Lymphocytes # 0.5 K/mm3 (0.7-4.5); Lymphocytes % 3.1 % (10-50); Mean Corpuscular Hemoglobin 29.9 pg (27.0-31.2); Mean Platelet Volume 12.3 fl (7.4-10.4); Monocytes # 0.7 K/mm3 (0.1-1.0); Monocytes % 4.5 % (1.7-9.3); Neutrophils # 14.6 K/mm3 (1.8-7.8); Neutrophils % 90.8 % (37.0-80.0); Platelet Count 250 K/mm3 (142-424); Red Blood Count 2.31 M/mm3 (4.60-6.20); White Blood Count 16.1 K/mm3 (4.8-10.8)
[2024-12-22 08:27] LABS: Alanine Aminotransferase 29 U/L (12-78); Albumin Level 2.7 g/dl (3.5-5.0); Albumin/Globulin Ratio 0.8 (1.1-1.8); Alkaline Phosphatase 47 U/L (38-126); Anion Gap 10.5 mEq/L (5-15); Aspartate Amino Transferase 41 U/L (17-59); Bilirubin,Total 0.4 mg/dl (0.2-1.3); Blood Urea Nitrogen 53 mg/dl (9-20); Calcium 8.7 mg/dl (8.4-10.2); Carbon Dioxide 35 mmol/L (22.0-30.0); Chloride 107 mmol/L (98-107); Creatinine Clearance Estimated 48 mL/min (50-200); Estimated Glomerular Filt Rate 40 ml/min (>60); GFR (African American) 48 ML/MIN (>60); Globulin 3.3 g/dL (1.3-3.2); Glucose 230 mg/dl (74-100); Magnesium 2.2 mg/dl (1.6-2.3); Potassium 3.5 mmoL/L (3.5-5.1); Sodium 149 mmol/L (136-145)
--- NOTE | 2024-12-22 08:52 | XR_ITS ---
FINAL REPORT CLINICAL HISTORY: post esophageal stent placement COMPARISON: 12/18/2024 FINDINGS: SINGLE VIEW CHEST There is mild cardiomegaly. The mediastinum is unremarkable. There is patchy airspace opacity at the bases. Small right effusion has decreased in size. There is no pneumothorax. IMPRESSION: Airspace opacity at the bases with decreased small right effusion consistent with resolving pneumonia or edema. Reviewed, Interpreted and Dictated by Allen Gee MD Transcribed by Brittney Dave Authenticated and [facility]
[2024-12-22 09:16] LABS: Hemoglobin 6.9 g/dL (14.1-18.0)
[2024-12-22 09:18] LABS: MANUAL DIFFERENTIAL MANUAL DIFFERENTIAL (MANUAL DIFF)
--- NOTE | 2024-12-22 09:26 | EXP.PN ---
Subjective *Date: 12/22/24 *Time: 09:26 Interval history: Patient doing well and in armchair. The patient has not yet began ice chips or sips. Nurse notably states that he did not have any regurgitation and difficulty with his own secretions last evening. He reports no chest pain, heartburn or reflux. Exam Data for Last 24 hours Vital signs and Labs for Last 24 Hours: Temp Pulse Resp BP Pulse Ox O2 Del Method O2 Flow Rate 98.6 F 127 H 14 104/50 L 99 Nasal Cannula 2 12/22/24 00:00 12/22/24 06:00 12/22/24 06:00 12/22/24 06:00 12/22/24 06:00 12/22/24 07:00 12/22/24 07:00 Laboratory Results - last 24 hr 12/21/24 12:16: POC Glucose 192 H 12/21/24 16:58: POC Glucose 181 H 12/21/24 21:09: POC Glucose 174 H 12/22/24 06:02: POC Glucose 211 H 12/22/24 07:58: WBC 16.1 H D, RBC 2.31 L, Hgb 6.9 L, Hct 23.8 L, MCV 103.0 H, MCH 29.9, MCHC 29.0 L, RDW 20.0 H, Plt Count 250, MPV 12.3 H, Neut % (Auto) 90.8 H, Lymph % (Auto) 3.1 L, [place] % (Auto) 4.5, Eos % (Auto) 0.8, Baso % (Auto) 0.1, Neut # (Auto) 14.6 H, Lymph # (Auto) 0.5 L, [place] # (Auto) 0.7, Eos # (Auto) 0.1, Baso # (Auto) 0.0, Sodium 149 H, Potassium 3.5, Chloride 107, Carbon Dioxide 35 H, Anion Gap 10.5, BUN 53 H, Creatinine 1.70 H D, Estimated Creat Clear 48, Estimated GFR 40 L, Est GFR ( Amer) 48 L, Glucose 230 H, Calcium 8.7, Magnesium 2.2, Total Bilirubin 0.4, AST 41 D, ALT 29, Alkaline Phosphatase 47, Total Protein 6.0 L, Albumin 2.7 L, Globulin 3.3 H, Albumin/Globulin Ratio 0.8 L I & O for Last 24 hours: Intake & Output 12/19/24 12/20/24 12/21/24 12/22/24 23:59 23:59 23:59 23:59 Intake Total 1070 / 1070 403.584 / 4955.972 0611.333 / 1874.333 728.917 / 728.917 Output Total 1550 / 1550 600 / 750 1250 / 1250 Balance -480 / -480 -196.416 / 771.584 384.333 / 624.333 728.917 / 728.917 Weight 193 lb 191 lb 2.252 oz 192 lb 0.362 oz Assessment and Plan *Assessment and plan (1) Esophageal adenocarcinoma: Status: Acute Category: Medical Code(s): C15.9 - Malignant neoplasm of esophagus, unspecified (2) Stricture and stenosis of esophagus: Status: Acute Category: Medical Code(s): K22.2 - Esophageal obstruction Plan 1. Malignant esophageal stricture secondary to distal esophageal adenocarcinoma. Palliative esophageal stent placed yesterday. Notably, the patient is able to tolerate his own secretions. We will advance to small sips and chips and see how he does today. I will check chest x-ray to ensure that the stent is in place without migration. Clinically doing well with no complaints.
--- NOTE | 2024-12-22 09:36 | P.PN_ITS ---
Subjective *Date: 12/22/24 *Time: 10:37 Pulmonology Exam Inpatient Vital signs and Labs for Last 24 Hours: Temp Pulse Resp BP Pulse Ox O2 Del Method O2 Flow Rate 98.6 F 127 H 14 104/50 L 99 Nasal Cannula 2 12/22/24 00:00 12/22/24 06:00 12/22/24 06:00 12/22/24 06:00 12/22/24 06:00 12/22/24 07:00 12/22/24 07:00 Laboratory Results - last 24 hr 12/21/24 12:16: POC Glucose 192 H 12/21/24 16:58: POC Glucose 181 H 12/21/24 21:09: POC Glucose 174 H 12/22/24 06:02: POC Glucose 211 H 12/22/24 07:58: WBC 16.1 H D, RBC 2.31 L, Hgb 6.9 L, Hct 23.8 L, MCV 103.0 H, MCH 29.9, MCHC 29.0 L, RDW 20.0 H, Plt Count 250, MPV 12.3 H, Neut % (Auto) 90.8 H, Lymph % (Auto) 3.1 L, [place] % (Auto) 4.5, Eos % (Auto) 0.8, Baso % (Auto) 0.1, Neut # (Auto) 14.6 H, Lymph # (Auto) 0.5 L, [place] # (Auto) 0.7, Eos # (Auto) 0.1, Baso # (Auto) 0.0, Sodium 149 H, Potassium 3.5, Chloride 107, Carbon Dioxide 35 H, Anion Gap 10.5, BUN 53 H, Creatinine 1.70 H D, Estimated Creat Clear 48, Estimated GFR 40 L, Est GFR ( Amer) 48 L, Glucose 230 H, Calcium 8.7, Magnesium 2.2, Total Bilirubin 0.4, AST 41 D, ALT 29, Alkaline Phosphatase 47, Total Protein 6.0 L, Albumin 2.7 L, Globulin 3.3 H, Albumin/Globulin Ratio 0.8 L I & O for Labs for Last 24 Hours: Intake & Output 12/19/24 12/20/24 12/21/24 12/22/24 23:59 23:59 23:59 23:59 Intake Total 1070 / 1070 403.584 / 2635.316 5708.333 / 1874.333 728.917 / 728.917 Output Total 1550 / 1550 600 / 750 1250 / 1250 Balance -480 / -480 -196.416 / 771.584 384.333 / 624.333 728.917 / 728.917 Weight 193 lb 191 lb 2.252 oz 192 lb 0.362 oz Assessment and Plan *Assessment and plan (1) Aspiration pneumonia: Status: Acute Qualifiers: Laterality: bilateral Category: Medical Code(s): J69.0 - Pneumonitis due to inhalation of food and vomit (2) Pleural effusion on right: Status: Acute Category: Medical Code(s): J90 - Pleural effusion, not elsewhere classified Plan Mr. Flores is a 74-year-old male with reported history of atrial fibrillation on anticoagulation, metastatic lung cancer status postresection, presented to the ER with worsening respiratory distress, being managed for A-fib RVR, heart failure exacerbation and community-acquired /aspiration pneumonia receiving Zosyn since admission on 12/15/2024, sputum cultures positive for Enterobacter, antibiotics weaned to ceftriaxone found to have new right pleural effusion and pulmonary was called for further evaluation and management. Greater than [id number] smoking history per last pulm note on 2009. Not using any oxygen at baseline. Using inhalers on as-needed basis at baseline. History of lung cancer status post resection around 2020. Prominent right lung infiltrates improving from admission and from x-ray on 12/02/2024 Patient chest x-ray is also concerning for right hilar fullness and paratracheal fullness. CT chest from 2021 showed large right loculated pleural effusion. Hemodynamically stable. Improving leukocytosis. T chest reviewed, predominant right lower lobe airspace disease. Minimal infiltrates also noted in the right middle lobe and left lingula very small loculated pleural effusion. Recommend radiology consult for possible IR guided pigtail catheter placement. CT abdomen also concerning for mass likely lesion at GE junction and adrenal nodule. Interval update: Chest x-ray from this morning stable with no acute changes from prior. Worsening leukocytosis. Plan: Wean oxygen as tolerated to room air Recommend radiology consult for possible IR pigtail catheter placement for the reported loculated effusion Continue antibiotics current antibiotic course for the noted Enterobacter pneumonia. Will determine the duration based on the possibility of chest tube placement for the concerning empyema DuoNebs 4 times daily as needed Aspiration precautions
[2024-12-22] MEDS: AMIODARONE 200MG TABLET 400 MG NG-TUBE ×3 (09:40→21:29)
[2024-12-22] MEDS: ASPIRIN 81MG CHEWABLE TABLET 81 MG FEED TUBE (09:40)
[2024-12-22] MEDS: CEFTRIAXONE 1 GM 1 GM in 0.9 % SODIUM CHLORIDE 50 ML IV (09:40)
[2024-12-22] MEDS: METOCLOPRAMIDE 10MG TABLET 10 MG FEED TUBE ×2 (09:41→21:30)
[2024-12-22] MEDS: SODIUM CHLORIDE 0.9% 10ML VIAL 10 ML IV (09:41)
[2024-12-22] MEDS: PANTOPRAZOLE 40MG VIAL 40 MG IV ×2 (09:42→21:31)
[2024-12-22] MEDS: TORSEMIDE 20MG TABLET 20 MG PO ×2 (09:42→16:59)
[2024-12-22] MEDS: METOPROLOL TARTRATE 50MG TABLET 50 MG G-TUBE ×2 (09:43→21:32)
[2024-12-22] MEDS: INSULIN GLARGINE 100 UNITS/ML 3ML FLEXPEN 15 UNIT SUBCUT (09:45)
--- NOTE | 2024-12-22 09:59 | P.PN_ITS ---
Subjective Subjective Date: 12/22/24 Time: 09:00 Principal diagnosis: asp pna, a-fib RVR Interval history: Successful esophageal dilation and stent yesterday. Patient remains in A-fib RVR with rates 130s on max Cardizem IV. Patient denies any symptoms this morning. Goals of care discussion with hospitalist-will go to rehab and consider hospice placement after that, depending on results. Exam Data for Last 24 hours Vital signs and Labs for Last 24 Hours: Temp Pulse Resp BP Pulse Ox O2 Del Method O2 Flow Rate 98.6 F 127 H 14 104/50 L 99 Nasal Cannula 2 12/22/24 00:00 12/22/24 06:00 12/22/24 06:00 12/22/24 06:00 12/22/24 06:00 12/22/24 07:00 12/22/24 07:00 Laboratory Results - last 24 hr 12/19/24 15:04: Blood Type A Positive, Antibody Screen Negative, Crossmatch (AHG) See Detail 12/21/24 12:16: POC Glucose 192 H 12/21/24 16:58: POC Glucose 181 H 12/21/24 21:09: POC Glucose 174 H 12/22/24 06:02: POC Glucose 211 H 12/22/24 07:58: WBC 16.1 H D, RBC 2.31 L, Hgb 6.9 L, Hct 23.8 L, MCV 103.0 H, MCH 29.9, MCHC 29.0 L, RDW 20.0 H, Plt Count 250, MPV 12.3 H, Neut % (Auto) 90.8 H, Lymph % (Auto) 3.1 L, [place] % (Auto) 4.5, Eos % (Auto) 0.8, Baso % (Auto) 0.1, Neut # (Auto) 14.6 H, Lymph # (Auto) 0.5 L, [place] # (Auto) 0.7, Eos # (Auto) 0.1, Baso # (Auto) 0.0, Sodium 149 H, Potassium 3.5, Chloride 107, Carbon Dioxide 35 H, Anion Gap 10.5, BUN 53 H, Creatinine 1.70 H D, Estimated Creat Clear 48, Estimated GFR 40 L, Est GFR ( Amer) 48 L, Glucose 230 H, Calcium 8.7, Magnesium 2.2, Total Bilirubin 0.4, AST 41 D, ALT 29, Alkaline Phosphatase 47, Total Protein 6.0 L, Albumin 2.7 L, Globulin 3.3 H, Albumin/Globulin Ratio 0.8 L I & O for Last 24 hours: Intake & Output 12/19/24 12/20/24 12/21/24 12/22/24 23:59 23:59 23:59 23:59 Intake Total 1070 / 1070 403.584 / 7093.165 1125.333 / 1874.333 728.917 / 728.917 Output Total 1550 / 1550 600 / 750 1250 / 1250 Balance -480 / -480 -196.416 / 771.584 384.333 / 624.333 728.917 / 728.917 Weight 193 lb 191 lb 2.252 oz 192 lb 0.362 oz Constitutional Constitutional: no acute distress and cooperative *Routine HEENT Exam Eye: Present PERRL *Routine Respiratory Exam Respiratory: Present CTA bilaterally; Absent accessory muscle use, wheezes or crackles *Routine Cardiovascular Exam Cardiovascular: Present tachycardia and irregularly irregular; Absent murmur, gallop or rubs *Routine Abdominal Exam Abdominal: Present soft; Absent tenderness Comments: g-tube in place *Routine Extremities Exam Extremities: Present pulses intact; Absent cyanosis or edema *Routine Skin Exam Skin: Present intact; Absent erythema or wounds *Routine Neurological Exam Neurological: Present alert and oriented X3 Routine Psychiatric Exam Psychiatric: Present cooperative Progress Note: A&P Assessment and plan (1) Aspiration pneumonia: Status: Acute (2) Pleural effusion on right: Status: Acute (3) Atrial flutter with rapid ventricular response: Status: Acute (4) Esophageal adenocarcinoma: Status: Acute (5) Metastatic cancer: Status: Acute (6) Dysphagia: Status: Acute (7) Aspiration pneumonia: Status: Acute Assessment and Plan Assessment and Plan for All Diagnoses:: A-fib, RVR - known hx of A-fib, s/p successful DCCV 08/2024 - exacerbated in setting of Aspiration PNA, failed DCCV at [facility] - failing rate control here (limited by BP) - continue Metoprolol, DC Cardizem which has not seemed to help and add Amiodarone. He has normal LA size and is a good candidate for rhythm control given his multiple comorbidities and failure of rate control. Can consider DCCV again in 2 weeks after loading dose of Amio and recovery from PNA - Eliqustella changed to Lovenox for now due to possible thoracentesis tomorrow. Hx of GI Bleed on Xarelto - ultimately as resp status improves this will help control his a-fib as well 12/20: Sustaining HR 130s. Add Cardizem drip. Continue Metoprolol at BP max tolerated dose. Continue Amiodarone load. 12/21: Was rate controlled with Cardizem drip overnight. Off this morning and now RVR again. ASked nurse to resume. He is not a candidate for DCCV - he would required DAVE due to inconsistent OAC lately and he would be very high risk for DAVE with large fungating esophageal mass and frequent aspirations. Furthermore, DCCV would increase indication for OAC and he currently has Hgb of 7 with hx of GI bleeding and hemoccult pending, not to mention the large esophageal mass which carries an extremely high risk of rupture and bleeding. 12/22: HR remains 130s on max cardizem IV. Oral Metoprolol increased to this morning although he has not had first dose yet. Will see how he responds to this. Cardizem seems to make no difference. May consider digoxin but in addition to amiodarone and metoprolol would place him at increased risk for arrhythmia and dangerous sinus pause. Heart failure with preserved EF exacerbation - EF 40% 02/2024, repeat Echo here shows a normal LV systolic function with no significant valvular stenosis or regurg noted - Continue torsemide 20 mg p.o. twice daily for vol management. He has worsening effusion - thoracentesis pending. - consider SGLT-2 after acute illness resolves - no ARNI/MRA due to hypotension 12/20: Appears euvolemic. No change today. 12/21: No change/resolved Hx of nonobstructive CAD - negative trop, denies angina - continue aspirin, statin, bb Community-acquired pneumonia versus aspiration pneumonia Sepsis - Defer to primary service and pulmonology Hx of Lung Cancer and Esophageal cancer - s/p RML lobectomy - s/p G Tube placement for all food and meds - large fungating mass in esophagus - s/p esophageal dilation/stent this admission *Will see how patient responds to increased oral metoprolol. As discussed above, his medication options are limited and he is not a candidate for cardioversion.
--- NOTE | 2024-12-22 10:30 | PC.NURSE ---
1015 Farhana Sultana Rn entered pt room to admin meds and obtain blood consent. while checking iv's for preparation of blood admin, it was noted that pt had dislodged his iv in his l ac. attempted to start new iv. 22 r wrist obtained, us trained rn to attempt to start line for blood transfusion. called and notified [facility] worker at 1030 that blood would not be able to be admin within 30 mins of being ready r/t lack of durable line for blood admin.
[2024-12-22 10:49] LABS: Lymphocytes % 4 % (10-50); Monocytes % 3 % (2-9); Neutrophils % 93 % (42-76); Total Cells Counted 100
[2024-12-22] MEDS: SODIUM CHLORIDE 0.9% 250ML BAG 250 ML IV (10:49)
[2024-12-22 10:50] LABS: Macrocytosis 1+; Platelet Estimate Normal
[2024-12-22 13:38] LABS: POC Glucose,Bedside 268 (70-110)
--- NOTE | 2024-12-22 15:12 | EXP.ANES.II ---
[facility] Anesthesia Record Part II Anesthesia Record Part II Discharge Time: 15:40 Destination: [facility] (OP Surgery) PACU nurse assessment reviewed?: Yes Patient Condition:: Good Anesthesia Complications:: None Swallowing reflex intact?: Yes Airway Patency: Patent Cyanosis?: No Blood Pressure: 116/49 SaO2: 93 Respiratory Rate: 20 Pulse Rate: 131 Temperature: 98.8 F Mental Status: Alert & Oriented Pain level:: 0 Nausea and/or vomitting:: None Intake, IV Amount: 0 Hydration: Adequate
[2024-12-22 17:08] LABS: POC Glucose,Bedside 173 (70-110)
--- NOTE | 2024-12-22 17:15 | P.PN_ITS ---
Subjective *Date: 12/22/24 *Time: 17:15 Interval history: Did well overnight. Improved coughing. No choking. Tolerating ice chips. Afebrile Medical Exam Vital signs and Labs for Last 24 Hours: Vital Signs Temp Pulse Pulse Resp BP BP Pulse Ox 12/22/24 15:17 98.0 F 83 17 108/58 L 99 12/22/24 15:13 20 12/22/24 15:12 98.0 F 84 17 100/43 L 99 12/22/24 15:07 98.1 F 85 18 96/45 L 99 12/22/24 15:02 98.0 F 89 17 84/45 L 99 12/22/24 14:54 97.8 F 85 17 100/50 L 99 12/22/24 14:15 97.8 F 82 17 108/43 L 99 12/22/24 14:00 97.8 F 84 17 98 12/22/24 13:00 97.7 F 79 17 94/46 L 98 12/22/24 12:00 97.7 F 74 17 107/64 L 99 12/22/24 12:00 80 12/22/24 11:45 97.7 F 82 17 100/40 L 100 12/22/24 11:30 97.5 F L 75 17 88/35 L 97 12/22/24 11:15 97.5 F L 83 17 84/37 L 100 12/22/24 11:10 97.5 F L 79 17 91/42 L 100 12/22/24 11:05 97.5 F L 75 18 92/35 L 99 12/22/24 11:00 97.6 F 67 18 95/38 L 100 12/22/24 10:55 97.6 F 82 18 85/34 L 92 L 12/22/24 10:01 131 H 20 106/75 L 98 12/22/24 09:00 113/54 L 12/22/24 08:01 138 H 23 112/58 L 96 12/22/24 08:00 12/22/24 08:00 130 H 12/22/24 07:00 12/22/24 06:00 127 H 14 104/50 L 99 12/22/24 05:00 128 H 13 111/47 L 100 12/22/24 04:00 129 H 22 93/47 L 99 12/22/24 04:00 129 H 12/22/24 03:00 12/22/24 02:00 116 H 18 91/43 L 96 12/22/24 01:00 12/22/24 00:30 133 H 18 112/55 L 99 12/22/24 00:00 98.6 F 12/22/24 00:00 131 H 16 102/60 L 99 12/22/24 00:00 130 H 12/21/24 23:31 72 18 96/59 L 98 12/21/24 23:00 131 H 16 93/47 L 100 12/21/24 22:35 133 H 16 97/48 L 96 12/21/24 22:31 117 H 17 105/34 L 98 12/21/24 22:00 96 H 15 104/56 L 100 12/21/24 22:00 104/56 L 12/21/24 21:35 125 H 14 95/70 L 98 12/21/24 21:30 129 H 15 99 12/21/24 21:30 95/70 L 12/21/24 21:24 99/49 L 12/21/24 21:24 122 H 18 98 12/21/24 21:00 124 H 22 97 12/21/24 21:00 85/50 L 12/21/24 21:00 12/21/24 20:55 108/50 L 12/21/24 20:55 128 H 29 H 98 12/21/24 20:51 83/36 L 12/21/24 20:51 80 22 100 12/21/24 20:35 110 H 22 108/50 L 100 12/21/24 20:31 80/33 L 12/21/24 20:31 116 H 17 100 12/21/24 20:30 113 H 21 100 12/21/24 20:00 12/21/24 20:00 98.1 F 80 22 92/49 L 100 12/21/24 19:35 112 H 24 107/55 L 97 12/21/24 19:01 99/53 L 12/21/24 19:01 122 H 25 H 95 12/21/24 19:00 137 H 26 H 92 L 12/21/24 18:45 95/52 L 12/21/24 18:45 136 H 28 H 99 12/21/24 18:43 12/21/24 18:35 136 H 18 107/46 L 92 L 12/21/24 18:30 101/46 L 12/21/24 18:30 136 H 27 H 83 L 12/21/24 18:28 136 H 28 H 85 L 12/21/24 18:28 105/54 L 12/21/24 18:25 86/49 L 12/21/24 18:25 137 H 26 H 86 L 12/21/24 18:08 91/49 L 12/21/24 18:08 134 H 22 96 12/21/24 18:05 132 H 22 91/49 L 96 12/21/24 18:01 91/37 L 12/21/24 18:01 125 H 22 96 12/21/24 18:00 124 H 26 H 94 L 12/21/24 17:35 100 H 21 97/51 L 94 L 12/21/24 17:32 97/51 L O2 Del Method O2 Flow Rate 12/22/24 15:17 12/22/24 15:13 12/22/24 15:12 12/22/24 15:07 12/22/24 15:02 12/22/24 14:54 12/22/24 14:15 12/22/24 14:00 12/22/24 13:00 12/22/24 12:00 12/22/24 12:00 12/22/24 11:45 12/22/24 11:30 12/22/24 11:15 12/22/24 11:10 12/22/24 11:05 12/22/24 11:00 12/22/24 10:55 12/22/24 10:01 12/22/24 09:00 12/22/24 08:01 Nasal Cannula 2 12/22/24 08:00 Nasal Cannula 2 12/22/24 08:00 12/22/24 07:00 Nasal Cannula 2 12/22/24 06:00 Nasal Cannula 2 12/22/24 05:00 Nasal Cannula 2 12/22/24 04:00 Nasal Cannula 2 12/22/24 04:00 12/22/24 03:00 Nasal Cannula 2 12/22/24 02:00 Nasal Cannula 2 12/22/24 01:00 Nasal Cannula 2 12/22/24 00:30 Nasal Cannula 2 12/22/24 00:00 12/22/24 00:00 Nasal Cannula 2 12/22/24 00:00 12/21/24 23:31 Nasal Cannula 2 12/21/24 23:00 Nasal Cannula 2 12/21/24 22:35 Nasal Cannula 2 12/21/24 22:31 Nasal Cannula 2 12/21/24 22:00 Nasal Cannula 2 12/21/24 22:00 12/21/24 21:35 Nasal Cannula 2 12/21/24 21:30 12/21/24 21:30 12/21/24 21:24 12/21/24 21:24 12/21/24 21:00 12/21/24 21:00 12/21/24 21:00 Nasal Cannula 2 12/21/24 20:55 12/21/24 20:55 12/21/24 20:51 12/21/24 20:51 12/21/24 20:35 Nasal Cannula 2 12/21/24 20:31 12/21/24 20:31 12/21/24 20:30 12/21/24 20:00 Nasal Cannula 2 12/21/24 20:00 Nasal Cannula 2 12/21/24 19:35 Nasal Cannula 2 12/21/24 19:01 12/21/24 19:01 12/21/24 19:00 12/21/24 18:45 12/21/24 18:45 12/21/24 18:43 Nasal Cannula 4 12/21/24 18:35 Nasal Cannula 4 12/21/24 18:30 12/21/24 18:30 12/21/24 18:28 12/21/24 18:28 12/21/24 18:25 12/21/24 18:25 12/21/24 18:08 12/21/24 18:08 12/21/24 18:05 Nasal Cannula 4 12/21/24 18:01 12/21/24 18:01 12/21/24 18:00 12/21/24 17:35 Nasal Cannula 4 12/21/24 17:32 Intake and Output 12/22/24 12/22/24 12/22/24 07:59 15:59 23:59 Intake Total 728.917 / 1355.917 627 / 1355.917 Output Total 400 / 400 Balance 728.917 / 955.917 227 / 955.917 Intake: Intake, Oral Amount 320 / 320 Intake, Tube Feeding Amount 290 / 290 Intake, Tube Irrigant Amount 400 / 400 Intake, Other Amount 257 / 257 Red Blood Cells Unit 257 / 257 [id number] Intake, Total IV Amount 38.917 / 88.917 50 / 88.917 Ceftriaxone 1 gm 1 gm In 0.9 % 50 / 50 Sodium Chloride 50 ml @ 100 mls /hr IV Q24H [facility] Rx#:[id number] Intake (Blood Product) Amt 0 / 0 Red Blood Cells Unit 0 / 0 [id number] Red Blood Cells Unit 0 / 0 [id number] Output: Output, Urine Amount 400 / 400 Other: Weight 80.286 kg Patient Weight 12/22/24 23:59 Weight 80.286 kg Laboratory Results - last 24 hr 12/19/24 15:04: Blood Type A Positive, Antibody Screen Negative, Crossmatch (AHG) See Detail 12/21/24 21:09: POC Glucose 174 H 12/22/24 06:02: POC Glucose 211 H 12/22/24 07:58: WBC 16.1 H D, RBC 2.31 L, Hgb 6.9 L, Hct 23.8 L, MCV 103.0 H, MCH 29.9, MCHC 29.0 L, RDW 20.0 H, Plt Count 250, MPV 12.3 H, Neut % (Auto) 90.8 H, Lymph % (Auto) 3.1 L, [place] % (Auto) 4.5, Eos % (Auto) 0.8, Baso % (Auto) 0.1, Neut # (Auto) 14.6 H, Lymph # (Auto) 0.5 L, [place] # (Auto) 0.7, Eos # (Auto) 0.1, Baso # (Auto) 0.0, Total Counted 100, Neutrophils % (Manual) 93 H, Lymphocytes % (Manual) 4 L, Monocytes % (Manual) 3, Platelet Estimate Normal, Macrocytosis 1+, Sodium 149 H, Potassium 3.5, Chloride 107, Carbon Dioxide 35 H, Anion Gap 10.5, BUN 53 H, Creatinine 1.70 H D, Estimated Creat Clear 48, Estimated GFR 40 L, Est GFR ( Amer) 48 L, Glucose 230 H, Calcium 8.7, Magnesium 2.2, Total Bilirubin 0.4, AST 41 D, ALT 29, Alkaline Phosphatase 47, Total Protein 6.0 L, Albumin 2.7 L, Globulin 3.3 H, Albumin/Globulin Ratio 0.8 L 12/22/24 11:59: POC Glucose 268 H 12/22/24 17:01: POC Glucose 173 H I & O for Labs for Last 24 Hours: Intake & Output 12/19/24 12/20/24 12/21/24 12/22/24 23:59 23:59 23:59 23:59 Intake Total 1070 / 1070 403.584 / 0709.428 9686.333 / 0303.983 5265.917 / 1355.917 Output Total 1550 / 1550 600 / 750 1250 / 1250 400 / 400 Balance -480 / -480 -196.416 / 771.584 384.333 / 624.333 955.917 / 955.917 Weight 87.543 kg 86.7 kg 87.1 kg 80.286 kg Constitutional: Present no acute distress, average body habitus, chronically ill appearing and cooperative Head: Present atraumatic and normocephalic Respiratory: Present crackles (Bases posterior lung barrientos bilaterally) and normal respiratory effort; Absent rhonchi or wheezes Cardiac: Present Tachycardia Comment:: Irregularly irregular GI: Present soft and normal bowel sounds; Absent distention or tenderness Comments:: G-tube in place. Well-healed midline scar Extremities: Present normal inspection and full ROM Skin: Present intact; Absent erythema Neuro: Present Grossly Intact, alert, awake, oriented x 3 and moves all extremities Assessment and Plan *Assessment and plan (1) Atrial fibrillation and flutter: Status: Acute Category: Medical Code(s): I48.91 - Unspecified atrial fibrillation; I48.92 - Unspecified atrial flutter (2) Aspiration pneumonia: Status: Acute Category: Medical Code(s): J69.0 - Pneumonitis due to inhalation of food and vomit (3) Esophageal adenocarcinoma: Status: Acute Category: Medical Code(s): C15.9 - Malignant neoplasm of esophagus, unspecified (4) Metastatic cancer: Status: Acute Category: Medical Code(s): C79.9 - Secondary malignant neoplasm of unspecified site (5) Dysphagia: Status: Acute Category: Medical Code(s): R13.10 - Dysphagia, unspecified (6) Diabetes mellitus: Status: Acute Qualifiers: Diabetes mellitus type: type 2 Diabetes mellitus fci insulin use: with oil heaterman use Diabetes mellitus complication status: with other specified complication Qualified Code(s): E11.69 - Type 2 diabetes mellitus with other specified complication; Z79.4 - custodial (current) use of insulin Category: Medical Code(s): E11.9 - Type 2 diabetes mellitus without complications (7) CAD (coronary artery disease): Status: Acute Qualifiers: Coronary Disease-Associated Artery/Lesion type: [place] artery [place] vs. transplanted heart: [place] heart Associated angina: without angina Qualified Code(s): I25.10 - Atherosclerotic heart disease of [place] coronary artery without angina pectoris Category: Medical Code(s): I25.10 - Atherosclerotic heart disease of [place] coronary artery without angina pectoris Plan Federico Flores is a 74-year-old male with a medical history significant for A-fib on Eliquis, esophageal cancer s/p G-tube placement, metastatic lung cancer in remission (right partial lobectomy), G-tube dependent for feeds, insulin- dependent diabetes, HFpEF, CAD who presents with worsening shortness of breath and fatigue over the past few days. He was recently discharged from [place] for a similar presentation of A-fib RVR where he apparently was cardioverted. It is unclear if it was successful, will obtain outside records. Patient states he has not been taking all his medications recently has he has been getting his feet underneath him after being discharged back home. Working the ED significant for A-fib with heart rate in the 140s, WBC 14.6, sodium 149, BNP 2210. ED contacted Dr. Walter who recommended IV diltiazem drip and plan for cardioversion in the morning. Case discussed with ED provider and decision was made to admit patient for A-fib RVR and HFpEF exacerbation. Heart rate still uncontrolled. Adding additional rate controlling regimen today. Cardiology, GI, pulmonology assisting with care. Continues to require inpatient management in the ICU pending improvement in tolerance of p.o. intake given risk for decompensation. Problems addressed as follows: #A-fib RVR #HFpEF exacerbation, resolved ? Initial BNP 2210, diffuse crackles in the lungs with edema on CXR, 2+ lower extremity pitting edema. ? continue toresemide 20mg BID, home med. Euvolemic today. ? Kidney function stable with BUN 53, creatinine 1.7. -Increase metoprolol to 50 mg twice daily. Continue amiodarone 40 mg 3 times a day. -Off diltiazem drip. ? ECHO September 2024 revealed normal biventricular function. Pending. - Holding anticoagulation due to drop in labs. #Aspiration pneumonia #Sepsis #Right-sided loculated pleural effusion ? Presented about 2 weeks ago with diffuse opacities in right lung, patient is G-tube dependent due to esophageal cancer and likely aspirating. ? Initial white count elevated at 14.6, white count 16 today. Hemoglobin 6.9. Necessitating transfusion. Typed and crossed for 2 units. Transfusion threshold hemoglobin less than 7. - Discussed case with pulmonology, Continue antibiotics for Enterobacter infection. Discussed case with IR, effusion too small to intervene on. No plan for thoracentesis. - cont duoNebs 4 times daily as needed - Aspiration precautions ? Sputum cultures revealed Enterobacter clocae, sensitive to ceftriaxone, continuing IV daily. #Acute on chronic anemia #History of GI bleed on Xarelto ? Initial hemoglobin 10.4, 6.9 today. Holding anticoagulation. Transfusing today as above. ? IV Protonix 40 mg twice daily. ? Follow-up FOBT, iron studies. #Esophageal carcinoma with obstruction #G-tube dependent #History of metastatic lung cancer apparently in remission ? Follows with [facility] oncology. Patient does not seem to have a good idea of what the treatment plan will be. ? Discussed case with GI, patient tolerated placement of palliative stent yesterday without difficulty. Repeat chest x-ray obtained today, stent appears to be in place. Advance to clear liquid diet. -Biopsy pending from fungating esophageal mass #Insulin-dependent diabetes ? LDSSI, ACHS glucose checks. Will glucose improving at 230. ? A1c 7.1%. ? continue Lantus 40 units nightly, with increase to 25 units in the morning. Adjust based on SSI needs #CAD: Continue home aspirin, statin. Full code Clear liquid diet; tube feeds
[2024-12-22 20:43] LABS: Hematocrit 29.4 % (42.0-52.0)
--- NOTE | 2024-12-22 20:43 | PC.NURSE ---
Patient arrived to floor via wheelchair from ICU unit at 19:04.
[2024-12-22 20:57] LABS: Hemoglobin 8.9 g/dL (14.1-18.0)
[2024-12-22] MEDS: ATORVASTATIN 40MG TABLET 40 MG NG-TUBE (21:29)
[2024-12-22] MEDS: INSULIN GLARGINE 100 UNITS/ML 3ML FLEXPEN 40 UNIT SUBCUT (21:29)
[2024-12-22] MEDS: TRAZODONE 50MG TABLET 50 MG PO (21:31)
[2024-12-22] MEDS: TAMSULOSIN 0.4MG CAPSULE 0.4 MG PO (21:31)
[2024-12-22 22:05] LABS: POC Glucose,Bedside 155 (70-110)
[2024-12-23] VITALS: BP 100/48; PULSE 90; PULSE 93; RESP 18; TEMP 36.3; O2SAT 94
--- NOTE | 2024-12-23 01:57 | PC.NURSE ---
Called hospitalist about pt HR sustaining at 125. He said he is ok with it at this time and to call back if it increases to the 130's.
[2024-12-23 04:00] VITALS: BP 99/45; PULSE 120; PULSE 127; RESP 16; TEMP 36.5; O2SAT 95; BMI 26.9
[2024-12-23 06:28] LABS: POC Glucose,Bedside 142 (70-110)
[2024-12-23 07:27] LABS: Albumin Level 2.5 g/dl (3.5-5.0); Chloride 103 mmol/L (98-107); Potassium 3.3 mmoL/L (3.5-5.1); Sodium 142 mmol/L (136-145)
[2024-12-23 07:30] LABS: Alanine Aminotransferase 27 U/L (12-78); Albumin/Globulin Ratio 0.7 (1.1-1.8); Alkaline Phosphatase 55 U/L (38-126); Anion Gap 9.3 mEq/L (5-15); Aspartate Amino Transferase 39 U/L (17-59); Basophils % 0.2 % (0.1-2.0); Bilirubin,Total 0.5 mg/dl (0.2-1.3); Blood Urea Nitrogen 55 mg/dl (9-20); Calcium 8.2 mg/dl (8.4-10.2); Carbon Dioxide 33 mmol/L (22.0-30.0); Creatinine Clearance Estimated 50 mL/min (50-200); Eosinophils # 0.2 K/mm3 (0.0-0.4); Eosinophils % 1.3 % (0.1-12.0); Estimated Glomerular Filt Rate 43 ml/min (>60); GFR (African American) 52 ML/MIN (>60); Globulin 3.4 g/dL (1.3-3.2); Glucose 125 mg/dl (74-100); Hematocrit 26.3 % (42.0-52.0); Hemoglobin 8.1 g/dL (14.1-18.0); Lymphocytes # 0.5 K/mm3 (0.7-4.5); Lymphocytes % 3.1 % (10-50); Magnesium 1.9 mg/dl (1.6-2.3); Mean Corpuscular HGB Conc 30.8 g/dL (31.8-35.4); Mean Corpuscular Hemoglobin 30.3 pg (27.0-31.2); Mean Corpuscular Volume 98.5 fl (80-94); Mean Platelet Volume 12.6 fl (7.4-10.4); Monocytes # 1.1 K/mm3 (0.1-1.0); Monocytes % 7.8 % (1.7-9.3); Neutrophils # 12.4 K/mm3 (1.8-7.8); Neutrophils % 86.5 % (37.0-80.0); Platelet Count 225 K/mm3 (142-424); Red Blood Count 2.67 M/mm3 (4.60-6.20); Red Cell Distribution Width 19.1 % (11.5-17.5); Total Protein,Serum 5.9 g/dl (6.3-8.2); White Blood Count 14.4 K/mm3 (4.8-10.8)
[2024-12-23 07:54] VITALS: BP 112/53; PULSE 120; RESP 22; TEMP 36.8; O2SAT 93
[2024-12-23 08:00] VITALS: PULSE 120
--- NOTE | 2024-12-23 08:03 | EXP.DC.SUM ---
General Admission date:: 12/15/24 Discharge date: 12/23/24 HPI HPI HPI: Mr. Flores is a 74-year-old male with a history of adenocarcinoma of the esophagus with metastasis. The patient also has had? Metastatic lung cancer with resection. He has had chest chemoradiation. The patient has had recurrences of aspiration pneumonia and this is felt to be related to his esophageal cancer. He does have an existing G-tube but continues to daily chew ice chips with sips. He has had his endoscopic evaluations in [facility]. He also has had a history of atrial fibrillation and was recently cardioverted at [facility] in [facility]. Hospital Course Hospital Course Hospital Course: Federico Flores is a 74-year-old male with a medical history significant for A-fib on Eliquis, esophageal cancer s/p G-tube placement, metastatic lung cancer in remission (right partial lobectomy), G-tube dependent for feeds, insulin-dependent diabetes, HFpEF, CAD who presents with worsening shortness of breath and fatigue over the past few days. He was recently discharged from [facility] for a similar presentation of A-fib RVR where he apparently was cardioverted. It is unclear if it was successful, will obtain outside records. Patient states he has not been taking all his medications recently has he has been getting his feet underneath him after being discharged back home. Working the ED significant for A-fib with heart rate in the 140s, WBC 14.6, sodium 149, BNP 2210. ED contacted Dr. Walter who recommended IV diltiazem drip and possible cardioversion. Given complexity, cardioversion was not pursued. Showed gradual improvement in rate control with metoprolol. Still having's mild tachycardia but asymptomatic. Found to have aspiration pneumonia and obstruction of esophagus. GI and pulmonology consulted and assisted with care. Esophageal stent placed. Continuing 14 days total of antibiotics for pneumonia. Stable discharge to rehab. Weaned to room air. Problems addressed as follows: #A-fib RVR #HFpEF exacerbation, resolved ? Initial BNP 2210, diffuse crackles in the lungs with edema on CXR, 2+ lower extremity pitting edema. Initiated on IV diuretics. Showed gradual improvement in volume status. Maintain euvolemic state. Resume torsemide 20 mg twice daily per home regimen. Kidney function improved to patient's baseline of BUN 55, creatinine 1.6. In light of his A-fib with RVR, metoprolol gradually increased to 100 mg of tartrate twice daily. Initiated on amiodarone. Loaded with 40 mg 3 times a day. Transition to 300 mg 3 times a day for 10 more days, decrease to 400 mg twice daily thereafter. ECHO September 2024 revealed normal biventricular function. No OAC due to esophageal mass/stricture and high risk of bleed. DC with 2 week monitor so we can continue to track his rate/rhythm from the office and adjust accordingly #Aspiration pneumonia #Sepsis #Right-sided loculated pleural effusion ? Presented about 2 weeks ago with diffuse opacities in right lung, patient is G-tube dependent due to esophageal cancer and likely aspirating. Initial white count elevated at 14.6, peaked at 16, showing improvement but stable at 14. Patient is afebrile and has been able to wean oxygen. Sputum culture growing Enterobacter. Pulmonology assisted with care. Has a small effusion that was not amenable to thoracentesis. Will plan for 14 days total of antibiotics, transitioned from ceftriaxone to cefdinir to complete course. Continue inhaler/nebulizer as needed 4 times a day. #Acute on chronic anemia #History of GI bleed on Xarelto ? Initial hemoglobin 10.4, dropped to 6.9 during admission. Was transfused 1 unit. Showed stability thereafter. Hemoglobin 8.1 on day of discharge. Continue Protonix per tube daily. Needs repeat labs in 1 week with CBC, CMP #Esophageal carcinoma with obstruction #G-tube dependent #History of metastatic lung cancer apparently in remission ? Follows with [facility] oncology. Patient does not seem to have a good idea of what the treatment plan will be. Discussed case with GI, patient would benefit from EGD and stent placement. Tolerated placement of palliative esophageal stent. Able to tolerate clear liquids. Would not advance diet further per mouth given risk for food particles getting stuck on stent or dislodging stent. Biopsy obtained from fungating esophageal mass that clinically appears to be consistent with persisting cancer. All treatments at this time would likely be palliative. Pending his response to skilled therapy, may be beneficial to transition to hospice in time if condition declines. Broached the subject with the patient and his family (brother) at bedside during admission. He is open to considering when the time comes. #Insulin-dependent diabetes ? A1c 7.1%. Required increasing doses of Lantus due to infection. Transition to 30 units twice daily. Monitor glucoses ACHS. May need further adjustment in the outpatient setting #CAD: Discontinued aspirin. Continue statin. Total time spent on discharge 38 minutes in counseling, documentation, chart review, and direct care with patient. Exam Data for Last 24 hours Vital signs and Labs for Last 24 Hours: Temp Pulse Resp BP Pulse Ox O2 Del Method O2 Flow Rate 98.2 F 120 H 22 112/53 L 93 L Room Air 2 12/23/24 07:54 12/23/24 07:54 12/23/24 07:54 12/23/24 07:54 12/23/24 07:54 12/23/24 07:54 12/23/24 07:00 Laboratory Results - last 24 hr 12/19/24 15:04: Blood Type A Positive, Antibody Screen Negative, Crossmatch (AHG) See Detail 12/22/24 07:58: WBC 16.1 H D, RBC 2.31 L, Hgb 6.9 L, Hct 23.8 L, MCV 103.0 H, MCH 29.9, MCHC 29.0 L, RDW 20.0 H, Plt Count 250, MPV 12.3 H, Neut % (Auto) 90.8 H, Lymph % (Auto) 3.1 L, [place] % (Auto) 4.5, Eos % (Auto) 0.8, Baso % (Auto) 0.1, Neut # (Auto) 14.6 H, Lymph # (Auto) 0.5 L, [place] # (Auto) 0.7, Eos # (Auto) 0.1, Baso # (Auto) 0.0, Total Counted 100, Neutrophils % (Manual) 93 H, Lymphocytes % (Manual) 4 L, Monocytes % (Manual) 3, Platelet Estimate Normal, Macrocytosis 1+, Sodium 149 H, Potassium 3.5, Chloride 107, Carbon Dioxide 35 H, Anion Gap 10.5, BUN 53 H, Creatinine 1.70 H D, Estimated Creat Clear 48, Estimated GFR 40 L, Est GFR ( Amer) 48 L, Glucose 230 H, Calcium 8.7, Magnesium 2.2, Total Bilirubin 0.4, AST 41 D, ALT 29, Alkaline Phosphatase 47, Total Protein 6.0 L, Albumin 2.7 L, Globulin 3.3 H, Albumin/Globulin Ratio 0.8 L 12/22/24 11:59: POC Glucose 268 H 12/22/24 17:01: POC Glucose 173 H 12/22/24 20:35: Hgb 8.9 L D, Hct 29.4 L 12/22/24 21:26: POC Glucose 155 H 12/23/24 06:14: POC Glucose 142 H 12/23/24 06:34: WBC 14.4 H, RBC 2.67 L, Hgb 8.1 L, Hct 26.3 L, MCV 98.5 H, MCH 30.3, MCHC 30.8 L, RDW 19.1 H, Plt Count 225, MPV 12.6 H, Neut % (Auto) 86.5 H, Lymph % (Auto) 3.1 L, [place] % (Auto) 7.8, Eos % (Auto) 1.3, Baso % (Auto) 0.2, Neut # (Auto) 12.4 H, Lymph # (Auto) 0.5 L, [place] # (Auto) 1.1 H, Eos # (Auto) 0.2, Baso # (Auto) 0.0, Sodium 142, Potassium 3.3 L, Chloride 103, Carbon Dioxide 33 H, Anion Gap 9.3, BUN 55 H, Creatinine 1.60 H, Estimated Creat Clear 50, Estimated GFR 43 L, Est GFR ( Amer) 52 L, Glucose 125 H D, Calcium 8.2 L, Magnesium 1.9 D, Total Bilirubin 0.5, AST 39, ALT 27, Alkaline Phosphatase 55, Total Protein 5.9 L, Albumin 2.5 L, Globulin 3.4 H, Albumin/Globulin Ratio 0.7 L I & O for Last 24 hours: Intake & Output 12/20/24 12/21/24 12/22/24 12/23/24 23:59 23:59 23:59 23:59 Intake Total 403.584 / 7972.386 5816.333 / 2735.112 1746.917 / 2555.917 150 / 150 Output Total 600 / 750 1250 / 1250 1625 / 1625 100 / 100 Balance -196.416 / 771.584 384.333 / 624.333 780.917 / 930.917 50 / 50 Weight 86.7 kg 87.1 kg 80.286 kg 85.502 kg Constitutional Constitutional: no acute distress, average body habitus, chronically ill appearing and cooperative *Routine HEENT Exam Head: Present normocephalic Eye: Present EOMI and PERRL ENT: Present mucous membranes moist *Routine Neck Exam Neck: Present supple; Absent lymphadenopathy *Routine Respiratory Exam Respiratory: Present CTA bilaterally; Absent respiratory distress, rhonchi, stridor, wheezes or crackles *Routine Cardiovascular Exam Cardiovascular: Present RRR *Routine Abdominal Exam Abdominal: Present soft and normoactive bowel sounds; Absent tenderness *Routine Rectal Exam Patient deferred: visual exam *Routine Exam Patient deferred: penile exam *Routine Extremities Exam Extremities: Absent cyanosis, clubbing or edema *Routine Skin Exam Skin: Present intact and warm; Absent rash *Routine Neurological Exam Neurological: Present alert, oriented X3 and moving all extremities; Absent altered mental status Results Data Completed and Pending Labs on day of discharge: Labs from last 24 hours 12/23/24 12/23/24 12/22/24 06:34 06:14 21:26 WBC 14.4 H RBC 2.67 L Hgb 8.1 L Hct 26.3 L MCV 98.5 H MCH 30.3 MCHC 30.8 L RDW 19.1 H Plt Count 225 MPV 12.6 H Neut % (Auto) 86.5 H Lymph % (Auto) 3.1 L [place] % (Auto) 7.8 Eos % (Auto) 1.3 Baso % (Auto) 0.2 Neut # (Auto) 12.4 H Lymph # (Auto) 0.5 L [place] # (Auto) 1.1 H Eos # (Auto) 0.2 Baso # (Auto) 0.0 Total Counted Neutrophils % (Manual) Lymphocytes % (Manual) Monocytes % (Manual) Platelet Estimate Macrocytosis Sodium 142 Potassium 3.3 L Chloride 103 Carbon Dioxide 33 H Anion Gap 9.3 BUN 55 H Creatinine 1.60 H Estimated Creat Clear 50 Estimated GFR 43 L Est GFR ( Amer) 52 L Glucose 125 H D POC Glucose 142 H 155 H Calcium 8.2 L Magnesium 1.9 D Total Bilirubin 0.5 AST 39 ALT 27 Alkaline Phosphatase 55 Total Protein 5.9 L Albumin 2.5 L Globulin 3.4 H Albumin/Globulin Ratio 0.7 L Blood Type Antibody Screen Crossmatch (AHG) 12/22/24 12/22/24 12/22/24 20:35 17:01 11:59 WBC RBC Hgb 8.9 L D Hct 29.4 L MCV MCH MCHC RDW Plt Count MPV Neut % (Auto) Lymph % (Auto) [place] % (Auto) Eos % (Auto) Baso % (Auto) Neut # (Auto) Lymph # (Auto) [place] # (Auto) Eos # (Auto) Baso # (Auto) Total Counted Neutrophils % (Manual) Lymphocytes % (Manual) Monocytes % (Manual) Platelet Estimate Macrocytosis Sodium Potassium Chloride Carbon Dioxide Anion Gap BUN Creatinine Estimated Creat Clear Estimated GFR Est GFR ( Amer) Glucose POC Glucose 173 H 268 H Calcium Magnesium Total Bilirubin AST ALT Alkaline Phosphatase Total Protein Albumin Globulin Albumin/Globulin Ratio Blood Type Antibody Screen Crossmatch ([facility]) 12/22/24 12/19/24 07:58 15:04 WBC 16.1 H D RBC 2.31 L Hgb 6.9 L Hct 23.8 L MCV 103.0 H MCH 29.9 MCHC 29.0 L RDW 20.0 H Plt Count 250 MPV 12.3 H Neut % (Auto) 90.8 H Lymph % (Auto) 3.1 L [place] % (Auto) 4.5 Eos % (Auto) 0.8 Baso % (Auto) 0.1 Neut # (Auto) 14.6 H Lymph # (Auto) 0.5 L [place] # (Auto) 0.7 Eos # (Auto) 0.1 Baso # (Auto) 0.0 Total Counted 100 Neutrophils % (Manual) 93 H Lymphocytes % (Manual) 4 L Monocytes % (Manual) 3 Platelet Estimate Normal Macrocytosis 1+ Sodium 149 H Potassium 3.5 Chloride 107 Carbon Dioxide 35 H Anion Gap 10.5 BUN 53 H Creatinine 1.70 H D Estimated Creat Clear 48 Estimated GFR 40 L Est GFR ( Amer) 48 L Glucose 230 H POC Glucose Calcium 8.7 Magnesium 2.2 Total Bilirubin 0.4 AST 41 D ALT 29 Alkaline Phosphatase 47 Total Protein 6.0 L Albumin 2.7 L Globulin 3.3 H Albumin/Globulin Ratio 0.8 L Blood Type A Positive Antibody Screen Negative Crossmatch ([facility]) See Detail DS: Diagnosis Discharge Diagnosis (1) Atrial fibrillation and flutter: Status: Acute Code(s): I48.91 - Unspecified atrial fibrillation; I48.92 - Unspecified atrial flutter (2) Aspiration pneumonia: Status: Acute Code(s): J69.0 - Pneumonitis due to inhalation of food and vomit (3) Esophageal adenocarcinoma: Status: Acute Code(s): C15.9 - Malignant neoplasm of esophagus, unspecified (4) Metastatic cancer: Status: Acute Code(s): C79.9 - Secondary malignant neoplasm of unspecified site (5) Dysphagia: Status: Acute Code(s): R13.10 - Dysphagia, unspecified (6) Diabetes mellitus: Status: Acute Code(s): E11.9 - Type 2 diabetes mellitus without complications Qualifiers: Diabetes mellitus complication status: with other specified complication Diabetes mellitus prison insulin use: with prison use Diabetes mellitus type: type 2 Qualified Code(s): E11.69 - Type 2 diabetes mellitus with other specified complication; Z79.4 - ferry terminal supervisor (current) use of insulin (7) CAD (coronary artery disease): Status: Acute Code(s): I25.10 - Atherosclerotic heart disease of [place] coronary artery without angina pectoris Qualifiers: Associated angina: without angina Coronary Disease-Associated Artery/Lesion type: [place] artery [place] vs. transplanted heart: [place] heart Qualified Code(s): I25.10 - Atherosclerotic heart disease of [place] coronary artery without angina pectoris Meds Home Medications and Allergies Home Medications ?Medication ?Instructions ?Recorded ?Confirmed ?Type insulin aspart U-100 100 unit/mL 110 unit continuous subcutaneous 03/11/22 12/16/24 History subcutaneous solution (Novolog infusion DAILY Diabetes U-100 Insulin aspart) sennosides 8.6 mg tablet (senna) 8.6 mg PO BID 03/11/22 12/16/24 History tamsulosin 0.4 mg capsule 0.4 mg PO DAILY urination 03/11/22 12/16/24 History torsemide 20 mg tablet 20 mg PO BID 10/07/22 12/16/24 History insulin degludec 100 unit/mL (3 0 unit SQ NEEDED PRN diabetes 12/15/24 12/16/24 History mL) subcutaneous pen (Tresiba FlexTouch U-100 insulin) albuterol sulfate 90 mcg/actuation 2 inh inhalation DAILY 30 days 12/23/24 Rx aerosol inhaler #8.5 grams amiodarone 200 mg tablet See Rx Instructions .Route 12/23/24 Rx .COMPLEX #120 tabs atorvastatin 40 mg tablet 40 mg NG HS 30 days #30 tabs 12/23/24 Rx cefdinir 300 mg capsule 300 mg PO BID 5 days #10 caps 12/23/24 Rx fluticasone propionate 50 2 spray intranasal BID Allergy 12/23/24 Rx mcg/actuation nasal symptoms 30 days #16 grams spray,suspension insulin glargine 100 unit/mL (3 30 unit (0.3 mL) SQ BID 30 days 12/23/24 Rx mL) subcutaneous pen (Lantus #18 mL Solostar U-100 Insulin) metoprolol tartrate 50 mg tablet 100 mg (2 x 50 mg) G-tube BID 30 12/23/24 Rx days #120 tabs pantoprazole 40 mg granules 40 mg G-tube DAILY #30 ea 12/23/24 Rx delayed-release for susp in packet (Protonix) trazodone 50 mg tablet 50 mg PO HS 30 days #30 tabs 12/23/24 Rx New Prescriptions to Start Prescriptions: albuterol sulfate Gerber,Ivan amiodarone Gerber,Ivan atorvastatin Gerber,Ivan cefdinir Gerber,Ivan fluticasone propionate Gerber,Ivan insulin glargine [Lantus Solostar U-100 Insulin] Gerber,Ivan metoprolol tartrate Gerber,Ivan pantoprazole [Protonix] Gerber,Ivan trazodone Ivan Mayes Allergies Allergy/AdvReac Type Severity Reaction Status Date / Time Iodinated Contrast Media AdvReac Mild Verified 09/26/24 13:22 Discharge Plan Disposition Patient Disposition: er SNF Condition: Fair Discharge Order Discharge Orders: Discharge Order (Routine); Ordered 12/23/24 Ordered By: Ivan Mayes Follow up Plan Follow up with: Phoeinx Rush II, MD [Staff Physician] - Enter time for follow up (office to call [place] with appointment) Ita Cheema MD [Physician] - 01/09/25 1:00 pm Tucker Obregon MD [Staff Physician] - 01/03/25 2:30 pm Prescriptions/Medication Reconciliation: New atorvastatin 40 mg Tablet 40 mg NG HS 30 Days Qty: 30 0RF amiodarone 200 mg Tablet See Rx Instructions .ROUTE .COMPLEX Qty: 120 0RF Rx Instructions: 300 mg 3 times a day for 10 days, then decrease to 400 mg twice daily thereafter insulin glargine [Lantus Solostar U-100 Insulin] 100 unit/mL (3 mL) Insulin Pen 30 unit SQ BID 30 Days Qty: 18 0RF metoprolol tartrate 50 mg Tablet 100 mg G-tube BID 30 Days Qty: 120 0RF pantoprazole [Protonix] [address] for susp in packet 40 mg G-tube DAILY Qty: 30 0RF cefdinir 300 mg capsule 300 mg PO BID 5 Days Qty: 10 0RF Continued tamsulosin 0.4 mg capsule 0.4 mg PO DAILY sennosides [senna] 8.6 mg tablet 8.6 mg PO BID Rx Instructions: Source: [facility] from 12/09/24 insulin aspart U-100 [Novolog U-100 Insulin aspart] 100 unit/mL solution 110 unit continuous subcutaneous infusion DAILY Rx Instructions: patient states has insulin pump and it feeds continously depending on BS levels - pt has on hold due to NPO for Heart Cath today Source: [facility] from 12/09/24 torsemide 20 mg tablet 20 mg PO BID Rx Instructions: Source: [facility] from 12/09/24 insulin degludec [Tresiba FlexTouch U-100] 100 unit/mL (3 mL) Insulin Pen 0 unit SQ NEEDED PRN (Reason: diabetes) Rx Instructions: use as directed in the event of pump failure Source: [facility] from 12/09/24 trazodone 50 mg tablet 50 mg PO HS 30 Days Qty: 30 0RF Rx Instructions: Source: [facility] from 12/09/24 albuterol sulfate 90 mcg/actuation HFA aerosol inhaler 2 inh inhalation DAILY 30 Days Qty: 8.5 0RF Rx Instructions: Source: [facility] from 12/09/24 fluticasone propionate 50 mcg/actuation spray,suspension 2 spray INTRANASAL BID 30 Days Qty: 16 0RF Rx Instructions: Source: [facility] from 12/09/24 Discontinued ascorbic acid (vitamin C) 500 mg tablet 500 mg PO DAILY Rx Instructions: Source: [facility] from 12/09/24 metoprolol succinate 100 mg tablet extended release 24 hr 100 mg PO DAILY Qty: 90 3RF Rx Instructions: Source: [facility] from 12/09/24 Eliquis 2.5 mg tablet 2.5 mg PO BID Qty: 60 5RF Rx Instructions: Source: [facility] from 12/09/24 losartan 50 mg tablet 50 mg PO DAILY Rx Instructions: Source: [facility] from 12/09/24 aspirin 81 mg Tablet 81 mg PO DAILY Rx Instructions: Source: [facility] from 12/09/24 simvastatin 20 mg tablet 20 mg PO HS Patient Comments: TAKE 1 TABLET BY MOUTH EVERY DAY AT NIGHT metoclopramide HCl 10 mg tablet 10 mg PO BID Patient Comments: TAKE 1 TABLET BY MOUTH 2 TIMES DAILY FOR 180 DAYS. Problem Reconciliation Problems Reviewed?: Yes Patient Discharge Instructions ACTIVITY: Continue current activity DIET: continue same diet and other Additional Instructions: Continue feeds for bulk of nutritional needs. Okay to have clear liquids only by mouth Patient Instructions: DI for Pneumonia -- Adult, DI for Atrial Fibrillation Print Language: [place] Providers Primary Care Provider: Donovan Clark Admit Provider: Tesfaye Low Attending Provider: Tesfaye Low
[2024-12-23] MEDS: INSULIN GLARGINE 100 UNITS/ML 3ML FLEXPEN 25 UNIT SUBCUT (08:44)
[2024-12-23] MEDS: METOCLOPRAMIDE 10MG TABLET 10 MG FEED TUBE (08:44)
[2024-12-23] MEDS: METOPROLOL TARTRATE 50MG TABLET 100 MG G-TUBE (08:44)
[2024-12-23] MEDS: SODIUM CHLORIDE 0.9% 10ML VIAL 10 ML IV (08:44)
[2024-12-23] MEDS: ASPIRIN 81MG CHEWABLE TABLET 81 MG FEED TUBE (08:44)
[2024-12-23] MEDS: AMIODARONE 200MG TABLET 400 MG NG-TUBE ×2 (08:44→12:53)
[2024-12-23] MEDS: PANTOPRAZOLE 40MG VIAL 40 MG IV (08:44)
[2024-12-23] MEDS: TORSEMIDE 20MG TABLET 20 MG PO (08:44)
[2024-12-23] MEDS: CEFTRIAXONE 1 GM 1 GM in 0.9 % SODIUM CHLORIDE 50 ML IV (08:45)
--- NOTE | 2024-12-23 09:30 | P.PN_ITS ---
Subjective Subjective Date: 12/23/24 Time: 09:00 Principal diagnosis: asp pna, a-fib RVR Interval history: Mild improvement in rate control - occasional 90s. Tolerating increased dose of Metoprolol. Exam Data for Last 24 hours Vital signs and Labs for Last 24 Hours: Temp Pulse Resp BP Pulse Ox O2 Del Method O2 Flow Rate 98.2 F 120 H 22 112/53 L 93 L Room Air 2 12/23/24 07:54 12/23/24 07:54 12/23/24 07:54 12/23/24 07:54 12/23/24 07:54 12/23/24 07:54 12/23/24 07:00 Laboratory Results - last 24 hr 12/19/24 15:04: Blood Type A Positive, Antibody Screen Negative, Crossmatch (G) See Detail 12/22/24 07:58: Total Counted 100, Neutrophils % (Manual) 93 H, Lymphocytes % (Manual) 4 L, Monocytes % (Manual) 3, Platelet Estimate Normal, Macrocytosis 1+ 12/22/24 11:59: POC Glucose 268 H 12/22/24 17:01: POC Glucose 173 H 12/22/24 20:35: Hgb 8.9 L D, Hct 29.4 L 12/22/24 21:26: POC Glucose 155 H 12/23/24 06:14: POC Glucose 142 H 12/23/24 06:34: WBC 14.4 H, RBC 2.67 L, Hgb 8.1 L, Hct 26.3 L, MCV 98.5 H, MCH 30.3, MCHC 30.8 L, RDW 19.1 H, Plt Count 225, MPV 12.6 H, Neut % (Auto) 86.5 H, Lymph % (Auto) 3.1 L, [place] % (Auto) 7.8, Eos % (Auto) 1.3, Baso % (Auto) 0.2, Neut # (Auto) 12.4 H, Lymph # (Auto) 0.5 L, [place] # (Auto) 1.1 H, Eos # (Auto) 0.2, Baso # (Auto) 0.0, Sodium 142, Potassium 3.3 L, Chloride 103, Carbon Dioxide 33 H, Anion Gap 9.3, BUN 55 H, Creatinine 1.60 H, Estimated Creat Clear 50, Estimated GFR 43 L, Est GFR ( Amer) 52 L, Glucose 125 H D, Calcium 8.2 L, Magnesium 1.9 D, Total Bilirubin 0.5, AST 39, ALT 27, Alkaline Phosphatase 55, Total Protein 5.9 L, Albumin 2.5 L, Globulin 3.4 H, Albumin/Globulin Ratio 0.7 L I & O for Last 24 hours: Intake & Output 12/20/24 12/21/24 12/22/24 12/23/24 23:59 23:59 23:59 23:59 Intake Total 403.584 / 9489.480 3870.333 / 6692.678 5466.917 / 2555.917 150 / 150 Output Total 600 / 750 1250 / 1250 1625 / 1625 100 / 100 Balance -196.416 / 771.584 384.333 / 624.333 780.917 / 930.917 50 / 50 Weight 191 lb 2.252 oz 192 lb 0.362 oz 177 lb 188 lb 8 oz Constitutional Constitutional: no acute distress and cooperative *Routine HEENT Exam Eye: Present PERRL *Routine Respiratory Exam Respiratory: Present CTA bilaterally; Absent accessory muscle use, wheezes or crackles *Routine Cardiovascular Exam Cardiovascular: Present tachycardia and irregularly irregular; Absent murmur, gallop or rubs *Routine Abdominal Exam Abdominal: Present soft; Absent tenderness Comments: g-tube in place *Routine Extremities Exam Extremities: Present pulses intact; Absent cyanosis or edema *Routine Skin Exam Skin: Present intact; Absent erythema or wounds *Routine Neurological Exam Neurological: Present alert and oriented X3 Routine Psychiatric Exam Psychiatric: Present cooperative Progress Note: A&P Assessment and plan (1) Atrial fibrillation and flutter: Status: Acute (2) Aspiration pneumonia: Status: Acute (3) Esophageal adenocarcinoma: Status: Acute (4) Metastatic cancer: Status: Acute (5) Dysphagia: Status: Acute (6) Diabetes mellitus: Status: Acute (7) CAD (coronary artery disease): Status: Acute (8) Aspiration pneumonia: Status: Acute (9) Pleural effusion on right: Status: Acute (10) Atrial flutter with rapid ventricular response: Status: Acute Assessment and Plan Assessment and Plan for All Diagnoses:: A-fib, RVR - known hx of A-fib, s/p successful DCCV 08/2024 - exacerbated in setting of Aspiration PNA, failed DCCV at [facility] - failing rate control here (limited by BP) - continue Metoprolol, DC Cardizem which has not seemed to help and add Amiodarone. He has normal LA size and is a good candidate for rhythm control given his multiple comorbidities and failure of rate control. Can consider DCCV again in 2 weeks after loading dose of Amio and recovery from PNA - Eliquis changed to Lovenox for now due to possible thoracentesis tomorrow. Hx of GI Bleed on Xarelto - ultimately as resp status improves this will help control his a-fib as well 12/20: Sustaining HR 130s. Add Cardizem drip. Continue Metoprolol at BP max tolerated dose. Continue Amiodarone load. 12/21: Was rate controlled with Cardizem drip overnight. Off this morning and now RVR again. ASked nurse to resume. He is not a candidate for DCCV - he would required DAVE due to inconsistent OAC lately and he would be very high risk for DAVE with large fungating esophageal mass and frequent aspirations. Furthermore, DCCV would increase indication for OAC and he currently has Hgb of 7 with hx of GI bleeding and hemoccult pending, not to mention the large esophageal mass which carries an extremely high risk of rupture and bleeding. 12/22: HR remains 130s on max cardizem IV. Oral Metoprolol increased to this morning although he has not had first dose yet. Will see how he responds to this. Cardizem seems to make no difference. May consider digoxin but in addition to amiodarone and metoprolol would place him at increased risk for arrhythmia and dangerous sinus pause. 12/23: Rate control improving. BP stable. Pt asymptomatic Heart failure with preserved EF exacerbation - EF 40% 02/2024, repeat Echo here shows a normal LV systolic function with no significant valvular stenosis or regurg noted - Continue torsemide 20 mg p.o. twice daily for vol management. He has worsening effusion - thoracentesis pending. - consider SGLT-2 after acute illness resolves - no ARNI/MRA due to hypotension 12/20: Appears euvolemic. No change today. 12/21: No change/resolved Hx of nonobstructive CAD - negative trop, denies angina - continue aspirin, statin, bb Community-acquired pneumonia versus aspiration pneumonia Sepsis - Defer to primary service and pulmonology Hx of Lung Cancer and Esophageal cancer - s/p RML lobectomy - s/p G Tube placement for all food and meds - large fungating mass in esophagus - s/p esophageal dilation/stent this admission *CV stable on current medical therapy. He is asymptomatic with mild RVR up to 130s. He is not a candidate for additional antiarrhythmics or ablation at this time. Will sign off, please advise if we can be of further help this admission, otherwise pt needs f/u with us 1-2 weeks post discharge. CV DC Meds: *No OAC due to esophageal mass/stricture and high risk of bleed Metoprolol 100mg BID Amiodarone 300mg TID for total of 10 days then reduce to 400mg BID DC with 2 week monitor so we can continue to track his rate/rhythm from the office and adjust accordingly Torsemide 20mg BID PRN edema
--- NOTE | 2024-12-23 09:35 | P.PN_ITS ---
Subjective *Date: 12/23/24 *Time: 12:25 Interval history: No acute respiratory vents overnight. Patient denies any new respiratory complaints. Pulmonology Exam Inpatient Vital signs and Labs for Last 24 Hours: Temp Pulse Resp BP Pulse Ox O2 Del Method O2 Flow Rate 98.2 F 120 H 22 112/53 L 93 L Room Air 2 12/23/24 07:54 12/23/24 07:54 12/23/24 07:54 12/23/24 07:54 12/23/24 07:54 12/23/24 07:54 12/23/24 07:00 Laboratory Results - last 24 hr 12/19/24 15:04: Blood Type A Positive, Antibody Screen Negative, Crossmatch (AHG) See Detail 12/22/24 07:58: Total Counted 100, Neutrophils % (Manual) 93 H, Lymphocytes % (Manual) 4 L, Monocytes % (Manual) 3, Platelet Estimate Normal, Macrocytosis 1+ 12/22/24 11:59: POC Glucose 268 H 12/22/24 17:01: POC Glucose 173 H 12/22/24 20:35: Hgb 8.9 L D, Hct 29.4 L 12/22/24 21:26: POC Glucose 155 H 12/23/24 06:14: POC Glucose 142 H 12/23/24 06:34: WBC 14.4 H, RBC 2.67 L, Hgb 8.1 L, Hct 26.3 L, MCV 98.5 H, MCH 30.3, MCHC 30.8 L, RDW 19.1 H, Plt Count 225, MPV 12.6 H, Neut % (Auto) 86.5 H, Lymph % (Auto) 3.1 L, [place] % (Auto) 7.8, Eos % (Auto) 1.3, Baso % (Auto) 0.2, Neut # (Auto) 12.4 H, Lymph # (Auto) 0.5 L, [place] # (Auto) 1.1 H, Eos # (Auto) 0.2, Baso # (Auto) 0.0, Sodium 142, Potassium 3.3 L, Chloride 103, Carbon Dioxide 33 H, Anion Gap 9.3, BUN 55 H, Creatinine 1.60 H, Estimated Creat Clear 50, Estimated GFR 43 L, Est GFR ( Amer) 52 L, Glucose 125 H D, Calcium 8.2 L, Magnesium 1.9 D, Total Bilirubin 0.5, AST 39, ALT 27, Alkaline Phosphatase 55, Total Protein 5.9 L, Albumin 2.5 L, Globulin 3.4 H, Albumin/Globulin Ratio 0.7 L Temp Pulse Resp BP Pulse Ox O2 Del Method O2 Flow Rate 97.6 F 97 H 18 117/61 97 Nasal Cannula 2 12/19/24 08:00 12/19/24 08:00 12/19/24 08:00 12/19/24 08:00 12/19/24 08:00 12/19/24 08:00 12/19/24 08:00 Laboratory Results - last 24 hr 12/18/24 09:30: WBC 9.0, RBC 2.98 L, Hgb 8.7 L, Hct 30.4 L, MCV 102.0 H, MCH 29.2, MCHC 28.6 L, RDW 17.6 H, Plt Count 268, MPV 12.7 H, Neut % (Auto) 88.1 H, Lymph % (Auto) 3.0 L, [place] % (Auto) 6.7, Eos % (Auto) 1.0, Baso % (Auto) 0.4, Neut # (Auto) 7.9 H, Lymph # (Auto) 0.3 L, [place] # (Auto) 0.6, Eos # (Auto) 0.1, Baso # (Auto) 0.0, Sodium 140, Potassium 4.2, Chloride 104, Carbon Dioxide 28, Anion Gap 12.2, BUN 54 H, Creatinine 1.50 H, Estimated Creat Clear 54, Estimated GFR 46 L, Est GFR ( Amer) 56 L, Glucose 307 H, Calcium 8.7, Magnesium 2.0 D, Total Bilirubin 0.6, AST 49 D, ALT 28, Alkaline Phosphatase 61, Total Protein 6.8, Albumin 3.0 L, Globulin 3.8 H, Albumin/Globulin Ratio 0.8 L 12/18/24 11:05: POC Glucose 412 H* 12/18/24 16:56: POC Glucose 303 H* 12/18/24 20:06: POC Glucose 345 H* 12/19/24 05:59: POC Glucose 244 H 12/19/24 07:50: WBC 10.1, RBC 2.69 L, Hgb 8.0 L, Hct 27.4 L, MCV 101.9 H, MCH 29.7, MCHC 29.2 L, RDW 17.9 H, Plt Count 269, MPV 12.2 H, Neut % (Auto) 87.9 H, Lymph % (Auto) 3.5 L, [place] % (Auto) 6.5, Eos % (Auto) 0.9, Baso % (Auto) 0.2, Neut # (Auto) 8.9 H, Lymph # (Auto) 0.4 L, [place] # (Auto) 0.7, Eos # (Auto) 0.1, Baso # (Auto) 0.0, Sodium 144, Potassium 3.8, Chloride 105, Carbon Dioxide 34 H, Anion Gap 8.8, BUN 44 H, Creatinine 1.30 H, Estimated Creat Clear 64, Estimated GFR 54 L, Est GFR ( Amer) 66, Glucose 272 H, Calcium 8.8, Magnesium 2.0, Total Bilirubin 0.4, AST 53, ALT 35, Alkaline Phosphatase 57, Total Protein 6.5, Albumin 2.8 L, Globulin 3.7 H, Albumin/Globulin Ratio 0.8 L I & O for Labs for Last 24 Hours: Intake & Output 12/20/24 12/21/24 12/22/24 12/23/24 23:59 23:59 23:59 23:59 Intake Total 403.584 / 2740.392 9326.333 / 8831.404 4771.917 / 2555.917 150 / 150 Output Total 600 / 750 1250 / 1250 1625 / 1625 300 / 300 Balance -196.416 / 771.584 384.333 / 624.333 780.917 / 930.917 -150 / -150 Weight 191 lb 2.252 oz 192 lb 0.362 oz 177 lb 188 lb 8 oz Intake & Output 12/16/24 12/17/24 12/18/24 12/19/24 23:59 23:59 23:59 23:59 Intake Total 1440.750 / 8993.797 4529 / 3222 1974 0 / 0 Output Total 1425 / 1425 1974 701 / 1101 750 / 750 Balance 15.750 / 15.750 947 / 1247 1274 / 874 -750 / -750 Weight 193 lb 12.581 oz 195 lb 190 lb 193 lb Microbiology Reports for the Last 24 Hours: Microbiology 12/15/24 23:47 Sputum - Expectorated Sputum Gram Stain - Final 12/15/24 23:47 Sputum - Expectorated Sputum Sputum Culture - Final Enterobacter cloacae Constitutional: Present mild distress Head: Present normocephalic and atraumatic ENT: Present normal exam, normal oropharynx and mucous membranes moist Neck: Present normal inspection and full ROM Respiratory: Present respiratory distress, rhonchi, normal respiratory effort and able to speak in complete sentences; Absent wheezes, crackles or diminished air movement Cardiac: Present S1/S2, Tachycardia and radial pulses present GI: Present soft and distention; Absent tenderness or guarding Skin: Present intact; Absent cyanosis or jaundice Neuro: Absent alert, awake or oriented x 3 Extremities: Present normal inspection; Absent clubbing or cyanosis Psychiatric: Present normal affect and cooperative Assessment and Plan *Assessment and plan (1) Aspiration pneumonia: Status: Acute Qualifiers: Laterality: bilateral Category: Medical Code(s): J69.0 - Pneumonitis due to inhalation of food and vomit (2) Pleural effusion on right: Status: Acute Category: Medical Code(s): J90 - Pleural effusion, not elsewhere classified Plan Mr. Flores is a 74-year-old male with reported history of atrial fibrillation on anticoagulation, metastatic lung cancer status postresection, presented to the ER with worsening respiratory distress, being managed for A-fib RVR, heart failure exacerbation and community-acquired /aspiration pneumonia receiving Zosyn since admission on 12/15/2024, sputum cultures positive for Enterobacter, antibiotics weaned to ceftriaxone found to have new right pleural effusion and pulmonary was called for further evaluation and management. Greater than [id number] smoking history per last pulm note on 2009. Not using any oxygen at baseline. Using inhalers on as-needed basis at baseline. History of lung cancer status post resection around 2020. Prominent right lung infiltrates improving from admission and from x-ray on 12/02/2024 Patient chest x-ray is also concerning for right hilar fullness and paratracheal fullness. CT chest from 2021 showed large right loculated pleural effusion. Hemodynamically stable. Improving leukocytosis. T chest reviewed, predominant right lower lobe airspace disease. Minimal infiltrates also noted in the right middle lobe and left lingula very small loculated pleural effusion. Recommend radiology consult for possible IR guided pigtail catheter placement. CT abdomen also concerning for mass likely lesion at GE junction and adrenal nodule. Interval update: Evaluated by IR, not amendable for chest tube placement for the noted right loculated pleural effusion. On room air saturating 90% on Plan: Continue antibiotics current antibiotic course for the noted Enterobacter pneumonia. Will complete a total of 14-day course DuoNebs 4 times daily as needed Aspiration precautions
[2024-12-23 11:05] LABS: POC Glucose,Bedside 182 (70-110)
[2024-12-23] MEDS: humaLOG 100 UNITS/ML 10ML VIAL (SSI) SUBCUT (11:57)
[2024-12-23 12:00] VITALS: BP 111/56; PULSE 80; PULSE 88; RESP 22; TEMP 36.6; O2SAT 93
--- NOTE | 2024-12-23 13:21 | PC.NURSE ---
Attempted to call report to nurse at [facility]. Was told the nurse is busy and to call back on 20 mins
== END 2024-12-23 15:17 | DRG 308 ==
LOC: ER 13:33 → ICU 14:35 → 2ND 12-22 17:21
PROVIDERS: Internal Medicine Adolescent Medicine; Internal Medicine Gastroenterology; Physician Assistant; Admitting Provider Student in an Organized Health Care Education/Training Program; Emergency Provider Student in an Organized Health Care Education/Training Program; PCP Pediatrics; Visit Provider Student in an Organized Health Care Education/Training Program
PROC: 0DJ08ZZ Inspection of Upper Intestinal Tract, Via Natural or Artificial Opening Endoscopic (ICD-10-PCS; principal; 2024-12-21 07:30)
PROC: 0DB48ZX Excision of Esophagogastric Junction, Via Natural or Artificial Opening Endoscopic, Diagnostic (ICD-10-PCS; principal; 2024-12-21 14:30)
DX: I48.91 Unspecified atrial fibrillation (principal); I50.33 Acute on chronic diastolic (congestive) heart failure; J69.0 Pneumonitis due to inhalation of food and vomit; C15.5 Malignant neoplasm of lower third of esophagus; C79.9 Secondary malignant neoplasm of unspecified site; E11.9 Type 2 diabetes mellitus without complications; I25.10 Atherosclerotic heart disease of native coronary artery without angina pectoris; Z90.2 Acquired absence of lung [part of]; Z79.4 Long term (current) use of insulin; Z93.1 Gastrostomy status; K22.2 Esophageal obstruction; Z79.01 Long term (current) use of anticoagulants; I11.0 Hypertensive heart disease with heart failure
CPT/HCPCS: 36415; 36430; 71045; 71250; 74176; 76000; 80053; 82607; 82728; 82746; 82803; 82962; 83036; 83540; 83550; 83605; 83735; 83880; 84100; 84436; 84443; 84479; 84484; 85007; 85014; 85018; 85025; 85378; 86803; 86850; 87040; 87070; 87077; 87081; 87186; 87205; 87389; 87631; 87633; 93005; 93270; 93306; 94761; 97110; 97116; 97163; 97166; 97530; 99291; C1769; C1874; J0330; J0696; J1160; J1650; J1920; J1940; J2543; J3372; J3475; J7030; J7120; P9016